=== PATIENT | male | born 1950 | race Caucasian/White ===

== ENCOUNTER 2016-07-01 12:58 | Outpatient (CLI) | payer MEDICARE, OTHER | END 2016-07-01 12:59 | disposition home or self-care (01) | DX: I10 Essential (primary) hypertension (principal); Z79.899 Other long term (current) drug therapy; Z12.5 Encounter for screening for malignant neoplasm of prostate; R73.9 Hyperglycemia, unspecified; E78.2 Mixed hyperlipidemia; M10.9 Gout, unspecified; E53.8 Deficiency of other specified B group vitamins | CPT/HCPCS: 36415; 80053; 80061; 82306; 82607; 83036; 84443; 84550; 85025; G0103 ==

== ENCOUNTER 2017-01-06 09:45 | Outpatient (CLI) | payer MEDICARE, OTHER ==
[2017-01-06 13:59] LABS: ALBUMIN/GLOBULIN RATIO 1.4 (1.0-2.2); BILIRUBIN,TOTAL 0.6 mg/dL (0.2-1.0); BUN - BLOOD UREA NITROGEN 22 mg/dL (6-20); CALCIUM 9.2 mg/dL (8.5-10.3); CARBON DIOXIDE - CO2 26 mmol/L (21-32); CHLORIDE 107 mmol/L (101-111); CHOL/HDL RATIO 3.5 (<5.0); CHOLESTEROL 196 mg/dL; GFR - MDRD 74 (>89); GLUCOSE 105 mg/dL (70-100); HDL CHOLESTEROL 56 mg/dL; LDL/HDL RATIO 2.1 (<3.6); POTASSIUM 4.3 mmol/L (3.5-5.0); SODIUM 140 mmol/L (135-145); TOTAL PROTEIN 6.6 g/dL (6.7-8.2); TRIGLYCERIDES 114 mg/dL; VLDL CHOLESTEROL 23 mg/dL
== END 2017-01-06 09:46 | disposition home or self-care (01) ==
LOC: LAB.WCP 09:45
PROVIDERS: ATTEND Physician Assistant Medical
DX: E78.2 Mixed hyperlipidemia (principal)
CPT/HCPCS: 36415; 80053; 80061

== ENCOUNTER 2017-06-18 09:30 | Outpatient (CLI) | payer MEDICARE, OTHER ==
[2017-06-18 13:11] LABS: BASOPHILS % (AUTO) 0.1 %; HGB - HEMOGLOBIN 14.1 g/dL (14.0-18.0); LYMPHOCYTES # (AUTO) 0.8 10^3/uL (1.5-3.5); LYMPHOCYTES % (AUTO) 5.5 %; MEAN CORPUSCULAR HEMOGLOBIN 31.4 pg (27.0-31.0); MEAN CORPUSCULAR HGB CONC 33.5 g/dL (32.0-36.0); MEAN CORPUSCULAR VOLUME 93.6 fL (80.0-94.0); MEAN PLATELET VOLUME 7.8 fL (7.4-11.4); MONOCYTES # (AUTO) 0.6 10^3/uL (0.0-1.0); NEUTROPHILS % (AUTO) 90.4 %; PLT - PLATELET COUNT 293 10^3/uL (130-450); RED BLOOD COUNT 4.48 10^6/uL (4.70-6.10); RED CELL DISTRIBUTION WIDTH 13.7 % (12.0-15.0); WHITE BLOOD COUNT 14.4 x10^3/uL (4.8-10.8)
[2017-06-18 13:41] LABS: ALBUMIN 4.1 g/dL (3.2-5.5); ALBUMIN/GLOBULIN RATIO 1.4 (1.0-2.2); ALKALINE PHOSPHATASE 68 IU/L (42-121); ALT ALANINE AMINOTRANSFERASE 38 IU/L (10-60); AST ASPARTATE AMINOTRANSFERASE 34 IU/L (10-42); BILIRUBIN,TOTAL 0.3 mg/dL (0.2-1.0); BUN - BLOOD UREA NITROGEN 24 mg/dL (6-20); CALCIUM 9.4 mg/dL (8.5-10.3); CARBON DIOXIDE - CO2 22 mmol/L (21-32); CHLORIDE 105 mmol/L (101-111); CHOL/HDL RATIO 3.4 (<5.0); CHOLESTEROL 236 mg/dL; CREATININE 1.1 mg/dL (0.6-1.2); GFR - MDRD 67 (>89); GLUCOSE 134 mg/dL (70-100); HDL CHOLESTEROL 70 mg/dL; LDL CHOLESTEROL,CALCULATED 148 mg/dL; LDL/HDL RATIO 2.1 (<3.6); SODIUM 136 mmol/L (135-145); TOTAL PROTEIN 7.1 g/dL (6.7-8.2); VLDL CHOLESTEROL 18 mg/dL
[2017-06-19 18:19] LABS: HB2 TOTAL 15.4 g/dL; HEMOGLOBIN A1C 0.59 g/dL; HEMOGLOBIN A1C % 5.7 % (4.6-6.2)
== END 2017-06-18 09:31 | disposition home or self-care (01) ==
LOC: LAB.WCP 09:30
PROVIDERS: ATTEND Physician Assistant Medical
DX: I10 Essential (primary) hypertension (principal); Z12.5 Encounter for screening for malignant neoplasm of prostate; R73.9 Hyperglycemia, unspecified; E53.8 Deficiency of other specified B group vitamins; M10.9 Gout, unspecified
CPT/HCPCS: 36415; 80053; 80061; 82607; 83036; 84550; 85025; G0103; 83721; 84153

== ENCOUNTER 2017-07-10 08:00 | Outpatient (CLI) | payer MEDICARE, OTHER ==
[2017-07-10 13:42] LABS: BASOPHILS % (AUTO) 0.8 %; EOSINOPHILS # (AUTO) 0.1 10^3/uL (0.0-0.7); EOSINOPHILS % (AUTO) 3.3 %; HGB - HEMOGLOBIN 14.1 g/dL (14.0-18.0); LYMPHOCYTES # (AUTO) 1.1 10^3/uL (1.5-3.5); LYMPHOCYTES % (AUTO) 27.1 %; MEAN CORPUSCULAR HEMOGLOBIN 31.9 pg (27.0-31.0); MEAN CORPUSCULAR HGB CONC 34.1 g/dL (32.0-36.0); MEAN CORPUSCULAR VOLUME 93.4 fL (80.0-94.0); MEAN PLATELET VOLUME 7.7 fL (7.4-11.4); MONOCYTES # (AUTO) 0.3 10^3/uL (0.0-1.0); MONOCYTES % (AUTO) 7.4 %; NEUTROPHILS # (AUTO) 2.6 10^3/uL (1.5-6.6); NEUTROPHILS % (AUTO) 61.4 %; PLT - PLATELET COUNT 245 10^3/uL (130-450); RED BLOOD COUNT 4.42 10^6/uL (4.70-6.10); RED CELL DISTRIBUTION WIDTH 13.7 % (12.0-15.0); WHITE BLOOD COUNT 4.2 x10^3/uL (4.8-10.8)
[2017-07-11 14:52] LABS: HEPATITIS C ANTIBODY NON-REACTIVE (NON-REACTIVE)
== END 2017-07-10 08:01 | disposition home or self-care (01) ==
LOC: LAB.WCP 08:00
PROVIDERS: ATTEND Physician Assistant Medical
DX: J45.909 Unspecified asthma, uncomplicated (principal); B19.20 Unspecified viral hepatitis C without hepatic coma; B17.8 Other specified acute viral hepatitis
CPT/HCPCS: 36415; 85025; 86803

== ENCOUNTER 2017-11-28 13:27 | Outpatient (CLI) | payer MEDICARE, OTHER ==
--- NOTE | 2017-11-29 13:55 | Ultrasound Report ---
Procedure Date: 11/28/2017 Accession Number: [id number] / [id number] Procedure: US - Ankle Brachial Index CPT Code: FULL RESULT: EXAM: BILATERAL LOWER EXTREMITY ANKLE BRACHIAL INDEX. EXAM DATE: 11/28/2017 02:30 PM. CLINICAL HISTORY: Claudication bilateral. COMPARISON: None. TECHNIQUE: Real-time sonographic vascular imaging was performed by the porcelain mixer, utilizing color-flow, Doppler flow, and spectral analysis. Multiple marketing sales representative static images were saved for review. FINDINGS: Right Leg: METAL CNC OPERATOR: PSV 92 cm/sec. Triphasic waveform. DPA: PSV 112 cm/sec. Triphasic waveform. Left Leg: METAL CNC OPERATOR: PSV 129 cm/sec. Triphasic waveform. DPA: PSV 103 cm/sec. Triphasic waveform. Brachial Artery Systolic Pressure: Right 135/83. Left 147/76. Posterior tibial Artery Systolic Pressure: Right 151/74. Left 164/78. Ankle/Arm Index: Right 1.02. Left 1.11. IMPRESSION: Normal bilateral ankle brachial index. RADIA
== END 2017-11-28 13:28 | disposition home or self-care (01) ==
LOC: DI 13:27
PROVIDERS: ATTEND Family Medicine
DX: I73.9 Peripheral vascular disease, unspecified (principal)
CPT/HCPCS: 93922

== ENCOUNTER 2018-01-14 08:00 | Outpatient (CLI) | payer MEDICARE, OTHER ==
[2018-01-14 13:02] LABS: ALBUMIN 3.7 g/dL (3.2-5.5); ALBUMIN/GLOBULIN RATIO 1.3 (1.0-2.2); ALKALINE PHOSPHATASE 77 IU/L (42-121); ALT ALANINE AMINOTRANSFERASE 23 IU/L (10-60); AST ASPARTATE AMINOTRANSFERASE 23 IU/L (10-42); BILIRUBIN,TOTAL 0.5 mg/dL (0.2-1.0); BUN - BLOOD UREA NITROGEN 28 mg/dL (6-20); CARBON DIOXIDE - CO2 24 mmol/L (21-32); CHLORIDE 112 mmol/L (101-111); CHOL/HDL RATIO 5.1 (<5.0); CHOLESTEROL 270 mg/dL; GFR - MDRD 74 (>89); GLUCOSE 104 mg/dL (70-100); HDL CHOLESTEROL 53 mg/dL; LDL CHOLESTEROL,CALCULATED 200 mg/dL; LDL/HDL RATIO 3.8 (<3.6); MAGNESIUM 1.7 mg/dL (1.7-2.8); SODIUM 141 mmol/L (135-145); TOTAL PROTEIN 6.5 g/dL (6.7-8.2); VLDL CHOLESTEROL 17 mg/dL
[2018-01-14 13:03] LABS: HB2 TOTAL 13.6 g/dL; HEMOGLOBIN A1C 0.46 g/dL; HEMOGLOBIN A1C % 5.2 % (4.6-6.2)
== END 2018-01-14 08:01 | disposition home or self-care (01) ==
LOC: LAB.WCP 08:00
PROVIDERS: ATTEND Physician Assistant Medical
DX: E78.2 Mixed hyperlipidemia (principal); R73.9 Hyperglycemia, unspecified; I10 Essential (primary) hypertension
CPT/HCPCS: 36415; 80053; 80061; 83036; 83721; 83735

== ENCOUNTER 2018-05-11 08:00 | Outpatient (CLI) | payer MEDICARE, OTHER ==
[2018-05-11 15:13] LABS: ALBUMIN 3.9 g/dL (3.2-5.5); ALBUMIN/GLOBULIN RATIO 1.4 (1.0-2.2); ALKALINE PHOSPHATASE 87 IU/L (42-121); ALT ALANINE AMINOTRANSFERASE 27 IU/L (10-60); AST ASPARTATE AMINOTRANSFERASE 25 IU/L (10-42); BILIRUBIN,TOTAL 0.8 mg/dL (0.2-1.0); BUN - BLOOD UREA NITROGEN 22 mg/dL (6-20); CALCIUM 9.1 mg/dL (8.5-10.3); CARBON DIOXIDE - CO2 27 mmol/L (21-32); CHLORIDE 104 mmol/L (101-111); CHOL/HDL RATIO 3.5 (<5.0); CHOLESTEROL 199 mg/dL; CREATININE 1.1 mg/dL (0.6-1.2); GFR - MDRD 66 (>89); GLUCOSE 100 mg/dL (70-100); HDL CHOLESTEROL 57 mg/dL; LDL CHOLESTEROL,CALCULATED 121 mg/dL; LDL/HDL RATIO 2.1 (<3.6); SODIUM 137 mmol/L (135-145); TOTAL PROTEIN 6.6 g/dL (6.7-8.2); VLDL CHOLESTEROL 21 mg/dL
== END 2018-05-11 23:59 | disposition home or self-care (01) ==
LOC: LAB.WCP 08:00
PROVIDERS: ATTEND Physician Assistant Medical
DX: E78.2 Mixed hyperlipidemia (principal)
CPT/HCPCS: 36415; 80053; 80061; 83721

== ENCOUNTER 2018-11-27 08:00 | Outpatient (CLI) | payer MEDICARE, OTHER | END 2018-11-27 08:01 | disposition home or self-care (01) | LOC: LAB.WCP 08:00 | PROVIDERS: ATTEND Physician Assistant Medical | DX: N28.89 Other specified disorders of kidney and ureter (principal) | CPT/HCPCS: 81002 ==

== ENCOUNTER 2018-12-17 08:00 | Outpatient (CLI) | payer MEDICARE, OTHER ==
[2018-12-17 12:25] LABS: BASOPHILS # (AUTO) 0.1 10^3/uL (0.0-0.1); BASOPHILS % (AUTO) 0.9 %; EOSINOPHILS # (AUTO) 0.1 10^3/uL (0.0-0.7); EOSINOPHILS % (AUTO) 2.7 %; HGB - HEMOGLOBIN 11.7 g/dL (14.0-18.0); LYMPHOCYTES # (AUTO) 1.1 10^3/uL (1.5-3.5); LYMPHOCYTES % (AUTO) 19.9 %; MEAN CORPUSCULAR HEMOGLOBIN 30.7 pg (27.0-31.0); MEAN CORPUSCULAR HGB CONC 32.1 g/dL (32.0-36.0); MEAN CORPUSCULAR VOLUME 95.5 fL (80.0-94.0); MEAN PLATELET VOLUME 9.6 fL (7.4-11.4); MONOCYTES # (AUTO) 0.6 10^3/uL (0.0-1.0); MONOCYTES % (AUTO) 12.1 %; NEUTROPHILS # (AUTO) 3.4 10^3/uL (1.5-6.6); PLT - PLATELET COUNT 292 10^3/uL (130-450); RED BLOOD COUNT 3.81 10^6/uL (4.70-6.10); RED CELL DISTRIBUTION WIDTH 14.4 % (12.0-15.0); WHITE BLOOD COUNT 5.3 x10^3/uL (4.8-10.8)
[2018-12-17 12:45] LABS: ALBUMIN 3.7 g/dL (3.2-5.5); ALBUMIN/GLOBULIN RATIO 1.3 (1.0-2.2); BILIRUBIN,TOTAL 0.8 mg/dL (0.2-1.0); CALCIUM 9.7 mg/dL (8.5-10.3); TOTAL PROTEIN 6.5 g/dL (6.7-8.2)
== END 2018-12-17 23:59 | disposition home or self-care (01) ==
LOC: LAB.WCP 08:00
PROVIDERS: ATTEND Internal Medicine Hematology & Oncology
DX: C64.1 Malignant neoplasm of right kidney, except renal pelvis (principal)
CPT/HCPCS: 36415; 80053; 83615; 85025; 85651

== ENCOUNTER 2018-12-24 14:50 | Outpatient (CLI) | payer MEDICARE, OTHER ==
[2018-12-24 19:32] LABS: ALBUMIN 3.7 g/dL (3.2-5.5); ALBUMIN/GLOBULIN RATIO 1.2 (1.0-2.2); BILIRUBIN,TOTAL 1.1 mg/dL (0.2-1.0); CALCIUM 9.7 mg/dL (8.5-10.3); TOTAL PROTEIN 6.7 g/dL (6.7-8.2)
== END 2018-12-24 23:59 | disposition home or self-care (01) ==
LOC: LAB.WCP 14:50
PROVIDERS: ATTEND Radiology Therapeutic Radiology
DX: C79.51 Secondary malignant neoplasm of bone (principal)
CPT/HCPCS: 36415; 80053; 83735

== ENCOUNTER 2019-01-02 12:39 | Outpatient (CLI) | payer MEDICARE, OTHER ==
--- NOTE | 2019-01-04 00:47 | XRAY Report ---
Reason: COUGH,LOWER EXTREMITY EDEMA,BILATERAL,HEART NURMUR Procedure Date: 01/02/2019 Accession Number: [id number] / [id number] Procedure: XR - Chest 2 View X-Ray CPT Code: 52018 FULL RESULT: EXAM: CHEST RADIOGRAPHY EXAM DATE: 01/02/2019 01:47 PM. CLINICAL HISTORY: COUGH; LOWER EXTREMITY EDEMA, BILATERAL; HEART MURMUR. COMPARISON: CHEST 2 VIEW PA/LAT 12/21/2014 8:57 PM. TECHNIQUE: 2 views. FINDINGS: Lungs/Pleura: Large lung volumes. Mild interstitial prominence of uncertain chronicity. No alveolar consolidation or pleural effusion seen. No pneumothorax. Mediastinum: Heart size is normal. Tortuous aorta. Other: Deformities of the left fifth and seventh ribs with associated pleural thickening. Possible loose body in the left shoulder. IMPRESSION: 1. Large lung volumes with mild interstitial prominence of uncertain chronicity, but new compared with 12/21/2014. 2. Left rib deformities with associated pleural thickening. These may be healing rib fractures. Rib metastases would also be in the differential diagnosis. 3. Possible osteocartilaginous loose body in the left shoulder. RADIA
== END 2019-01-02 12:40 | disposition home or self-care (01) ==
LOC: DI 12:39
PROVIDERS: ATTEND Nurse Practitioner Gerontology
DX: M95.4 Acquired deformity of chest and rib (principal); R05 Cough; R60.0 Localized edema; R01.1 Cardiac murmur, unspecified; N28.89 Other specified disorders of kidney and ureter; R06.09 Other forms of dyspnea
CPT/HCPCS: 36415; 71046; 83880

== ENCOUNTER 2019-01-07 08:00 | Outpatient (CLI) | payer MEDICARE, OTHER ==
[2019-01-07 19:36] LABS: CALCIUM 9.5 mg/dL (8.5-10.3)
== END 2019-01-07 23:59 | disposition home or self-care (01) ==
LOC: LAB.WCP 08:00
PROVIDERS: ATTEND Physician Assistant Medical
DX: R60.0 Localized edema (principal)
CPT/HCPCS: 36415; 80048

== ENCOUNTER 2019-01-20 09:00 | Outpatient (CLI) | payer MEDICARE, OTHER | END 2019-01-20 09:01 | disposition home or self-care (01) | LOC: DI 09:00 | PROVIDERS: ATTEND Physician Assistant Medical | DX: R01.1 Cardiac murmur, unspecified (principal); I27.20 Pulmonary hypertension, unspecified; I51.7 Cardiomegaly | CPT/HCPCS: 93306 ==

== ENCOUNTER 2019-01-28 11:09 | Outpatient (CLI) | payer MEDICARE, OTHER ==
--- NOTE | 2019-01-28 19:52 | CONSULTATION NOTE ---
Palliative Care Consultation - Referral Referring Provider: Dr. Ana Anguiano Time of Visit: [id number] Referral setting: [facility] [place] Referral Reason: Renal CA with mets/Pain of neoplastic origin - Information Sources Records reviewed: Previous records reviewed History/Review of Systems obtained from: Patient Exam limitations: No limitations - History of Present Illness Brief History of Present Illness: This is a 68-year-old gentleman who had developed increasing lower back pain, and in his work-up, was found to have metastatic disease to the spine. This was 11/26/2018. He had a CT scan of the chest, abdomen and pelvis which showed multiple pulmonary nodules measuring up to 5 mm. There was also bilateral hilar mediastinal lymphadenopathy and in his abdomen a 2.8 cm right adrenal mass. There is also a 7.4 x 6.6 x 8 point centimeters centimeters soft tissue mass from the superior pole of the right kidney. He also had some retroperitoneal lymphadenopathy and skeletal mets. He had a CT-guided biopsy of the right iliac crest at [place] and the pathology showed clear cell renal cell carcinoma. Patient was diagnosed with stage IV renal carcinoma, with the goal for palliative treatment. He was started on ipilimumab and nivolumab every three weeks, and received his first does week kof 01/12. He also received palliative radiation to the right scapular sternum, left acetabulum, Right superior iliac crest, right scapular and left lateral rib cage which she completed 01/04/2019. Unfortunately patient also developed increased lower extremity edema, and new cardiac murmur, and had an echo performed on 01/20 that shows mild dilated left ventricular normal systolic function of 65%, but the left atrium is severely dilated. As well as presents with severe pulmonary hypertension PASP 69 mg, and mild mitral regurgitation. He is currently on low-dose furosemide, and has follow-up with his solar water heater installer 03/12 Dr. Slaughter. Patient presents with pain of neoplastic origin, mostly related to his bony mets. He was originally started on OxyContin with titration up to 20 mg 3 times daily, unfortunately related to the unavailability of the medication, He was transitioned to MS Contin 30 mg twice daily, with the first dose last night. The equal analgesic would be of 2:3 with oxycodone to MS; patient is aware if this is inadequate can increase to 3 times daily. He does have oxycodone 10 mg for breakthrough pain. Patient also has chronic pain in his right shoulder, he reports he is not aware of bony mets there, but has DJD [id number] and has been receiving injections without much relief. Patient has post polio syndrome, on the left, and this makes it quite complicated as he does need to use a crutch and now a cane to offload secondary to his pain worsens with weightbearing. Patient's other significant symptom is his anxiety, he feels this is well controlled though currently on his BuSpar 30 mg twice daily, he is long-term been on his Celexa and bupropion and has done well with his depression. He does not feel either symptoms are currently uncontrolled, nor has his depression exacerbated. Patient meeting with palliative care today, to establish care, will assist with pain and symptom management, advanced care planning and anticipatory guidance. Medical/Surgical History - Past Medical History Cardiovascular: reports: Hypertension, High cholesterol, Murmur, Other (LE edema) Respiratory: reports: Asthma, Shortness of breath, CPAP use : reports: Benign prostate hypertrophy, Renal insuffiency HEENT: reports: Chronic vision loss Psych: reports: Depression, Anxiety Musculoskeletal: reports: Osteoarthritis, Gout, Fatigue, Other (post polio syndrome left leg) MRSA Hx?: No - Past Surgical History Ortho: reports: Hip replacement, Knee replacement - Substance History Use: Uses substance without health or social issues: NONE, Alcohol (rare use) Social History - Living Situation Living arrangement: At home Living Situation: With spouse/s.o. 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 He has 2 children, they live over in [place].He does have a history of PTSD, this is been escalated with his needs for recent testing, and has had more problems with anxiety. Also relates this back to his post polio syndrome and experiences. He has served in the [employer] and was exposed to radiation during that time.He feels well supported by his family, and does have several people he feels like he can debrief with. Family History - Family History Family History: Mother: ( in auto accident at 48), Father: , Cancer (met lung), Sister: Alive and Well, Brother: Alive and Well Medications/Allergies - Medications Home Medications: Ambulatory Orders Medication Instructions Recorded Confirmed Aspirin 81 mg PO DAILY 12/21/14 02/01/19 Telmisartan [Micardis] 80 mg pe PO DAILY 12/21/14 02/01/19 Ondansetron HCl [Zofran] 8 mg PO Q8HR PRN 01/13/19 02/01/19 Oxycodone HCl 5 - 10 mg PO Q4HR PRN 01/26/19 02/01/19 Morphine Sulfate ER [Ms Contin] 30 mg PO TID 01/27/19 02/01/19 ALPRAZolam [Alprazolam] 0.5 mg PO Q8HR PRN 02/01/19 02/01/19 Amlodipine Besylate [Norvasc] 10 mg PO DAILY 02/01/19 02/01/19 Bupropion HCl [Bupropion Xl] 150 mg PO DAILY 02/01/19 02/01/19 Buspirone HCl 30 mg PO BID 02/01/19 02/01/19 Celecoxib [CeleBREX] 100 mg PO DAILY 02/01/19 02/01/19 Cholecalciferol (Vitamin D3) 2,000 unit PO DAILY 02/01/19 02/01/19 [Vitamin D3] Citalopram Hydrobromide 40 mg PO DAILY 02/01/19 02/01/19 [Citalopram HBr] Furosemide 40 mg PO DAILY 02/01/19 02/01/19 Multivit-Min/FA/Lycopen/Lutein 1 tab PO DAILY 02/01/19 02/01/19 [Centrum Silver Men Tablet] Polyethylene Glycol 3350 [Miralax] 17 gm PO DAILY PRN 02/01/19 02/01/19 Rosuvastatin Calcium 10 mg PO DAILY 02/01/19 02/01/19 Sennosides [Senna Lax] 1 - 2 tab PO DAILY PRN 02/01/19 02/01/19 Ubidecarenone [Co Q-10] 200 mg PO DAILY 02/01/19 02/01/19 - Allergies Allergies/Adverse Reactions: Allergies Allergy/AdvReac Type Severity Reaction Status Date / Time No Known Drug Allergies Allergy Verified 01/12/19 11:39 Review of Systems - Constitutional Constitutional: reports: Fatigue, Weight loss (reports intentional). denies: Fever, Chills - Eyes Eyes: reports: Vision loss, Corrective lenses - Cardiovascular Cardiovascular: reports: Chest pain, Edema, Exertional dyspnea, Decr. exercise tolerance - Respiratory Respiratory: reports: SOB with exertion. denies: SOB at rest - Gastrointestinal Gastrointestinal: reports: Diarrhea (reports loose stools for a couple of days). denies: Constipation - Genitourinary Genitourinary: reports: Frequency - Musculoskeletal Musculoskeletal: reports: Muscle aches, Stiffness, Limited range of motion (right shoulder), Muscle weakness, Joint pain, Assistive devices (uses cane /crutch) - Integumentary Integumentary: reports: Dryness - Neurological Neurological: reports: General weakness, Abnormal gait - Psychiatric Psychiatric: reports: Depression (treated since 2005), Anxiety (improved with buspar), Other (PTSD) - All Other Systems All Other Systems: reports: Reviewed and negative Physical Exam - Vital Signs Pulse Rate: 79 Respiratory Rate: 18 O2 Saturation: 95 (ra @ rest) Blood Pressure: 107/57 - Physical Exam General Appearance: positive: No acute distress, Alert Eyes Bilateral: positive: Normal inspection ENT: positive: No signs of dehydration Neck: positive: No JVD, Trachea midline Cardiovascular: positive: Regular rate & rhythm, Systolic murmur Respiratory: positive: No respiratory distress, Diminished in bases. negative: Wheezes, Rales, Rhonchi Abdomen: positive: Non-tender, Soft, Nml bowel sounds Skin: positive: Pallor, Dryness (LE) Extremities: positive: Pedal edema (2+ up to mid calf; new symptoms for patient) Neurologic/Psychiatric: positive: Oriented x3, Mood/affect nml Palliative Care - POLST Patient has POLST: No Pain: Pain improved, Location (right shoulder chronic pain; left groin area worsens with weight bearing; has done okay so far with transition to MS Contin 30 mg BID; can increase to TID;) Tiredness/Fatigue: Moderate (4-6) Drowsiness/Sedation: None Nausea: None Depression: Moderate (4-6) Anxiety: Moderate (4-6) Dyspnea: None Anorexia: Mild (1-3) Sleep: Sleep improved Constipation: Yes, Opoid induced, Managed Feelings of wellbeing/Perceived Quality of Life: Good, Acceptable Performance Status: Patient mostly impacted with his ambulation, and activity tolerance. He is currently able to manage his own ADLs, and is currently driving. Would put him at a PPS of 70% - Palliative Care Discussion: Patient's understanding is his disease is stage IV renal cancer, that they are not going to "cure me". His goal and is hopeful for 5 to 10 years, he reports with his experience with polio he perceives himself "as a survivor", he is finding some positives about his diagnosis. Finding he and his are doing well, setting priorities and sharing the emotional journey of this as well. He does have significant history of PTSD, and this was triggered with his more recent testing. He does feel currently his anxiety is well controlled on the BuSpar, and is feeling quite positive. Patient willing to share his journey regarding his anxiety and depression, and is hoping to remain positive. He has had multiple interactions with the healthcare system, and continues to acclimate to his new schedule. He has just finished radiation and now starting his im munotherapy. Did not explore advanced care planning at this point in time, will continue as rapport is developed. Results - Lab Results Lab results reviewed: Yes Impression and Recommendations - Palliative Care Impression: This is a ken[place] 68-year-old gentleman with metastatic kidney cancer, with mets to the bone, lungs, intrathoracic lymph nodes, and retroperitoneal lymph nodes. He is status post radiation, and has received his first dose of immunotherapy. He presents with moderate symptom burden, pain moderately controlled, anxiety controlled and depression controlled. Palliative care to provide support for pain and symptom management, advanced care planning, and anticipatory guidance. Recommendations/Counseling Done: 1. Pain of neoplastic origin. Patient and transition to [facility], counseling provided regarding titration to TID if inidicated, and side effects of medication. Counseling provided regarding 1 provider use and 1 pharmacy. Palliative care will provide ongoing prescriptions and evaluation. Patient has received radiation, has multiple bone mets, does feel received some relief. 2. Constipation. Patient presents with some diarrhea/loose stools today. We did discuss this most likely given the lateness of its initiation related to his immunotherapy. Did discuss if greater than 2 or 3 loose stools in a day, would need to initiate Imodium. Counseling provided regarding bowel medication management in the context of opioid-induced, with use of MiraLAX and senna and titration principles. 3. Lower extremity edema. Counseling provided regarding encouragement to elevate feet, patient unable to tolerate or get stockings on, given his size. Will send him a link for Velcro stockings as well as shoes. Patient skin quite dry, high risk for cellulitis. Instructed to keep moisturized on a regular b asis. Also instructed to monitor regularly. 4. CPAP. Patient reports CPAP has not been working properly for over a week, difficulty tolerating it. We did discuss in the context of his cardiac status this is an important thing to put as a priority for follow-up. Patient will continue to work to get this corrected, encouraged follow-up with sleep lab as may need new adjustments. 5. Anxiety. Patient currently managed with his BuSpar, feels like he is doing well currently with both his anxiety and depression. Counseling provided regarding normalizing his current grief and loss process, and listing previous approaches for coping, and support system. We will continue to evaluate if needs further support from palliative care cash grain farmer or /and social service technician. 6. Advanced care planning. Initiated conversation regarding patient's goals of care, is hopeful for quantity of life, wants to get back to his boat, he would need to be somewhat more functional and have less pain. But this would be something that adds to his quality of life. We will continue to explore advanced care planning and further goal setting in follow-up appointment. Time Spent: 75 minutes with greater than 50% of this done in counseling related to new diagnosis, pain and symptom management, anticipatory guidance and setting of rapport
== END 2019-01-28 11:10 | disposition home or self-care (01) ==
LOC: PC 11:09
PROVIDERS: ATTEND Nurse Practitioner Adult Health
DX: Z51.5 Encounter for palliative care (principal); G89.3 Neoplasm related pain (acute) (chronic); K59.03 Drug induced constipation; R60.0 Localized edema; G47.9 Sleep disorder, unspecified; F41.9 Anxiety disorder, unspecified; C79.51 Secondary malignant neoplasm of bone; C64.1 Malignant neoplasm of right kidney, except renal pelvis; Z79.899 Other long term (current) drug therapy; Z79.891 Long term (current) use of opiate analgesic
CPT/HCPCS: 99205

== ENCOUNTER 2019-02-05 09:21 | Outpatient (CLI) | payer MEDICARE, OTHER ==
--- NOTE | 2019-02-05 22:39 | CONSULTATION NOTE ---
Palliative Care Follow Up - Referral Referring Provider: Chritsa Ingram PA-C Time of Visit: [phone] Referral setting: [facility] [place] Referral Reason: Pain of neoplastic origin/Renal Cell CA - Information Sources Records reviewed: Previous records reviewed History/Review of Systems obtained from: Patient, Family ( [place] with patient today) Exam limitations: No limitations - History of Present Illness Update Brief HPI Update: This is a 68-year-old gentleman who was diagnosed with metastatic clear cell renal cell carcinoma, he has mets to the bones, lungs, intrathoracic lymph nodes, right kidney and retroperitoneal nodes. He has had significant pain, in fact presented with lower back and his work-up was found to have metastatic disease to the spine on 11/26/2018. He has received palliative radiation to To the right scapular, sternum, left acetabulum, right superior iliac crest, left lateral ribs which he completed 01/04/2019. Unfortunately he is continued to have an exacerbation of severe pain. His most intense pain is still in his mid to right thoracic back area, left hip, and right gluteal area. He also has long-standing chronic right shoulder pain, unclear if he has metastatic disease there. Unfortunately unable to locate OxyContin, had transition over to MS Contin 30 mg 3 times daily. Patient with some misunderstanding or reluctance to take the oxycodone for breakthrough pain, so his pain is remained uncontrolled at 12/19 unclear opioid dose titration needs, without breakthrough pain dosing. Patient has been trialed on fentanyl prior without relief, he is having some side effects with the morphine combined most like with his antianxiety medications, of wordfinding, tracking, has not had confusion, but also attributes some of this to lack of sleep and today is unable to weight-bear without significant pain, has had no falls, or traumatic events. Is using the wheelchair, and his does express sadness over his level of suffering. He has had one treatment of his immunotherapy, ipilimumab, and nivolumab on 01/15/2019. His treatment was held, related to his worsening cardiac/pulmonary s tatus with lower extremity edema. Patient was to start on Bumex on 02/02 did not receive the first dose until today. Fortunately he was able to get into the operations supervisor Saturday 02/10 as his original appointment was in January. He reports his cardiac symptoms actually happened prior to his initiation of immunotherapy, but certainly at risk for increasing problems with his intrathoracic lymph nodes. He did have an echo on 01/20 that showed ejection fraction of 65%, severe pulmonary hypertension, sclerotic aortic valve, mildly dilated LV, and severely dilated left atrium.He presents today with ongoing lower extremity edema, 2+ taut up to his knees, with no improvement unfortunately he has stopped the furosemide while waiting for the Bumex. Continues with intermittent shortness of breath, but does not present with crackles or wheezing. He continues to struggle with his CPAP, but this is both related to the machine and also his PTSD and being able to wear it. Patient also is experiencing some mild diarrhea, anorexia, taste changes, and has exacerbated his underlying depression and anxiety. Social History - Living Situation Living arrangement: At home Living Situation: With spouse/s.o. Medications/Allergies - Medications Home Medications: Ambulatory Orders Medication Instructions Recorded Confirmed Aspirin 81 mg PO DAILY 12/21/14 02/06/19 Telmisartan [Micardis] 80 mg pe PO DAILY 12/21/14 02/06/19 Oxycodone HCl 5 - 10 mg PO Q4HR PRN 01/26/19 02/06/19 Morphine Sulfate ER [Ms Contin] 30 mg PO TID 01/27/19 02/06/19 ALPRAZolam [Alprazolam] 0.5 mg PO Q8HR PRN 02/01/19 02/06/19 Amlodipine Besylate [Norvasc] 10 mg PO DAILY 02/01/19 02/06/19 Buspirone HCl 30 mg PO BID 02/01/19 02/06/19 Celecoxib [CeleBREX] 100 mg PO DAILY 02/01/19 02/06/19 Cholecalciferol (Vitamin D3) 2,000 unit PO DAILY 02/01/19 02/06/19 [Vitamin D3] Citalopram Hydrobromide 40 mg PO DAILY 02/01/19 02/06/19 [Citalopram HBr] Multivit-Min/FA/Lycopen/Lutein 1 tab PO DAILY 02/01/19 02/06/19 [Centrum Silver Men Tablet] Rosuvastatin Calcium 10 mg PO DAILY 02/01/19 02/06/19 Ubidecarenone [Co Q-10] 200 mg PO DAILY 02/01/19 02/06/19 B12/Levomefolate Calcium/B-6 1,000 mcg PO DAILY 02/04/19 02/06/19 [Foltx Tablet] Bumetanide 2 mg PO DAILY 02/04/19 02/06/19 Magnesium Oxide [Magnesium] 400 mg PO DAILY 02/04/19 02/06/19 buPROPion [Wellbutrin Sr] 150 mg PO DAILY 02/04/19 02/06/19 Naloxone HCl [Narcan] 4 mg LAYO PRN PRN 02/06/19 02/06/19 Ondansetron [Ondansetron Odt] 4 mg PO Q6HR PRN 02/06/19 02/06/19 - Allergies Allergies/Adverse Reactions: Allergies Allergy/AdvReac Type Severity Reaction Status Date / Time No Known Drug Allergies Allergy Verified 02/02/19 08:53 Review of Systems - Constitutional Constitutional: reports: Fatigue, Poor appetite, Weight loss. denies: Fever, Chills - Eyes Eyes: reports: Vision loss, Corrective lenses - Ears, Nose & Throat Ears, Nose & Throat: reports: Hearing loss - Cardiovascular Cardiovascular: reports: Edema, Exertional dyspnea, Decr. exercise tolerance - Respiratory Respiratory: reports: Cough, Sputum production (in am), SOB at rest, SOB with exertion, Other (having difficulty with CPAP) - Gastrointestinal Gastrointestinal: reports: Abdominal distention, Diarrhea (loose stools 2-3 x a day), Nausea (intermittent), Bloating, Poor appetite, Early satiety, Other (taste changes) - Musculoskeletal Musculoskeletal: reports: Back pain, Muscle aches, Stiffness, Limited range of motion, Muscle weakness, Joint pain (right shoulder), Assistive devices (using crutch/cane), Transfer issues (using wheelchair today with increased pain/weakness) - Integumentary Integumentary: reports: Dryness - Neurological Neurological: reports: General weakness, Memory problems (reports some mild intermittent confusion with word finding/difficulty tracking sentences; sleeping poorly adding to confusion), Abnormal gait - Psychiatric Psychiatric: reports: Depression, Anxiety, Other (more issues with PTSD) - Hematologic/Lymphatic Hematologic/Lymphatic: reports: Anemia - All Other Systems All Other Systems: reports: Reviewed and negative Physical Exam - Vital Signs Pulse Rate: 85 Respiratory Rate: 18 O2 Saturation: 93 (ra @ rest) Blood Pressure: 105/47 - Physical Exam General Appearance: positive: Mild distress, Anxious Eyes Bilateral: positive: Normal inspection ENT: negative: Pharyngeal erythema Neck: positive: Trachea midline Cardiovascular: positive: Systolic murmur. negative: JVD present Respiratory: positive: No respiratory distress (but gets easily breathless with activity), Diminished in bases. negative: Wheezes, Rales, Rhonchi Abdomen: positive: Non-tender, Soft, Nml bowel sounds, Obese. negative: Guarding, Mass Skin: positive: Dryness Extremities: positive: Pedal edema (taut LE edema up to knees; not weeping but with few scattered blisters; heels dry and crackling), Other (difficulty with weight bearing related to pain;) Neurologic/Psychiatric: positive: Oriented x3, Weakness Palliative Care - POLST Patient has POLST: No Pain: Pain worsening Tiredness/Fatigue: Severe (7-10) Drowsiness/Sedation: Moderate (4-6) Nausea: Severe (7-10) Depression: Severe (7-10) Anxiety: Severe (7-10) Dyspnea: Mild (1-3) Anorexia: Moderate (4-6), Weight loss Sleep: Sleeps poorly Constipation: No Results - Lab Results Lab results reviewed: Yes Lab and Imaging Results: She does have some pancytopenia with a WBC of 3.3; RBC 2.9; hemoglobin 9.1; hematocrit 28.6 and decreased neutrophils at 2.2; CMP includes a potassium 3.3; BUN 28; calcium 7.7; total bili 1.1; alk phos 235; and a concern total protein 5.7 and albumin 2.8 Impression and Recommendations - Palliative Care Impression: This is a 68-year-old gentleman with metastatic renal cell cancer, with significant metastatic disease to the bone, lungs, intrathoracic lymph nodes, retroperitoneal lymph nodes. He is status post radiation to multiple bony sites, as well as is received his first dose of immunotherapy. Unfortunately had to hold this week's dose secondary to his ongoing issues with lower extremity edema. He presents with poorly controlled pain, and high symptom burden. Palliative care to provide support for pain and symptom management, a dvanced care planning, and anticipatory guidance Recommendations/Counseling Done: 1. Pain of neoplastic origin. Patient is currently on MS Contin 30 mg 3 times daily, his pain is a 8 out of 10, with localized areas, they do appear to be in areas that he has had radiation therapy. We did discuss may still get some benefit further, he can be up to a few months. Patient is not been using any oxycodone for breakthrough pain, counseling and education provided to both patient and regarding long-acting medication and short acting for breakthrough pain. Teaching regarding breakthrough pain and preemptive dosing for activities that cause increased pain. Instructed to medicate for comfort with breakthrough pain medication, and will then know about titrating up if we need to. is quite anxious about patient's current level of sedation and difficulty with tracking, we did discuss in the context of side effects of medications particularly morphine this is not unusual but can continue to watch. Did in the context of safety prescribing and education, provide them with a prescription and instructions for the use of Narcan nasal spray. 2. Diarrhea. Patient has not been taking any bowel meds, has had 2-3 loose stools a day, has no abdominal pain or cramping with this. Denies that they are watery. Did discuss and counseled to use Imodium if having more than 2-3 and a 24-hour period, particularly given his low potassium. Counseling provided regarding high potassium foods. 3. Lower extremity edema. This is most likely multifactorial in origin, patient does have low albumin, keeps his feet dependent, now presents with underlying cardiac issues as well as known intrathoracic lymph nodes.Unfortunately patient has not been taking his furosemide while waiting for Bumex prescription, he took first dose today. Patient has been counseled on daily weights, and blood pressure as he is somewhat hypotensive today. He is to see Dr. Stevens on 02/10 and bring his blood pressures, pulse, as well as his weights to help Dr. Stevens with titration. Provided information on Velcro compression hose, as he felt he was unable to tolerate the ones to pull on. Also for proper foot wear, as he is using open sandals and has high risk for cellulitis. Counseling provided to again on skin care as well, and need to inspect and keep skin supple. 4. CPAP. Patient did take it down to [facility] he feels like they may have found a correction for it, unfortunately with exacerbation of his PTSD is having trouble tolerating CPAP. We did discuss in the context of using the alprazolam for breakthrough anxiety at bedtime if needed. 5. Nausea. He did have acute episode of nausea unclear what this is related to, but certainly morphine can add to risk for intermittent nausea. Prescription provided for ondansetron 4 mg 1 tab ODT every 6 hours if needed. 6. Anorexia. reports and patient confirms patient is continued to have weight loss. Patient attributes to taste changes, nausea, and early satiety. Counseling provided regarding ways to add calories, uses smoothies, use of nutritional supplements. Patient has always struggled with weight loss and restricting calories this is been difficult for him to get his head around. We did discuss in the context of his poor protein and albumin, need to add some increased protein and keep hydrated as well. 7. Advanced care planning. Counseling provided to normalize her feelings of fear and concern with patient's increasing health problems, symptom burden, and now with a serious illness with the treatment of only palliative intent. Initiated conversation regarding need to continue to explore goals of care, hoping for the best, but also counseling through some of the nuances regarding advanced care planning. We will continue to work on this as particularly patients healthcare status gets more defined. Time Spent: 75 minutes with greater than 50% of this done in counseling related to his pain and symptom management, counseling with his regarding partnering with his symptom management some medications, anticipatory guidance and initiation of conversation around advanced care planning. Will plan to follow-up with patient again in 1 week, given the severity of his symptoms, he will abide been seeing a operations supervisor and oncology again.
== END 2019-02-05 09:22 | disposition home or self-care (01) ==
LOC: PC 09:21
PROVIDERS: ATTEND Nurse Practitioner Adult Health
DX: Z51.5 Encounter for palliative care (principal); G89.3 Neoplasm related pain (acute) (chronic); C79.51 Secondary malignant neoplasm of bone; C78.00 Secondary malignant neoplasm of unspecified lung; C77.8 Secondary and unspecified malignant neoplasm of lymph nodes of multiple regions; C64.1 Malignant neoplasm of right kidney, except renal pelvis; R06.02 Shortness of breath; R19.7 Diarrhea, unspecified; R60.0 Localized edema; R11.0 Nausea; R63.0 Anorexia; Z79.899 Other long term (current) drug therapy; Z79.891 Long term (current) use of opiate analgesic; Z92.3 Personal history of irradiation
CPT/HCPCS: 99215

== ENCOUNTER 2019-02-07 00:06 | Outpatient (CLI) | payer MEDICARE, OTHER | END 2019-02-07 00:07 | disposition critical access hospital (66) | LOC: EMS 00:06 | PROVIDERS: ATTEND Surgery | DX: R19.7 Diarrhea, unspecified (principal); R42 Dizziness and giddiness; R41.0 Disorientation, unspecified | CPT/HCPCS: A0425; A0427 ==

== ENCOUNTER 2019-02-07 00:19 | Emergency (ER) | payer MEDICARE, OTHER ==
--- NOTE | 2019-02-07 00:46 | ED Physician Documentation ---
History of Present Illness - Stated complaint Stated Complaint: DIARRHEA/DIZZY - Chief complaint Chief Complaint: Neuro - Additonal information Additional information: This is a 68-year-old male with a history of metastatic renal cell carcinoma (follows with Dr. Jorge, Status post chemotherapy and radiation therapy, currently on immunotherapy infusions, last infusion was 2 weeks ago) who presents with diarrhea, weakness, and leg swelling. Patient has had diarrhea for several days, but today it became constant to the point where he could not make it to the bathroom and has had multiple episodes of incontinence on himself. He has had too many episodes of diarrhea to account, this is nonbloody. He is also had some dizziness and generalized weakness for the last several days. Today he felt so weak that he was going to fall when he was up on his feet, so his family called an ambulance and patient was brought here for further evaluation. He had a blood sugar of 87 for EMS, and received 200 mL of normal saline en route. Patient denies any chest pain, any abdominal pain, and has not had any vomiting. He has had swelling of his legs for weeks now, he has had a DVT study of his bilateral legs which was negative, and It sounds like he has been treated with diuretics which have not been effective in keeping his swelling down. He states he is also told that he had some "fluid on the lungs" that will cause him to become more short of breath if he lies flat for extended periods of time. He does have an intermittent cough. No measured fever. Review of Systems Constitutional: reports: Chills. denies: Fever Eyes: denies: Loss of vision Ears: denies: Ear pain Nose: denies: Rhinorrhea / runny nose Cardiac: denies: Chest pain / pressure Respiratory: reports: Cough GI: denies: Abdominal Pain, Vomiting : denies: Dysuria Neurologic: reports: Generalized weakness Immunocompromised: reports: Immunocompromised PD PAST MEDICAL HISTORY - Past Medical History Cardiovascular: Hypertension, High cholesterol, Murmur, Other Respiratory: Asthma, Shortness of breath, CPAP use : Benign prostate hypertrophy, Renal insuffiency HEENT: Chronic vision loss Psych: Depression, Anxiety Musculoskeletal: Osteoarthritis, Gout, Fatigue, Other - Past Surgical History Past Surgical History: Yes Ortho: Knee replacement, Knee replacement - Present Medications Home Medications: Ambulatory Orders Medication Instructions Recorded Confirmed Aspirin 81 mg PO DAILY 12/21/14 02/07/19 Telmisartan [Micardis] 80 mg pe PO DAILY 12/21/14 02/07/19 Oxycodone HCl 5 - 10 mg PO Q4HR PRN 01/26/19 02/07/19 Morphine Sulfate ER [Ms Contin] 30 mg PO TID 01/27/19 02/07/19 ALPRAZolam [Alprazolam] 0.5 mg PO Q8HR PRN 02/01/19 02/07/19 Amlodipine Besylate [Norvasc] 10 mg PO DAILY 02/01/19 02/07/19 Buspirone HCl 30 mg PO BID 02/01/19 02/07/19 Celecoxib [CeleBREX] 100 mg PO DAILY 02/01/19 02/07/19 Cholecalciferol (Vitamin D3) 2,000 unit PO DAILY 02/01/19 02/07/19 [Vitamin D3] Citalopram Hydrobromide 40 mg PO DAILY 02/01/19 02/07/19 [Citalopram HBr] Multivit-Min/FA/Lycopen/Lutein 1 tab PO DAILY 02/01/19 02/07/19 [Centrum Silver Men Tablet] Rosuvastatin Calcium 10 mg PO DAILY 02/01/19 02/07/19 Ubidecarenone [Co Q-10] 200 mg PO DAILY 02/01/19 02/07/19 B12/Levomefolate Calcium/B-6 1,000 mcg PO DAILY 02/04/19 02/07/19 [Foltx Tablet] Bumetanide 2 mg PO DAILY 02/04/19 02/07/19 Magnesium Oxide [Magnesium] 400 mg PO DAILY 02/04/19 02/07/19 buPROPion [Wellbutrin Sr] 150 mg PO DAILY 02/04/19 02/07/19 Naloxone HCl [Narcan] 4 mg LAYO PRN PRN 02/06/19 02/07/19 Ondansetron [Ondansetron Odt] 4 mg PO Q6HR PRN 02/06/19 02/07/19 Denosumab [Xgeva] 02/07/19 - Allergies Allergies/Adverse Reactions: Allergies Allergy/AdvReac Type Severity Reaction Status Date / Time No Known Drug Allergies Allergy Verified 02/07/19 00:31 - Social History Does the pt smoke?: No Smoking Status: Never smoker Does the pt drink ETOH?: Yes Does the pt have substance abuse?: No - Immunizations Immunizations are current?: Yes - POLST Patient has POLST: No PD ED PE NORMAL - Vitals Vital signs reviewed: Yes - General General: Alert and oriented X 3 - HEENT HEENT: Atraumatic, PERRL - Neck Neck: Supple, no meningeal sign - Cardiac Cardiac: RRR - Respiratory Respiratory: Other (Bibasilar crackles) - Abdomen Abdomen: Soft, Non tender, Non distended, Other (Rotund) - Derm Derm: Warm and dry, No rash - Extremities Extremities: Other (2+ edema of the legs to the level of the thigh. There is some stool on his leg.) - Neuro Neuro: Alert and oriented X 3, commercial producer 2-12 intact, No motor deficit, No sensory deficit - Psych Psych: Normal mood, Normal affect Results - Vitals Vitals: Vital Signs - 24 hr 02/07/19 02/07/19 06:42 07:00 Temperature 36.8 C 36.6 C Heart Rate 91 89 Respiratory 19 15 Rate Blood Pressure 108/35 L 102/42 L O2 Saturation 95 96 Oxygen O2 Source Nasal cannula Oxygen Flow Rate 3 - EKG (time done) 00:55 Other comments: Other comments (Rate 88, rhythm sinus, there is slight ST depression in the lateral leads, no ST segment elevation. Poor R wave progression. QTC is prolonged at 550.) 2:12 Other comments: Other comments (Rate 80, rhythm sinus, there is T wave flattening in the lateral leads. No ST segment elevation, possible slight less than 0.[address] depression in V4 and V5. QTc is borderline prolonged at 495.) - Labs Labs: Microbiology 02/07/19 02:44 Blood Culture - Preliminary Blood - Left Arm NO GROWTH AFTER 1 DAY 02/07/19 02:15 Blood Culture - Preliminary Blood - Right Arm NO GROWTH AFTER 1 DAY Laboratory Tests 02/07/19 02/07/19 02/07/19 00:50 00:50 00:50 WBC 3.7 L RBC 2.67 L Hgb 8.3 L Hct 25.7 L MCV 96.3 H MCH 31.1 H MCHC 32.3 RDW 14.7 Plt Count 197 MPV 8.5 Neut # (Auto) Not Reportable Lymph # (Auto) Not Reportable [place] # (Auto) Not Reportable Eos # (Auto) Not Reportable Baso # (Auto) Not Reportable Absolute Nucleated RBC Not Reportable Total Counted 100 Band Neuts % (Manual) 4 Abnorm Lymph % (Manual) 0 Nucleated RBC % Not Reportable Neutrophils # (Manual) 2.7 Lymphocytes # (Manual) 0.4 L Monocytes # (Manual) 0.5 Eosinophils # (Manual) 0.0 Basophils # (Manual) 0.0 Differential Comment MANUAL DIFFERENTIAL WBC Morphology NORMAL APPEARANCE Platelet Estimate NORMAL (130-450,000) Platelet Morphology NORMAL APPEARANCE RBC Morph Micro Appear 1+ HYPOCHROMASIA VBG pH VBG pCO2 VBG pO2 VBG HCO3 VBG Total CO2 VBG O2 Saturation VBG Base Excess Sodium 132 L Potassium 4.0 Chloride 97 L Carbon Dioxide 24 Anion Gap 11.0 BUN 70 H Creatinine 2.3 H Estimated GFR (MDRD) 28 L Glucose 103 H Lactic Acid Calcium 7.3 L Magnesium 2.7 Total Bilirubin 1.3 H AST 54 H ALT 40 Alkaline Phosphatase 317 H Troponin I High Sens B-Natriuretic Peptide Total Protein 5.1 L Albumin 2.5 L Globulin 2.6 Albumin/Globulin Ratio 1.0 Lipase 17 L TSH < 0.08 L Free T4 Stl C. diff Tox B Gene 02/07/19 02/07/19 02/07/19 00:50 00:50 00:50 WBC RBC Hgb Hct MCV MCH MCHC RDW Plt Count MPV Neut # (Auto) Lymph # (Auto) [place] # (Auto) Eos # (Auto) Baso # (Auto) Absolute Nucleated RBC Total Counted Band Neuts % (Manual) Abnorm Lymph % (Manual) Nucleated RBC % Neutrophils # (Manual) Lymphocytes # (Manual) Monocytes # (Manual) Eosinophils # (Manual) Basophils # (Manual) Differential Comment WBC Morphology Platelet Estimate Platelet Morphology RBC Morph Micro Appear VBG pH VBG pCO2 VBG pO2 VBG HCO3 VBG Total CO2 VBG O2 Saturation VBG Base Excess Sodium Potassium Chloride Carbon Dioxide Anion Gap BUN Creatinine Estimated GFR (MDRD) Glucose Lactic Acid Calcium Magnesium Total Bilirubin AST ALT Alkaline Phosphatase Troponin I High Sens 1168.2 H* B-Natriuretic Peptide 459 H Total Protein Albumin Globulin Albumin/Globulin Ratio Lipase TSH Free T4 4.84 H Stl C. diff Tox B Gene 02/07/19 02/07/19 02/07/19 01:07 02:17 05:15 WBC RBC Hgb Hct MCV MCH MCHC RDW Plt Count MPV Neut # (Auto) Lymph # (Auto) [place] # (Auto) Eos # (Auto) Baso # (Auto) Absolute Nucleated RBC Total Counted Band Neuts % (Manual) Abnorm Lymph % (Manual) Nucleated RBC % Neutrophils # (Manual) Lymphocytes # (Manual) Monocytes # (Manual) Eosinophils # (Manual) Basophils # (Manual) Differential Comment WBC Morphology Platelet Estimate Platelet Morphology RBC Morph Micro Appear VBG pH 7.440 H VBG pCO2 37.6 L VBG pO2 58.2 H VBG HCO3 25.0 VBG Total CO2 26.1 VBG O2 Saturation 91.6 H VBG Base Excess 0.9 Sodium Potassium Chloride Carbon Dioxide Anion Gap BUN Creatinine Estimated GFR (MDRD) Glucose Lactic Acid 2.1 Calcium Magnesium Total Bilirubin AST ALT Alkaline Phosphatase Troponin I High Sens B-Natriuretic Peptide Total Protein Albumin Globulin Albumin/Globulin Ratio Lipase TSH Free T4 Stl C. diff Tox B Gene NEGATIVE - Rads (name of study) CXR Radiology: Other (Bilateral basilar airspace opacities, central line in place in the SVC) CT abd/pelvis Radiology: Other (Right adrenal metastatic lesion, lesions seen elsewhere, irregular bilateral lower lobe opacities which may be infectious, wall thickenin g of the colon and fluid of the colon suggesting diarrhea and infection) Procedures - Central Line Central Line Preparation: Consent Obtained, Ultrasound used, Sterile prep and drape Central line location: Right IJ Central line type: Triple lumen Central line aftercare: Chlorhexidine disc placed, Secured, Placement confirmed, No pneumothorax, No complications, Bundle checklist complete, Pt tolerated well PD MEDICAL DECISION MAKING - ED course Complexity details: considered differential ED course: Patient presents with weakness and diarrhea, he is also hypotensive. On arrival his initial blood pressure is in the 80s over 40s. He is mentating well. He was given 500 cc of fluid, fluid was given judiciously because he has leg swelling and reported history of some fluid on the monitor is may be pulmonary edema. With the fluid his blood pressure improved temporarily, and then decreased again to the 70s to 80s/30s to 40s. He is given an additional 1 L bolus with no maintained improvement in his blood pressure. His lactate is within normal range at 2.1 Chest x-ray shows bilateral opacities which may be infectious. Labs are notable for elevated creatinine, and elevated high-sensitivity troponin over 1000, mildly elevated BNP in the 400s, high free T4 and low TSH. Patient also has a leukopenia and anemia which seems slightly worse than his baseline. He has 2 EKGs which did not show any dynamic changes, no obvious signs of ischemia, he does not have any chest pain, is unclear if his high-sensitivity troponin elevation is due to actual [place]/NSTEMI, or heart strain. On breif bedside echocardiogram his ejection fraction does not appear significantly reduced, though my windows were limited. Blood cultures were drawn, patient was started on vancomycin and Zosyn, and he was started on norepinephrine at 2 mcg/min. He did require escalation to 3 mg/min, but had excellent response, and his MAP improved to greater than 65. Central line in the right IJ was placed, location was confirmed, and norepinephrine was continued through this. Overall patient appears to have sepsis, With a possible pulmonary source, he may also have a gastrointestinal source. His CT scan shows signs of enteritis and his known malignant disease, but no acute surgical pathology. Patient may also have some hypovolemia from his diarrhea, though he has not been particularly fluid responsive here and appears prone to volume overload from his history. Given his pressor requirement, his lab abnormalities, he requires ICU care. I spoke to [facility] ([facility] he receives his oncology treatment), they have no beds and no ICU beds available, so patient will be transferred to the ICU at [facility] in [place], Dr. Lopez accepting. Patient is in agreement with this plan. He has not required escalation of his norepinephrine, and he continues to mentate well with no new symptoms. He was transferred via ALS. Departure - Departure Disposition: 02 Transfer Acute Care Hosp Clinical Impression: Elevated troponin, CHASE (acute kidney injury) Hypotension Qualifiers: Hypotension type: unspecified hypotension type Qualified Code(s): I95.9 - Hypotension, unspecified Diarrhea Qualifiers: Diarrhea type: unspecified type Qualified Code(s): R19.7 - Diarrhea, unspecified Pneumonia Qualifiers: Pneumonia type: due to unspecified organism Laterality: bilateral Lung location: unspecified part of lung Qualified Code(s): J18.9 - Pneumonia, unspecified organism Condition: Serious Discharge Date/Time: 02/07/19 07:20
[2019-02-07 00:54] LABS: BASOPHILS % (AUTO) 0.8 %; EOSINOPHILS % (AUTO) 0.5 %; HGB - HEMOGLOBIN 8.3 g/dL (14.0-18.0); MEAN CORPUSCULAR HEMOGLOBIN 31.1 pg (27.0-31.0); MEAN CORPUSCULAR HGB CONC 32.3 g/dL (32.0-36.0); MEAN CORPUSCULAR VOLUME 96.3 fL (80.0-94.0); MEAN PLATELET VOLUME 8.5 fL (7.4-11.4); NEUTROPHILS % (AUTO) 68.6 %; PLT - PLATELET COUNT 197 10^3/uL (130-450); RED BLOOD COUNT 2.67 10^6/uL (4.70-6.10); RED CELL DISTRIBUTION WIDTH 14.7 % (12.0-15.0); WHITE BLOOD COUNT 3.7 x10^3/uL (4.8-10.8)
[2019-02-07 01:00] LABS: ABNORMAL LYMPHS % (MANUAL) 0 %
[2019-02-07 01:07] LABS: ALBUMIN 2.5 g/dL (3.2-5.5); BILIRUBIN,TOTAL 1.3 mg/dL (0.2-1.0); CALCIUM 7.3 mg/dL (8.5-10.3); CREATININE 2.3 mg/dL (0.6-1.2); MAGNESIUM 2.7 mg/dL (1.7-2.8); TOTAL PROTEIN 5.1 g/dL (6.7-8.2)
[2019-02-07 01:19] LABS: BAND NEUTROPHILS % (MANUAL) 4 %; BASOPHILS % (MANUAL) 1 %; LYMPHOCYTES # (MANUAL) 0.4 10^3/uL (1.5-3.5); LYMPHOCYTES % (MANUAL) 11 %; MONOCYTES # (MANUAL) 0.5 10^3/uL (0.0-1.0)
[2019-02-07 01:20] LABS: PLATELET ESTIMATE, MANUAL NORMAL (130-450,000) (NORMAL); PLATELET MORPHOLOGY NORMAL APPEARANCE (NORMAL); RBC MORPHOLOGY (MULTIPLE) 1+ HYPOCHROMASIA (NORMAL)
[2019-02-07 01:21] LABS: DIFFERENTIAL COMMENT MANUAL DIFFERENTIAL
--- NOTE | 2019-02-07 01:25 | XRAY Report ---
Reason: Weakness Procedure Date: 02/07/2019 Accession Number: [id number] / [id number] Procedure: XR - Chest 1 View X-Ray CPT Code: 06383 FULL RESULT: EXAM: CHEST RADIOGRAPHY EXAM DATE: 02/07/2019 01:18 AM. CLINICAL HISTORY: Weakness. COMPARISON: CHEST 2 VIEW 01/02/2019 1:38 PM. TECHNIQUE: 1 view. FINDINGS: Lungs/Pleura: Patchy bibasilar airspace disease, new from previous. No effusion or pneumothorax. Mediastinum: Mild cardiomegaly. Other: Stable left rib fractures. IMPRESSION: Patchy bibasilar airspace disease, new from previous. Stable left rib fractures. RADIA
[2019-02-07] MEDS ORDERED: SODIUM CHLORIDE 0.9% 1,000 ML IV ONE (02:11)
[2019-02-07] MEDS ORDERED: VANCOMYCIN INJ 1.5 GM in SODIUM CHLORIDE 0.9% 500 ML IV STA (02:11)
[2019-02-07] MEDS ORDERED: PIPERACILLIN/TAZOBACTAM 3.375 GM in SODIUM CHLORIDE 0.9% MINIBAG 100 ML IV STA (02:11)
[2019-02-07 02:27] LABS: VBG PCO2 37.6 mmHg (41-51); VBG PH 7.44 (7.31-7.41)
[2019-02-07 02:28] LABS: VBG BASE EXCESS 0.9 mmol/L (-2 - +2); VBG PO2 58.2 mmHg (25-47); VBG TOTAL CO2 26.1 mmol/L (24-29)
[2019-02-07] MEDS ORDERED: SODIUM CHLORIDE 0.9% 500 ML IV ONE (02:47)
[2019-02-07] MEDS ORDERED: fentaNYL 100 MCG/2 ML VIAL IVP STA ×2 (02:50→02:51)
--- NOTE | 2019-02-07 04:29 | CT Report ---
Reason: Hypotension back pain, diarrhea, hx cancer Procedure Date: 02/07/2019 Accession Number: [id number] / [id number] Procedure: CT - Abdomen/Pelvis WO CPT Code: FULL RESULT: EXAM: CT ABDOMEN AND PELVIS (CT KUB) EXAM DATE: 02/07/2019 04:11 AM. CLINICAL HISTORY: Hypotension, back pain, diarrhea, history of cancer. History of renal cancer. Diminished GFR. COMPARISONS: None. TECHNIQUE: Routine axial helical CT imaging was performed through the abdomen and pelvis without IV contrast. Reconstructions: Coronal and sagittal. In accordance with CT protocol optimization, one or more of the following dose reduction techniques were utilized for this exam: automated exposure control, adjustment of mA and/or KV based on patient size, or use of iterative reconstructive technique. FINDINGS: Lack of intravenous contrast reduces exam sensitivity and specificity. Right Kidney/Ureter: There is a mass within the upper portion of the right kidney, measuring 7.8 x 6.7 cm (image 40 series 3). Multifocal additional renal parenchymal lesions are noted, most of which are probably secondary to renal cysts. Some of the other lesions are difficult to characterize. Left Kidney/Ureter: Multifocal renal parenchymal lesions are noted, some of which are most likely renal cysts. Other lesions are difficult to characterize. Dominant cyst arises from the lower pole of the left kidney measuring 7.8 cm (image 55 series 3). There is a 5 mm stone within the left mid kidney posteriorly. There is no hydronephrosis. Abdominal Solid Organs: Right adrenal mass noted, measuring 2.9 x 6.3 cm (image 27 series 3). Nonspecific nodular thickening of the left adrenal also present, possibly secondary to metastatic disease. No definite calcified gallstones are noted. Other abdominal parenchymal organs are without significant abnormality within the confines of a noncontrast exam. Bowel: Wall thickening of the distal colon is present, particularly the distal descending colon and sigmoid colon. Adjacent stranding is noted. There is fluid throughout the colon, suggesting a diarrheal event. No definite abnormal dilated small bowel loops noted to suggest obstruction on this exam. Appendix: Appendix is not identified with certainty. Lymph Nodes: Pathologic retroperitoneal lymphadenopathy is noted, with a dominant confluent retrocaval lymph node, measuring 4.6 x 3.6 cm (image 44 series 3). Fluid: No significant ascites. Vasculature: Normal caliber aorta. Other: Moderate body wall edema is noted. Pelvis: There is nonspecific presacral edema. Streak artifact related to the right hip prosthesis obscures detailed assessment of the pelvis. Bones: Multifocal large lytic lesions are noted within the osseous structures, some of which also contain large soft tissue components. Severe multilevel degenerative change within the lumbar spine. Moderate left convex scoliosis of the lumbar spine. Lower Chest: Irregular nodular opacity within the lower lobes are seen bilaterally, left greater than right. These may be secondary to infection. Metastatic disease difficult to exclude with certainty. There is a small right-sided pleural effusion and a trace of left-sided pleural effusion. Normal heart size. Moderate to severe coronary vascular calcifications partially visualized. IMPRESSION: 1. Lack of intravenous contrast reduces exam sensitivity and specificity. 2. There is a 5 mm stone within the left mid kidney. No hydronephrosis within the right or left kidney. 3. There is a mass within the upper portion of the right kidney measuring 7.8 x 6.7 cm, likely corresponding to the known renal cell carcinoma. 4. Multifocal renal parenchymal lesions are seen elsewhere, which are probably secondary to cysts. However, there are several lesions which are difficult to fully characterized on this noncontrast study. 5. Right adrenal metastatic lesion measuring 6.3 x 2.9 cm. Retroperitoneal metastatic lymphadenopathy noted, with a dominant retrocaval lymph node measuring 4.6 x 3.6 cm. Multifocal large lytic osseous metastases, several of which contain soft tissue components. 6. Irregular bilateral lower lobe opacities may be from infection. Concurrent metastatic disease difficult to exclude. 7. Wall thickening as well as surrounding stranding noted involving the distal descending colon and sigmoid colon. Appearance raises the possibility of infection. Fluid throughout the colon suggesting a diarrheal event. 8. Moderate body wall edema is noted. Small bilateral effusions, right greater than left. RADIA
[2019-02-07] MEDS ORDERED: ASPIRIN CHEW 81 MG TABLET PO STA (04:36)
--- NOTE | 2019-02-07 07:03 | XRAY Report ---
Reason: Post central line placement Procedure Date: 02/07/2019 Accession Number: [id number] / [id number] Procedure: XR - Chest for Line Placement CPT Code: FULL RESULT: EXAM: CHEST RADIOGRAPHY EXAM DATE: 02/07/2019 06:51 AM. CLINICAL HISTORY: Post central line placement. COMPARISON: CHEST 1 VIEW 02/07/2019 12:59 AM. TECHNIQUE: 1 view. FINDINGS: Support Devices: Interval placement of right IJ approach central venous catheter tip terminates in the middle third SVC. Lungs/Pleura: Subsegmental bibasilar patchy opacities consistent with atelectasis persist. Small ill-defined airspace opacity in the left lower lung adjacent to rib fractures possibly indicating superimposed contusion. No pneumothorax. Mediastinum: Stable mild cardiomegaly. Mediastinal contours are unchanged. Other: Stable left-sided rib fractures with areas of extrapleural hematoma. IMPRESSION: 1. New right IJ central venous catheter tip middle third SVC. No apparent complication. 2. Stable left rib fractures. RADIA
[2019-02-07 07:05] VITALS: BP 102/42
== END 2019-02-07 07:20 | disposition short-term general hospital (02) ==
LOC: EDBD → EDUNIT# → ED 00:19
DX: N17.9 Acute kidney failure, unspecified (principal); I95.9 Hypotension, unspecified; K52.9 Noninfective gastroenteritis and colitis, unspecified; J18.9 Pneumonia, unspecified organism; C64.1 Malignant neoplasm of right kidney, except renal pelvis; C79.71 Secondary malignant neoplasm of right adrenal gland; R74.8 Abnormal levels of other serum enzymes; D64.9 Anemia, unspecified; D72.819 Decreased white blood cell count, unspecified; R60.0 Localized edema; I45.81 Long QT syndrome; I10 Essential (primary) hypertension; Z79.82 Long term (current) use of aspirin
CPT/HCPCS: 36415; 36556; 71045; 74176; 82803; 83605; 83690; 83735; 83880; 84439; 84484; 87040; 87493; 93005; 96365; 96366; 96368; 96375; 99284; 99285; A9270; J3370; 80053; 84443; 85025

== ENCOUNTER 2019-02-18 23:09 | Outpatient (CLI) | payer MEDICARE, OTHER | END 2019-02-18 23:59 | disposition critical access hospital (66) | LOC: EMS 23:09 | PROVIDERS: ATTEND Surgery | DX: R31.9 Hematuria, unspecified (principal) | CPT/HCPCS: A0425; A0429 ==

== ENCOUNTER 2019-02-18 23:22 | Emergency (ER) | payer MEDICARE, OTHER ==
--- NOTE | 2019-02-18 23:55 | ED Physician Documentation ---
PD HPI MALE - Stated complaint Stated Complaint: BLOOD IN URINE - Chief complaint Chief Complaint: General - History obtained from History obtained from: Patient - History of Present Illness Timing - onset: Today (Just prior to arrival) Timing - details: Abrupt onset Pain level max: 0 Pain level now: 0 Associated symptoms: Hematuria. No: Dysuria, Unable to urinate, Abdominal pain, Back pain Similar symptoms before: Has not had sx before Recently seen: Admitted (Just discharged from [facility] 2 days ago for sepsis) - Additional information Additional information: This is a 68-year-old man who presents with complaints that he sat down on the toilet to have a bowel movement. He ended up not having the BM but when he looked down he is also urinated in the toilet and there was a drop of blood at the tip of his penis and on the toilet riser that he was sitting on. He does have stage IV renal carcinoma is been treated with radiation and he had 1 dose of immunotherapy that put him into sepsis that he was recently admitted for. Throughout this he is never seen blood in the urine and it frightened him. He was just discharged from [facility] 2 days ago where he did receive Lovenox injections while he was in the hospital. He also takes a baby aspirin daily. He denies dizziness, fever. He says other than seeing that urine he actually feels good. He does have a long-standing cough that they have attributed to pulmonary edema and a touch of asthma. He has inhalers he uses at home but does not feel that he needs a treatment right now. He says his leg edema is "over the top" but that his kidney function is excellent. He did see his primary care provider who doubled the dose of torsemide he is taking. Review of Systems Constitutional: denies: Fever Cardiac: denies: Chest pain / pressure, Palpitations Respiratory: reports: Cough. denies: Dyspnea GI: denies: Abdominal Pain, Nausea, Vomiting, Diarrhea : reports: Hematuria. denies: Dysuria, Incontinent Musculoskeletal: reports: Neck pain Neurologic: reports: Other (Patient has a history of polio and uses a walker for ambulation.) PD PAST MEDICAL HISTORY - Past Medical History Past Medical History: Yes Cardiovascular: Hypertension, High cholesterol, Murmur, Other Respiratory: Asthma, Shortness of breath, CPAP use Neuro: None Endocrine/Autoimmune: None : Benign prostate hypertrophy, Renal insuffiency HEENT: Chronic vision loss Psych: Depression, Anxiety Musculoskeletal: Osteoarthritis, Gout, Fatigue, Other Derm: None - Past Surgical History Past Surgical History: Yes Ortho: Knee replacement, Knee replacement - Present Medications Home Medications: Ambulatory Orders Medication Instructions Recorded Confirmed Aspirin 81 mg PO DAILY 12/21/14 02/19/19 Telmisartan [Micardis] 80 mg pe PO DAILY 12/21/14 02/19/19 Oxycodone HCl 5 - 10 mg PO Q4HR PRN 01/26/19 02/19/19 Morphine Sulfate ER [Ms Contin] 30 mg PO TID 01/27/19 02/19/19 Buspirone HCl 10 mg PO DAILY 02/01/19 02/19/19 Celecoxib [CeleBREX] 200 mg PO DAILY 02/01/19 02/19/19 Cholecalciferol (Vitamin D3) 2,000 unit PO DAILY 02/01/19 02/19/19 [Vitamin D3] Citalopram Hydrobromide 40 mg PO DAILY 02/01/19 02/19/19 [Citalopram HBr] Multivit-Min/FA/Lycopen/Lutein 1 tab PO DAILY 02/01/19 02/19/19 [Centrum Silver Men Tablet] Rosuvastatin Calcium 10 mg PO DAILY 02/01/19 02/19/19 Ubidecarenone [Co Q-10] 200 mg PO DAILY 02/01/19 02/19/19 B12/Levomefolate Calcium/B-6 1,000 mcg PO DAILY 02/04/19 02/19/19 [Foltx Tablet] Magnesium Oxide [Magnesium] 400 mg PO DAILY 02/04/19 02/19/19 buPROPion [Wellbutrin Sr] 150 mg PO DAILY 02/04/19 02/19/19 Denosumab [Xgeva] 120 mg IM 02/07/19 Ipilimumab [Yervoy] 50 mg IV MAINTENANCE.IV 02/19/19 02/19/19 Potassium Chloride [Micro-K] 10 meq PO DAILY 02/19/19 02/19/19 Torsemide 40 mg PO DAILY 02/19/19 02/19/19 - Allergies Allergies/Adverse Reactions: Allergies Allergy/AdvReac Type Severity Reaction Status Date / Time No Known Drug Allergies Allergy Verified 10/10/19 23:30 - Social History Does the pt smoke?: No Smoking Status: Never smoker Does the pt drink ETOH?: Yes Does the pt have substance abuse?: No - Immunizations Immunizations are current?: Yes - POLST Patient has POLST: No PD ED PE NORMAL - Vitals Vital signs reviewed: Yes - General General: Alert and oriented X 3, No acute distress, Well developed/nourished - HEENT HEENT: Atraumatic, PERRL, Moist mucous membranes - Neck Neck: Supple, no meningeal sign - Cardiac Cardiac: RRR, Other (3/6 systolic murmur heard throughout the precordium) - Respiratory Respiratory: No respiratory distress, Clear bilaterally - Abdomen Abdomen: Normal bowel sounds, Soft, Non tender - Derm Derm: Normal color, Warm and dry - Extremities Extremities: Other (There is 2-3+ pitting edema of the feet and lower legs.) - Neuro Neuro: Alert and oriented X 3, engineer exhauster 2-12 intact, Other (No gross neurological deficits.) - Psych Psych: Normal mood, Normal affect Results - Vitals Vitals: Vital Signs - 24 hr 02/18/19 02/18/19 02/18/19 23:26 23:44 23:56 Temperature 37.2 C Heart Rate 85 79 Respiratory 14 16 17 Rate Blood Pressure 120/58 L 107/46 L O2 Saturation 93 95 02/19/19 02/19/19 02/19/19 00:02 00:20 00:48 Temperature Heart Rate 81 77 79 Respiratory 17 17 16 Rate Blood Pressure 111/51 L 109/31 L O2 Saturation 95 94 95 02/19/19 00:58 Temperature Heart Rate Respiratory 17 Rate Blood Pressure O2 Saturation Oxygen O2 Source Room air - Labs Labs: Laboratory Tests 02/18/19 02/18/19 02/19/19 00:15 23:56 00:00 WBC 7.2 RBC 2.82 L Hgb 8.8 L Hct 27.9 L MCV 98.9 H MCH 31.2 H MCHC 31.5 L RDW 16.0 H Plt Count 352 MPV 8.9 Neut # (Auto) 5.5 Lymph # (Auto) 0.6 L [place] # (Auto) 0.8 Eos # (Auto) 0.2 Baso # (Auto) 0.1 Absolute Nucleated RBC 0.00 Nucleated RBC % 0.0 Sodium 138 Potassium 4.2 Chloride 97 L Carbon Dioxide 32 Anion Gap 9.0 BUN 17 Creatinine 1.0 Estimated GFR (MDRD) 74 L Glucose 100 Calcium 7.9 L Urine Color YELLOW Urine Clarity CLEAR Urine pH 8.5 H Ur Specific [place] 1.010 Urine Protein NEGATIVE Urine Glucose (UA) NEGATIVE Urine Ketones NEGATIVE Urine Occult Blood TRACE-INTA Urine Nitrite NEGATIVE Urine Bilirubin NEGATIVE Urine Urobilinogen 0.2 (NORMAL) Ur Leukocyte Esterase NEGATIVE Ur Microscopic Review NOT INDICATED Urine Culture Comments NOT INDICATED PD MEDICAL DECISION MAKING - ED course Complexity details: reviewed old records, reviewed results, d/w patient, d/w family ED course: Patient declined an albuterol nebulizer. Urinalysis had dip positive for intact blood. The urine did dip positive for blood. Hemoglobin is 8.8 but that is actually improved from his prior visit. His BUN and creatinine are normal. Patient has been recently hospitalized receiving Lovenox and takes baby aspirin with known renal carcinoma. He no longer has gross blood evident in the urine. He is encouraged to follow-up with his oncologist regarding the new symptom of blood however its likely that it is due to the recent Lovenox injections in the known tumor. He is counseled on reasons to return to the emergency department. Departure - Departure Disposition: 01 Home, Self Care Clinical Impression: Hematuria Qualifiers: Hematuria type: gross Qualified Code(s): R31.0 - Gross hematuria Anemia Qualifiers: Anemia type: unspecified type Qualified Code(s): D64.9 - Anemia, unspecified Condition: Good Instructions: ED Hematuria Follow-Up: Elaine yLnn PA-C [Primary Care Provider] - Seven Anguiano MD [Physician No Access] - Comments: Be sure to drink plenty of water. If you see blood tomorrow I would contact the oncologist otherwise keep your appointment for follow-up on the . If you are passing clots and become unable to urinate you need to return immediately for reevaluation. Discharge Date/Time: 02/19/19 00:59
[2019-02-19 00:08] LABS: BILIRUBIN,URINE NEGATIVE (NEGATIVE); GLUCOSE, URINE (UA) NEGATIVE (NEGATIVE); KETONES,URINE (UA) NEGATIVE (NEGATIVE); LEUKOCYTE ESTERASE, URINE NEGATIVE (NEGATIVE); NITRITE,URINE NEGATIVE (NEGATIVE); OCCULT BLOOD,URINE TRACE-INTA (NEGATIVE); PH,URINE 8.5 PH (5.0-7.5); PROTEIN,URINE NEGATIVE (NEGATIVE); UROBILINOGEN,URINE 0.2 (NORMAL) E.U./dL (NORMAL)
[2019-02-19 00:09] LABS: CLARITY,URINE CLEAR (CLEAR)
[2019-02-19 00:16] LABS: BASOPHILS # (AUTO) 0.1 10^3/uL (0.0-0.1); BASOPHILS % (AUTO) 0.8 %; EOSINOPHILS # (AUTO) 0.2 10^3/uL (0.0-0.7); EOSINOPHILS % (AUTO) 2.9 %; HGB - HEMOGLOBIN 8.8 g/dL (14.0-18.0); LYMPHOCYTES # (AUTO) 0.6 10^3/uL (1.5-3.5); LYMPHOCYTES % (AUTO) 8.5 %; MEAN CORPUSCULAR HEMOGLOBIN 31.2 pg (27.0-31.0); MEAN CORPUSCULAR HGB CONC 31.5 g/dL (32.0-36.0); MEAN CORPUSCULAR VOLUME 98.9 fL (80.0-94.0); MEAN PLATELET VOLUME 8.9 fL (7.4-11.4); MONOCYTES # (AUTO) 0.8 10^3/uL (0.0-1.0); MONOCYTES % (AUTO) 10.6 %; NEUTROPHILS # (AUTO) 5.5 10^3/uL (1.5-6.6); NEUTROPHILS % (AUTO) 76.6 %; PLT - PLATELET COUNT 352 10^3/uL (130-450); RED BLOOD COUNT 2.82 10^6/uL (4.70-6.10); WHITE BLOOD COUNT 7.2 x10^3/uL (4.8-10.8)
[2019-02-19 00:28] LABS: CALCIUM 7.9 mg/dL (8.5-10.3)
[2019-02-19 00:49] VITALS: BP 109/31
== END 2019-02-19 00:59 | disposition home or self-care (01) ==
LOC: EDUNIT# → ED 23:22
DX: R31.0 Gross hematuria (principal); D64.9 Anemia, unspecified; C64.9 Malignant neoplasm of unspecified kidney, except renal pelvis; J45.909 Unspecified asthma, uncomplicated; I10 Essential (primary) hypertension; R01.1 Cardiac murmur, unspecified; Z79.82 Long term (current) use of aspirin
CPT/HCPCS: 36415; 80048; 81001; 81003; 85025; 87086; 99283

== ENCOUNTER 2019-02-23 15:38 | Outpatient (CLI) | payer MEDICARE, OTHER ==
--- NOTE | 2019-02-23 18:09 | CONSULTATION NOTE ---
Palliative Care Follow Up - Referral Referring Provider: Dr. 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 He did receive palliative radiation to his bony mets with some improvement in his pain, he also received ipilimumab and nivolumab on 01/15/2019. Fortunately he developed ongoing diarrhea, that resulted in admission to [facility] 02/07-02/16, with shock due to colitis, acutley in ICU. Colitis was confirmed to be a side effect of his immunotherapy, unfortunately this becomes not available therapy for him. He is quite anxious regarding the next step, and has met with oncology who will be starting him on a targeted therapy. On his CT of his abdomen obtained 02/07 it does continue to show 7.8 x 6.7 cm mass in upper portion of the right kidney, multifocal renal parenchymal lesions elsewhere, right adrenal metastatic lesion 6.3 x 2.9 cm, with retroperitoneal metastatic lymphadenopathy with the largest node 4.6 x 3.6, and multifocal large lytic osseous metastasis. It also showed irregular bilateral lower lobe pulmonary opacities, and then wall thickening surrounding stranding of the distal descending colon and sigmoid colon and moderate body wall edema. Patient is also continue to struggle with his ongoing issues regarding his cardiac status, he had developed a murmur, and was found to have a sclerotic AV valve, severe pulmonary hypertension, severely dilated left atrium, and continues to struggle with lower extremity edema. He did see his primary care provider which doubled his furosemide to 40 mg twice daily, he does have some orthostasis today, with mild dizziness and his blood pressure 102/50. He has been doing daily weights with decreasing weight, given his retroperitoneal adenopathy would suspect lympadenopathy playing a part in the persistent swelling. He is due to see his machine setter supervisor tomorrow Dr. Stevens, would most likely benefit from a thorough review of his current medication and diuretic need and use. He does continue with a chronic cough, and breathlessness with activity. Palliative care is working with patient's pain. He continues with persistent pain in his left hip area, he has chronic right shoulder pain, but has not needed any breakthrough pain medication. He is currently managed on MS Contin 30 mg 3 times daily. He has not had any difficulty with constipation, as his diarrhea has been resolving. Despite his fairly traumatic ICU stay, he has been managing his anxiety, he remains quite pragmatic and wanting to move forward with treatment. He is currently receiving home health and finding ways to better manage his issues around and mobility both related to his pain, generalized weakness, and his post polio syndrome. Social History - Living Situation Living arrangement: At home Living Situation: With spouse/s.o. 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 He has 2 children, who live nearby in [place]. He does have a history of PTSD, this has been escalated with his most recent experiences. He has served in the [employer] and was exposed to radiation during this time, he feels like he has a good supportive network. Medications/Allergies - Medications Home Medications: Ambulatory Orders Medication Instructions Recorded Confirmed Aspirin 81 mg PO DAILY 12/21/14 02/24/19 Telmisartan [Micardis] 80 mg pe PO DAILY 12/21/14 02/24/19 Oxycodone HCl 5 - 10 mg PO Q4HR PRN 01/26/19 02/24/19 Morphine Sulfate ER [Ms Contin] 30 mg PO TID 01/27/19 02/24/19 Buspirone HCl 30 mg PO BID 02/01/19 02/24/19 Celecoxib [CeleBREX] 200 mg PO .200 AM 100 PM 02/01/19 02/24/19 Cholecalciferol (Vitamin D3) 2,000 unit PO DAILY 02/01/19 02/24/19 [Vitamin D3] Citalopram Hydrobromide 40 mg PO DAILY 02/01/19 02/24/19 [Citalopram HBr] Multivit-Min/FA/Lycopen/Lutein 1 tab PO DAILY 02/01/19 02/24/19 [Centrum Silver Men Tablet] Rosuvastatin Calcium 10 mg PO DAILY 02/01/19 02/24/19 Ubidecarenone [Co Q-10] 200 mg PO DAILY 02/01/19 02/24/19 B12/Levomefolate Calcium/B-6 1,000 mcg PO DAILY 02/04/19 02/24/19 [Foltx Tablet] Magnesium Oxide [Magnesium] 400 mg PO DAILY 02/04/19 02/24/19 buPROPion [Wellbutrin Sr] 150 mg PO DAILY 02/04/19 02/24/19 Denosumab [Xgeva] 120 mg IM .30 DAYS 02/07/19 02/24/19 Potassium Chloride [Micro-K] 10 meq PO DAILY 02/19/19 02/24/19 Torsemide 40 mg PO BID 02/19/19 02/24/19 Loperamide [Imodium] 2 mg PO PRN PRN MDD 16 mg 02/24/19 02/24/19 Polyethylene Glycol 3350 [Miralax] 17 gm PO DAILY PRN 02/24/19 02/24/19 Senna [Senokot] 8.6 mg PO BID PRN 02/24/19 02/24/19 - Allergies Allergies/Adverse Reactions: Allergies Allergy/AdvReac Type Severity Reaction Status Date / Time No Known Drug Allergies Allergy Verified 02/23/19 14:20 Review of Systems - Constitutional Constitutional: reports: Fatigue, Weight loss. denies: Fever, Chills - Eyes Eyes: reports: Vision loss, Corrective lenses - Ears, Nose & Throat Ears, Nose & Throat: reports: Hoarseness - Cardiovascular Cardiovascular: reports: Edema, Lightheadedness, Exertional dyspnea, Decr. exercise tolerance - Respiratory Respiratory: reports: Cough, SOB at rest, SOB with exertion, Other (has resolved CPAP issues; wearing at night now) - Gastrointestinal Gastrointestinal: reports: Constipation (mild), Early satiety, Other (continues with taste changes). denies: Abdominal pain, Abdominal distention, Diarrhea - Genitourinary Genitourinary: reports: Hematuria (had ED visit 02/18) - Musculoskeletal Musculoskeletal: reports: Back pain, Stiffness, Muscle weakness, Assistive devices - Integumentary Integumentary: reports: Dryness - Neurological Neurological: reports: General weakness - Psychiatric Psychiatric: reports: Depression, Anxiety - Hematologic/Lymphatic Hematologic/Lymphatic: reports: Anemia - All Other Systems All Other Systems: reports: Reviewed and negative Physical Exam - Vital Signs Pulse Rate: 86 Respiratory Rate: 18 Blood Pressure: 102/50 - Physical Exam General Appearance: positive: No acute distress, Anxious ENT: negative: Pharyngeal erythema Neck: positive: Trachea midline Respiratory: positive: No respiratory distress Skin: positive: Pallor, Dryness Extremities: positive: Pedal edema Neurologic/Psychiatric: positive: Oriented x3, Mood/affect nml, Weakness Palliative Care - POLST Patient has POLST: No POLST Status: Full Code Pain: Pain unchanged, Location (3/10 left hip most problematic see HPI) Tiredness/Fatigue: Moderate (4-6) Drowsiness/Sedation: Mild (1-3) Nausea: None Depression: Moderate (4-6) Anxiety: Moderate (4-6) Dyspnea: Moderate (4-6) Anorexia: Mild (1-3) Sleep: Sleep improved Constipation: Yes, Opoid induced, Intermittent constipation Feelings of wellbeing/Perceived Quality of Life: Fair, Acceptable Performance Status: Patient feels functional status is improving daily, is having more energy. Looking forward to doing more. Is managing in home setting with increased equipment support and instruction from rehab team. - Palliative Care Discussion: Patient is quite pragmatic and is approach to his current health problems, approaches it like a civil drafting technician. Trying to put together the pieces of the moving parts. He is quite anxious to continue with treatment, has very little memory of his ICU stay, though feels like the care was good, and did not trigger too much of his PTSD. His does report it was quite scary, and she was quite overwhelmed, and both are hoping to avoid hospitalization in the future again. That there is still further treatment available as the immunotherapy is not going to be an option. He is anxious to get started. We did discuss though setting short-term goals, [place], encouraged to work around his treatment and appointment schedule. It is time to focus on trying to find some normalizing activities as well, particular after their most recent trauma. Did not revisit advanced care planning as patient is quite fatigued today and on the heels of still gathering information. He is due to see his machine setter supervisor tomorrow. Results - Lab Results Lab results reviewed: Yes Impression and Recommendations - Palliative Care Impression: This is a 68-year-old gentleman with metastatic renal cell carcinoma with significant metastatic disease to bones, lungs, adrenal gland, intrathoracic loads, and retroperitoneal lymph nodes. He is status post radiation to multiple bony sites, received immunotherapy with resulting severe side effect of colitis. And to transition to targeted therapy, awaiting insurance approval. Continues with concern regarding his cardiac status, pulmonary hypertension and CKD. He is due to see machine setter supervisor tomorrow. Pain is currently controlled, but continues with moderate to high symptom burden. Palliative care to provide support for pain and symptom management, advanced care planning, and anticipatory guidance. Recommendations/Counseling Done: 1. Pain of neoplastic origin. Patient is currently on MS Contin 30 mg 3 times daily, his pain is improved, is down to 2-3 out of 10 with localized areas most consistent still in his left hip area. He has needed minimal oxycodone for breakthrough pain, though does understand now how to use it properly. 2. Lower extremity edema. PCP has recently doubled his torsemide. He does present with hypotension today. Instructed not only on daily weights, but to take daily blood pressure. Is seeing Dr. Stevens tomorrow, has lost quite a bit of fluid weight with some lightheadedness, suspect adding to LE edema with his retroperitoneallymphadenopathy. 3. Dyspnea. I suspect this is multifactorial in origin, including his new diagnosis of severe pulmonary hypertension, cardiac changes, anemia, and deconditioning. Patient with known lung mets as well. Encourage patient to continue to pace activities. 4. Anxiety. Patient's coping mechanisms including clotting and plan of action. He is quite anxious to restart on his treatment for his cancer, and continue to gather information regarding his cardiac status. Counseling provided regarding setting some short term goals of " normal life". Patient feels he is currently managing, will offer palliative care professor of social work at next visit, given patient's distraction at this time. 5. Advanced care planning. Patient does present with serious illness of both his renal cell carcinoma, and severe pulmonary hypertension. Patient's present goals include establishing treatment plan and returning to some level of independence. We will continue to revisit advanced care planning documents at future visits. Patient currently is a full code Time Spent: 30 minutes with getting 50% of this done in counseling regarding pain and symptom management, and anticipatory guidance as well as coordination of care.
== END 2019-02-23 15:39 | disposition home or self-care (01) ==
LOC: PC 15:38
PROVIDERS: ATTEND Nurse Practitioner Adult Health
DX: Z51.5 Encounter for palliative care (principal); G89.3 Neoplasm related pain (acute) (chronic); R60.0 Localized edema; R06.00 Dyspnea, unspecified; F41.9 Anxiety disorder, unspecified; I27.20 Pulmonary hypertension, unspecified; C79.51 Secondary malignant neoplasm of bone; C78.02 Secondary malignant neoplasm of left lung; C78.01 Secondary malignant neoplasm of right lung; C79.71 Secondary malignant neoplasm of right adrenal gland; C77.8 Secondary and unspecified malignant neoplasm of lymph nodes of multiple regions; C64.1 Malignant neoplasm of right kidney, except renal pelvis; Z79.891 Long term (current) use of opiate analgesic; Z79.899 Other long term (current) drug therapy; Z79.82 Long term (current) use of aspirin; Z87.19 Personal history of other diseases of the digestive system; Z92.3 Personal history of irradiation
CPT/HCPCS: 99214

== ENCOUNTER 2019-03-09 10:06 | Outpatient (CLI) | payer MEDICARE, OTHER ==
[2019-03-09] MEDS ORDERED: IOVERSOL 320 50 ML VIAL ONE (10:30)
[2019-03-09] MEDS ORDERED: IOVERSOL 320 100 ML VIAL IVP ONE ×2 (10:30→15:22)
[2019-03-09] MEDS ORDERED: IOVERSOL 320 50 ML VIAL PO ONE (15:22)
--- NOTE | 2019-03-09 15:28 | CT Report ---
Reason: METASTATIC RENAL CA Procedure Date: 03/09/2019 Accession Number: [id number] / [id number] Procedure: CT - CHEST W CPT Code: FULL RESULT: EXAM: CT CHEST EXAM DATE: 03/09/2019 12:02 PM. CLINICAL HISTORY: METASTATIC RENAL CA. COMPARISONS: CHEST 2 VIEW 01/02/2019 1:38 PM CHEST 2 VIEW PA/LAT 12/21/2014 8:57 PM CHEST 1 VIEW 02/07/2019 12:59 AM. TECHNIQUE: Routine helical CT imaging was performed through the chest. IV contrast: 100 cc Optiray 320. Reconstructions: Coronal and sagittal. In accordance with CT protocol optimization, one or more of the following dose reduction techniques were utilized for this exam: automated exposure control, adjustment of mA and/or KV based on patient size, or use of iterative reconstructive technique. FINDINGS: Extensive metastatic disease is present. 1. There is ill-defined left fifth lateral rib destruction with an associated soft tissue mass and pleural thickening projecting medially . Pleural-based mass measures approximate 3.4 x 2.6 cm axial by 3.6 cm vertical. 2. There is extensive destruction of the left seventh lateral rib with an associated soft tissue mass measuring 5.8 x 3.1 cm axial by approximately 7.5 cm vertical. The adjacent long shows ill-defined masslike spiculated soft tissue density, likely representing parenchymal extension of tumor. 3. 9 mm left apical mass /62 4. Irregular posterior medial right hemithorax poorly marginated soft tissue mass extending over a vertical distance of approximately 12.5 cm 15/130 with associated destruction of the right ninth rib. There is potential for neural foraminal invasion /spinal canal extension at T8-T9 and T9-T10. 5. Asymmetric pleural thickening right apex /61 and 1397. 6. Ill-defined obstruction with pathologic fracture right scapula 65. 7. Ill-defined obstruction of the sternum 34. 8. Ill-defined destruction of the left L1 vertebral body 110. 9. Massive hilar and mediastinal adenopathy: Left hilar lymph node 2.3 cm 60. Right hilar lymph node 4.5 cm 58. Right paratracheal lymph node 2.8 cm . AP window lymph node 2 cm 46. Pretracheal lymph node 2.6 cm . Subcarinal lymph node 2.6 cm . No pleural effusion or pneumothorax. IMPRESSION: Widespread metastatic disease to the chest includin. Innumerable enlarged abnormal bilateral hilar and mediastinal lymph nodes 2. Bilateral irregular pleural masses with adjacent bone destruction and involvement of the subjacent lung parenchyma 3. Other scattered metastatic lesions to bone including a pathologic right scapular fracture 4. Potential for neural foraminal/spinal canal involvement at T9. 5. Lung parenchymal metastatic disease. [facility]
--- NOTE | 2019-03-09 15:52 | CT Report ---
Reason: METASTATIC RENAL CA Procedure Date: 03/09/2019 Accession Number: [id number] / [id number] Procedure: CT - Abdomen/Pelvis W CPT Code: FULL RESULT: EXAM: CT ABDOMEN AND PELVIS EXAM DATE: 03/09/2019 12:02 PM. CLINICAL HISTORY: METASTATIC RENAL CA. COMPARISONS: ABDOMEN/PELVIS W/O 02/07/2019 3:52 AM. TECHNIQUE: Routine helical CT imaging was performed through the abdomen and pelvis. IV contrast: OPTI 320 100ML. Enteric contrast: Yes. Reconstructions: Coronal and sagittal. In accordance with CT protocol optimization, one or more of the following dose reduction techniques were utilized for this exam: automated exposure control, adjustment of mA and/or KV based on patient size, or use of iterative reconstructive technique. FINDINGS: Liver: Normal. No masses. Gallbladder/Bile Ducts: Unremarkable. Spleen: Normal. Pancreas: Normal. Adrenal Glands: Right larger than left masses, 5.2 x 2.6 cm right and 2 cm in diameter left. Kidneys: Irregularly enhancing ill-defined right upper pole renal mass measuring maximally approximately 8 cm similar to previous. Multiple bilateral renal cysts, the largest exophytic from the lower pole of the left kidney measuring maximally 8 cm.. In addition more complex lesions measuring higher than fluid attenuation, for instance posterior left kidney 3.2 cm nodule, 28 HU 6.5 mm nonobstructing left lower pole renal calculus. Peritoneal Cavity/Bowel: Retroperitoneal adenopathy, largest 4 x 4.1 cm and 3.2 x 2.7 cm . Pelvic Organs: Bladder unremarkable Vasculature: No aneurysms or other significant abnormality. Bones: Multifocal large lytic lesions, some associated with prominent soft tissue components. The largest involves the left innominate bone with destruction of the left acetabulum and associated with a pathologic fracture through the symphysis. Ill-defined multifocal destruction of the right ilium also with pathologic fracture and with asymmetric soft tissue fullness of the right iliac us muscle, presumed tumor extension. Other smaller areas of bone destruction involving the left sacrum, left ilium, and left L1. Lumbar levoscoliosis. Right total hip replacement. Other: None. IMPRESSION: 1. Large right renal mass similar to 02/07/2019. 2. Multifocal bilateral renal lesions, likely cysts although at least one in the left kidney has attenuation measurements outside of a simple cyst 3. Nonobstructing small left renal stone. 4. Right larger than left adrenal masses, presumed metastatic disease. 5. Pathologic retroperitoneal adenopathy. 6. Multifocal large bony lytic lesions, some associated with prominent soft tissue components and pathologic fracture.
== END 2019-03-09 10:07 | disposition home or self-care (01) ==
LOC: DI 10:06
PROVIDERS: ATTEND Internal Medicine Hematology & Oncology
DX: C64.9 Malignant neoplasm of unspecified kidney, except renal pelvis (principal); C79.51 Secondary malignant neoplasm of bone; C77.1 Secondary and unspecified malignant neoplasm of intrathoracic lymph nodes; C78.1 Secondary malignant neoplasm of mediastinum; C78.00 Secondary malignant neoplasm of unspecified lung; N20.0 Calculus of kidney; E27.9 Disorder of adrenal gland, unspecified; R59.0 Localized enlarged lymph nodes; M84.550A Pathological fracture in neoplastic disease, pelvis, initial encounter for fracture
CPT/HCPCS: 71260; 74177; Q9967

== ENCOUNTER 2019-03-16 11:45 | Outpatient (CLI) | payer MEDICARE, OTHER ==
--- NOTE | 2019-03-16 19:40 | CONSULTATION NOTE ---
Palliative Care Follow Up - Referral Referring Provider: Dr. Ana Anguiano Time of Visit: [id number] Referral setting: [facility] – [place] Referral Reason: Pain of neoplastic origin/Met Renal Cell CA - Information Sources Records reviewed: Previous records reviewed History/Review of Systems obtained from: Patient, Family ( [place] present) Exam limitations: Clinical condition (patient with some STM/anxiety) - History of Present Illness Update Brief HPI Update: This is a 68-year-old gentleman with metastatic clear cell renal carcinoma with known mets to the bone, lungs, and intrathoracic nodes. He also has adrenal masses, right upper pole renal mass measuring approximately 8 cm, and bilateral renal cysts. He has received palliative radiation to his right scapula, sternum, left acetabulum, and right posterior iliac crest, left lateral ribs and left Acetabulum 12/2018. Is difficult for him because of his PTSD, and provided a consider amount of anxiety for him. Patient did receive 1 round of ipilimumab and nivolumab which resulted in complicated colitis and an ICU stay. Patient called yesterday to report about 1 week ago started have significantly escalating pain. Currently on MS Contin 30 mg every 8 hours, had used only 1 dose of oxycodone 10 mg and had aborted as it had not relieved his pain. His pain location new today, is in his lower thoracic spine area. This does correlate to his CT of his chest on 03/09 With concern for potential for neural foraminal invasion/spinal canal extension at T8-T9 and T9-T10 from a poorly marginated soft tissue mass extending approximately 12.5 cm with distraction of the right rib. He does have radiating pain in his mid lower lumbar spine down he has hips, and extensive increased pain in his right hip area, with identified right ilium pathological fracture correlating to this area. We have pain is in his right jaw area this is limiting his ability to open his mouth, denies any pain with chewing or biting, reports he chews on the side. He is receiving Xgeva oncology was notified.Patient is barely ambulatory on his walker, increased pain with sitting or pressure in his pelvic area, relief with sitting or reclining.Currently his pain is 8 out of 10 in severity, and discussion regarding how best to move forward. Patient continues with weight loss, he is at 255, his appetite remains fairly steadfast but decreased portion and intake. He has been cleared by cardiology, has had his blood pressure meds decreased secondary to weight loss, as well as his edema is improved and he is down to 20 mg daily. He does not have any further persistent swelling, but continues with breathlessness with activity. Social History - Living Situation Living arrangement: At home Living Situation: With spouse/s.o. 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 Patient has known history of PTSD, has been having increased escalation with anxiety with his more recent experiences,. Feels like though he has a supportive network and continues to try and remain positive. He was seen by home health for modifications in his home, and continues to be somewhat limited by his pain and dyspnea. Medications/Allergies - Medications Home Medications: Ambulatory Orders Medication Instructions Recorded Confirmed Aspirin 81 mg PO DAILY 12/21/14 03/17/19 Telmisartan [Micardis] 40 mg pe PO DAILY 12/21/14 03/17/19 Oxycodone HCl 5 - 15 mg PO Q4HR PRN 01/26/19 03/17/19 Morphine Sulfate ER [Ms Contin] 30 mg PO TID 01/27/19 03/17/19 Buspirone HCl 30 mg PO BID 02/01/19 03/17/19 Celecoxib [CeleBREX] 200 mg PO .200 AM 100 PM 02/01/19 03/17/19 Cholecalciferol (Vitamin D3) 2,000 unit PO DAILY 02/01/19 03/17/19 [Vitamin D3] Citalopram Hydrobromide 40 mg PO DAILY 02/01/19 03/17/19 [Citalopram HBr] Multivit-Min/FA/Lycopen/Lutein 1 tab PO DAILY 02/01/19 03/17/19 [Centrum Silver Men Tablet] Rosuvastatin Calcium 10 mg PO DAILY 02/01/19 03/17/19 Ubidecarenone [Co Q-10] 200 mg PO DAILY 02/01/19 03/17/19 B12/Levomefolate Calcium/B-6 1,000 mcg PO DAILY 02/04/19 03/17/19 [Foltx Tablet] Magnesium Oxide [Magnesium] 400 mg PO DAILY 02/04/19 03/17/19 buPROPion [Wellbutrin Sr] 150 mg PO DAILY 02/04/19 03/17/19 Denosumab [Xgeva] 120 mg IM .30 DAYS 02/07/19 03/17/19 Potassium Chloride [Micro-K] 10 meq PO DAILY 02/19/19 03/17/19 Torsemide 20 mg PO DAILY 02/19/19 03/17/19 Cabozantinib S-Malate [Cabometyx] 40 mg PO DAILY 02/24/19 03/17/19 Loperamide [Imodium] 2 mg PO PRN PRN MDD 16 mg 02/24/19 03/17/19 Polyethylene Glycol 3350 [Miralax] 17 gm PO DAILY PRN 02/24/19 03/17/19 Senna [Senokot] 8.6 mg PO BID PRN 02/24/19 03/17/19 Dexamethasone 2 mg PO .4 MG AM, 2 MG 1400 03/17/19 03/17/19 - Allergies Allergies/Adverse Reactions: Allergies Allergy/AdvReac Type Severity Reaction Status Date / Time No Known Drug Allergies Allergy Verified 03/16/19 13:01 Review of Systems - Constitutional Constitutional: reports: Fatigue, Weight loss (255). denies: Fever, Chills - Eyes Eyes: reports: Vision loss, Corrective lenses - Ears, Nose & Throat Ears, Nose & Throat: reports: Dry mouth, Other (jaw pain right side) - Cardiovascular Cardiovascular: reports: Exertional dyspnea, Decr. exercise tolerance. denies: Chest pain, Edema (resolved) - Respiratory Respiratory: reports: SOB with exertion. denies: SOB at rest - Gastrointestinal Gastrointestinal: reports: Constipation (titrating meds), Early satiety, Good appetite. denies: Diarrhea, Nausea, Reflux/heartburn - Genitourinary Genitourinary: reports: Frequency - Musculoskeletal Musculoskeletal: reports: Back pain, Muscle aches, Stiffness, Limited range of motion, Muscle weakness, Joint pain, Assistive devices (using walker), Other (post polio syndrome of left leg) - Integumentary Integumentary: reports: Dryness - Neurological Neurological: reports: General weakness, Memory problems - Psychiatric Psychiatric: reports: Depression, Anxiety - Endocrine Endocrine: reports: Hypothyroidism - Hematologic/Lymphatic Hematologic/Lymphatic: reports: Anemia (10.8). denies: Recurrent infections - All Other Systems All Other Systems: reports: Reviewed and negative Physical Exam - Vital Signs Pulse Rate: 65 Respiratory Rate: 18 Blood Pressure: 111/57 - Physical Exam General Appearance: positive: Alert, Moderate distress, Anxious Eyes Bilateral: positive: Normal inspection ENT: positive: No signs of dehydration Neck: positive: Trachea midline, Other (limited ability / ROM to open mouth) Cardiovascular: positive: Regular rate & rhythm Respiratory: positive: No respiratory distress Abdomen: positive: Soft Skin: positive: Pallor, Dryness Extremities: positive: No pedal edema Neurologic/Psychiatric: positive: Oriented x3, Mood/affect nml, Weakness Palliative Care - POLST Patient has POLST: Yes POLST Status: Full Code Pain: Pain worsening, Location (see HPI) Tiredness/Fatigue: Severe (7-10) Drowsiness/Sedation: Mild (1-3) Nausea: None Depression: Moderate (4-6) Anxiety: Moderate (4-6) Dyspnea: Moderate (4-6) Anorexia: Mild (1-3) Sleep: Variable sleep pattern Constipation: Yes, Opoid induced, Intermittent constipation Feelings of wellbeing/Perceived Quality of Life: Fair, Worsening, Comment (related to pain) Performance Status: Patient limited by ability to weight-bear and with pain. Does need assistance from his with ADLs, can only ambulate very short distances secondary to pain. - Palliative Care Discussion: Patient remains quite anxious regarding his underlying diagnosis and treatment. He wants to remain positive and move forward, he does understand his treatment is palliative in nature. Today he is quite distracted with the pain, and plan for his care. Patient does have some advanced care planning documents, will need to revisit the POLST regarding reflecting goals of care. They are meeting with palliative care psychosocial rehabilitation counselor later this afternoon. Results - Lab Results Lab results reviewed: Yes Impression and Recommendations - Palliative Care Impression: This is a 68-year-old gentleman with metastatic renal cell carcinoma significant metastatic disease to the bones, which includes ongoing deterioration with i rregular pleural masses and adjacent bone destruction, concern for spinal cord compression lower thoracic spine, and further sequela from pathologic fractures. Patient's cardiac issues have stabilized, he now presents with escalating pain and high symptom burden. Patient continues on his Cabometx, oral chemo treatment and Xgeva. Pain presents as poorly controlled, will escalate regimen and add dexamethasone. Palliative care continue to meet with patient on a regular basis for quality of life issues and high symptom burden. Recommendations/Counseling Done: 1. Pain of neoplastic origin. Patient is currently on MS Contin 30 mg 3 times daily, he has had an escalation in his pain, correlating with progressive disease on his scans. We will titrate regimen up, patient has been instructed to initiate [id number] oxycodone 2-3 tabs as has not used anything for breakthrough pain, given prescription for 15 mg MS Contin, with the plan to increase to 45 mg 3 times daily after insurance approval.Consult with oncology, no contraindication to adding Decadron, will go ahead and add 4 mg a.m. and 2 mg mid afternoon, given patient's propensity for anxiety will not start at a escalated dose. Follow-up with oncology if patient appropriate or needs referral for follow-up with radiation oncology for spinal pain and lesion. 2. Lower extremity edema. Patient currently on maintenance torsemide 20 mg daily, blood pressure meds decreased accordingly patient is feeling much better with better readings. Edema currently resolved. 3. Dyspnea. This is most likely multifactorial in origin, including known metastatic lung disease, severe pulmonary hypertension, anemia, and deconditioning. Patient with escalated pain, though did encourage to pace activities. 4. Anxiety. Patient does have long-term history of PTSD, escalating anxiety as a result of his diagnosis, has been using Burspirone with good results. Patient has had multiple complications along the way, will continue to address. And to meet with palliative care psychosocial rehabilitation counselor today. 5. Advanced care planning. Patient does present with serious illness, I am not had an opportunity to further review his goals of care, other than wanting to move forward with an aggressive approach to managing his cancer. Appointment set up for next week, will address with after pain better control. Time Spent: 30 minutes with greater than 50% of this done in counseling regarding focus on pain management, escalation of pain meds and constipation meds and coordination of care with oncology team regarding pain findings.
== END 2019-03-16 11:46 | disposition home or self-care (01) ==
LOC: PC 11:45
PROVIDERS: ATTEND Nurse Practitioner Adult Health
DX: Z51.5 Encounter for palliative care (principal); G89.3 Neoplasm related pain (acute) (chronic); R06.00 Dyspnea, unspecified; R60.0 Localized edema; F41.9 Anxiety disorder, unspecified; F43.12 Post-traumatic stress disorder, chronic; K59.03 Drug induced constipation; T40.2X5A Adverse effect of other opioids, initial encounter; R63.4 Abnormal weight loss; C79.51 Secondary malignant neoplasm of bone; C64.9 Malignant neoplasm of unspecified kidney, except renal pelvis; C78.00 Secondary malignant neoplasm of unspecified lung; C77.1 Secondary and unspecified malignant neoplasm of intrathoracic lymph nodes; Z79.891 Long term (current) use of opiate analgesic; Z79.899 Other long term (current) drug therapy; Z79.82 Long term (current) use of aspirin
CPT/HCPCS: 99214

== ENCOUNTER 2019-03-24 13:03 | Outpatient (CLI) | payer MEDICARE, OTHER ==
--- NOTE | 2019-03-24 19:06 | CONSULTATION NOTE ---
Palliative Care Follow Up - Referral Referring Provider: Dr. Ana Anguiano Time of Visit: [phone] [place] [facility] [place] Reason: Pain of neoplastic origin/Renal Cell CA - Information Sources Records reviewed: Previous records reviewed History/Review of Systems obtained from: Patient, Family ( [place]) Exam limitations: No limitations - History of Present Illness Update Brief HPI Update: This is a 68-year-old gentleman with metastatic clear cell renal carcinoma, with known mets to bones, lungs, intrathoracic lymph nodes, right kidney, and retroperitoneal lymph nodes. He has received palliative radiation to multiple bone lesions completed on 01/04/2019. He had initial treatment with ipilimumab and nivolumab with resulting sepsis/severe colitis in January, slowly recovered from this. He did have some baseline CT scans on 03/09/2019 to monitor new therapy oral Cabometyx, Showing again worsening disease, with bilateral pleural masses adjacent bone discretion, scattered metastatic lesions including pathologic right scapular fracture, and concerns for neuroforaminal spinal call and all involvement at T9. Palliative care seen patient for severe escalation in pain, was started on originally MS Contin 30 mg every 8 hours, with his escalation in pain, did increase him to 45 mg 3 times daily, as his pain was 8 out of 10 and his functional status severely impacted. Also added Decadron 4 mg a.m. and 2 mg in the afternoon 03/16. Had been monitoring him by phone, with ongoing improvement, patient today presents with his pain at a 2 out of 3 at over 10, increased energy has suspect attributed to the Decadron, and improved functional status as well as well-being. He is feeling better overall, and is somewhat distracted as he has an appointment later this afternoon. Patient's comorbidity includes severe pulmonary hypertension, sclerotic aortic valve, mildly dilated LV, severely dilated left atrium, COPD, CKD, chronic edema though this is improved. He also has post polio syndrome involving the left lower leg, PTSD, generalized anxiety disorder and depression. Social History - Living Situation Living arrangement: At home Living Situation: With spouse/s.o. 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 He has been to his current [place] for 11 years. Patient has known history of PTSD, and has had an escalation of anxiety with his recent experiences. He does feel this is coming down though. He feels like he has a supportive network and continues to try and remain positive. He has been discharged by home health services. Medications/Allergies - Medications Home Medications: Ambulatory Orders Medication Instructions Recorded Confirmed Aspirin 81 mg PO DAILY 12/21/14 03/25/19 Telmisartan [Micardis] 40 mg pe PO DAILY 12/21/14 03/25/19 Oxycodone HCl 5 - 15 mg PO Q4HR PRN 01/26/19 03/25/19 Morphine Sulfate ER [Ms Contin] 45 mg PO TID 01/27/19 03/25/19 Buspirone HCl 30 mg PO BID MDD titrating to prn 02/01/19 03/25/19 Celecoxib [CeleBREX] 200 mg PO .200 AM 100 PM 02/01/19 03/25/19 Cholecalciferol (Vitamin D3) 2,000 unit PO DAILY 02/01/19 03/25/19 [Vitamin D3] Citalopram Hydrobromide 40 mg PO DAILY 02/01/19 03/25/19 [Citalopram HBr] Multivit-Min/FA/Lycopen/Lutein 1 tab PO DAILY 02/01/19 03/25/19 [Centrum Silver Men Tablet] Rosuvastatin Calcium 10 mg PO DAILY 02/01/19 03/25/19 Ubidecarenone [Co Q-10] 200 mg PO DAILY 02/01/19 03/25/19 B12/Levomefolate Calcium/B-6 1,000 mcg PO DAILY 02/04/19 03/25/19 [Foltx Tablet] Magnesium Oxide [Magnesium] 400 mg PO DAILY 02/04/19 03/25/19 buPROPion [Wellbutrin Sr] 150 mg PO DAILY 02/04/19 03/25/19 Denosumab [Xgeva] 120 mg IM .30 DAYS 02/07/19 03/25/19 Potassium Chloride [Micro-K] 10 meq PO DAILY 02/19/19 03/25/19 Torsemide 20 mg PO DAILY 02/19/19 03/25/19 Loperamide [Imodium] 2 mg PO PRN PRN MDD 16 mg 02/24/19 03/25/19 Polyethylene Glycol 3350 [Miralax] 17 gm PO DAILY PRN 02/24/19 03/25/19 Senna [Senokot] 8.6 mg PO TID 02/24/19 03/25/19 Cabozantinib S-Malate [Cabometyx] 60 mg ORAL DAILY 03/17/19 03/25/19 Dexamethasone 2 mg PO .4 MG AM, 2 MG 1400 03/17/19 03/25/19 - Allergies Allergies/Adverse Reactions: Allergies Allergy/AdvReac Type Severity Reaction Status Date / Time No Known Drug Allergies Allergy Verified 03/16/19 13:01 Review of Systems - Constitutional Constitutional: reports: Fatigue, Weight stable (261). denies: Fever - Ears, Nose & Throat Ears, Nose & Throat: denies: Mouth lesions - Cardiovascular Cardiovascular: reports: Exertional dyspnea, Decr. exercise tolerance. denies: Edema - Respiratory Respiratory: reports: SOB with exertion. denies: Cough, SOB at rest - Gastrointestinal Gastrointestinal: reports: Constipation, Good appetite. denies: Nausea, Reflux/heartburn - Musculoskeletal Musculoskeletal: reports: Stiffness, Muscle weakness, Assistive devices (using walker;), Other (feels functional status has improved) - Integumentary Integumentary: reports: Dryness (LE with resolution of edema) - Neurological Neurological: reports: General weakness, Memory problems (mild) - Psychiatric Psychiatric: reports: Depression, Anxiety - Hematologic/Lymphatic Hematologic/Lymphatic: reports: Anemia (10.8) - All Other Systems All Other Systems: reports: Reviewed and negative Physical Exam - Vital Signs Pulse Rate: 56 Respiratory Rate: 18 Blood Pressure: 111/72 - Physical Exam General Appearance: positive: No acute distress, Alert Eyes Bilateral: positive: Normal inspection ENT: positive: No signs of dehydration Neck: positive: Trachea midline Cardiovascular: positive: Regular rate & rhythm Respiratory: positive: No respiratory distress. negative: Wheezes, Rales, Rhonchi Abdomen: positive: Non-tender, Soft Skin: positive: Pallor, Dryness (LE) Extremities: positive: Pedal edema (trace bilaterally left greater than right; skin dry) Neurologic/Psychiatric: positive: Oriented x3, Mood/affect nml Palliative Care - POLST Patient has POLST: No POLST Status: Full Code Pain: Pain improved, Location (Patient's pain is localized to have bilateral hip and increased with weightbearing, also noted pain on his right scapula, is ambulatory and much improved as far as functional status. Has not needed anything for breakthrough pain, other than 1 dose, remains on MS Contin 45 mg 3 times daily.) Tiredness/Fatigue: Moderate (4-6) Drowsiness/Sedation: Mild (1-3) Nausea: None Anorexia: None Dyspnea: None Depression: None Anxiety: None, Comment (has been on the buspar scheduled BID) Feelings of wellbeing/Perceived Quality of Life: Good, Acceptable, Improved Sleep: Sleep improved (doing well with CPAP) Constipation: Yes, Opoid induced, Intermittent constipation Performance Status: She reports improvement with functional status is able to ambulate with walker - Palliative Care Discussion: Patient is pleased with his progress with his pain management, he is tolerating his current oral chemotherapy well. They are getting ready to go on a small weekend excursion, he is feeling better overall, feels like his depression and anxiety has improved. He continues want to move forward with a positive attitude, did not revisit advanced care planning documents at this visit. Results - Lab Results Lab results reviewed: Yes Impression and Recommendations - Palliative Care Impression: This is a 68-year-old gentleman with metastatic renal cell carcinoma with significant metastatic disease to the bones, irregular pleural masses, known bone destruction, and monitoring for concern for spinal cord compression of the lower thoracic spine. Patient's current cardiac issues is stabilized, is not presenting with any residual from his colitis, his pain is currently controlled on his new regimen, as well as his energy and functional status. Palliative care to continue with patient on a regular basis for quality of life issues and management of symptom burden. Recommendations/Counseling Done: 1. Pain of neoplastic origin. Patient is currently on MS Contin 45 mg 3 times a day, has been able to manage on this without any further need for breakthrough pain medication, he does have available oxycodone 5 mg tabs 2-3 tabs as needed. We had added Decadron 4 mg in the a.m. and 2 mg mid afternoon, this is also improved his energy level. Patient has not had any escalation in his anxiety symptoms in context of this. Patient this point in time has improved pain control, no further escalation of spinal pain, will continue to monitor. Patient counseled on opioid safety, particular around driving and current escalation of dose. expressed concerns, instructed needs to wait until dosing and pain stabilized. 2. Lower extremity edema. Patient is currently on maintenance torsemide 20 mg daily, blood pressure is being managed without any further cardiac symptoms. Edema currently resolved. 3. Dyspnea. This is most likely multifactorial in origin, known metastatic lung disease, severe pulmonary hypertension, anemia and deconditioning. This is not worsened in severity, patient is pacing activities. 4. Anxiety. Patient has long-term history of PTSD, experienced escalating anxiety as result of his diagnosis, has been using the buspirone with good results. Patient does feel like this is diminishing as far as the level of anxiety, given has opioid load, I did encourage to titrate back to 15 mg twice daily, and consider tapering further off if no sequela from this. Patient verbalized understanding. Palliative care director social is also initiated contact with family. 5. Advanced care planning. Patient does present with serious illness, prognosis if patient does respond to treatment, is actually in years, does present with high tumor and symptom burden. We will continue to revisit goals, current goal of improved pain control met with patient. 6. Constipation. Patient reports fairly well controlled, continues to titrate MiraLAX and senna, counseling provided regarding titration parameters. Time Spent: 80 minutes with getting 50% of this done in counseling regarding opioid safety, pain and symptom management, counseling for anxiety and anticipatory guidance.Follow-up visit set in 2 weeks for continued monitoring and titration of symptom medications.
== END 2019-03-24 13:04 | disposition home or self-care (01) ==
LOC: PC 13:03
PROVIDERS: ATTEND Nurse Practitioner Adult Health
DX: Z51.5 Encounter for palliative care (principal); G89.3 Neoplasm related pain (acute) (chronic); C79.51 Secondary malignant neoplasm of bone; C64.9 Malignant neoplasm of unspecified kidney, except renal pelvis; C77.1 Secondary and unspecified malignant neoplasm of intrathoracic lymph nodes; C78.00 Secondary malignant neoplasm of unspecified lung; R06.00 Dyspnea, unspecified; R60.0 Localized edema; F41.9 Anxiety disorder, unspecified; F43.12 Post-traumatic stress disorder, chronic; K59.03 Drug induced constipation; T40.2X5D Adverse effect of other opioids, subsequent encounter; Z79.891 Long term (current) use of opiate analgesic; Z79.899 Other long term (current) drug therapy; Z79.52 Long term (current) use of systemic steroids; Z79.82 Long term (current) use of aspirin
CPT/HCPCS: 99214

== ENCOUNTER 2019-04-06 13:04 | Outpatient (CLI) | payer MEDICARE, OTHER ==
--- NOTE | 2019-04-06 14:38 | CONSULTATION NOTE ---
Palliative Care Follow Up - Referral Referring Provider: Dr. Ana Anguiano Time of Visit: [id number] Referral setting: [facility] – [place] Referral Reason: Pain of neoplastic origin/Constipation/Renal Clear Cell CA - Information Sources Records reviewed: Previous records reviewed History/Review of Systems obtained from: Patient, Family (Sienna ) Exam limitations: Clinical condition (patient with some STM issues) - History of Present Illness Update Brief HPI Update: Old gentleman with metastatic clear cell renal carcinoma, with known mets to the bones, lungs, intrathoracic lymph nodes, right kidney and retroperitoneal lymph nodes. He has received palliative radiation to multiple bone lesions completed on 01/04/2019. He did have initial treatment with ipilimub and nivolumab with resulting sepsis/severe colitis in January, he has recovered at this point from this. He did have some baseline CT scans on 03/09/20 19 to monitor new therapy of oral Cabometx, showing worsening disease. That time he presented with a severe escalation in his pain, with titration of his meds up to MS Contin 45 mg 3 times a day, addition of Decadron 6 mg total, we have been able to decrease his pain. He does present with his pain at a 2 out of 10 today. He has not needed any oxycodone, his functional status is improved to the point he is participating in physical therapy. He has having some increased difficulties with word finding, feeling "quick" as far as his cognitive status, his most persistent pain stays in his right hip. Presents today with complaints of increased mouth tenderness, his tip of his tongue is bright red, no specific lesions noted, nor progression to candidiasis so he is at high risk. He also presents with a rash on his right cheek/christian area. It is not erythematous, nor tender, some mild pruritus. His blood pressures have slowly creeped upwards, he had been titrated back on all his blood pressure medications when he was having hypotension. He has had no diarrhea, he has had consistent persistent constipation and is not following prescribed bowel program. He felt the senna were too expensive, reviewed he could use generic cannot name brand. All of these actually are listed as side effects of his medication, and were reviewed with him. Patient's comorbidities include severe pulmonary hypertension, sclerotic aortic valve, mildly dilated LV, severely dilated left atrium, COPD, CKD, post polio syndrome involving left lower leg, PTSD, generalized anxiety disorder and depression. Social History - Living Situation Living arrangement: At home Living Situation: With spouse/s.o. 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 He has been to his Sienna for 11 years. She does confirm his increase confusion, he is more irritable, he does have intermittent anxiety but this is improved. Medications/Allergies - Medications Home Medications: Ambulatory Orders Medication Instructions Recorded Confirmed Aspirin 81 mg PO DAILY 12/21/14 04/06/19 Telmisartan [Micardis] 40 mg pe PO DAILY 12/21/14 04/06/19 Oxycodone HCl 5 - 15 mg PO Q4HR PRN 01/26/19 04/06/19 Morphine Sulfate ER [Ms Contin] 45 mg PO .45MG 30 MG 45 MG MDD 01/27/19 04/06/19 titrating Buspirone HCl 15 mg PO DAILY MDD titrating to prn 02/01/19 04/06/19 Celecoxib [CeleBREX] 200 mg PO .200MG AM 100 PM 02/01/19 04/06/19 Cholecalciferol (Vitamin D3) 2,000 unit PO DAILY 02/01/19 04/06/19 [Vitamin D3] Citalopram Hydrobromide 40 mg PO DAILY 02/01/19 04/06/19 [Citalopram HBr] Multivit-Min/FA/Lycopen/Lutein 1 tab PO DAILY 02/01/19 04/06/19 [Centrum Silver Men Tablet] Rosuvastatin Calcium 10 mg PO DAILY 02/01/19 04/06/19 Ubidecarenone [Co Q-10] 200 mg PO DAILY 02/01/19 04/06/19 B12/Levomefolate Calcium/B-6 1,000 mcg PO DAILY 02/04/19 04/06/19 [Foltx Tablet] Magnesium Oxide [Magnesium] 400 mg PO DAILY 02/04/19 04/06/19 buPROPion [Wellbutrin Sr] 150 mg PO DAILY 02/04/19 04/06/19 Denosumab [Xgeva] 120 mg IM .30 DAYS 02/07/19 04/06/19 Potassium Chloride [Micro-K] 10 meq PO DAILY 02/19/19 04/06/19 Torsemide 20 mg PO DAILY 02/19/19 04/06/19 Loperamide [Imodium] 2 mg PO PRN PRN MDD 16 mg 02/24/19 04/06/19 Polyethylene Glycol 3350 [Miralax] 17 gm PO DAILY 02/24/19 04/06/19 Senna [Senokot] 17.2 mg PO TID 02/24/19 04/06/19 Cabozantinib S-Malate [Cabometyx] 60 mg ORAL DAILY 03/17/19 04/06/19 Dexamethasone 2 mg PO BID MDD titrating down 03/17/19 04/06/19 - Allergies Allergies/Adverse Reactions: Allergies Allergy/AdvReac Type Severity Reaction Status Date / Time No Known Drug Allergies Allergy Verified 03/16/19 13:01 Review of Systems - Constitutional Constitutional: reports: Fatigue, Weight stable. denies: Fever, Chills - Ears, Nose & Throat Ears, Nose & Throat: reports: Dry mouth, Other (Sore tongue) - Cardiovascular Cardiovascular: reports: Decr. exercise tolerance (working with PT improving). denies: Chest pain, Edema - Respiratory Respiratory: denies: SOB at rest - Gastrointestinal Gastrointestinal: reports: Constipation (has not been following bowel program; felt senna to expensivie, inst. to get generic), Early satiety, Other (taste changes). denies: Diarrhea, Nausea, Reflux/heartburn - Genitourinary Genitourinary: reports: Frequency, Urgency - Musculoskeletal Musculoskeletal: reports: Muscle weakness, Joint pain (right hip greater than left), Assistive devices (using 4WW) - Integumentary Integumentary: reports: Rash (new right cheek/christian; scab in chin where picked at ingrown hair), Dryness - Neurological Neurological: reports: General weakness, Memory problems - Psychiatric Psychiatric: denies: Depression, Anxiety - Hematologic/Lymphatic Hematologic/Lymphatic: denies: Recurrent infections - All Other Systems All Other Systems: reports: Reviewed and negative Physical Exam - Vital Signs Temperature: 36.3 C Pulse Rate: 58 Respiratory Rate: 18 Blood Pressure: 133/85 - Physical Exam General Appearance: positive: No acute distress, Alert, Anxious Eyes Bilateral: positive: Normal inspection ENT: positive: No signs of dehydration, Other (bright red tip of tongue; no white patches or oral lesions;) Neck: positive: No JVD, Trachea midline Cardiovascular: positive: Regular rate & rhythm Respiratory: positive: Diminished in bases. negative: Wheezes, Rales, Rhonchi Abdomen: positive: Non-tender, Soft Skin: positive: Pallor, Dryness, Rash (no erythema; raised pustules; not fluid filled) Extremities: positive: No pedal edema Neurologic/Psychiatric: positive: Oriented x3, Mood/affect nml, Flat affect Palliative Care - POLST Patient has POLST: Yes POLST Status: Full Code Pain: Pain improved (bilateral hip pain/pelvid/buttock pain right greater than left; persistent left shoulder pain), Severity (2/10) Tiredness/Fatigue: Mild (1-3) Drowsiness/Sedation: Mild (1-3) Nausea: None Anorexia: None Dyspnea: None Depression: None Anxiety: None Feelings of wellbeing/Perceived Quality of Life: Good, Acceptable, Improved Sleep: Sleep improved Constipation: Yes, Opoid induced, Unmanaged, Comment (has been not following regular bowel program) Performance Status: Patient is improving and activity tolerance, reports he is now able to stand to take a shower. He is progressing with PT, and gaining some lower extremity strength. He reports his walking is better and he is able to do more, though he continues to be limited. - Palliative Care Discussion: expresses concerns about patient's cognitive changes and patient's increased irritability. Patient does acknowledge some difficulty with word finding, tracking, and gets quite frustrated. They did have their weekend away, and had a good time. He is hoping to continue improvement as far as his symptoms, and hopeful for a positive response to his therapy. We did spend quite a bit of time talking about quality of life, weighing benefits and burdens particularly in the context of balancing symptom management. Patient often creates his own plans i.e. managing his constipation, reviewed again role of palliative care to partner and titrating and providing support for symptom management. Patient verbalized understanding, will continue to write out plans as this is most effective for patient. Impression and Recommendations - Palliative Care Impression: This is a 68-year-old gentleman with metastatic clear cell renal carcinoma with significant metastatic disease, patient's pain currently controlled, though cons tipation is problematic. Palliative care to continue to work with patient on quality of life issues and management of symptom burden. Recommendations/Counseling Done: 1. Constipation. Patient created an alternative management plan, that is currently not working. He changed medications to docusate sodium as the senna was too expensive. Reviewed senna concentrate is in a new generic form, again counseling provided regarding titration parameters. Patient is to reinitiate his MiraLAX 17 g on a daily basis, he may decrease to half capful if stools too loose. He is to take senna 2 tabs 3 times a day with his morphine, he had only been up to 4 tabs. Counseling provided again regarding rationale and written out. 2. Pain of neoplastic origin. Concern regarding patient at high risk for thrush, also side effect of his medication. Patient's pain currently under control, will titrate down the dexamethasone. He is to take 2 mg twice daily for 1 week, then 2 mg for 1 week, then 2 mg every other day for 1 week. Patient is also going to drop when 15 mg of MS Contin during the day, so he will be 45/30/45 mg, and will continue to titrate in 2 weeks. 3.Anxiety. Patient reports currently controlled, has had no exacerbations, he does have long-term history of PTSD. Goal is to decrease his medication load, will go ahead and decrease BuSpar to daily, he is currently at 15 mg twice daily, will decrease to 50 mg daily for 1 week and discontinue. Palliative care quality engineer medical device is also providing support. 4. Mucositis. Will titrate patient off dexamethasone, patient also instructed on normal saline rinses 2-3 times a day, and also signs and symptoms of candidiasis or worsening discomfort. Verbalized understanding. 5. Rash right christian/cheek. This is non-erythematous, suspect attributed to his chemotherapy, instructed to use low-dose hydrocortisone cream applied thinly twice a day, if worsens to contact MAC and/or myself, and can initiate low-dose antibiotic if indicated. Time Spent: 45 minutes with greater than 50% done in counseling regarding pain and symptom management particular constipation. We will continue to titrate back medications to lowest level of affect, to see if cognition improves. I will see patient again in 2 weeks.
== END 2019-04-06 13:05 | disposition home or self-care (01) ==
LOC: PC 13:04
PROVIDERS: ATTEND Nurse Practitioner Adult Health
DX: Z51.5 Encounter for palliative care (principal); G89.3 Neoplasm related pain (acute) (chronic); K59.03 Drug induced constipation; T40.2X5D Adverse effect of other opioids, subsequent encounter; F41.9 Anxiety disorder, unspecified; K12.30 Oral mucositis (ulcerative), unspecified; R21 Rash and other nonspecific skin eruption; R41.89 Other symptoms and signs involving cognitive functions and awareness; R45.4 Irritability and anger; C64.9 Malignant neoplasm of unspecified kidney, except renal pelvis; C34.90 Malignant neoplasm of unspecified part of unspecified bronchus or lung; C77.8 Secondary and unspecified malignant neoplasm of lymph nodes of multiple regions; C79.51 Secondary malignant neoplasm of bone; Z79.899 Other long term (current) drug therapy; Z79.891 Long term (current) use of opiate analgesic; Z91.14 Patient's other noncompliance with medication regimen
CPT/HCPCS: 99215

== ENCOUNTER 2019-04-13 11:28 | Outpatient (CLI) | payer MEDICARE, OTHER ==
[2019-04-13 20:40] VITALS: BP 137/89
--- NOTE | 2019-04-13 20:40 | SLEEP CARE CONSULTATION ---
Information from patient questionnaire entered by Ester Duran. I have reviewed and concur with the information entered by Ester Duran. This document represents the service I personally performed and the decisions made by me, Tiana Horn MD, [facility]. History of Present Illness Reason for Visit: New patient, Previously diagnosed sleep apnea, sleep apnea on CPAP therapy Chief Complaint: reports: Other (pressure change) Usual bedtime: 1630 Time it takes to fall asleep: 10 minutes Toss, Turn, or Twitch while sleeping: No Recalls having dreams: Yes Usually gets out of bed at: 0730 Feels refreshed in the morning: Yes Morning headache: No Sleepy or fatigued during the day: Yes Ever fallen asleep while driving: No Takes day naps: Yes Dreams during day naps: No Prior sleep studies: Yes Year and Where: 2009 [facility] Additional HPI information: I had the pleasure of seeing Mr. Solano today regarding obstructive sleep a pnea-hypopnea. As you know, he is a 68 year old gentleman who was diagnosed with the sleep-disordered breathing at [facility] in 2009. The AHI was 99. He was prescribed a CPAP device set at 5 20 cmH2O. It is his third machine. He uses every night and all night. The compliance data show usage in 29 out of the past 30 nights, averaging 7.3 hours a night. The residual AHI is 4.1 and average time in large leak per day is 33 minutes. He wears a ResMed F20 full face mask. He gets his supplies from [employer]. He finds the treatment very beneficial. CPAP Compliance Data - Data Reviewed with Patient Average duration of nightly device use: 7h 31m Compliance rate %: 90 (last 30 days) Current pressure setting (cmH2O): 5-20 Humidity settin Heated hose settin Average residual AHI: 4.1 Average large leak: 33m 12s Subjective Initial Richardson Sleepiness Scale score: 4 Past Medical History Past Medical History: reports: Hypertension, Arthritis, Anxiety, Asthma, Depression, Other (cancer) Social History The patient's occupation is retired. Patient is and lives in [place]. Have you smoked in the past 12 months: No Alcohol use: Yes Alcohol amount and frequency: 1/month Allergies and Home Medications Drug allergies reviewed: Yes Home medication list reviewed: Yes Review of Systems Weight loss over past 5 years: 130 Cardiovascular: reports: high blood pressure Respiratory: denies: shortness of breath, wheeze, sputum production, chronic cough, other Gastrointestinal: denies: heartburn, difficulty swallowing, nausea, vomitting, diarrhea, abdominal pain, other Urinary: denies: incontinence, frequency, urgency, impotence, other Neurological: denies: headaches, seizure, head trauma, disorientation, speech dysfunction, gait or balance problems, fainting or unconsciousness, other Psychiatric: reports: anxiety, depression Ear/Nose/Throat: reports: nasal congestion Endocrine: denies: thyroid disease, history of goiter, sluggishness, too hot or cold, excessive thirst, increased appetite, increased urination, unexplained weakness, other Musculoskeletal: reports: joint pain, joint swelling Immunologic: denies: sneezing, rash, itching, allergies to food or environment, other Physical Exam Vital signs obtained and entered by: Dr. Horn Blood Pressure: 137/89 Cuff size: regular Heart Rate: 64 O2 Saturation: 94 Height: 6 ft 4 in Weight: 267 lb Body Mass Index: 32.5 BMI Classification: Obesity Class 1 Neck circumference: 17.5 Mood/affect: normal HEENT: No craniofacial malformation Nostrils: patent to airflow Turbinates: normal Septum: midline Mouth and throat: narrow oropharynx Soft palate: long Hard palate: normal Uvula: normal Uvula visualization: 50% Mallampati Class II Tongue: normal in size Tonsils: small Chin and jaw: normal size and position Neck: normal w/o lymphadenopathy or thyromegaly Heart: regular rate and rhythm Lungs: clear bilaterally Abdomen: soft, non-tender Extremities: 1+ edema Neurologic: intact, no focal deficits Impression and Plan IMPRESSION: 1. Obstructive Sleep Apnea-Hypopnea Syndrome, very severe, as previously diagnosed 9 years ago. The patient has had good treatment compliance. The current pressure setting appears effective and comfortable. The patient experiences improvement on the treatment. Narrow oropharynx and obesity are common predisposing factors for obstructive sleep apnea-hypopnea syndrome. Pathophysiology of sleep-disordered breathing was discussed. No adjustment is necessary today. Plan: 1. Prescription made for more CPAP supplies. 2. Attempt to lose weight. 3. Return for follow up in a year or earlier if there is any problem. I spent 100% of this 20 minute visit face to face with the patient with greater than 50% of this was spent time counseling the patient and coordination of care.
== END 2019-04-13 11:29 | disposition home or self-care (01) ==
LOC: SC 11:28
PROVIDERS: ATTEND Internal Medicine Pulmonary Disease
DX: G47.33 Obstructive sleep apnea (adult) (pediatric) (principal); E66.9 Obesity, unspecified; Z68.32 Body mass index [BMI] 32.0-32.9, adult
CPT/HCPCS: 99203; G0463; 99212

== ENCOUNTER 2019-04-15 15:30 | Outpatient (CLI) | payer MEDICARE, OTHER ==
--- NOTE | 2019-04-15 16:31 | CONSULTATION NOTE ---
Palliative Care Follow Up - Referral Referring Provider: Dr. Ana Anguiano Time of Visit: 9410-7541 [place] [facility] [place] Reason: Severe Weakness/Exacerbation of pain - Information Sources Records reviewed: Previous records reviewed History/Review of Systems obtained from: Patient, Family ( [place] accompanied patient) Exam limitations: Clinical condition (patient with some STM issues) - History of Present Illness Update Brief HPI Update: This is a 68-year-old gentleman with metastatic clear cell renal carcinoma, with known mets to the bones, lungs, intrathoracic lymph nodes, right kidney, and retroperitoneal lymph nodes. Please see HPI 04/06 for more extensive history. Patient called today, because of severe weakness, unable to get out of bed without maximum assistance, this is progressed over the week, he is feeling quite fatigued and overwhelmed by his weakness. He actually started physical th erapy two weeks ago had been doing much better, had completed home health, and we have been titrating back his Decadron as well as his pain meds. He had called earlier in the week with his pain escalating, had put him back on his MS 45 mg extended release 3 times daily. I encouraged him to come in for an evaluation, sighting concerns about dehydration, and/or infection and am seeing him urgently in the clinic. He also complains of increased pain and difficulty with his mouth, he has been able to eat small amounts, using soups, and does feel like he is keeping up with his fluids. Patient's vital signs do not reflect symptoms of dehydration, his blood pressure is 124/79, pulse 72, temp 97.3 and O2 sats 96%. Patient denies any fever or chills, no pain or burning with urination, his lungs are clear, no cough or shortness of breath. He did need to use a wheelchair to get from the car to the clinic, it is a 2 person maximum assist to help him to stand, it is not dizziness but muscle w eakness and poor strength. This is a significant change from his visit when I saw him last week. He does report he is sleeping more 10 to 12 hours a day, he has trouble getting warm, they are not chills but is just cold to his core. His hands and feet are cool to touch, he is not diaphoretic or show any signs of infection. He does describe his pain as all over, but again focus on that right shoulder, bilateral hips. He is feeling somewhat better with his increase in his MS Contin back to baseline, but still has what he describes as his bone pain. His mouth does have severe mucositis, with small blisters in various stages of healing. He reports is has felt somewhat better with the saline washes, but now presents oral candidiasis superimposed on his blisters. Past history and comorbidities include severe pulmonary hypertension, sclerotic aortic valve, mildly dilated LV, COPD, CKD, post polio syndrome involving left leg, PTSD, RIASA, and depression Social History - Living Situation Living arrangement: At home Living Situation: With spouse/s.o. 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 He has been to his current [place], for 11 years, he has "boat", that he is looking forward to and his goal is to return to be able to sale and travel again. He has 2 children who live nearby in [place]. He does have a history of PTSD, and has served in the [employer]. Medications/Allergies - Medications Home Medications: Ambulatory Orders Medication Instructions Recorded Confirmed Aspirin 81 mg PO DAILY 12/21/14 04/15/19 Telmisartan [Micardis] 40 mg pe PO DAILY 12/21/14 04/15/19 Oxycodone HCl 5 - 15 mg PO Q4HR PRN 01/26/19 04/15/19 Morphine Sulfate ER [Ms Contin] 45 mg PO TID MDD titrating 01/27/19 04/15/19 Buspirone HCl 15 mg PO DAILY PRN 02/01/19 04/15/19 Celecoxib [CeleBREX] 200 mg PO .200MG AM 100 PM 02/01/19 04/15/19 Cholecalciferol (Vitamin D3) 2,000 unit PO DAILY 02/01/19 04/15/19 [Vitamin D3] Citalopram Hydrobromide 40 mg PO DAILY 02/01/19 04/15/19 [Citalopram HBr] Multivit-Min/FA/Lycopen/Lutein 1 tab PO DAILY 02/01/19 04/15/19 [Centrum Silver Men Tablet] Rosuvastatin Calcium 10 mg PO DAILY 02/01/19 04/15/19 Ubidecarenone [Co Q-10] 200 mg PO DAILY 02/01/19 04/15/19 B12/Levomefolate Calcium/B-6 1,000 mcg PO DAILY 02/04/19 04/15/19 [Foltx Tablet] Magnesium Oxide [Magnesium] 400 mg PO DAILY 02/04/19 04/15/19 buPROPion [Wellbutrin Sr] 150 mg PO DAILY 02/04/19 04/15/19 Denosumab [Xgeva] 120 mg IM .30 DAYS 02/07/19 04/15/19 Loperamide [Imodium] 2 mg PO PRN PRN MDD 16 mg 02/24/19 04/15/19 Polyethylene Glycol 3350 [Miralax] 17 gm PO BID PRN 02/24/19 04/15/19 Senna [Senokot] 17.2 mg PO BID PRN 02/24/19 04/15/19 Cabozantinib S-Malate [Cabometyx] 60 mg ORAL DAILY 03/17/19 04/15/19 Nystatin 5 ml PO QID MDD 14 DAYS 04/15/19 04/15/19 dexAMETHasone [Decadron] 2 mg PO .4 AM 2MG 1400 04/15/19 04/15/19 Levothyroxine Sodium [Synthroid] 25 mcg PO DAILY MDD in one week 04/17/19 04/17/19 increase to 50 mcg - Allergies Allergies/Adverse Reactions: Allergies Allergy/AdvReac Type Severity Reaction Status Date / Time No Known Drug Allergies Allergy Verified 04/13/19 09:27 Review of Systems - Constitutional Constitutional: reports: Fatigue, Weight stable, Other (C/O feeling cold all the time). denies: Fever, Weakness, Night sweats - Eyes Eyes: reports: Vision loss, Corrective lenses - Ears, Nose & Throat Ears, Nose & Throat: reports: Hearing loss, Hoarseness, Mouth lesions, Dry mouth - Cardiovascular Cardiovascular: reports: Exertional dyspnea, Decr. exercise tolerance. denies: Chest pain, Edema - Respiratory Respiratory: denies: SOB at rest - Gastrointestinal Gastrointestinal: reports: Early satiety, Other (feels no change in intake; staying hydrated). denies: Constipation (managing with senna/miralax), Nausea, Reflux/heartburn - Genitourinary Genitourinary: denies: Dysuria, Frequency, Incontinence - Musculoskeletal Musculoskeletal: reports: Muscle pain, Back pain, Muscle aches, Stiffness, Limited range of motion, Muscle weakness, Joint swelling, Assistive devices (baseline has been walker; unable to ambulate last 24-48 hours), Transfer issues (in wheelchair for visit) - Integumentary Integumentary: reports: Rash (right mu-ism; raised lesions not reddented), Dryn ess. denies: Pruritis - Neurological Neurological: reports: General weakness, Memory problems, Pre-existing deficit (with left leg polio), Abnormal gait - Psychiatric Psychiatric: reports: Depression, Anxiety - Endocrine Endocrine: reports: Hypothyroidism, Intolerance to cold (worsening;) - Hematologic/Lymphatic Hematologic/Lymphatic: reports: Anemia (mild). denies: Recurrent infections - All Other Systems All Other Systems: reports: Reviewed and negative Physical Exam - Vital Signs Temperature: 97.3 C Pulse Rate: 72 Respiratory Rate: 18 O2 Saturation: 96 (ra @ rest) Blood Pressure: 124/79 - Physical Exam General Appearance: positive: Alert, Moderate distress Eyes Bilateral: positive: Normal inspection ENT: positive: Pharyngeal erythema, Oral lesions, Other (signs and symptoms of oral candidiasis; white coating superimpose on oral lesions/stomatitis) Neck: positive: Trachea midline Cardiovascular: positive: Regular rate & rhythm Respiratory: positive: No respiratory distress, Breath sounds nml Abdomen: positive: Non-tender, Soft, Nml bowel sounds Skin: positive: Pallor, Bruising (upper extremities), Rash (right mu-ism) Extremities: positive: No pedal edema, Other (hands and feet very cold to touch) Neurologic/Psychiatric: positive: Oriented x3 (is having difficulty tracking; more STM issues), Weakness (worsening over the last few days;), Depressed moo d/affect, Flat affect Palliative Care - POLST Patient has POLST: Yes POLST Status: Full Code Pain: Pain worsening, Location (Patient reports all over pain, had called earlier in the week with escalating pain and had returned back we were trying to taper as his pain had been much improved. His pain is mostly localized bilaterally in his joints, now in his lower extremities and buttocks, somewhat hyperalgesic touch. He rates his pain at a 6-7 over 10, and has been using oxycodone 2- 5 mg tabs more frequently 2-3 x a day (previously had not needed any)) Tiredness/Fatigue: Severe (7-10) Drowsiness/Sedation: Severe (7-10) Nausea: None Anorexia: None Dyspnea: None Depression: None Anxiety: None Feelings of wellbeing/Perceived Quality of Life: Fair, Worsening Sleep: Sleeps well (finds severe fatigue sleeping 10-12 hours and during the day;) Constipation: Yes, Opoid induced, Intermittent constipation Performance Status: Patient a week and a half ago, was actually ambulatory, able to participate in P T, and has had a steady slow decline in his functional status. Patient needing maximum assist for transfers and pivot transfer into wheelchair. He is managing at home with his walker, but they will look at getting a wheelchair for support. - Palliative Care Discussion: Patient is quite discouraged and somewhat alarmed by his health status, had been feeling like his quality of life to be improving. He admits to escalating anxiety over his healthcare changes, but is trying to take a pragmatic approach. Results - Lab Results Lab results reviewed: Yes Lab and Imaging Results: 04/13 TSH 69.32 up from 02/28-35.18; T4 .31 down from 03/02 0.55; CBC 2.8 and hgb 11.8 Impression and Recommendations - Palliative Care Impression: This is a 68-year-old gentleman with metastatic clear cell renal carcinoma, with significant metastatic disease, with escalating an exacerbation of his pain over this last week, as well as decline in functional status. Patient does present with more dramatic symptoms of his hypothyroidism, does not present with any acute signs or symptoms of infection, and now presents with oral candidiasis superimposed on his mucositis. Palliative care providing support for pain and symptom management and anticipatory guidance. Recommendations/Counseling Done: 1. Pain of neoplastic origin. Patient had been titrated off his dexamethasone, I do not feel given his slow taper this is the culprit, but given his escalating pain will go ahead and reinitiate it original dosing 4 mg a.m. and 2 mg 1400. He is back to his MS Contin 45 mg 3 times daily, and is appropriately using his oxycodone for breakthrough pain. Will monitor for increased dosing of breakthrough medication, to see if further titration is needed. 2. Constipation. Patient is being compliant with MiraLAX and senna, reports his bowels are moving fine, no recurrence of diarrhea. 3. Mucositis. Patient now unfortunately presents with worsening blisters, so far is been able to maintain his food and fluid status, using soups and soft textures. He has been doing the normal saline rinses, he feels this is improved his comfort. He declined prescription for Magic mouthwash or topical lidocaine. 4. Oral candidiasis. Patient at high risk particularly given his dexamethasone dosing and immunocompromise status. We will go ahead and treat with nystatin 5 mils 4 times daily, patient's been instructed after meals to do normal saline rinses, then application of nystatin and wait 15 minutes before eating or drinking. 5. Generalized weakness. Patient has had an acute decline in function, patient also presents with worsening hypothyroidism. We will follow-up with oncology regarding recommendations, given immunotherapy side effect. Resources given to obtain wheelchair, patient will wait for improvements, if needed can reinstate home health care, but has been recently discharged and currently has been doing well at outpatient. Addendum; 04/16. Dr. Anguiano not available, spoke with Dr. Faria in coverage. Discussion regarding patient's symptoms and hypothyroidism, choose to treat at Levothyroxine at 25 mcg, for 1 week then titrate up to 50 mcg. And revisit labs in 3 to 4 weeks, as well as clinical response. Spoke also with Jacki clemente from [facility], she was not aware patient had transitioned his care over to [facility], reviewed plan with her, as she had been in contact with Dr Anguiano. She will put in his [facility] chart. Time Spent: 50 minutes with greater than 50% of this done in counseling regarding symptoms, pain and management, and coordination of care with oncology.
== END 2019-04-15 15:31 | disposition home or self-care (01) ==
LOC: PC 15:30
PROVIDERS: ATTEND Nurse Practitioner Adult Health
DX: Z51.5 Encounter for palliative care (principal); G89.3 Neoplasm related pain (acute) (chronic); C64.9 Malignant neoplasm of unspecified kidney, except renal pelvis; C78.02 Secondary malignant neoplasm of left lung; C78.01 Secondary malignant neoplasm of right lung; C77.8 Secondary and unspecified malignant neoplasm of lymph nodes of multiple regions; C79.51 Secondary malignant neoplasm of bone; C79.01 Secondary malignant neoplasm of right kidney and renal pelvis; R53.1 Weakness; K12.30 Oral mucositis (ulcerative), unspecified; B37.0 Candidal stomatitis; G14 Postpolio syndrome; E03.9 Hypothyroidism, unspecified; Z99.3 Dependence on wheelchair; Z79.891 Long term (current) use of opiate analgesic; Z87.19 Personal history of other diseases of the digestive system
CPT/HCPCS: 99215

== ENCOUNTER 2019-04-23 11:00 | Outpatient (CLI) | payer MEDICARE, OTHER ==
--- NOTE | 2019-04-23 17:04 | CONSULTATION NOTE ---
Palliative Care Follow Up - Referral Referring Provider: Dr. Ana Anguiano Time of Visit: [id number] Ref[place] [facility] [place]erral Reason: Pain of neoplastic origin/Fatigue/Weakness - Information Sources Records reviewed: Previous records reviewed History/Review of Systems obtained from: Patient, Family ( [place] joined end of visit) Exam limitations: Clinical condition (patient with some short term memory issues) - History of Present Illness Update Brief HPI Update: This is a 68-year-old gentleman with metastatic clear cell renal carcinoma, with known mets to the bones, lungs, intrathoracic lymph nodes, right kidney, and retropertoneal lymph nodes. Presented acutely last week on 5 with severe weakness, increased pain and difficulty with his mouth, and exacerbation of his pain. He was at the point he needed to use a wheelchair to get from the car to the clinic, and was a 2 person maximum assist to help him to stand. This was not attributed to dizziness but to muscle weakness and poor strength, he was reporting he was sleeping more 10 to 12 hours, trouble getting warm these were not chills, but just felt cold. His feet were cool to touch and he was not diaphoretic or showed signs of symptoms of infection. In review of his thyroid, he was presenting with increased symptoms of hypothyroidism, his TSH on was 69.32 up from 02/28, 35.18. Had at the recommendation of oncology started him on levothyroxine 25 mcg, he is to increase at the end of this week. We also restarted his dexamethasone at 6 mg, this improved his pain and energy, he still remains quite weak and his pain is still only moderately controlled at severity of 4/10 and impacting his activity level. Patient did complete his 10 days of nystatin, with resolution of his oral candidiasis, it is still quite sore and he still has some mucositis this is most likely a combination of his candidiasis as well as his mucositis from his oral cancer therapy. Patient is currently on MS Contin 45 mg 3 times daily, he has not used much of the oxycodone for breakthrough pain. He reports his pain is mostly in his hips, exacerbated with weightbearing, and worsens with any kind of increase in mobility. He has not resumed his physical therapy, he continues with weakness, his ambulating with a walker, but does lean quite heavily on it. We also resumed his dexamethasone at 4 mg a.m. and 2 mg in the afternoon, and discussion will go ahead and do a slow taper, patient may need to be evaluated for yet another side effect of his immunotherapy and cortisol level checked if he worsens again. His mouth is much better, it is still quite bright red, only a few scattered patches of candidiasis. He is reporting it feels better, though he is complaining of new difficulty with his jaw, he reports his teeth do not align, he had tried to follow-up with dentistry without much success. Social History - Living Situation Living arrangement: At home Living Situation: With spouse/s.o. 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 He has been to his [place] for 11 years, he does have a history of PTSD and intermittent exacerbation of his anxiety. He did serve in the [employer]. Medications/Allergies - Medications Home Medications: Ambulatory Orders Medication Instructions Recorded Confirmed Aspirin 81 mg PO DAILY 12/21/14 04/23/19 Telmisartan [Micardis] 40 mg pe PO DAILY 12/21/14 04/23/19 Oxycodone HCl 5 - 15 mg PO Q4HR PRN 01/26/19 04/23/19 Morphine Sulfate ER [Ms Contin] 45 mg PO .60 MG/45 MG/45 MG MDD 01/27/19 04/23/19 titrating Buspirone HCl 15 mg PO DAILY PRN 02/01/19 04/23/19 Celecoxib [CeleBREX] 200 mg PO .200MG AM 100 PM 02/01/19 04/23/19 Cholecalciferol (Vitamin D3) 2,000 unit PO DAILY 02/01/19 04/23/19 [Vitamin D3] Citalopram Hydrobromide 40 mg PO DAILY 02/01/19 04/23/19 [Citalopram HBr] Multivit-Min/FA/Lycopen/Lutein 1 tab PO DAILY 02/01/19 04/23/19 [Centrum Silver Men Tablet] Rosuvastatin Calcium 10 mg PO DAILY 02/01/19 04/23/19 Ubidecarenone [Co Q-10] 200 mg PO DAILY 02/01/19 04/23/19 B12/Levomefolate Calcium/B-6 1,000 mcg PO DAILY 02/04/19 04/23/19 [Foltx Tablet] Magnesium Oxide [Magnesium] 400 mg PO DAILY 02/04/19 04/23/19 buPROPion [Wellbutrin Sr] 150 mg PO DAILY 02/04/19 04/23/19 Denosumab [Xgeva] 120 mg IM .30 DAYS 02/07/19 04/23/19 Loperamide [Imodium] 2 mg PO PRN PRN MDD 16 mg 02/24/19 04/23/19 Polyethylene Glycol 3350 [Miralax] 17 gm PO BID PRN 02/24/19 04/23/19 Senna [Senokot] 17.2 mg PO BID PRN 02/24/19 04/23/19 Cabozantinib S-Malate [Cabometyx] 60 mg ORAL DAILY 03/17/19 04/23/19 Nystatin 5 ml PO QID MDD 14 DAYS 04/15/19 04/23/19 dexAMETHasone [Decadron] 2 mg PO .3MG AM 2MG 1400 MDD 04/15/19 04/23/19 titrating by 1 mg weekly down Levothyroxine Sodium [Synthroid] 50 mcg PO DAILY 04/17/19 04/23/19 - Allergies Allergies/Adverse Reactions: Allergies Allergy/AdvReac Type Severity Reaction Status Date / Time No Known Drug Allergies Allergy Verified 04/13/19 09:27 Review of Systems - Constitutional Constitutional: reports: Fatigue, Weakness, Weight stable (269), Other (still feels cold but less). denies: Fever, Chills - Eyes Eyes: reports: Vision loss, Corrective lenses - Ears, Nose & Throat Ears, Nose & Throat: reports: Hearing loss, Mouth lesions, Bleeding gums (jaw bothering him), Dry mouth, Other - Cardiovascular Cardiovascular: reports: Decr. exercise tolerance. denies: Chest pain, Edema - Respiratory Respiratory: reports: Other (cpap at night). denies: SOB at rest - Gastrointestinal Gastrointestinal: reports: Good appetite. denies: Constipation (currently not using bowel meds/ knows to restart if no BM 48 hours), Nausea - Musculoskeletal Musculoskeletal: reports: Muscle pain, Back pain, Muscle aches, Stiffness, Limited range of motion, Muscle weakness, Assistive devices (using rolling walker today) - Integumentary Integumentary: reports: Dryness - Neurological Neurological: reports: General weakness, Memory problems, Pre-existing deficit, Abnormal gait - Psychiatric Psychiatric: reports: Depression, Anxiety - Endocrine Endocrine: reports: Hypothyroidism, Intolerance to cold - Hematologic/Lymphatic Hematologic/Lymphatic: reports: Bruising - All Other Systems All Other Systems: reports: Reviewed and negative Physical Exam - Vital Signs Temperature: 36.5 C Pulse Rate: 63 Respiratory Rate: 18 Blood Pressure: 152/92 - Physical Exam General Appearance: positive: Alert, Mild distress Eyes Bilateral: positive: Normal inspection ENT: positive: Pharyngeal erythema, Other (few scattered pin point). negative: Oral lesions Neck: positive: Trachea midline, Lymphadenopathy (L) (small one cm lymph node submandibular left; tender to palpation). negative: Lymphadenopathy (R) Cardiovascular: positive: Regular rate & rhythm Respiratory: positive: No respiratory distress, Diminished in bases. negative: Wheezes, Rales, Rhonchi Abdomen: positive: Soft, Distended Skin: positive: Pallor, Bruising (UE), Rash (right sabianism improved) Neurologic/Psychiatric: positive: Oriented x3, Mood/affect nml, Weakness Palliative Care - POLST Patient has POLST: Yes POLST Status: Full Code Pain: Pain improved (but still not well controlled;), Location (Patient describes pain bilaterally in buttocks and hips, as well as right shoulder and oral pain. He is currently on MS Contin 45 mg 3 times daily, with the addition of the dexamethasone for pain control of 6 mg total) Tiredness/Fatigue: Moderate (4-6) Drowsiness/Sedation: Mild (1-3) Nausea: None Anorexia: None Dyspnea: None Depression: None Anxiety: None Feelings of wellbeing/Perceived Quality of Life: Good, Improved Sleep: Sleeps well Constipation: Yes, Opoid induced, Managed Performance Status: Patient compared to last week, is more ambulatory, though is still demonstrating pain behaviors as well is generalized weakness from sitting to standing and gait is quite slow and measured. He is anxious to get back to physical therapy, though cautioned given his current state of weakness as well as not wanting to exacerbate his pain. He recalls feeling quite good after sessions, patient does have home exercise program from previous home therapy services, and encouraged to pace activities. - Palliative Care Discussion: Patient is feeling somewhat better, is hopeful to return back to his previous level of functioning, does feels somewhat overwhelmed at times. He is having trouble tracking, and finds this quite distressful, he does note it also impacts his , and is wanting her to get some relief from respite, she is planning some time away this weekend and he is encouraging her to take care of him set herself as well.. He does admit to irritability and finds Anna in crowds triggers for his underlying anxiety and PTSD. Impression and Recommendations - Palliative Care Impression: This is a 68-year-old gentleman with metastatic clear cell renal carcinoma with significant metastatic disease, escalation of pain which is improved with addition of dexamethasone, he has had a decline in functional status but some improvement. Patient improving with his symptoms of hypothyroidism, he continues with some mucositis and his oral candidiasis is improved. Palliative care providing support for pain and symptom management and anticipatory guidance. Recommendations/Counseling Done: 1. Pain of neoplastic origin. Patient's pain remains still poorly controlled, does have a lot of pain behaviors as well as significant discomfort. He is wanting to move forward slowly weighing benefits and burdens of sedation and cognitive changes, with pain relief. He is most uncomfortable with his movement during the day, will increase his MS Contin to 60 mg a.m. 45 mg late afternoon, and 45 mg at bedtime. Will start also though to decrease dexamethasone, as it is not good thing long-term. Prescription given for 1 mg tabs, will titrate more slowly, with 1 mg decrease every week until discontinued. 2. Mucousitis. Patient's blisters have improved, he is able to maintain food and fluid status, but mouth remains tender and uncomfortable. Some improvement with the treatment of oral candidiasis. Is having some jaw discomfort, no tenderness on palpation, is able to bite without discomfort, feels they are "not aligning". Reviewed concern for side effect of Xgeva, if pain worsens need to discuss with oncology. 4. Oral candidiasis. Patient remains at high risk for recurrence, has had some improvement, will reorder and instructed to use for another week and then as needed. 5. Hypothyroidism. Patient will increase his levothyroxine to 50 mcg. Will defer to oncology for continued management, will need a TSH again in 3 to 4 weeks. 6. Generalized weakness. Patient did have an acute decline in function, has had some improvement, patient is anxious to restart physical therapy. Counseling provided regarding concerns of exacerbation of pain, and with persistent fatigue. Encouraged to pace and not overdo. 7. Hypertension. Patient does present with elevated blood pressure today, 152/92. He reports they have been running higher, he is seeing his PCP on Friday, most likely will need his Micardis titrated back up. Time Spent: 60 minutes with greater than 50% of this done in counseling regarding pain and symptom management, written out instructions regarding medication changes, coordination of care with oncology and PCP.
== END 2019-04-23 11:01 | disposition home or self-care (01) ==
LOC: PC 11:00
PROVIDERS: ATTEND Nurse Practitioner Adult Health
DX: Z51.5 Encounter for palliative care (principal); G89.3 Neoplasm related pain (acute) (chronic); C79.51 Secondary malignant neoplasm of bone; C64.1 Malignant neoplasm of right kidney, except renal pelvis; B37.0 Candidal stomatitis; K12.31 Oral mucositis (ulcerative) due to antineoplastic therapy; T45.1X5A Adverse effect of antineoplastic and immunosuppressive drugs, initial encounter; E03.9 Hypothyroidism, unspecified; R53.1 Weakness; I10 Essential (primary) hypertension; Z79.899 Other long term (current) drug therapy; Z79.891 Long term (current) use of opiate analgesic; Z79.52 Long term (current) use of systemic steroids
CPT/HCPCS: 99215

== ENCOUNTER 2019-05-07 11:03 | Outpatient (CLI) | payer MEDICARE, OTHER ==
--- NOTE | 2019-05-07 15:43 | CONSULTATION NOTE ---
Palliative Care Follow Up - Referral Referring Provider: Dr. Ana Anguiano Time of Visit: 03-23 [place] [facility] [place] Reason: Pain of neoplastic origin/Fatigue/Renal Cell CA - Information Sources Records reviewed: Previous records reviewed History/Review of Systems obtained from: Patient, Family (Sienna present) Exam limitations: Clinical condition (Patient with some cognitive slowing) - History of Present Illness Update Brief HPI Update: This is a 68-year-old gentleman with metastatic clear cell renal carcinoma, with known mets to the bones, lungs, intrathoracic lymph nodes, right kidney, and retroperitoneal lymph nodes. Patient has continued to improve, with initiation of treatment of his hypothyroidism, his energy is better, no further complaints of being cold and lethargic. Currently on levothyroxine 50 mcg, he would be due for TSH with next blood draw. Patient has had progressive pain, de spite increase in MS Contin, total opioid dosing currently is 150 mg in 24 hours. Had restarted his dexamethasone both for his pain and lethargy, he is currently titrating down much slower, he is on 2 mg a.m. and 1 mg p.m. His oral mucositis, has improved, though does still have some areas of redness, no signs or symptoms of oral candidiasis. He is complaining though of some jaw discomfort, more related to alignment. Patient's pain exacerbated with recent fall, he did not fall to the ground, but did not stretch his arms and it did exacerbate his pain. He reports his pains are mostly bilaterally in his hips, exacerbated with weightbearing and any increase in mobility. He will be resuming physical therapy on 05/18. The pain is sharp shooting, and worsening in the evenings. His near fall, though he caught himself with his armpits, was scary and distressing to both patient and . They were able to get him up, but he was noticing increased discomfort. Patient's other main complaint is been his cognitive slowing, and decrease in executive function. Patient does not present with any confusion, he is oriented x3. 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 Please see palliative care discussion Social History - Living Situation Living arrangement: At home Living Situation: With spouse/s.o. 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 He is to his current Sienna for 11 years. He did serve in the [email or web address]. He does have a history of PTSD and intermittent exacerbation of his anxiety. Medications/Allergies - Medications Home Medications: Ambulatory Orders Medication Instructions Recorded Confirmed Aspirin 81 mg PO DAILY 12/21/14 05/07/19 Telmisartan [Micardis] 80 mg PO DAILY 12/21/14 05/07/19 Oxycodone HCl 5 - 15 mg PO Q4HR PRN 01/26/19 05/07/19 Morphine Sulfate ER [Ms Contin] 45 mg PO .60 MG/45 MG/45 MG MDD 01/27/19 05/07/19 titrating up as needed Buspirone HCl 15 mg PO DAILY PRN 02/01/19 05/07/19 Celecoxib [CeleBREX] 200 mg PO .200MG AM 100 PM 02/01/19 05/07/19 Cholecalciferol (Vitamin D3) 2,000 unit PO DAILY 02/01/19 05/07/19 [Vitamin D3] Citalopram Hydrobromide 40 mg PO DAILY 02/01/19 05/07/19 [Citalopram HBr] Multivit-Min/FA/Lycopen/Lutein 1 tab PO DAILY 02/01/19 05/07/19 [Centrum Silver Men Tablet] Rosuvastatin Calcium 10 mg PO DAILY 02/01/19 05/07/19 Ubidecarenone [Co Q-10] 200 mg PO DAILY 02/01/19 05/07/19 B12/Levomefolate Calcium/B-6 1,000 mcg PO DAILY 02/04/19 05/07/19 [Foltx Tablet] Magnesium Oxide [Magnesium] 400 mg PO DAILY 02/04/19 05/07/19 buPROPion [Wellbutrin Sr] 150 mg PO DAILY 02/04/19 05/07/19 Denosumab [Xgeva] 120 mg IM .30 DAYS 02/07/19 05/07/19 Loperamide [Imodium] 2 mg PO PRN PRN MDD 16 mg 02/24/19 05/07/19 Polyethylene Glycol 3350 [Miralax] 17 gm PO BID PRN 02/24/19 05/07/19 Senna [Senokot] 17.2 mg PO BID PRN 02/24/19 05/07/19 Cabozantinib S-Malate [Cabometyx] 60 mg ORAL DAILY 03/17/19 05/07/19 Nystatin 5 ml PO QID PRN 04/15/19 05/07/19 dexAMETHasone [Decadron] 2 mg PO .2 AM 1 MG 1400 MDD 04/15/19 05/07/19 titrating by 1 mg weekly down Levothyroxine Sodium [Synthroid] 50 mcg PO DAILY 04/17/19 05/07/19 - Allergies Allergies/Adverse Reactions: Allergies Allergy/AdvReac Type Severity Reaction Status Date / Time No Known Drug Allergies Allergy Verified 04/13/19 09:27 Review of Systems - Constitutional Constitutional: reports: Fatigue (improved), Weight stable (175.5 with clothes home) - Eyes Eyes: reports: Vision loss, Corrective lenses - Ears, Nose & Throat Ears, Nose & Throat: reports: Dry mouth, Other (jaw "misaligned" bite is off;). denies: Mouth lesions - Cardiovascular Cardiovascular: reports: Exertional dyspnea, Decr. exercise tolerance. denies: Edema, Lightheadedness - Respiratory Respiratory: reports: SOB with exertion. denies: SOB at rest - Gastrointestinal Gastrointestinal: reports: Reflux/heartburn (one episode for a few days; no further issues), Good appetite. denies: Constipation (managing bowel program), Nausea - Musculoskeletal Musculoskeletal: reports: Back pain, Stiffness, Limited range of motion, Muscle weakness, Joint pain (bilateral hip pain), Assistive devices (using walker) - Integumentary Integumentary: reports: Dryness, Acne (in nasal passages). denies: Pruritis - Neurological Neurological: reports: General weakness, Memory problems (worsening with executive function), Pre-existing deficit (related to polio left leg), Abnormal gait, Slurred speech (speech quiet, more difficulty annunciating) - Psychiatric Psychiatric: reports: Depression, Anxiety - Endocrine Endocrine: denies: Intolerance to cold (improved) - Hematologic/Lymphatic Hematologic/Lymphatic: reports: Bruising. denies: Recurrent infections - All Other Systems All Other Systems: reports: Reviewed and negative Physical Exam - Vital Signs Temperature: 36.8 C Pulse Rate: 87 Respiratory Rate: 18 Blood Pressure: 134/78 - Physical Exam General Appearance: positive: No acute distress, Alert Eyes Bilateral: positive: Normal inspection ENT: positive: No signs of dehydration, Other (has blood blister in left back corner; reports chews on inner cheek;). negative: Pharyngeal erythema, Oral lesions (no s/s candidiasis today) Neck: positive: No JVD, Trachea midline Cardiovascular: positive: Regular rate & rhythm Respiratory: positive: No respiratory distress, Breath sounds nml Abdomen: positive: Soft Skin: positive: Pallor, Bruising (upper extremities; small skin tears from fall healing), Rash (right presybeterian resolved;), Other Neurologic/Psychiatric: positive: Oriented x3, Other (some word finding; pauses in conversation;) Palliative Care - POLST Patient has POLST: Yes POLST Status: Full Code Pain: Pain improved, Location (see HPI), Severity (still moderate to severe) Tiredness/Fatigue: Moderate (4-6) Drowsiness/Sedation: Mild (1-3) Nausea: None Anorexia: Mild (1-3) Dyspnea: None Depression: None Anxiety: None Feelings of wellbeing/Perceived Quality of Life: Good, Acceptable, Improved Sleep: Sleep improved Constipation: Yes, Opoid induced, Managed, Intermittent constipation Performance Status: Patient's functional status and activity tolerance is limited by his pain. Patient is quite sedentary, does sit at a computer, and back and forth to watching TV. Patient does need some assistance with dressing related to his shoulder pain, and limited mobility. He is ambulatory with a walker, has not needed wheelchair since his appointment on . They do have equipment in their home, to assist with safety. Did review though for fall, calling 911 for lift assist. - Palliative Care Discussion: Reviewed with patient and , despite frustration with word finding, slowing of cognition, that given his seriousness of his illness, his high degree of pain and symptom burden, need to weigh benefits and burdens of suffering versus side effects of medications. Patient has had escalating pain, we did discuss in the context of managing advanced cancer, weighing benefits and burdens of not only treatment but also treatment of symptoms as they arise. Patient's approach to managing his illness, is to stay positive, move ahead, have an action plan. We did review all of these above, but reminded gently he does have significant bony mets and though positive looking forward with hope for increased quantity of life, needs to be in the context of quality of life as well. He is in agreement with this, as he finds it important to be independent and to be able to find balance in his ability to stay in control. Discussed with most important to him, it is certainly his family and did have a really kenyon holiday. Reviewed again to set priorities, particularly with decreased energy need to find things that bring him pleasure and herson. Results - Lab Results Lab and Imaging Results: Will add TSH to Friday's labs Impression and Recommendations - Palliative Care Impression: This is a 68-year-old gentleman with metastatic clear cell renal carcinoma, with significant metastatic disease. Have ongoing severe pain, is having some improvement regarding his symptoms of hypothyroidism and fatigue, his mucositis and oral candidiasis is essentially resolved. Palliative care providing support for pain and symptom management and anticipatory guidance Recommendations/Counseling Done: 1. Pain of neoplastic origin. Patient's pain is only moderately controlled, we did increase his MS Contin to 60 mg in the a.m., continued at 45 late afternoon and 45 at bedtime. We have started a taper of the dexamethasone, has not had an exacerbation in his pain. We will do a slow taper to continue with 1 mg decrease every week until discontinued. Counseling provided again regarding opioid safety, concern and recommendation not to drive, moving forward with weighing benefits and burdens of sedation and cognitive changes with pain relief. Discussed currently patient not using his oxycodone for breakthrough pain, recommended prior to titrating him up, to use this as a "preemptive strike", as he does have activities that exacerbate his pain. Agreed we would leave it where it is currently, though he can call if we need to increase it. Rx provided for 30 mg MS Contin # 120 to [facility]. 2. Hypothyroidism. Patient with resolving symptoms regarding his hypothyroidism. He is less cold, decrease in lethargy, skin changes are improving though he still has quite dry skin. Patient currently on levothyroxine 50 mcg. Will defer to oncology for continued management, TSH ordered as has not seen oncology prior to his next set of labs. 3. Mucositis. Patient does have small blister left base of pharynx, he is able to maintain food and fluid status, pain and discomfort has improved. No further signs or symptoms of oral candidiasis. He continues with jaw discomfort, no tenderness on palpation is more to do with alignment. Did recommend follow-up with his dentist, may be able to do some kind of mouthguard or evaluation. Again reviewed concern for side effect of Xgeva if pain worsens or develops. Patient is wanting to have further dental evaluation, does not want go back to his dentist, recommended follow-up with alternative dentist or oral surgeon. 4. Generalized weakness. Patient did have an acute decline in function, this is continued to improve. He is anxious to restart physical therapy 05/18. Counseling provided regarding exacerbation of pain in his persistent fatigue, encouraged to start slow with progressive ambulation 5 minutes twice daily, until PT. Counciled with patient fall precautions, given his most recent event. Counseling provided regarding calling 911 for lift assist and concern for injury. 5. Hypertension. Patient did see his PCP, with adjustment of his Micardis. His blood pressure is improved today at 134/78. He has no lower extremity edema. No further questions regarding this. Time Spent: 60 minutes with greater than 50% of this done in counseling regarding pain and symptom management, anticipatory guidance, goals of care regarding quality of life issues, plan to follow-up in 2 weeks for further titration of medications as indicated
== END 2019-05-07 11:04 | disposition home or self-care (01) ==
LOC: PC 11:03
PROVIDERS: ATTEND Nurse Practitioner Adult Health
DX: Z51.5 Encounter for palliative care (principal); G89.3 Neoplasm related pain (acute) (chronic); R41.89 Other symptoms and signs involving cognitive functions and awareness; E03.9 Hypothyroidism, unspecified; K12.30 Oral mucositis (ulcerative), unspecified; R53.1 Weakness; I10 Essential (primary) hypertension; C79.51 Secondary malignant neoplasm of bone; C64.9 Malignant neoplasm of unspecified kidney, except renal pelvis; C78.00 Secondary malignant neoplasm of unspecified lung; C77.8 Secondary and unspecified malignant neoplasm of lymph nodes of multiple regions; Z79.899 Other long term (current) drug therapy; Z79.891 Long term (current) use of opiate analgesic; Z79.52 Long term (current) use of systemic steroids
CPT/HCPCS: 99215

== ENCOUNTER 2019-05-20 08:27 | Outpatient (CLI) | payer MEDICARE, OTHER | END 2019-05-20 08:28 | disposition critical access hospital (66) | LOC: EMS 08:27 | PROVIDERS: ATTEND Surgery | DX: M25.552 Pain in left hip (principal); R03.1 Nonspecific low blood-pressure reading; R53.1 Weakness; G14 Postpolio syndrome | CPT/HCPCS: A0425; A0427 ==

== ENCOUNTER 2019-05-20 08:37 | Emergency (ER) | payer MEDICARE, OTHER ==
[2019-05-20] MEDS ORDERED: HYDROmorphone 1 MG/ML CARPUJECT IVP STA ×2 (09:10→11:51)
[2019-05-20] MEDS ORDERED: SODIUM CHLORIDE 0.9% 1,000 ML IV ONE (09:10)
--- NOTE | 2019-05-20 09:14 | ED Physician Documentation ---
History of Present Illness - Stated complaint Stated Complaint: LEG PX - Chief complaint Chief Complaint: Ext Problem - History obtained from History obtained from: Patient, EMS - History of Present Illness Timing: Today Pain level max: 9 Pain level now: 9 Improved by: nothing Worsened by: nothing - Additonal information Additional information: 68-year-old male presents to the emergency department with chills today. He states that he has renal cell carcinoma, metastatic to multiple bony sites. Has chronic left leg pain. He is undergoing chemotherapy. Denies any fevers. States he could not get warm this morning. He denies any other symptoms at this time. Did not take his pain medication this morning. Review of Systems Ten Systems: 10 systems reviewed and negative Constitutional: reports: Chills. denies: Fever Nose: denies: Rhinorrhea / runny nose, Congestion Cardiac: denies: Chest pain / pressure Respiratory: denies: Cough GI: denies: Vomiting Skin: denies: Rash Musculoskeletal: denies: Neck pain, Back pain Neurologic: denies: Headache PD PAST MEDICAL HISTORY - Past Medical History Cardiovascular: Hypertension, High cholesterol, Murmur, Other Respiratory: Asthma, Shortness of breath, CPAP use Neuro: None Endocrine/Autoimmune: None : Benign prostate hypertrophy, Renal insuffiency HEENT: Chronic vision loss Psych: Depression, Anxiety Musculoskeletal: Osteoarthritis, Gout, Fatigue, Other Derm: None - Past Surgical History Past Surgical History: Yes Ortho: Knee replacement, Knee replacement - Present Medications Home Medications: Ambulatory Orders Medication Instructions Recorded Confirmed Aspirin 81 mg PO DAILY 12/21/14 05/11/19 Telmisartan [Micardis] 80 mg PO DAILY 12/21/14 05/11/19 Oxycodone HCl 5 - 15 mg PO Q4HR PRN 01/26/19 05/11/19 Morphine Sulfate ER [Ms Contin] 45 mg PO .60 MG/45 MG/45 MG MDD 01/27/19 05/11/19 titrating up as needed Buspirone HCl 15 mg PO DAILY PRN 02/01/19 05/11/19 Celecoxib [CeleBREX] 200 mg PO .200MG AM 100 PM 02/01/19 05/11/19 Cholecalciferol (Vitamin D3) 2,000 unit PO DAILY 02/01/19 05/11/19 [Vitamin D3] Citalopram Hydrobromide 40 mg PO DAILY 02/01/19 05/11/19 [Citalopram HBr] Multivit-Min/FA/Lycopen/Lutein 1 tab PO DAILY 02/01/19 05/11/19 [Centrum Silver Men Tablet] Rosuvastatin Calcium 10 mg PO DAILY 02/01/19 05/11/19 Ubidecarenone [Co Q-10] 200 mg PO DAILY 02/01/19 05/11/19 B12/Levomefolate Calcium/B-6 1,000 mcg PO DAILY 02/04/19 05/11/19 [Foltx Tablet] Magnesium Oxide [Magnesium] 400 mg PO DAILY 02/04/19 05/11/19 buPROPion [Wellbutrin Sr] 150 mg PO DAILY 02/04/19 05/11/19 Denosumab [Xgeva] 120 mg IM .30 DAYS 02/07/19 05/11/19 Loperamide [Imodium] 2 mg PO PRN PRN MDD 16 mg 02/24/19 05/11/19 Senna [Senokot] 17.2 mg PO BID PRN 02/24/19 05/11/19 polyethylene glycoL 3350 [Miralax] 17 gm PO BID PRN 02/24/19 05/11/19 Cabozantinib S-Malate [Cabometyx] 60 mg ORAL DAILY 03/17/19 05/11/19 Nystatin 5 ml PO QID PRN 04/15/19 05/11/19 dexAMETHasone [Decadron] 2 mg PO .2 AM 1 MG 1400 MDD 04/15/19 05/11/19 titrating by 1 mg weekly down Levothyroxine Sodium [Synthroid] 50 mcg PO DAILY 04/17/19 05/11/19 - Allergies Allergies/Adverse Reactions: Allergies Allergy/AdvReac Type Severity Reaction Status Date / Time No Known Drug Allergies Allergy Verified 05/20/19 08:41 - Social History Does the pt smoke?: No Smoking Status: Never smoker Does the pt drink ETOH?: Yes Does the pt have substance abuse?: No - Immunizations Immunizations are current?: Yes - POLST Patient has POLST: Yes PD ED PE NORMAL - Vitals Vital signs reviewed: Yes - General General: Alert and oriented X 3, No acute distress, Well developed/nourished - HEENT HEENT: Moist mucous membranes - Neck Neck: Supple, no meningeal sign - Cardiac Cardiac: RRR, Strong equal pulses - Respiratory Respiratory: No respiratory distress, Clear bilaterally - Abdomen Abdomen: Soft, Non tender, Non distended - Derm Derm: Warm and dry - Neuro Neuro: Alert and oriented X 3 - Psych Psych: Normal mood, Normal affect Results - Vitals Vitals: Vital Signs - 24 hr 05/20/19 05/20/19 05/20/19 08:41 09:11 11:00 Temperature 36.5 C Heart Rate 92 93 94 Respiratory 18 18 18 Rate Blood Pressure 152/83 H 136/72 H 139/78 H O2 Saturation 97 97 99 05/20/19 12:16 Temperature 36.1 C L Heart Rate 101 H Respiratory 18 Rate Blood Pressure 114/82 H O2 Saturation 93 Oxygen O2 Source Room air - Labs Labs: Laboratory Tests 05/20/19 05/20/19 05/20/19 09:24 09:24 09:24 WBC 3.8 L RBC 2.89 L Hgb 9.6 L Hct 30.5 L MCV 105.5 H MCH 33.2 H MCHC 31.5 L RDW 20.1 H Plt Count 173 MPV 8.4 Neut # (Auto) 3.2 Lymph # (Auto) 0.4 L [place] # (Auto) 0.2 Eos # (Auto) 0.1 Baso # (Auto) 0.0 Absolute Nucleated RBC 0.00 Nucleated RBC % 0.0 Manual Slide Review Indicated Platelet Estimate NORMAL (130-450,000) Platelet Morphology NORMAL APPEARANCE RBC Morph Micro Appear 1+ POLYCHROMASIA Sodium 139 Potassium 3.8 Chloride 106 Carbon Dioxide 24 Anion Gap 9.0 BUN 18 Creatinine 0.7 Estimated GFR (MDRD) 111 Glucose 87 Lactic Acid 2.5 H Calcium 8.1 L Total Bilirubin 0.7 AST 36 ALT 43 Alkaline Phosphatase 104 Total Protein 5.7 L Albumin 2.9 L Globulin 2.8 Albumin/Globulin Ratio 1.0 Lipase 20 L Urine Color Urine Clarity Urine pH Ur Specific [place] Urine Protein Urine Glucose (UA) Urine Ketones Urine Occult Blood Urine Nitrite Urine Bilirubin Urine Urobilinogen Ur Leukocyte Esterase Urine RBC Urine WBC Ur Squamous Epith Cells Urine Bacteria Ur Microscopic Review Urine Culture Comments Influenza A (Rapid) Influenza B (Rapid) 05/20/19 05/20/19 05/20/19 09:28 09:40 12:51 WBC RBC Hgb Hct MCV MCH MCHC RDW Plt Count MPV Neut # (Auto) Lymph # (Auto) [place] # (Auto) Eos # (Auto) Baso # (Auto) Absolute Nucleated RBC Nucleated RBC % Manual Slide Review Platelet Estimate Platelet Morphology RBC Morph Micro Appear Sodium Potassium Chloride Carbon Dioxide Anion Gap BUN Creatinine Estimated GFR (MDRD) Glucose Lactic Acid 1.9 Calcium Total Bilirubin AST ALT Alkaline Phosphatase Total Protein Albumin Globulin Albumin/Globulin Ratio Lipase Urine Color DARK YELLOW Urine Clarity CLEAR Urine pH 6.0 Ur Specific [place] 1.025 Urine Protein NEGATIVE Urine Glucose (UA) NEGATIVE Urine Ketones NEGATIVE Urine Occult Blood MODERATE H Urine Nitrite NEGATIVE Urine Bilirubin NEGATIVE Urine Urobilinogen 1 (NORMAL) Ur Leukocyte Esterase NEGATIVE Urine RBC 6-10 H Urine WBC 0-3 Ur Squamous Epith Cells NONE SEEN Urine Bacteria Rare Ur Microscopic Review INDICATED Urine Culture Comments NOT INDICATED Influenza A (Rapid) Negative Influenza B (Rapid) Negative - Rads (name of study) cxr Radiology: Prelim report reviewed, EMP read contemporaneously, See rad report (IMPRESSION: Mild distentionof upper lobe vasculature which could be secondary to mild congestive heart failure or fluid overload. Triangular wedge of increased density peripherally in the right apex, most likely atelectasis. Chronic pleural scarring and adjacent old left rib fractures are unchanged. Expansile destructive lesions of fifth and seventh left ribs are unchanged from the CT. Expansile destructive lesion of the right scapula is again demonstrated. ) PD MEDICAL DECISION MAKING - ED course Complexity details: considered differential, d/w patient, d/w family ED course: Patient feels much better after IV fluids. Chills stopped. Appears to have dehydration. He was hypotensive with EMS. Patient is well-appearing, nontoxic. Afebrile. No hypoxia. No respiratory distress. His family brought his pain medication here and he took this while in the emergency department. Patient and family counseled regarding signs and symptoms for which I believe and urgent re-evaluation would be necessary. Patient with good understanding of and agreement to plan and is comfortable going home at this time This document was made in part using voice recognition software. While efforts are made to proofread this document, sound alike and grammatical errors may occur. Departure - Departure Disposition: 01 Home, Self Care Clinical Impression: Dehydration Chronic pain Qualifiers: Chronic pain type: due to neoplasm Qualified Code(s): G89.3 - Neoplasm related pain (acute) (chronic) Condition: Good Instructions: ED Dehydration Follow-Up: Elaine Lynn PA-C [Primary Care Provider] - Within 1 week Comments: Drink plenty of fluids. Return if you worsen. Follow-up with your doctor for further care. Discharge Date/Time: 05/20/19 13:05
[2019-05-20 09:42] LABS: BASOPHILS % (AUTO) 0.3 %; EOSINOPHILS # (AUTO) 0.1 10^3/uL (0.0-0.7); EOSINOPHILS % (AUTO) 1.8 %; HGB - HEMOGLOBIN 9.6 g/dL (14.0-18.0); LYMPHOCYTES # (AUTO) 0.4 10^3/uL (1.5-3.5); LYMPHOCYTES % (AUTO) 10.4 %; MEAN CORPUSCULAR HEMOGLOBIN 33.2 pg (27.0-31.0); MEAN CORPUSCULAR HGB CONC 31.5 g/dL (32.0-36.0); MEAN CORPUSCULAR VOLUME 105.5 fL (80.0-94.0); MEAN PLATELET VOLUME 8.4 fL (7.4-11.4); MONOCYTES # (AUTO) 0.2 10^3/uL (0.0-1.0); MONOCYTES % (AUTO) 4.9 %; NEUTROPHILS # (AUTO) 3.2 10^3/uL (1.5-6.6); NEUTROPHILS % (AUTO) 82.1 %; PLT - PLATELET COUNT 173 10^3/uL (130-450); RED BLOOD COUNT 2.89 10^6/uL (4.70-6.10); RED CELL DISTRIBUTION WIDTH 20.1 % (12.0-15.0); WHITE BLOOD COUNT 3.8 x10^3/uL (4.8-10.8)
[2019-05-20 09:53] LABS: BILIRUBIN,URINE NEGATIVE (NEGATIVE); GLUCOSE, URINE (UA) NEGATIVE (NEGATIVE); KETONES,URINE (UA) NEGATIVE (NEGATIVE); LEUKOCYTE ESTERASE, URINE NEGATIVE (NEGATIVE); NITRITE,URINE NEGATIVE (NEGATIVE); OCCULT BLOOD,URINE MODERATE (NEGATIVE); PROTEIN,URINE NEGATIVE (NEGATIVE); UROBILINOGEN,URINE 1 (NORMAL) E.U./dL (NORMAL)
[2019-05-20 09:53] LABS: ALBUMIN 2.9 g/dL (3.2-5.5); BILIRUBIN,TOTAL 0.7 mg/dL (0.2-1.0); CALCIUM 8.1 mg/dL (8.5-10.3); CREATININE 0.7 mg/dL (0.6-1.2); TOTAL PROTEIN 5.7 g/dL (6.7-8.2)
[2019-05-20 09:56] LABS: CLARITY,URINE CLEAR (CLEAR)
[2019-05-20 10:03] LABS: BACTERIA,URINE Rare /HPF (None Seen); SQUAMOUS EPITHELIAL CELL,UR NONE SEEN (<= Few)
[2019-05-20 10:04] LABS: PLATELET ESTIMATE, MANUAL NORMAL (130-450,000) (NORMAL); PLATELET MORPHOLOGY NORMAL APPEARANCE (NORMAL)
--- NOTE | 2019-05-20 10:41 | XRAY Report ---
Reason: chills Procedure Date: 05/20/2019 Accession Number: [id number] / [id number] Procedure: XR - Chest 1 View X-Ray CPT Code: 02775 Final Report FULL RESULT: EXAM: CHEST RADIOGRAPHY 1 VIEW EXAM DATE: 05/20/2019. CLINICAL HISTORY: Chills. COMPARISON: [facility] portable chest on 02/07/2019. Chest CT done 03/09/2019 TECHNIQUE: AP semierect portable chest at 0943, 2 images. FINDINGS: Lungs/Pleura: Mild distention of the upper lobe vasculature. No segmental consolidation. Expansile lesions of multiple left ribs are unchanged. Triangular focus of increased density peripherally in the right apex. No pleural effusion or pneumothorax. Mediastinum: Heart size is normal for the technique. Aortic tortuosity is unchanged. Bones: Expansile destructive lesions of lateral left fifth and seventh ribs are unchanged. The expansile destructive lesion of the right scapula is again demonstrated, better seen on the CT. IMPRESSION: Mod assist of upper lobe vasculature which could be secondary to mild congestive heart failure or fluid overload. Triangular wedge of increased density peripherally in the right apex, most likely atelectasis. Chronic pleural scarring and adjacent old left rib fractures are unchanged. Expansile destructive lesions of fifth and seventh left ribs are unchanged from the CT. Expansile destructive lesion of the right scapula is again demonstrated. RADIA
[2019-05-20 12:17] VITALS: BP 114/82
== END 2019-05-20 13:05 | disposition home or self-care (01) ==
LOC: EDUNIT# → ED 08:37
DX: E86.0 Dehydration (principal); G89.3 Neoplasm related pain (acute) (chronic); I10 Essential (primary) hypertension; Z79.899 Other long term (current) drug therapy; Z79.891 Long term (current) use of opiate analgesic
CPT/HCPCS: 36415; 51701; 71045; 80053; 81001; 83605; 83690; 85025; 87040; 87275; 87276; 96374; 96376; 99284; J1170; 81003; 87086

== ENCOUNTER 2019-06-02 10:25 | Outpatient (CLI) | payer MEDICARE, OTHER ==
--- NOTE | 2019-06-02 17:10 | CONSULTATION NOTE ---
Palliative Care Follow Up - Referral Referring Provider: Dr. Ana Anguiano Time of Visit: 4195-0454 Referral setting: [facility] [place] Referral Reason: Pain of neoplastic origin/Renal Cell CA - Information Sources Records reviewed: Previous records reviewed History/Review of Systems obtained from: Patient, Family ( Sienna at visit) Exam limitations: Clinical condition (patient with mild STM issues) - History of Present Illness Update Brief HPI Update: This is a 68-year-old gentleman with metastatic clear cell renal carcinoma with known mets to the bones, lungs, intrathoracic nodes, right kidney, and retroperitoneal lymph nodes. Patient has known widespread metastatic disease, with bilateral regular pleural masses with adjacent bone destruction and involvement of lung. He has multiple bone mets, including a pathologic right scapular fracture, and concern for potential for neural foraminal/spinal canal canal involvement at T9. Patient has had an exacerbation of his pain several times, including an ED visit after participating in physical therapy. Concern for patient displacing or for pathologic fracture, patient is due for scans 06/07. Titrating up his pain regimens currently at MS Contin 60 mg TID, he is using his oxycodone 15 mg for breakthrough pain a little bit more frequently, his pain mostly is located bilaterally in his hips and groin area, right knee, and right shoulder area which does correlate with the scapular fracture area. Patient does get easily discouraged, and fearful with the exacerbation of his pain, he does have a history of anxiety and PTSD. Patient has had recurrent symptoms of hypothyroidism, with cold intolerance, and review he stopped his levothyroxine 2 weeks ago, had been titrating up, was to start 75 mcg. He will pick it up today.His appetite has been good, he has had some weight gain most likely secondary to his hypothyroidism, his edema is well controlled. He does find it frustrating, with his cognitive slowing, and some drowsiness as well as fatigue. He does try and pace his activities. We did miss her last appointment secondary to his ED visit. Patient's past history and comorbidities include severe pulmonary hypertension, sclerotic aortic valve, mildly dilated LV, COPD, CKD, post polio syndrome involving left leg, PTSD, RAISA, and depression. Social History - Living Situation Living arrangement: At home Living Situation: With spouse/s.o. Support System: Patient does live with his Sienna, he very much gets impatient if he is dependent. 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 He does have intermittent exacerbation of his anxiety, and a history of PTSD. He is seen the palliative care nursing home social worker Medications/Allergies - Medications Home Medications: Ambulatory Orders Medication Instructions Recorded Confirmed Aspirin 81 mg PO DAILY 12/21/14 05/11/19 Telmisartan [Micardis] 80 mg PO DAILY 12/21/14 06/03/19 Oxycodone HCl 15 mg PO Q4HR PRN 01/26/19 06/03/19 Morphine Sulfate ER [Ms Contin] 60 mg PO TID 01/27/19 06/03/19 Buspirone HCl 15 mg PO BID PRN 02/01/19 06/03/19 Celecoxib [CeleBREX] 200 mg PO .200MG AM 100 PM 02/01/19 06/03/19 Cholecalciferol (Vitamin D3) 2,000 unit PO DAILY 02/01/19 06/03/19 [Vitamin D3] Citalopram Hydrobromide 40 mg PO DAILY 02/01/19 06/03/19 [Citalopram HBr] Multivit-Min/FA/Lycopen/Lutein 1 tab PO DAILY 02/01/19 06/03/19 [Centrum Silver Men Tablet] Rosuvastatin Calcium 10 mg PO DAILY 02/01/19 06/03/19 Ubidecarenone [Co Q-10] 200 mg PO DAILY 02/01/19 06/03/19 B12/Levomefolate Calcium/B-6 1,000 mcg PO DAILY 02/04/19 06/03/19 [Foltx Tablet] Magnesium Oxide [Magnesium] 400 mg PO DAILY 02/04/19 06/03/19 buPROPion [Wellbutrin Sr] 150 mg PO DAILY 02/04/19 06/03/19 Denosumab [Xgeva] 120 mg IM .30 DAYS 02/07/19 06/03/19 Loperamide [Imodium] 2 mg PO PRN PRN MDD 16 mg 02/24/19 06/03/19 Senna [Senokot] 17.2 mg PO BID PRN 02/24/19 06/03/19 polyethylene glycoL 3350 [Miralax] 17 gm PO BID PRN 02/24/19 06/03/19 Cabozantinib S-Malate [Cabometyx] 60 mg ORAL DAILY 03/17/19 06/03/19 Nystatin 5 ml PO QID PRN 04/15/19 06/03/19 dexAMETHasone [Decadron] 1 mg PO DAILY MDD discontinue one 04/15/19 06/03/19 week Levothyroxine Sodium [Synthroid] 75 mcg PO DAILY 04/17/19 06/03/19 - Allergies Allergies/Adverse Reactions: Allergies Allergy/AdvReac Type Severity Reaction Status Date / Time No Known Drug Allergies Allergy Verified 05/20/19 08:41 Review of Systems - Constitutional Constitutional: reports: Fatigue, Chills, Weight stable. denies: Fever - Eyes Eyes: reports: Vision loss, Corrective lenses - Ears, Nose & Throat Ears, Nose & Throat: reports: Nasal congestion, Dry mouth - Cardiovascular Cardiovascular: reports: Exertional dyspnea, Decr. exercise tolerance - Respiratory Respiratory: reports: SOB with exertion. denies: SOB at rest - Gastrointestinal Gastrointestinal: reports: Good appetite, Other (taste changes). denies: Constipation, Nausea - Genitourinary Genitourinary: reports: Frequency - Musculoskeletal Musculoskeletal: reports: Back pain, Muscle aches, Stiffness, Limited range of motion, Muscle weakness, Joint pain (bilateral hip pain) - Integumentary Integumentary: reports: Dryness - Neurological Neurological: reports: General weakness, Memory problems - Psychiatric Psychiatric: reports: Depression, Anxiety - Endocrine Endocrine: reports: Hypothyroidism, Intolerance to cold - Hematologic/Lymphatic Hematologic/Lymphatic: reports: Anemia (9.6), Bruising - All Other Systems All Other Systems: reports: Reviewed and negative Physical Exam - Vital Signs Pulse Rate: 76 Respiratory Rate: 18 O2 Saturation: 96 (ra @ rest) Blood Pressure: 123/74 - Physical Exam General Appearance: positive: Alert, Mild distress Eyes Bilateral: positive: Normal inspection ENT: positive: No signs of dehydration, Other (recent teeth cleaning). negative: Pharyngeal erythema, Oral lesions Neck: positive: No JVD, Trachea midline Cardiovascular: positive: Regular rate & rhythm Respiratory: positive: No respiratory distress, Breath sounds nml, Diminished throughout Abdomen: positive: Non-tender, Soft, Nml bowel sounds Skin: positive: Pallor, Dryness Extremities: positive: Pedal edema (trace/1+ pitting bilat) Neurologic/Psychiatric: positive: Oriented x3, Mood/affect nml, Weakness Palliative Care - POLST Patient has POLST: No POLST Status: Full Code Pain: Pain worsening, Location (see HPI), Severity (10) Tiredness/Fatigue: Moderate (4-6) Drowsiness/Sedation: Moderate (4-6) Nausea: None Anorexia: None Dyspnea: None Depression: Mild (1-3) Anxiety: Mild (1-3) Feelings of wellbeing/Perceived Quality of Life: Good, Acceptable, Worsening Sleep: Variable sleep pattern, Other (has not used CPAP for two weeks;) Constipation: Yes, Opoid induced, Managed Performance Status: Patient is ambulatory with a walker, does have some difficulty getting in and out of bed, though this is improved. Sit to stand is difficult with her hip pain. He is able to manage his own showering currently. He does get frustrated he cannot pursue his physical therapy, is worried about getting deconditioned. He is quite active as far as ambulating to the home, has not letter keep him homebound. He does understand he needs to pace his activities better as he does tend to exacerbate his pain with longer distance walking and increased activity. - Palliative Care Discussion: Discussed feedback from Dr. Anguiano could move up scans a week, though pain has improved would recommend waiting to prescribe time as he has gotten through his crisis. He is very anxious about the results, and about "fighting" his cancer, wondering what would be next if this is not working. Patient does have fairly high tumor burden, has been tolerating fairly well his oral chemotherapy. He is hoping for better quality of life, his goal is to be able to take his boat out and be able to tolerate the increased activity. Sienna is shared observation is, when patient has persistent pain, or gets frustrated, his anxiety escalates. She herself gets anxious about once serious and was not serious, and different ways to support him as well as be supportive. Impression and Recommendations - Palliative Care Impression: This is a 68-year-old gentleman with metastatic clear cell renal carcinoma, with significant metastatic disease and tumor burden. He has had escalating ongoing severe pain, titrating up his pain medications, with improvement of functional status. Patient continues with high anxiety, is hopeful his treatment is working, and worried about the future. Palliative care continue provide support for pain and symptom management and anticipatory guidance. Recommendations/Counseling Done: 1. Pain of neoplastic origin. Patient's pain is moderately controlled, have been escalating his MS Contin, he is currently on 60 mg 3 times daily. We have tapered him almost totally off the next dexamethasone, can add back for an exacerbation of pain if needed. Patient continues need to be encouraged to his activities and use oxycodone for breakthrough pain. Unfortunately related to pharmacy issues, did not run the preapproval for MS Contin, he is to tack picker his new prescription, and reviewed need to make sure given the complexity with his insurance to order a week ahead. 2. Fatigue this is multifactorial in origin. Including patient's hypothyroidism, currently untreated, side effects of pain medication, currently is not using his CPAP. Encouraged to follow-up and get this resolved. Counseling provided on energy conservation, as well as slow progressive ambulation program. 3. Hypothyroidism. Patient has an exacerbation of his symptoms regarding his hypothyroidism, he is had increasing cold, some lethargy, and continued with treating. Patient TSH was ordered, did increase levothyroxine to 75, but patient stopped 2 weeks ago, did not tack picker new RX. Instructed to restart, and will titrate accordingly. 4. General anxiety disorder. Counseling provided regarding normalizing his feelings of anxiety and concern, with escalating pain did end up with ED visit. Unable to find any underlying pathology regarding his symptoms. Counseling provided can use BuSpar for anxiety management, had initiated at beginning of diagnosis with good results. Reviewed the use and encouraged to use as a tool in his toolbox. This was reviewed with both patient and his . 5. Generalized weakness. Patient has had improvement in function, his physical therapy is currently on hold as it did precipitated an exacerbation of his pain. He continues with persistent fatigue, he is doing slow progressive ambulation. Counseled again with patient on fall precautions, and threshold for calling 911 for lift to set assistance worry fracture risk. 6. Advanced care planning. Patient is to receive restaging scans 06/07, needs with Dr. Anguiano on 06/15. Remains quite anxious. Encouraged to write down questions, has continues to struggle with understanding the complexities of his disease and treatment, which is very important to him,given his style of coping. 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 He is hoping for the best, and very focused on continuing treatment. Time Spent: 60 minutes with greater than 50% of this done in counseling regarding pain and symptom management, addressing anxiety, and anticipatory guidance.
== END 2019-06-02 10:26 | disposition home or self-care (01) ==
LOC: PC 10:25
PROVIDERS: ATTEND Nurse Practitioner Adult Health
DX: Z51.5 Encounter for palliative care (principal); G89.3 Neoplasm related pain (acute) (chronic); R53.83 Other fatigue; R53.1 Weakness; E03.9 Hypothyroidism, unspecified; F41.1 Generalized anxiety disorder; C79.51 Secondary malignant neoplasm of bone; C78.02 Secondary malignant neoplasm of left lung; C78.01 Secondary malignant neoplasm of right lung; C77.8 Secondary and unspecified malignant neoplasm of lymph nodes of multiple regions; C79.01 Secondary malignant neoplasm of right kidney and renal pelvis; C64.9 Malignant neoplasm of unspecified kidney, except renal pelvis; Z79.899 Other long term (current) drug therapy; Z79.891 Long term (current) use of opiate analgesic; Z91.19 Patient's noncompliance with other medical treatment and regimen
CPT/HCPCS: 99215

== ENCOUNTER 2019-06-14 13:00 | Outpatient (CLI) | payer MEDICARE, OTHER ==
--- NOTE | 2019-06-14 15:59 | CONSULTATION NOTE ---
Palliative Care Follow Up - Referral Referring Provider: Dr. Ana Anguiano Time of Visit: [id number] Referral setting: Home Referral Reason: Pain of neoplastic origin excerbation/Renal cell Cancer - Information Sources Records reviewed: Previous records reviewed History/Review of Systems obtained from: Patient Exam limitations: Clinical condition (mild short term memory issues) - History of Present Illness Update Brief HPI Update: This is a 68-year-old man with metastatic clear cell renal cell carcinoma with known mets to the bones, lungs, intrathoracic nodes, right kidney, and retroperitoneal lymph nodes. He is seen in evaluation today with his , Sienna present in the home setting due to a exacerbation of his pain. He has had exacerbation of his pain several times, including an ED visit after participation in physical therapy. He is presently on a regimen of MS Contin 60 mg 3 times daily that was started on 06/02/2019. Presently he is on Lovenox injections 120 mg twice daily for findings of pulmonary emboli on a chest CT that was performed when 06/07/2019. The report indicated "incidentally noted small acute bilateral pulmonary emboli." This was not noted on previous CT imaging. He was away in [place] and had missed the phone calls trying to reach him in regards to the results of the scans and was seen in an ER locally to [place]. He was initiated on Lovenox injections and was advised to discontinue his Celebrex. He and his returned to their home on [facility] on 06/10/2019. He and his note that his pain started intensifying on the evening of Friday into Friday morning. He typically takes his oxycodone for breakthrough pain and will use that sparingly at 15 mg. He is on MS Contin 60g TID since 06/02/2019. He is presently on 1mg of dexamethasone and this has been tapered. His reports that he has had pain excerbations recently after reduction or discontinuation of the dexamethasone. On Friday he took 15 mg of oxycodone x1, 15 mg of oxycodone x1 on Friday, 20 mg of oxycodone x1 on Friday and 20 mg of oxycodone twice thus far today. He also has been taking Tylenol without relief. Due to the increase of the oxycodone he has been monitoring his bowels and taking more docuosate. Presently his bowel regiment consists of docuosate 100 mg taking 7 capsules twice daily.He is having to defecate every day or every other day. His last bowel movement was Friday. Presently he is reporting increased pain that is localized to his right hand, more specifically to his third and fourth fingers with difficulty outstretching them. He is also having pain to his left shoulder as well as to his right shoulder, b/l hips and lower back. He reports the pain as being achy. He denies any numbness or tingling to the upper extremities. He feels like his right hand is "under tension." Of note he is right-handed. He feels like "i have gotten beat up." He is also having increased difficulty getting out of bed due to pain and being able to ambulate to the bathroom. He reports that the pain has gotten progressively worse since Friday. Today, his had to use a gait belt in order to help get him out of bed with him wincing all the way to the bathroom during ambulation secondary to pain. He has found relief taking 20 mg of oxycodone today x2. His pain will escalate up to a 9 out of 10 and after 20 mg of oxycodone the pain goes down to a 5 or 6 out of 10. He is no longer participating in physical therapy at this moment in time due to recent exacerbation of his pain. Past medical history is significant for severe pulmonary hypertension, sclerotic aortic valve, mildly dilated LV, COPD, CKD, post polio syndrome involving the left leg, PTSD, RAISA, and depression. Social History - Living Situation Living arrangement: At home Living Situation: With spouse/s.o. (spouse, Sienna) Support System: Patient lives with his Sienna. 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 He has a history of having intermittent exacerbations of his anxiety and history of PTSD. Presently, he denies any increased anxiety related to his pain exacerbation. He is followed by the palliative care social insurance analyst. Medications/Allergies - Medications Home Medications: Ambulatory Orders Medication Instructions Recorded Confirmed Aspirin 81 mg PO DAILY 12/21/14 05/11/19 Telmisartan [Micardis] 80 mg PO DAILY 12/21/14 06/03/19 Oxycodone HCl 15 - 20 mg PO Q4HR PRN 01/26/19 06/03/19 Morphine Sulfate ER [Ms Contin] 75 mg PO TID 01/27/19 06/03/19 Buspirone HCl 15 mg PO BID PRN 02/01/19 06/03/19 Cholecalciferol (Vitamin D3) 2,000 unit PO DAILY 02/01/19 06/03/19 [Vitamin D3] Citalopram Hydrobromide 40 mg PO DAILY 02/01/19 06/03/19 [Citalopram HBr] Multivit-Min/FA/Lycopen/Lutein 1 tab PO DAILY 02/01/19 06/03/19 [Centrum Silver Men Tablet] Rosuvastatin Calcium 10 mg PO DAILY 02/01/19 06/03/19 Ubidecarenone [Co Q-10] 200 mg PO DAILY 02/01/19 06/03/19 B12/Levomefolate Calcium/B-6 1,000 mcg PO DAILY 02/04/19 06/03/19 [Foltx Tablet] Magnesium Oxide [Magnesium] 400 mg PO DAILY 02/04/19 06/03/19 buPROPion [Wellbutrin Sr] 150 mg PO DAILY 02/04/19 06/03/19 Denosumab [Xgeva] 120 mg IM .30 DAYS 02/07/19 06/03/19 Loperamide [Imodium] 2 mg PO PRN PRN MDD 16 mg 02/24/19 06/03/19 Senna [Senokot] 17.2 mg PO BID PRN 02/24/19 06/03/19 polyethylene glycoL 3350 [Miralax] 17 gm PO DAILY 02/24/19 06/03/19 Cabozantinib S-Malate [Cabometyx] 60 mg ORAL DAILY 03/17/19 06/03/19 Nystatin 5 ml PO QID PRN 04/15/19 06/03/19 Levothyroxine Sodium [Synthroid] 75 mcg PO DAILY 04/17/19 06/03/19 Enoxaparin Sodium [Lovenox] 120 mg SQ BID 06/10/19 06/10/19 Dexamethasone 4 mg PO DAILY 06/14/19 06/14/19 Docusate Sodium 700 mg PO DAILY 06/14/19 06/14/19 - Allergies Allergies/Adverse Reactions: Allergies Allergy/AdvReac Type Severity Reaction Status Date / Time No Known Drug Allergies Allergy Verified 05/20/19 08:41 Review of Systems - Constitutional Constitutional: reports: Weakness, Weight stable (weight stable 270lbs). denies: Poor appetite - Eyes Eyes: reports: Corrective lenses. denies: Irritation - Ears, Nose & Throat Ears, Nose & Throat: reports: Dry mouth (intermittent) - Cardiovascular Cardiovascular: denies: Palpitations, Chest pain - Respiratory Respiratory: denies: Cough, Wheezing, SOB at rest - Gastrointestinal Gastrointestinal: denies: Abdominal pain, Diarrhea, Nausea, Vomiting - Genitourinary Genitourinary: denies: Dysuria - Musculoskeletal Musculoskeletal: reports: Back pain, Stiffness, Limited range of motion, Joint pain (see HPI for full details), Assistive devices (walker) - Integumentary Integumentary: reports: Other (elevated scab to left forearm) - Neurological Neurological: reports: General weakness, Memory problems. denies: Headache - Psychiatric Psychiatric: reports: Depression, Anxiety - Hematologic/Lymphatic Hematologic/Lymphatic: reports: Bruising - All Other Systems All Other Systems: reports: Reviewed and negative Physical Exam - Vital Signs Temperature: 97.7 C Pulse Rate: 76 O2 Saturation: 96 (on RA) Blood Pressure: 102/60 (right wrist cuff) - Physical Exam General Appearance: positive: Alert, Other (sitting OOB in recliner; pain noted with movement of extremities) Eyes Bilateral: positive: Normal inspection, Other (+corrective lenses) ENT: positive: Other (+MMM; no evidence of oral candidiasis) Neck: positive: Nml inspection, No JVD, Trachea midline Cardiovascular: positive: Regular rate & rhythm Respiratory: positive: No respiratory distress, Breath sounds nml, Other (good air movement throughout) Abdomen: positive: Non-tender, Soft, Nml bowel sounds, Other (+round). negative: Guarding, Distended Skin: positive: Pallor, Dryness (generalized), Other (scattered ecchymoeses to BUE; left forearm elevated scab with underneath that appears to be a hematoma appx 1.5 x 1cm in size with no surrounding erythema or s/s of infection. Able to express blood from site of hematoma.) Extremities: positive: Other (Left shoulder tender to palpation anteriorly over humerus with crepitus noted. Strength of hands: Right 4/5, Left 5/5. Pain with extending 3rd and 4th fingers of right hand with no paplable nodules of right palm indicitive of dupuytren contracture.) Neurologic/Psychiatric: positive: Oriented x3, Mood/affect nml, Weakness Palliative Care - POLST Patient has POLST: No POLST Status: Full Code Pain: Pain worsening, Location (bilateral hands (right >left), b/l shoulders (left >right); low back pain; b/l hip pain.), Severity (9-10/10 when prior to breakthrough oxycodone use.) Nausea: None Anorexia: None Dyspnea: None Feelings of wellbeing/Perceived Quality of Life: Poor (Due to pain excerbation) Constipation: Yes, Opoid induced, Managed Performance Status: Patient is typically ambulatory with a walker at baseline with recent exacerbation of his pain he is having extreme difficulty getting out of bed and pain during ambulation. Today his needed to use a gait belt to help get him out of bed. He has concerns about not being able to get up out of the bed and having to call for lift assist from EMS. He was unable to put his shirt on or socks today due to his pain level. He is presently frustrated in regards to his recent pain level and that physical therapy is presently on hold as it has led to pain exacerbations. - Palliative Care Discussion: Patient is presently frustrated in regards to his current health status with recent pain exacerbation and diagnosis of pulmonary emboli. He inquired as to "why this keeps happening to me?" He continues to tolerate oral chemotherapy and is hoping for better control of his pain to improve his quality of life. He is also ready to get back to physical therapy to maintain his in endurance level to remain independent. Impression and Recommendations - Palliative Care Impression: This is a 68-year-old male with a history of metastatic clear-cell renal cell carcinoma involving the bones, lungs, intrathoracic and retroperitoneal lymph nodes in the right kidney with significant metastatic disease and tumor burden. He is presently having an exacerbation of his pain and has had some positive response to increasing his breakthrough medication dose of oxycodone 50 mg to 20 mg. He has had a history of escalating ongoing severe pain that were required titrating up his pain medication. He is presently on Lovenox injections for pulmonary emboli. Palliative care to continue to provide support for pain and s ymptom management as well as anticipatory guidance. Recommendations/Counseling Done: 1. Pain of neoplastic origin and arthritic pain. Pain is not presently under control. Some of his exacerbation may be due to the discontinuation of Celebrex due to his Lovenox injections that was providing an anti-inflammatory effect for his arthritic pain. Increase MS Contin to 75 mg 3 times daily with the use of 15 mg and 60 mg MS Contin tablets congruently. Recommended if patient feels too sedated with dose increase he may not take the 15mg of MS Contin with the 60mg tablet. This is a 25% increase in his daily dose. Advised patient and spouse may increase oxycodone to 20 mg every 4 hours as needed for breakthrough pain. We will add back dexamethasone and advised to take 4 mg p.o. daily. Advised that we will start at 4 mg dexamethasone for 1 week and at next follow-up with SANDHYA Putnam will assess tapering process based on symptom control. 2. Pulmonary emboli. Noted on recent CT scan on 06/07/2019. No respiratory complaints. Continue on Levonox as ordered. Provided information for disposal of sharps containers in [facility] to . Has follow-up with oncologist Dr. Anguiano on 06/15/2019 for additional management. 3. Constipation. Due to increase in opioid medication discussed that we wish to avoid constipation. Presently taking Docusate 700mg BID. Reduce docusate to 700mg daily and start miralax 17gram po daily. Goal is for a bowel movement every 3 days. He has PRN senna available for use as well. 4. Generalized weakness. reduction in function due to generalized joint pain. see dx. pain of neoplastic origin for further details. Fall precautions. Advised may EMS for lift assistance if needed. 5. Hematoma left forearm. Appearance of elevated hematoma to left forearm (1cm x 1.5cm) with scab formation without evidence of infection that initially resulted from a skin tear. Advised to keep site clean and covered and to avoid picking at the site. Notify if s/s of infection and continue to monitor. 6. Advanced care planning. Patient had restaging scan on 06/07/2019 that demonstrated the pulmnary emboli. He and his meet with Dr. Anguiano on 06/15/2019 and are anxious to know what the next course of his treatment is available for him. He also wishes to have his pain under better control so that he may able to return to his previous level of function with ambulation prior to his exacerbation of pain. Time Spent: Total time spent 75 minutes with greater than 50% of this spent in counseling and coordination of care, review of medication administration with patient and spouse, review of pain and symptom management and anticipatory guidance. F/u with SANDHYA Putnam in 1 week for symptom management. Disclaimer: The chart note was formulated using voice recognition technology and unfortunately sound alike errors may occur.
== END 2019-06-14 13:01 | disposition home or self-care (01) ==
LOC: PC 13:00
PROVIDERS: ATTEND Nurse Practitioner Family
DX: Z51.5 Encounter for palliative care (principal); G89.3 Neoplasm related pain (acute) (chronic); I26.99 Other pulmonary embolism without acute cor pulmonale; R53.1 Weakness; K59.03 Drug induced constipation; T40.2X5A Adverse effect of other opioids, initial encounter; M19.90 Unspecified osteoarthritis, unspecified site; C79.51 Secondary malignant neoplasm of bone; C77.8 Secondary and unspecified malignant neoplasm of lymph nodes of multiple regions; C78.02 Secondary malignant neoplasm of left lung; C78.01 Secondary malignant neoplasm of right lung; C64.9 Malignant neoplasm of unspecified kidney, except renal pelvis; Z79.891 Long term (current) use of opiate analgesic; Z79.899 Other long term (current) drug therapy; Z79.01 Long term (current) use of anticoagulants
CPT/HCPCS: 99350

== ENCOUNTER 2019-06-24 11:00 | Outpatient (CLI) | payer MEDICARE, OTHER ==
--- NOTE | 2019-06-24 14:48 | CONSULTATION NOTE ---
Palliative Care Follow Up - Referral Referring Provider: Dr. Ana Anguiano Time of Visit: Referral setting: Home Referral Reason: Pain of neoplastic origin/Constipation/Met Renal Cell CA - Information Sources Records reviewed: Previous records reviewed History/Review of Systems obtained from: Patient, Family ( Sienna) Exam limitations: Clinical condition (patient with some STM deficits) - History of Present Illness Update Brief HPI Update: This is a 68-year-old gentleman with metastatic clear cell renal carcinoma with known mets to the bones, lungs, intrathoracic nodes, right kidney, adrenal nodules, and retroperitoneal lymph nodes. He recently had a restaging CT scan which did show improvement from his treatments, but an incidental finding of acute bilateral pulmonary emboli resulting in the need to start Lovenox twice daily. Of most problematic for patient is his bone mets, he has multiple lytic osseous mets including the L1 vertebral body, left lateral seventh and posterior 12th ribs, left S1 transverse process, sacrum, bilateral iliac bones, left obturator ring, and left proximal femur with associated pathologic fractures of the right posterior iliac bone, left sacrum, left obturator ring, and left L1 inferior endplate and left lateral seventh and posterior 12th ribs. Patient was originally treated with ipilimumab and nivolumab resulting in severe sepsis and severe colitis in January 2019, he did recover but developed hypothyroidism, and is currently on levothyroxine 75 mcg, he is currently on oral caboznatimib and has been tolerating well, no further mucositis, and has shown a positive response so if very pleased. Patient has had multiple exacerbations of his pain, often accompanied by severe weakness, these are often triggered either by increased activity, difficulty with medication adherence, and today concern related to appear to correlate some with titration back of dexamethasone. He most recently had a severe exacerbation with a trip to [place], resulting in titration up of his MS Contin to 75 mg TID, and restarting the dexamethasone at 4 mg, with goal to titrate down again. Patient now with constipation, and difficulty with bowel program. Patient also presents with persistent symptoms of hypothyroidism, feeling cold, sluggishness which has improved with titration of levothyroxine but still mild symptoms. No TSH/T4 drawn this round of labs, will order given not scheduled again for labs for month. Will follow up with oncology, concerned regarding may be immunotherapy side effect of hypophysitis, and need endocrine referral. Patient's most recent crisis, was this weekend, when he did have slide to the ground, they were unable to get him up. They did have to call 911, he was on his knees for long period of time, he does have an exacerbation of pain in his left knee. He had also forgotten his dexamethasone, has not received the dose for 3 days, he was severely weak, difficulty getting from sitting to standing, did take a dexamethasone when he got home yesterday, and again this morning, does feel like he is improving. His pain is better controlled, he is using oxycodone 20 mg, but feels like he is currently on top of it. It does appear the dexamethasone has improved with his strength and his pain. He was instructed to take a second dose of 4 mg yesterday when he called in distress. Past medical hx pertinant for severe pulmonary hypertension, sclerotic aortic valve, mildly dilated LV, COPD, CKD, post polio syndrome involving left leg, osteoarthritis, PTSD, RAISA, and depression. Social History - Living Situation Living arrangement: At home Living Situation: With spouse/s.o. Support System: Patient lives with his Sienna, they have been over 12 years. Patient does try to be independent, though is having trouble with word finding and memory issues, can often be bone of contention between the 2 of them. When he is weak, and having increased difficulty with pain, she is quite worried about his falls are being able to get him up if he is too weak or bedbound. Medications/Allergies - Medications Home Medications: Ambulatory Orders Medication Instructions Recorded Confirmed Telmisartan [Micardis] 80 mg PO DAILY 12/21/14 06/25/19 Oxycodone HCl 15 - 20 mg PO Q4HR PRN 01/26/19 06/25/19 Morphine Sulfate ER [Ms Contin] 75 mg PO TID 01/27/19 06/25/19 Buspirone HCl 15 mg PO BID PRN 02/01/19 06/25/19 Cholecalciferol (Vitamin D3) 2,000 unit PO DAILY 02/01/19 06/25/19 [Vitamin D3] Citalopram Hydrobromide 40 mg PO DAILY 02/01/19 06/25/19 [Citalopram HBr] Multivit-Min/FA/Lycopen/Lutein 1 tab PO DAILY 02/01/19 06/25/19 [Centrum Silver Men Tablet] Rosuvastatin Calcium 10 mg PO DAILY 02/01/19 06/25/19 Ubidecarenone [Co Q-10] 200 mg PO DAILY 02/01/19 06/25/19 B12/Levomefolate Calcium/B-6 1,000 mcg PO DAILY 02/04/19 06/25/19 [Foltx Tablet] Magnesium Oxide [Magnesium] 400 mg PO DAILY 02/04/19 06/25/19 buPROPion [Wellbutrin Sr] 150 mg PO DAILY 02/04/19 06/25/19 Denosumab [Xgeva] 120 mg IM .30 DAYS 02/07/19 06/25/19 Loperamide [Imodium] 2 mg PO PRN PRN MDD 16 mg 02/24/19 06/25/19 Senna [Senokot] 17.2 mg PO TID 02/24/19 06/25/19 polyethylene glycoL 3350 [Miralax] 17 gm PO DAILY 02/24/19 06/25/19 Cabozantinib S-Malate [Cabometyx] 60 mg ORAL DAILY 03/17/19 06/25/19 Levothyroxine Sodium [Synthroid] 75 mcg PO DAILY 04/17/19 06/25/19 Enoxaparin Sodium [Lovenox] 120 mg SQ BID 06/10/19 06/25/19 Dexamethasone 4 mg PO DAILY 06/14/19 06/25/19 - Allergies Allergies/Adverse Reactions: Allergies Allergy/AdvReac Type Severity Reaction Status Date / Time No Known Drug Allergies Allergy Verified 06/15/19 10:09 Review of Systems - Constitutional Constitutional: reports: Fatigue (improving; still residual from trip), Weakness (patient also did not drink during this time on way home on Friday drove straight through; so weakness confounded by dehydration), Weight stable - Eyes Eyes: reports: Vision loss, Corrective lenses - Ears, Nose & Throat Ears, Nose & Throat: reports: Dry mouth - Cardiovascular Cardiovascular: reports: Lightheadedness, Decr. exercise tolerance - Respiratory Respiratory: reports: SOB with exertion. denies: SOB at rest - Gastrointestinal Gastrointestinal: reports: Constipation (no BM for over 4 days; has not take bowel medications afraid of needing bathroom when traveling), Poor appetite, Early satiety. denies: Nausea, Reflux/heartburn - Musculoskeletal Musculoskeletal: reports: Muscle aches, Stiffness, Limited range of motion, Muscle weakness, Joint pain (left knee), Assistive devices (uses walker when up) - Integumentary Integumentary: reports: Dryness - Neurological Neurological: reports: Memory problems (difficulty with word finding; worried it may have gone to brain; but fearful as doesn't feel could tolerated a scan r/t claustrophobia) - Psychiatric Psychiatric: reports: Depression, Anxiety - Endocrine Endocrine: reports: Hypothyroidism, Intolerance to cold - Hematologic/Lymphatic Hematologic/Lymphatic: reports: Anemia, Bruising, Blood clots (incidental finding of PEs newly on lovenox). denies: Recurrent infections - All Other Systems All Other Systems: reports: Reviewed and negative Physical Exam - Vital Signs Temperature: 96.4 C Pulse Rate: 73 Respiratory Rate: 18 O2 Saturation: 94 (on room air at rest) Blood Pressure: 114/72 - Physical Exam General Appearance: positive: Alert, Mild distress, Anxious Eyes Bilateral: positive: Other (periorbital edema) ENT: positive: No signs of dehydration. negative: Pharyngeal erythema, Oral lesions Neck: positive: Trachea midline Cardiovascular: positive: Regular rate & rhythm Respiratory: positive: No respiratory distress, Breath sounds nml, Diminished in bases Abdomen: positive: Non-tender, Soft, Abnml bowel sounds (decreased) Skin: positive: Pallor, Bruising (across abdomen with lovenox injections), Wound (multiple skin tears on forearms from fall) Extremities: positive: No pedal edema Neurologic/Psychiatric: positive: Oriented x3, Mood/affect nml, Weakness Palliative Care - POLST Patient has POLST: No POLST Status: Full Code Pain: Pain improved, Location (Patient's pain is in multiple locations, most persistent and problematic is his left knee, though denies trauma reminds him he was on his knees for 15 minutes before he got up from his fall. He denies any trauma or impact from his fall, he describes it more like a slide. He does have bilateral shoulder pain, and most of his pain is located in his hip girdle and hips radiating through to the groin. It is worse with weightbearing, and activity. He is able to ambulate though, and feels it is improving with reinitiation of the dexamethasone, he has used several doses of oxycodone for breakthrough, remains on the MS Contin 75 mg 3 times daily.) Tiredness/Fatigue: Moderate (4-6) Drowsiness/Sedation: Mild (1-3) Nausea: None Anorexia: Moderate (4-6) Dyspnea: None Depression: Mild (1-3) Anxiety: Moderate (4-6) Feelings of wellbeing/Perceived Quality of Life: Fair, Acceptable Sleep: Sleep improved (had forgotten CPAP for trip) Constipation: Yes, Opoid induced, Unmanaged (patients current bowel program is ineffective; takes too much then doesn't take any; has had written instructions multiple times; written again, agrees to try instruction this time again) Performance Status: Patient is 6 foot 4, when he is weak or unable to get from sitting to standing or has falls that is quite problematic particularly for his . She has limited capacity to help him, has her own health issues. Patient reports he was more steady on his feet today, able to ambulate short distance, so is able to take a shower this morning which is an improvement. Patient has had fluctuating performance status, but is feeling he is recovering from his most recent exacerbation of both pain and weakness. - Palliative Care Discussion: Patient finally admits he is somewhat resigned to this is the way it is going to be, he is pleased his treatment is working, but continues to struggle with fluctuating pain and weakness. Some of this is of his own doing with medication adherence, and also now suspicious there may be some underlying etiology were missing. Patient is most fearful of being a burden on his , he does report they have grown closer, but does understand that she is quite fearful and worried about being able to take care of him particular if he is weak. They did have a nice visit with their grandson, went to watch his last high school basketball game. He has both a daughter and son in [place]. He continues to hope for the best, but finds it quite frustrating with his recurrent complications. Results - Lab Results Lab results reviewed: Yes Lab and Imaging Results: Will order TSH; T4 none since 05/10 Impression and Recommendations - Palliative Care Impression: This is a 68-year-old gentleman with a history of metastatic clear cell renal carcinoma This significant metastatic disease, most problematic is his bone mets, and does have high tumor burden. He continues have escalating and ongoing fluctuating severe pain, have been titrated with pain meds, with some improvement, now concerned regarding possibly more underlying etiology for his episodic weakness. Patient continues with high anxiety, now diagnosed with PEs, is having a good response to his treatment, but remains worried about the future. Palliative care continue provide support for pain and symptom management and anticipatory guidance. Recommendations/Counseling Done: 1. Pain of neoplastic origin. Patient currently recently titrated up to 75 mg 3 times daily, had been improved and doing better, until most recent trip this weekend. Through a series of unfortunate events, including ground-level fall, not taking his dexamethasone for 3 days, and traveling for several hours in the truck as well as probably compounded by dehydration, came home in a pain crisis. Have been on the phone talking with him, titrating medications, and today does present with pain much better controlled, strength is returning, and he is more ambulatory. We did agree to leave his MS Contin at 75 mg 3 times daily, patient is to use oxycodone 20 mg up to q 3hours, and record, will wait to titrate until status more stable and if indicated at that time. Counseling pr ovided regarding concern for long-term use of dexamethasone, though have noted now with each time tapered down to almost 1 mg often exacerbates weakness and or pain. We will follow-up with oncologist, patient may be experiencing hypophysitis and would recommend referral to wave solder offbearer. 2. Hypothyroidism. Patient titrated up to 75 mcg in April, has not had repeat studies, not due for labs for another few weeks, will order to follow. Patient continues to complain of feeling cold, somewhat chilled to his bone, less intensity than previously but symptoms persist. May need to have his lev othyroxine further titrated. 3. Pulmonary emboli. Patient is getting some bruising with Lovenox injections. Counseling provided regarding staggering patterns, and range from which can can use on abdomen. Does easily bruise, no other cysts active signs or symptoms of bleeding. 4. Constipation. Patient has not taken his bowel meds secondary to traveling. Counseling provided again regarding need particularly with high-dose opioids goal to have regular bowel movement every day, patient is been reinstructed on adequate bowel program. He will start his MiraLAX 17 g daily, and senna 2 tabs 3 times daily. Counseling provided again regarding increasing MiraLAX if hard stools, or increasing senna if not going. If patient has too many loose stools were diarrhea, is instructed to hold and restart lower dose of senna. This is all written out and reviewed both again with patient and . Patient has been counseled to discontinue his docusate sodium. 5. Generalized weakness. Patient continues to have fluctuating functional status, though overall somewhat declined. Patient is anxious to restart physical therapy, again given risk of fracture and exacerbation of pain, recommended progressive ambulation program and just increase activity. 6. Advanced care planning. Patient will be continuing on his current treatment regimen, he is pleased to have some improvement. He remains quite anxious about the future might hold. He does understand though more so he needs to adapt to his current limitations of versus not excepting his new normal. Goal at this point in time, is to return to previous level of functioning, pain under control, and will follow-up regarding possible referral. Time Spent: 60 minutes with greater than 50% of this done in counseling regarding pain and symptom management particular around constipation, safety, we will follow-up with oncology team regarding possible wave solder offbearer referral, lab slip given for thyroid studies, requested to obtain in this next week.
== END 2019-06-24 11:01 | disposition home or self-care (01) ==
LOC: PC 11:00
PROVIDERS: ATTEND Nurse Practitioner Adult Health
DX: Z51.5 Encounter for palliative care (principal); G89.3 Neoplasm related pain (acute) (chronic); R53.1 Weakness; E03.2 Hypothyroidism due to medicaments and other exogenous substances; K59.03 Drug induced constipation; T40.2X5A Adverse effect of other opioids, initial encounter; I26.99 Other pulmonary embolism without acute cor pulmonale; R41.3 Other amnesia; F41.9 Anxiety disorder, unspecified; C79.51 Secondary malignant neoplasm of bone; Z79.52 Long term (current) use of systemic steroids; Z79.899 Other long term (current) drug therapy; Z79.891 Long term (current) use of opiate analgesic; Z79.01 Long term (current) use of anticoagulants; Z91.81 History of falling
CPT/HCPCS: 99350

== ENCOUNTER 2019-06-25 14:29 | Outpatient (CLI) | payer MEDICARE, OTHER ==
[2019-06-25 15:48] LABS: T4 (THYROXINE) 8.5 ug/dL (6.09-12.23)
[2019-06-25 15:52] LABS: THYROID STIMULATING HORMONE 12.68 uIU/mL (0.34-5.60)
== END 2019-06-25 14:30 | disposition home or self-care (01) ==
LOC: LAB 14:29
PROVIDERS: ATTEND Nurse Practitioner Adult Health
DX: E03.9 Hypothyroidism, unspecified (principal)
CPT/HCPCS: 36415; 84436; 84443

== ENCOUNTER 2019-07-07 15:29 | Outpatient (CLI) | payer MEDICARE, OTHER | END 2019-07-07 15:30 | disposition home or self-care (01) | LOC: LAB 15:29 | PROVIDERS: ATTEND Nurse Practitioner Adult Health | DX: E27.40 Unspecified adrenocortical insufficiency (principal) | CPT/HCPCS: 36415; 81599; 83516 ==

== ENCOUNTER 2019-07-08 11:56 | Outpatient (CLI) | payer MEDICARE, OTHER ==
--- NOTE | 2019-07-08 17:48 | CONSULTATION NOTE ---
Palliative Care Follow Up - Referral Referring Provider: Dr. Ana Anguiano Time of Visit: [id number] [place] [facility] [place] Reason: Pain of neoplastic origin/Anxiety/Adrenal Insuff/Met Renal Cell CA - Information Sources Records reviewed: Previous records reviewed History/Review of Systems obtained from: Patient, Family ( Sienna with patient) Exam limitations: No limitations, Clinical condition (patient with some STM issues) - History of Present Illness Update Brief HPI Update: This is a 68-year-old gentleman with metastatic clear cell renal carcinoma with known mets to the bones, lungs, intrathoracic nodes, right kidney, adrenal nodules, retroperitoneal lymph nodes. He recently had a restaging scan that she did show improvement with his treatments, but incidental finding of acute bilateral pulmonary emboli resulted in need to start Lovenox twice daily.Patient was originally treated with ipilimumab and nivolumab resulting in severe sepsis and severe colitis in 01/2019, he did recover but developed hypothyroidism. Has had radiation to a few of his bone lesions. He is currently on oral cabozantin ib to admit but and has been tolerating this well, with resolved mucositis, but continued fatigue. Palliative care has been following him for his most problematic pattern, which has been fluctuating pain, and weakness. Patient originally was started on dexamethasone for severe pain crisis, has had multiple escalations of pain, and in the context of this is been treated with Decadron. It was noted that each time attempted to titrate down off Decadron did have recurrent weakness, compounded with increased pain, and most recently had an episode where he forgot his dexamethasone for three+ days while traveling and significant change in functional status. In the context of this, as well as hypothyroidism, consulted with oncology team and endocrinology referral was made. This happened fairly rapidly as far as the consult, he was seen 07/05, though referral was sent with oncology and palliative care notes, Dr. Reyes did not have access to patient's original identified immunotherapy, and follow-up consult on the phone as given palliative care number by patient, given in particular he received ipilimumab hypothyroidism most likely induced by immunomodulator. He did review patient was taking his thyroid with other medications, though has been instructed otherwise, he is now them out, and Dr. Reyes will adjust in 4-5 weeks, currently on levothyroxine 88 mcg. No adjustments made at this point in time. His other recommendation, was to curriculum counselor the cortisol/ACTH level, as did not feel this would be accurate as on decadron, does feel he presents with adrenal insufficiency, recommended in teasing out autoimmune response versus primary adrenal insufficiency, and additional test of 21 hydroxalic antibody, this was ordered. If patient has extended life expectancy, which patient was told 2 to 3 years, recommended switching over to prednisone, at equal therapeutic dose, which should be 20 mg. Titrate down by 5 mg, can do fairly rapidly, but will need to be maintained on 8-10 mg. If his 21 hydroxalic antibody is positive, recommended add Florinef 0.1 mg, but available for further consult and results cc'd. Patient does present with severe pain crisis on arrival, had forgotten to take his pain medications this morning as had gotten distracted, and had taken about an hour prior to our appointment. He reports though overall his pain has been better managed he is on MS Contin 75 mg 3 times daily, using oxycodone 15 to 20 mg for breakthrough, and currently on Decadron 3 mg daily. He has been following his bowel program and currently is doing better. His symptoms of feeling cold and sluggish have improved with his titrated dose of thyroid as well. Social History - Living Situation Living arrangement: At home Living Situation: With spouse/s.o. Support System: Patient lives with his Sienna, they have been over 12 years. Patient does try to be independent, does have some word finding and memory issues, which can cause tension between the 2 of them. Patient is feeling better, and is able to engage in more activities that provide him enjoyment. Medications/Allergies - Medications Home Medications: Ambulatory Orders Medication Instructions Recorded Confirmed Telmisartan [Micardis] 80 mg PO DAILY 12/21/14 07/08/19 Oxycodone HCl 15 - 20 mg PO Q4HR PRN 01/26/19 07/08/19 Morphine Sulfate ER [Ms Contin] 75 mg PO TID 01/27/19 07/08/19 Buspirone HCl 15 mg PO BID PRN 02/01/19 07/08/19 Cholecalciferol (Vitamin D3) 2,000 unit PO DAILY 02/01/19 07/08/19 [Vitamin D3] Citalopram Hydrobromide 40 mg PO DAILY 02/01/19 07/08/19 [Citalopram HBr] Multivit-Min/FA/Lycopen/Lutein 1 tab PO DAILY 02/01/19 07/08/19 [Centrum Silver Men Tablet] Rosuvastatin Calcium 10 mg PO DAILY 02/01/19 07/08/19 Ubidecarenone [Co Q-10] 200 mg PO DAILY 02/01/19 07/08/19 B12/Levomefolate Calcium/B-6 1,000 mcg PO DAILY 02/04/19 07/08/19 [Foltx Tablet] Magnesium Oxide [Magnesium] 400 mg PO DAILY 02/04/19 07/08/19 buPROPion [Wellbutrin Sr] 150 mg PO DAILY 02/04/19 07/08/19 Denosumab [Xgeva] 120 mg IM .30 DAYS 02/07/19 07/08/19 Loperamide [Imodium] 2 mg PO PRN PRN MDD 16 mg 02/24/19 07/08/19 Senna [Senokot] 17.2 mg PO TID 02/24/19 07/08/19 polyethylene glycoL 3350 [Miralax] 17 gm PO DAILY 02/24/19 07/08/19 Cabozantinib S-Malate [Cabometyx] 60 mg ORAL DAILY 03/17/19 07/08/19 Levothyroxine Sodium [Synthroid] 88 mcg PO DAILY 04/17/19 07/08/19 Enoxaparin Sodium [Lovenox] 120 mg SQ BID 06/10/19 07/08/19 predniSONE [Prednisone] 20 mg PO DAILY 07/08/19 07/08/19 - Allergies Allergies/Adverse Reactions: Allergies Allergy/AdvReac Type Severity Reaction Status Date / Time No Known Drug Allergies Allergy Verified 06/15/19 10:09 Review of Systems - Constitutional Constitutional: reports: Fatigue (improved), Weight stable. denies: Fever, Chills - Eyes Eyes: reports: Vision loss, Corrective lenses - Ears, Nose & Throat Ears, Nose & Throat: reports: Other (c/o some jaw misalignment pain; denies pain in jaw bone; saw dentist but did not get xrays; counseling provided if pain worsens needs more indepth evaluation including xrays). denies: Sore throat, Mouth lesions - Cardiovascular Cardiovascular: reports: Lightheadedness, Decr. exercise tolerance - Respiratory Respiratory: denies: Cough, SOB at rest - Gastrointestinal Gastrointestinal: reports: Early satiety, Good appetite. denies: Constipation, Nausea, Reflux/heartburn - Musculoskeletal Musculoskeletal: reports: Back pain, Muscle aches, Stiffness, Limited range of motion, Muscle weakness, Joint pain (left knee worsening; right shoulder), Assistive devices (uses walker) - Integumentary Integumentary: reports: Dryness, Other (bruises easily) - Neurological Neurological: reports: General weakness, Memory problems (word finding; some STM deficits), Abnormal gait (polio left leg) - Psychiatric Psychiatric: reports: Anxiety. denies: Depression - Endocrine Endocrine: reports: Hypothyroidism - Hematologic/Lymphatic Hematologic/Lymphatic: reports: Bleeding tendencies (patient does not report any systemic s/s bleeding; but at needle site and bruising with injections). denies: Recurrent infections - All Other Systems All Other Systems: reports: Reviewed and negative Physical Exam - Vital Signs Temperature: 36.6 C Pulse Rate: 73 Respiratory Rate: 18 Blood Pressure: 123/68 - Physical Exam General Appearance: positive: Alert, Moderate distress (had forgottent to take AM pain pills/got distracted) Eyes Bilateral: positive: Normal inspection ENT: positive: No signs of dehydration. negative: Pharyngeal erythema, Oral le sions Neck: positive: No JVD, Trachea midline Cardiovascular: positive: Regular rate & rhythm Respiratory: positive: No respiratory distress, Breath sounds nml Abdomen: positive: Non-tender, Soft, Nml bowel sounds Skin: positive: Pallor, Dryness Extremities: positive: Pedal edema (1+ up to knees; recommended restart compression hose; cool to touch; some pitting) Neurologic/Psychiatric: positive: Oriented x3, Mood/affect nml, Weakness Palliative Care - POLST Patient has POLST: No POLST Status: Full Code Pain: Pain improved, Location (see hpi), Severity (8/ with out meds this am; usually 2-3) Tiredness/Fatigue: Mild (1-3) Drowsiness/Sedation: None Nausea: None Anorexia: None Dyspnea: None Depression: None Anxiety: Mild (1-3) Feelings of wellbeing/Perceived Quality of Life: Fair, Comment (impatient with ongoing limitations of pain/fatigue) Sleep: Sleeps well, Other (has CPAP; working well) Constipation: Yes, Opoid induced, Managed (following bowel program with good results) Performance Status: Patient has had 2 falls, denies any trauma. Reports they are both related to balance. Did have some difficulty getting up. Did not need to call 911 though patient is ambulatory with walker, pain fluctuates in impacts activity tolerance. He is able to bathe independently, but does spend a large amount of time in his recliner, and sedentary. He is unable to tolerate stairs, or long distances related to pain and fatigue. Would put him at a PPS of 60% - Palliative Care Discussion: Patient continues to struggle with the limitations regarding his functional status, his goal has been to return to his boat, but in review this would include multiple steep steps up and down to manuever on the boat, long walk down the plank way, and put him at high risk for sequela of a fall. Patient is always been quite pragmatic and a doer, does express disappointment he is unable to "fix this", or have control. He has overcome multiple challenges in his life overtime, and finds the limitations and his current quality of life frustrating. He is trying to make the best of things, but does find this challenging at times. Results - Lab Results Lab results reviewed: Yes Impression and Recommendations - Palliative Care Impression: This is a 68-year-old gentleman with metastatic clear cell renal carcinoma, with significant metastatic disease, most problematic is been his bone mets. He does have escalating and ongoing fluctuating severe pain, adrenal insufficiency, and continues to struggle with impact on quality of life and goals. Palliative care providing support for pain and symptom management, and anticipatory guidance. Recommendations/Counseling Done: 1. Adrenal insufficiency. Endocrinology recommends transition over to prednisone, prescription given for prednisone 5 mg tablets, will start with 20 mg daily, decrease by 5 mg weekly until 10 mg. Will sustain at 10 mg daily and evaluate. We will follow-up accordingly related to other lab results. Dr. Reyes available for further consult as needed. 2. Hypothyroidism. Patient scheduled for follow-up labs through endocrinology in 4 to 5 weeks, he will be taking his levothyroxine 88 mcg separate from his meds, and they will adjust accordingly. Patient does present with improved symptoms. 3. Pain of neoplastic origin. Patient does present with uncontrolled pain today, but related to not taking his meds this AM. Did review pain regimen, both and patient feel current regimen of MS Contin 75 mg 3 times daily has been working well.Counseling provided regarding ongoing pain management, opioid safety, no prescriptions needed today. Exacerbation of his left knee pain. This is been chronic in nature. Patient does have a brace but does limit his mobility, this is a result of post polio. Unclear if patient has bone met in area. He will try just regular supportive knee brace. Counseling also provided regarding application of topicals as supplement for pain regimen. 4. Pulmonary emboli. Patient is getting bruising with Lovenox injections, reports quite painful and bleeding intermittently at site. No signs of systemic bleeding. Referred to oncology regarding dosing or decreasing to daily dosing. Does have follow-up appointment next week. 5. Constipation. Patient has been adherent to his bowel program, with good results. He is quite pleased and will continue accordingly. 6. Generalized weakness. Patient quite anxious to push his therapy program, again reviewed patient has fragile pelvic structure and fractures in pelvic/ sacral area. When has increased activity before, has exacerbated pain. Recommended progressive ambulation program, does have home exercise program from home PT, recommended initiating and integrating small number of exercises monitoring for pain. Patient would like "picture" of his bones, will see if DI is able to provide this. 7. Lower extremity edema. Patient does have trace to 1+ lower extremity edema, he does sit with his feet dependent at most times. Patient has not been wearing a support hose, instructed to re-initiate. Particularly given prednisone most likely may add to some fluid retention. 8. Advanced care planning. Patient continuing on his current treatment regimen, he remains quite anxious about what the future might hold. Patient's current goals are for stabilized pain, increase activity level, and finding some acceptance of his new normal. Time Spent: 50 minutes with greater than 50% of this done in counseling regarding recommendations from endocrinology, pain and symptom management, and anticipatory guidance.
== END 2019-07-08 11:57 | disposition home or self-care (01) ==
LOC: PC 11:56
PROVIDERS: ATTEND Nurse Practitioner Adult Health
DX: Z51.5 Encounter for palliative care (principal); G89.3 Neoplasm related pain (acute) (chronic); R53.1 Weakness; K59.03 Drug induced constipation; T40.2X5A Adverse effect of other opioids, initial encounter; E27.40 Unspecified adrenocortical insufficiency; E03.9 Hypothyroidism, unspecified; I26.99 Other pulmonary embolism without acute cor pulmonale; R60.0 Localized edema; C79.51 Secondary malignant neoplasm of bone; C78.00 Secondary malignant neoplasm of unspecified lung; C77.8 Secondary and unspecified malignant neoplasm of lymph nodes of multiple regions; C64.9 Malignant neoplasm of unspecified kidney, except renal pelvis; Z79.899 Other long term (current) drug therapy; Z79.52 Long term (current) use of systemic steroids; Z79.891 Long term (current) use of opiate analgesic; Z79.01 Long term (current) use of anticoagulants
CPT/HCPCS: 99215

== ENCOUNTER 2019-07-22 11:46 | Outpatient (CLI) | payer MEDICARE, OTHER ==
--- NOTE | 2019-07-22 15:27 | CONSULTATION NOTE ---
Palliative Care Follow Up - Referral Referring Provider: Dr. Ana Anguiano Time of Visit: 12-1300 Referral setting: [facility] [place] Referral Reason: Pain of neoplastic origin/met renal cell CA - Information Sources Records reviewed: Previous records reviewed History/Review of Systems obtained from: Patient, Family ( Sienna) Exam limitations: No limitations (patient with some STM recall deficits) - History of Present Illness Update Brief HPI Update: This is a complicated 68-year-old gentleman with metastatic clear cell renal carcinoma with known mets to the bones, lungs, intrathoracic nodes, right kidney, adrenal nodules, and retroperitoneal lymph nodes. Patient is currently on Cabometyx 60 mg daily since 06/15/2019 and Xgeva 120 mg subcu every 4 weeks since 01/15/2019. Patient is a result of his ipilimumab and nivolumab, which was discontinued due to severe sepsis and colitis requiring hospital stay at [facility] 01/2019, also induced hypothyroidism, and concern for adrenal insufficiency. He did see the printing manager. Patient has struggled with adrenal insufficiency, did rule out immunotherapy induced autoimmune adrenalitis, with a negative finding on his 21- hydroxylase antibody, and had been titrated over to prednisone. This was with the goal for long-term steroid support, unfortunately his pain has continued to exacerbate, and despite increasing his MS Contin to 90 mg 3 times daily, still continues with significant pain and discomfort that correlates with stopping his dexamethasone. Patient has been treated in the past with palliative radiation to right scapular, sternum, left acetabulum, right posterior iliac crest and left lateral ribs in December 2018, discussion with oncology Christa Vega PA-C who saw him last, will go ahead and make another referral to see if can supplement his pain management. Patient presents today with a pain severity of 7/10, located in his right shoulder though he is going to get a cortisone shot for this as he reports is a result of old rotator cuff tear, and widespread through his pelvic girdle, radiating to his groin, left femur, and left knee. He is using oxycodone 20 mg tabs for breakthrough pain, needing this at least 2-3 times a day, despite increasing his MS Contin up to 90 mg 3 times daily. Given Decadron is better for pain control bony mets versus prednisone, will titrate him back to dexamethasone at least until evaluate if can be a candidate for further radiation. Patient's past medical history includes pulmonary hypertension, sclerotic aortic valve, COPD, CKD, post polio syndrome involving left leg, osteoarthritis, PTSD, RAISA, history of PEs incidental finding on CT scan. Hypertension, hyperlipidemia, nephrolithiasis Social History - Living Situation Living arrangement: At home Living Situation: With spouse/s.o. Support System: Patient lives with his Sienna of 12 years, she is quite distressed by his ongoing suffering with his pain, has limited his functional status as well has increased his irritability. He currently is able to manage with only minimal support, but this does have her concerned, as he is a fairly large gentleman at 6 4 and 264 pounds. Medications/Allergies - Medications Home Medications: Ambulatory Orders Medication Instructions Recorded Confirmed Telmisartan [Micardis] 80 mg PO DAILY 12/21/14 07/23/19 Morphine Sulfate ER [Ms Contin] 90 mg PO TID 01/27/19 07/23/19 Buspirone HCl 15 mg PO BID PRN 02/01/19 07/23/19 Cholecalciferol (Vitamin D3) 2,000 unit PO DAILY 02/01/19 07/23/19 [Vitamin D3] Citalopram Hydrobromide 40 mg PO DAILY 02/01/19 07/23/19 [Citalopram HBr] Multivit-Min/FA/Lycopen/Lutein 1 tab PO DAILY 02/01/19 07/23/19 [Centrum Silver Men Tablet] Rosuvastatin Calcium 10 mg PO DAILY 02/01/19 07/23/19 Ubidecarenone [Co Q-10] 200 mg PO DAILY 02/01/19 07/23/19 B12/Levomefolate Calcium/B-6 1,000 mcg PO DAILY 02/04/19 07/23/19 [Foltx Tablet] Magnesium Oxide [Magnesium] 400 mg PO DAILY 02/04/19 07/23/19 buPROPion [Wellbutrin Sr] 150 mg PO DAILY 02/04/19 07/23/19 Denosumab [Xgeva] 120 mg IM .30 DAYS 02/07/19 07/23/19 Loperamide [Imodium] 2 mg PO PRN PRN MDD 16 mg 02/24/19 07/23/19 Senna [Senokot] 17.2 mg PO TID 02/24/19 07/23/19 polyethylene glycoL 3350 [Miralax] 17 gm PO DAILY 02/24/19 07/23/19 Cabozantinib S-Malate [Cabometyx] 60 mg ORAL DAILY 03/17/19 07/23/19 Levothyroxine Sodium [Synthroid] 88 mcg PO DAILY 04/17/19 07/23/19 Enoxaparin Sodium [Lovenox] 120 mg SQ BID 06/10/19 07/23/19 Dexamethasone 4 mg PO DAILY 07/23/19 07/23/19 Oxycodone HCl 20 mg PO Q3HR PRN 07/23/19 07/23/19 - Allergies Allergies/Adverse Reactions: Allergies Allergy/AdvReac Type Severity Reaction Status Date / Time No Known Drug Allergies Allergy Verified 06/15/19 10:09 Review of Systems - Constitutional Constitutional: reports: Fatigue, Weakness, Weight stable. denies: Fever, Chills, Night sweats - Eyes Eyes: reports: Vision loss, Corrective lenses - Ears, Nose & Throat Ears, Nose & Throat: reports: Dry mouth, Other (c/o some irritation;) - Cardiovascular Cardiovascular: reports: Decr. exercise tolerance - Respiratory Respiratory: denies: Cough, SOB at rest - Gastrointestinal Gastrointestinal: reports: Reflux/heartburn (occasional), Good appetite. denies: Constipation, Nausea - Genitourinary Genitourinary: reports: Frequency - Musculoskeletal Musculoskeletal: reports: Muscle pain, Back pain, Muscle aches, Stiffness, Limited range of motion, Muscle weakness, Joint pain, Assistive devices (uses rolling walker) - Integumentary Integumentary: reports: Dryness, Nail changes - Neurological Neurological: reports: General weakness, Numbness, Memory problems (mild), Abn ormal gait - Psychiatric Psychiatric: reports: Anxiety - Endocrine Endocrine: reports: Hypothyroidism - Hematologic/Lymphatic Hematologic/Lymphatic: reports: Anemia, Bruising, Blood clots (hx of PEs), Bleeding tendencies. denies: Recurrent infections - All Other Systems All Other Systems: reports: Reviewed and negative Physical Exam - Vital Signs Temperature: 36.6 C Pulse Rate: 76 Respiratory Rate: 18 O2 Saturation: 92 (ra @ rest) Blood Pressure: 137/77 - Physical Exam General Appearance: positive: Alert, Mild distress (with pain), Anxious Eyes Bilateral: positive: Normal inspection ENT: positive: No signs of dehydration, Oral lesions (scattered white patches bucally; tongue with white coating) Neck: positive: Trachea midline Cardiovascular: positive: Regular rate & rhythm Respiratory: positive: No respiratory distress, Breath sounds nml Abdomen: positive: Soft, Nml bowel sounds Skin: positive: Pallor, Dryness Extremities: positive: Pedal edema (trace up to mid calf; cool LE to touch) Neurologic/Psychiatric: positive: Oriented x3, Mood/affect nml, Weakness Palliative Care - POLST Patient has POLST: No Pain: Pain worsening, Location (see hpi) Drowsiness/Sedation: Mild (1-3) Nausea: None Anorexia: None Dyspnea: None Depression: Mild (1-3) Anxiety: None Feelings of wellbeing/Perceived Quality of Life: Good, Acceptable Sleep: Sleeps well Constipation: Yes, Opoid induced, Managed Performance Status: Patient is having more difficulty with ambulation secondary to pain, needing to put more weight on his upper extremities and is using a rolling walker. Is able to bathe independently, though does have multiple supports to be able to do this, and is in attendance if needs help. He is mostly sedentary, spending most the time in a recliner, is able to ambulate short distances but does exacerbate his pain. - Palliative Care Discussion: Patient tries to stay upbeat, his most significant quality of life issue is definitely his pain and pain management. We have been titrating up his meds with the hope to have better control. We did discuss in the context of revisiting radiation as an option if oncology in agreement. Patient does have severe PTSD and anxiety, does get quite claustrophobic, but is willing to give it a try again. He does have BuSpar, reminded him of this, and can use Lorazepam if needed for longer periods and scans. Patient continues to hope for the best, but has had multiple complexities along the way that are discouraging for him. Results - Lab Results Lab results reviewed: Yes Impression and Recommendations - Palliative Care Impression: This is a 68-year-old gentleman with metastatic clear cell renal carcinoma, with significant bony metastatic disease, and escalating pain. He continues to struggle with this on the impact of his quality of life and goals. Palliative care providing support for pain and symptom management and anticipatory guidance. Recommendations/Counseling Done: 1. Adrenal insufficiency. Did transition over to prednisone, unfortunately though is not had any change in his fatigue/energy, he has had an escalation in his pain. Will revert back to dexamethasone 4 mg daily, and titrate accordingly for lowest tolerated dose. Will revisit after evaluation regarding radiation if possible. 2. Hypothyroidism. Patient currently on levothyroxine 88 mcg, is scheduled for TSH and free T4 with next labs, will be followed by oncology. 3. Pain of neoplastic origin. Patient's MS Contin up to 90 mg 3 times daily, is using oxycodone 20 mg for breakthrough dosing. Discussed despite patient's anxiety regarding his claustrophobia, would recommend reevaluate with radiation oncology for further support. Follow-up with oncology Christa Vega PA-C, feels that would be a good idea for radiation oncology to weigh in, referral facilitated. We will follow-up with radiation oncologist regarding patient's concerns and anxiety. 4. Pulmonary emboli. Patient continuing on Lovenox injections, no signs of systemic bleeding, does have bruising at injection sites. 5. Constipation. Patient's been adherent to his bowel program, with good results. 6. Oral candidiasis. Patient complaining of dry scratchy mouth, does have some buccal lesions, given his sustained steroid use as well as side effects of his cancer therapy, will have patient do 7 days of Nystatin. Patient continues to complain of jaw not "lining up", though reports it is not sustained pain in his jaw bones. 7. Advanced care planning. Patient's goals continue to focus on doing what he can to prolong both his quality and quantity of life. Will revisit advanced care planning documents at next visit. Time Spent: 60 minutes with greater than 50% of this done in counseling regarding pain and symptom management, anticipatory guidance and coordination of care with oncology team.
== END 2019-07-22 11:47 | disposition home or self-care (01) ==
LOC: PC 11:46
PROVIDERS: ATTEND Nurse Practitioner Adult Health
DX: Z51.5 Encounter for palliative care (principal); G89.3 Neoplasm related pain (acute) (chronic); C79.51 Secondary malignant neoplasm of bone; E27.40 Unspecified adrenocortical insufficiency; E03.2 Hypothyroidism due to medicaments and other exogenous substances; K59.03 Drug induced constipation; T40.2X5A Adverse effect of other opioids, initial encounter; B37.0 Candidal stomatitis; Z79.52 Long term (current) use of systemic steroids; Z79.891 Long term (current) use of opiate analgesic; Z79.899 Other long term (current) drug therapy
CPT/HCPCS: 99215

== ENCOUNTER 2019-08-13 12:06 | Outpatient (CLI) | payer MEDICARE, OTHER ==
--- NOTE | 2019-08-13 13:05 | CONSULTATION NOTE ---
Palliative Care Follow Up - Referral Referring Provider: Dr. Ana Anguiano Time of Visit: Referral setting: Other (TELEMEDICINE VISIT This is a documentation of a distant site telemedicine encounter. I conducted this encounter from my office via live [id number] video conference via zoom with the patient and . Prior to the interview, the risk and benefits of telemedicine were discussed with the patient and verbal consent was obtained.) Referral Reason: Pain of neoplastic origin/Renal Ca/Goals of Care - Information Sources Records reviewed: Previous records reviewed History/Review of Systems obtained from: Patient, Family ( Sienna) Exam limitations: No limitations - History of Present Illness Update Brief HPI Update: This is a complicated 68-year-old gentleman with metastatic clear cell renal carcinoma with known mets widely to the bones, lungs, intrathoracic nodes, right kidney, adrenal nodes, and retroperitoneal nodes. Patient is currently on Cabometyx 60 mg daily since 06/15/2019 and Xgeva 120 mg subcu every 4 weeks since 01/15/2019. Patient has had escalating pain, is currently on MS Contin 90 mg 3 times daily, had at the recommendation of endocrinology trialed Prednisone vs Decadron but patient with severe pain flare that had correlated some with the switch. Patient has done better on the Decadron, currently on 4 mg, will wait for 2 more weeks and titrate him down to a 2 mg, therapeutic dose for identified adrenal insufficiency. Given patient's fairly descriptive and localized pain, did see consult with previous radiation oncologist Dr. Antonio Hudson, with input from oncology team. They were able to weigh in, she is showing "review of imaging shows that soft tissue component of the mass is decreased slightly from December 2018 compared to most recent CT May 2019. Unfortunately there remains a significant soft tissue component and extensive bony destruction that has clearly failed to heal. Dave continues systemic therapy with cabozantinib which seems to be limiting new disease and resulting in disease burden reduction of his multiple other metastasis. I do not think this is likely to be sufficient to eradicate disease in the very bulky right iliac hip mass with associated bone destruction. I think it would be reasonable to offer reirradiation in this situation". He does identify though concern regarding patient continuing with a persisting nonhealing right iliac fracture. He did receive 5 treatments total. Has not had any significant improvement at this point in time, though does understand would be too early, but did experience significant amount of fatigue. Patient overall does seem to be doing a little bit better, he reports he is only needing the oxycodone 30 mg for breakthrough pain once or twice a day, he is fairly housebound with the COVID19 outbreak. Other than an increase in fatigue, patient has no nausea, no changes in bowels, his eating okay, and actually tolerated fairly well he was concerned about his PTSD, which did get exacerbated with last radiation treatments. He was pleased with the outcome and the experience. Patient's past medical history includes pulmonary hypertension, sclerotic aortic valve, COPD, CKD, post polio syndrome involving left leg, osteoarthritis, PTSD, RAISA, history of PEs as an incidental finding on CT scan on Lovenox, hypertension, hyperlipidemia, history of nephrolithiasis. Social History - Living Situation Living arrangement: At home Living Situation: With spouse/s.o. Support System: Patient lives at home with his kenyon , they are doing fairly well overall. They are glad to be done with radiation, though did find it helpful to have an outing. They have been taking intermittent drives just to get a different set of scenery. Sienna is taking care of herself, is able to walk with her girlfriends, they are trying to stay connected to family. Medications/Allergies - Medications Home Medications: Ambulatory Orders Medication Instructions Recorded Confirmed Telmisartan [Micardis] 80 mg PO DAILY 12/21/14 08/10/19 Morphine Sulfate ER [Ms Contin] 90 mg PO TID 01/27/19 08/10/19 Buspirone HCl 15 mg PO BID PRN 02/01/19 08/10/19 Cholecalciferol (Vitamin D3) 2,000 unit PO DAILY 02/01/19 08/10/19 [Vitamin D3] Citalopram Hydrobromide 40 mg PO DAILY 02/01/19 08/10/19 [Citalopram HBr] Multivit-Min/FA/Lycopen/Lutein 1 tab PO DAILY 02/01/19 08/10/19 [Centrum Silver Men Tablet] Rosuvastatin Calcium 10 mg PO DAILY 02/01/19 08/10/19 Ubidecarenone [Co Q-10] 200 mg PO DAILY 02/01/19 08/10/19 B12/Levomefolate Calcium/B-6 1,000 mcg PO DAILY 02/04/19 08/10/19 [Foltx Tablet] Magnesium Oxide [Magnesium] 400 mg PO DAILY 02/04/19 08/10/19 buPROPion [Wellbutrin Sr] 150 mg PO DAILY 02/04/19 08/10/19 Denosumab [Xgeva] 120 mg IM .30 DAYS 02/07/19 08/10/19 Loperamide [Imodium] 2 mg PO PRN PRN MDD 16 mg 02/24/19 08/10/19 Senna [Senokot] 17.2 mg PO TID 02/24/19 08/10/19 polyethylene glycoL 3350 [Miralax] 17 gm PO DAILY 02/24/19 08/10/19 Cabozantinib S-Malate [Cabometyx] 60 mg ORAL DAILY 03/17/19 08/10/19 Levothyroxine Sodium [Synthroid] 88 mcg PO DAILY 04/17/19 08/10/19 Enoxaparin Sodium [Lovenox] 120 mg SQ BID 06/10/19 08/10/19 Dexamethasone 4 mg PO DAILY 07/23/19 08/10/19 Oxycodone HCl 20 mg PO Q3HR PRN 07/23/19 08/10/19 - Allergies Allergies/Adverse Reactions: Allergies Allergy/AdvReac Type Severity Reaction Status Date / Time No Known Drug Allergies Allergy Verified 08/10/19 10:55 Review of Systems - Constitutional Constitutional: reports: Fatigue (attributes worsening related to radiation treatment), Weight stable. denies: Fever, Chills - Eyes Eyes: reports: Vision loss, Corrective lenses - Ears, Nose & Throat Ears, Nose & Throat: reports: Dry mouth. denies: Mouth lesions - Cardiovascular Cardiovascular: reports: Decr. exercise tolerance. denies: Edema, Lightheadedness - Respiratory Respiratory: denies: Cough, SOB at rest - Gastrointestinal Gastrointestinal: reports: Good appetite. denies: Constipation - Musculoskeletal Musculoskeletal: reports: Stiffness, Muscle weakness (reports some improvement with sitting to standing;), Assistive devices (uses rolling walker) - Integumentary Integumentary: reports: Dryness - Psychiatric Psychiatric: reports: Anxiety (improved with radiation done; did well did not get clastrophobic). denies: Depression - Endocrine Endocrine: reports: Hypothyroidism (spoke with high school social studies teacher; no change to dosing) - Hematologic/Lymphatic Hematologic/Lymphatic: reports: Anemia (10.8), Bruising (at lovenox site). denies: Recurrent infections - All Other Systems All Other Systems: reports: Reviewed and negative Physical Exam - Physical Exam General Appearance: positive: No acute distress, Alert Eyes Bilateral: positive: Normal inspection, No scleral icterus ENT: positive: No signs of dehydration Neck: positive: Trachea midline Respiratory: positive: No respiratory distress Skin: positive: Pallor, Dryness Neurologic/Psychiatric: positive: Oriented x3, Mood/affect nml Palliative Care - POLST Patient has POLST: Yes POLST Status: DNR, Selective Treatment (Completed on visit; will come sign and confirm) Pain: Pain improved (Currently on MS Contin 90 mg 3 times daily, with oxycodone 30 mg for breakthrough, he is down to 2-3 doses a day, felt like with be less if he had not been on the table for radiation. Does feel dexamethasone 4 mg did improve overall his pain response, will continue until our next appointment for 2 weeks. Will taper down to 2 mg eventually, as will need physiologic dosing. He does better on the Dex versus of prednisone.) Tiredness/Fatigue: Moderate (4-6) (worsened with treatment; feels should improve) Drowsiness/Sedation: Mild (1-3) Nausea: None Anorexia: None Dyspnea: None Depression: None Anxiety: Mild (1-3) Feelings of wellbeing/Perceived Quality of Life: Good, Acceptable, Improved Sleep: Sleeps well Constipation: Yes, Opoid induced, Managed Performance Status: Patient reports he is keeping up his strength, able to get from sitting to standing, is quite dependent on his 4 wheeled rolling walker. He is ambulatory around the house, and able to manage his ADLs currently. - Palliative Care Discussion: Patient does understand the seriousness of his illness, he is hoping for years not months. His goal is to get back on the boat, and be able to be a little more active this summer. Unfortunately he does have many stairs up and down. We did introduced his POLST form, he had filled it out at hospitalization in January. Counseling provided regarding intention, and also to review his goals. Patient strives to be independent, if he were more dependent her burden this would not be quality of life for him. He struggles with it as it is. We did discuss in the context of situation if he were going to need CPR, would most likely be in the setting that he would not have a good outcome. Questions answered, patient did choose DNA R status, but would accept hospitalization, treatment of reversible conditions, would not want ventilator support and thus DNI. Patient and reviewed form, did fill out, we are a telemedicine visit. I did write out goals as focus on quality of life, treat reversible conditions, at end-of-life he is not sure if he wants to be at home, but he definitely wants a comfortable and dignified . I have left a form for them to the spine, and have applied my signature and patient given verbal consent. Results - Lab Results Lab results reviewed: Yes Impression and Recommendations - Palliative Care Impression: This is a 68-year-old gentleman with metastatic clear cell renal carcinoma with significant bony metastatic disease, and multiple other meds. Patient has had escalating pain, this is slowly improving. Has just finished radiation to right iliac hip mass which does have significant bony destruction. Palliative care continue provide support for pain and symptom management, psychosocial support, and anticipatory guidance. Recommendations/Counseling Done: 1.Pain of neoplastic origin. Patient's MS Contin is at 90 mg 3 times daily, he is using oxycodone 30 mg for breakthrough dosing, he is continuing on dexamethasone 4 mg for the next 2 weeks with the plan to taper. He is just finished radiation to his right iliac crest, awaiting response from this. Patient feels currently pain is tolerable, does know he can use increased oxycodone if he needs to, will continue to monitor and meet again in 2 weeks. 2. Adrenal insufficiency. Had trialed prednisone, Dr. Reyes had felt given his underlying disease and prognosis, either was acceptable. Given patient's escalation in pain and diminished energy, did trial back to dexamethasone with better response. Will titrate him down to therapeutic dose, which would be 1.5 mg - 2 mg. 3. Hypothyroidism. Patient currently on levothyroxine 88 mcg, had heard from high school social studies teacher, recommended stay on the same dosing. Constipation. Patient has been adherent to his current bowel program with good results. 4. Advanced care planning. Much of the conversation after pain management, was focused on advanced care planning, and completing the POLST as well as defining goals of care. Form was completed, patient to come to the office to sign and will get copies for HI M intake original.Patient's D POA is his Sienna Rosario, . Counseling provided regarding COVID19, precautions, and goals if were to contract. Patient would accept hospitalization, but not intubation. Time Spent: 45 minutes with greater than 50% of this done in counseling regarding opioids, opioid safety and symptom management, advanced care planning, and anticipatory guidance.
== END 2019-08-13 12:07 | disposition home or self-care (01) ==
LOC: PC 12:06
PROVIDERS: ATTEND Nurse Practitioner Adult Health
DX: Z51.5 Encounter for palliative care (principal); G89.3 Neoplasm related pain (acute) (chronic); R53.83 Other fatigue; K59.03 Drug induced constipation; T40.2X5A Adverse effect of other opioids, initial encounter; E03.9 Hypothyroidism, unspecified; C79.51 Secondary malignant neoplasm of bone; C79.70 Secondary malignant neoplasm of unspecified adrenal gland; C77.8 Secondary and unspecified malignant neoplasm of lymph nodes of multiple regions; C78.00 Secondary malignant neoplasm of unspecified lung; C64.1 Malignant neoplasm of right kidney, except renal pelvis; Z79.899 Other long term (current) drug therapy; Z79.891 Long term (current) use of opiate analgesic; Z79.52 Long term (current) use of systemic steroids; Z92.3 Personal history of irradiation; Z66 Do not resuscitate

== ENCOUNTER 2019-09-01 07:54 | Outpatient (CLI) | payer MEDICARE, OTHER ==
[2019-09-01] MEDS ORDERED: IOVERSOL 320 100 ML VIAL IVP ONE ×2 (08:01→14:45)
[2019-09-01] MEDS ORDERED: IOVERSOL 320 50 ML VIAL ONE (08:01)
[2019-09-01] MEDS ORDERED: IOVERSOL 320 50 ML VIAL PO ONE (14:45)
--- NOTE | 2019-09-02 11:29 | CT Report ---
Reason: METASTATIC RENAL CANCER Procedure Date: 09/01/2019 Accession Number: [id number] / [id number] Procedure: CT - CHEST W CPT Code: Final Report FULL RESULT: EXAM: CT CHEST EXAM DATE: 09/01/2019 09:30 AM. CLINICAL HISTORY: Metastatic renal cancer. COMPARISONS: ABDOMEN/PELVIS W06/07/2019 12:11 PM CHEST W06/07/2019 12:11 PM CHEST W/ 03/09/2019 11:25 AM. TECHNIQUE: Routine helical CT imaging was performed through the chest. IV contrast: 100 mL of Optiray 320. Reconstructions: Coronal and sagittal. In accordance with CT protocol optimization, one or more of the following dose reduction techniques were utilized for this exam: automated exposure control, adjustment of mA and/or KV based on patient size, or use of iterative reconstructive technique. FINDINGS: Lungs/Pleura: Lateral left lung apex nodular opacity more ill-defined measuring currently 10 x 7 mm, image 64, series 3 previously measured 7 x 6 mm although less dense in the interval with now some component of groundglass opacity. 2-3 mm nodular opacities in the left lower lobe on image 200, series 3, image 230, and image 239, series 3 are stable. There has been improvement in the bilateral groundglass opacities, particularly in the left upper lobe and lingula and both lower lobes although some persistent although less prominent groundglass opacities in the anterior right lower and medial right lower lobes. Confluent subpleural area of consolidation in the left lower lobe laterally again seen although slightly less extensive, although with more central bronchial dilatation and consolidative change. Similar findings in the lingula are stable. No new consolidation or parenchymal nodules. No pleural effusions. Linear band of scar atelectasis in the right lung apex again seen. Mediastinum: Visualized thyroid gland is unremarkable. Heart size is normal. Small pericardial effusion. Small hiatal hernia. Extensive coronary artery calcified plaque. No emboli noted on the current study. Atherosclerotic calcified plaque in the thoracic aorta. Mediastinal enlarged lymph nodes are again seen as below: 1. Right upper paratracheal, image 32, series 2, 19 x 16 mm, previously 23 x 19 mm. 2. Right superior paratracheal, image 37 series 2, 21 x 16 mm, previously 24 x 19 mm. 3. Right lower paratracheal, image 46 series 2, 22 x 14 mm, previously 27 x 17 mm. 4. Inferior right paratracheal, image 47 series 2, 22 x 16 mm, previously 25 x 20 mm. 5. Right hilar image 51, series 2, 20 x 12 mm, previous 26 x 19 mm. 6. Left hilar, image 52, series 2, 26 x 15 mm, previously 29 x 19 mm. 7. Subcarinal, image 62, series 2, 28 x 10 mm, previously 34 x 16 mm. 8. Inferior right hilar, image 65, series 2, 20 x 12 mm, previously 30 x 19 mm. No new adenopathy. Bones: Degenerative changes of the thoracic spine. Multiple lytic lesions again seen involving the right scapula body with associated pathological fracture is again seen as well as a prominent adjacent soft tissue component. Lytic lesion left scapular spine again seen although only partly included on the most recent comparison study. Extensive lytic lesion in the manubrium with a pathological fracture component again seen and slightly more extensive. A soft tissue component of the manubrial lesion measures currently up to 51 x 35 mm, previously 46 x 34 mm.Left lateral fifth lytic lesion again seen also involving the left lateral seventh rib now measuring up to 4.5 x 26 mm, previously measured 4.4 x 2.2 cm and appears slightly more extensive as well as a posterior left twelfth rib. Lytic soft tissue mass medial right ninth rib soft tissue mass component again seen measuring approximately 35 x 29 mm previously 32 x 29 mm. L1 lesion again seen. Visualized Abdomen: See CT abdomen and pelvis report. Other: None. IMPRESSION: 1. Slight increase in size of left upper lobe nodule now measuring up to 10 mm although slightly less dense with slightly more groundglass opacity with similar size of the 2-3 mm left lower lobe nodular opacities. 2. Improved groundglass opacities in both lungs with evolution of peripheral lingular and left lower lobe consolidative changes. 3. Multiple osseous metastases with slight increase in overall size of the soft tissue components of the lesions. 4. Slight decrease in the size of mediastinal and hilar lymphadenopathy. RADIA
--- NOTE | 2019-09-02 11:32 | CT Report ---
Reason: METASTATIC RENAL CANCER Procedure Date: 09/01/2019 Accession Number: [id number] / [id number] Procedure: CT - Abdomen/Pelvis W CPT Code: Final Report FULL RESULT: EXAM: CT ABDOMEN AND PELVIS EXAM DATE: 09/01/2019 09:30 AM. CLINICAL HISTORY: Metastatic renal cancer. COMPARISONS: ABDOMEN/PELVIS W/ 06/07/2019 12:11 PM ABDOMEN/PELVIS W/ 03/09/2019 11:25 AM. TECHNIQUE: Routine helical CT imaging was performed through the abdomen and pelvis. IV contrast: 100 mL of Optiray 320. Enteric contrast: Positive. Reconstructions: Coronal and sagittal. In accordance with CT protocol optimization, one or more of the following dose reduction techniques were utilized for this exam: automated exposure control, adjustment of mA and/or KV based on patient size, or use of iterative reconstructive technique. FINDINGS: Lung Bases: See dedicated CT chest report. Liver: Low-attenuation lesion 1.2 cm medial left lobe, stable, image 21, series 3. No new hepatic lesions. Patent portal vein. Gallbladder/Bile Ducts: Contracted gallbladder. Spleen: Normal. Pancreas: Diffuse fatty replacement of the pancreas. No peripancreatic edema or pancreatic duct dilatation. Adrenal Glands: Heterogeneous right adrenal nodule is again seen currently measuring 27 x 21 mm, previously 23 x 18 m. Left adrenal gland is unremarkable. Kidneys: Heterogeneously enhancing mass medial upper pole right kidney again seen measuring approximately 5.1 x 4.6 x 5.7 cm, previously 5.9 x 4.7 x 5.1 cm and is similar in size and appearance compared to the most recent comparison from 06/07/2019 0. Multiple bilateral renal cysts are again seen. Lower pole left renal nonobstructing calculus, 5 no meters, stable. Mild bilateral perinephric stranding. No hydronephrosis or ureteral dilatation. Peritoneal Cavity/Bowel: Stomach is moderate to markedly distended. No small bowel obstruction or small bowel wall thickening. Fatty replacement of the left rectus musculature. Small to moderate volume of stool seen is in the colon. No diverticulitis. No free air. No free fluid. No intra-abdominal fluid collections. Appendix is not distinctly visualized. Conglomerate retrocaval adenopathy, image 44 series 3, measures 28 x 24 mm, previously 31 x 29 mm. Precaval lymph node again seen, image 53 series 3, measures 13 x 10 cm, previously 16 x 16 mm. Pelvic Organs: Urinary bladder is mildly distended and unremarkable but partly obscured. Prostate gland and seminal vesicles are unremarkable. No pelvic adenopathy. Fluid within the right inguinal canal with likely cephalad position of the right testicle, as before. Vasculature: Vascular calcifications. No aneurysm. Mesenteric vasculature is patent. Bones: Degenerative changes of the lumbar spine. Levoscoliosis of the lumbar spine. Multiple expansile lytic osseous lesions are again seen involving L1 as well as the posterior elements of L5 on the left, extensive and multifocal involvement of the sacrum, ilium and ischium. Pathological fracture right posterior medial ilium with a mass soft tissue component measuring up to 6.7 x 5.3 cm, image 64 series 3, previously 5.9 x 4.9 cm in the medial left ilium image 72, series 3 measuring 3.7 x 2.8 cm, previously measured 3.5 x 2.6 cm. Left sacral component is again seen. Lytic lesion involving the medial left acetabulum and left pubic rami with pathological fractures again seen measuring at least 5 x 4.8 cm, previously up to 5 x 4.6 cm. Changes are seen from right hip arthroplasty. Other: Fatty replacement left anterior thigh musculature again seen. There is subcutaneous edema. High density within the anterior abdominal wall is likely due to instrumentation and/or subcutaneous injection. IMPRESSION: 1. Similar size of heterogeneous medial upper pole right renal mass compared to 06/07/2019. 2. Decrease in size of aortocaval and precaval adenopathy compared to 06/07/2019. 3. Multiple lytic lesions, several of which are similar in extent and size although others are slightly larger and consistent with metastatic disease. 4. Right adrenal nodule slightly smaller in size. RADIA
== END 2019-09-01 07:55 | disposition home or self-care (01) ==
LOC: DI 07:54
PROVIDERS: ATTEND Physician Assistant
DX: C64.1 Malignant neoplasm of right kidney, except renal pelvis (principal); C79.51 Secondary malignant neoplasm of bone; R91.8 Other nonspecific abnormal finding of lung field; R59.0 Localized enlarged lymph nodes; E27.9 Disorder of adrenal gland, unspecified
CPT/HCPCS: 71260; 74177; Q9967

== ENCOUNTER 2019-09-03 14:00 | Outpatient (CLI) | payer MEDICARE, OTHER ==
--- NOTE | 2019-09-03 14:57 | PROVIDER PROGRESS NOTE ---
HPI/Interval History - HPI/Interval History This is a complex 68-year-old gentleman with metastatic clear cell renal carcinoma, with known mets widely to the bones, including pathological fractures, mets to the lungs, intrathoracic nodes, right kidney, right adrenal nodule, and retroperitoneal nodes. Currently receiving Cabozantinib 60 mg daily since 06/15/2019 and Xgeva 120 mg subcu every 4 weeks since 01/15/2019. Patient recently had CT scans, is awaiting to review with oncologist. Does appear to have mixed results, of concern though continues to be his multiple osseous mets with increasing soft tissue components of these lesions, with concern for worsening or recurrent pathologic fractures. Patient did receive follow-up rad iation of 5 treatments, for his persistent nonhealing right iliac fracture, has not noticed any change in his pain in this area. Palliative care providing support for pain management, currently is well controlled on MS Contin 90 mg 3 times daily, and Decadron 4 mg daily with goal to decrease to 3 mg today,. Patient will need long-term support for his adrenal insufficiency, have been in contact with Dr. Reyes regarding return to dexamethasone vs prednisone related to pain flair, in agreement. He also recommended continuing the levothyroxine at 88 mcg at this time. Patient's most problematic symptom actually is his frequent skin tears, and bleeding. These are happening mostly on his upper extremity, provoked with just little trauma or bumping, and is currently on Lovenox 120 mg subcu twice daily. He is wondering if there is something to continue to mitigate his risk, but decrease the side effects he is having from the Lovenox. He is due to meet with oncology next week, will follow up with them prior to his appointment. past med hx. Pulmonary hypertension, sclerotic aortic valve, COPD, CKD, post polio syndrome involving left leg, osteoarthritis, PTSD, RAISA, history of PEs as incidental finding on CT scan on Lovenox, hypertension, hyperlipidemia, history of nephrolithiasis, history of immunotherapy induced colitis, hypothyroidism, adrenal insufficiency. social hx. Lives at home with his kenyon , they are doing fairly well overall. They do take intermittent drives to get a different set of scenery, Sienna is seeking out support for herself. They are trying to stay connected to family. Review of Systems - Constitutional Constitutional: reports: Fatigue, Weight stable. denies: Fever, Chills - Eyes Eyes: reports: Vision loss, Corrective lenses - Ears, Nose & Throat Ears, Nose & Throat: reports: Dry mouth. denies: Hoarseness, Mouth lesions - Cardiovascular Cardiovascular: reports: Decr. exercise tolerance. denies: Chest pain - Respiratory Respiratory: reports: Other (wearing CPAP at night). denies: Cough, SOB at rest - Gastrointestinal Gastrointestinal: reports: Good appetite. denies: Constipation, Nausea, Reflux/heartburn - Genitourinary Genitourinary: reports: Frequency - Musculoskeletal Musculoskeletal: reports: Muscle aches, Stiffness, Limited range of motion, Muscle weakness, Joint pain, Assistive devices (uses walker in home;) - Integumentary Integumentary: reports: Dryness, Other (worsening skin tears/hematomas) - Neurological Neurological: reports: General weakness, Memory problems (mild word finding; occ. STM; attributes to meds/chemo fog), Pre-existing deficit (polio left leg), Abnormal gait - Psychiatric Psychiatric: reports: Anxiety. denies: Depression - Endocrine Endocrine: reports: Hypothyroidism - Hematologic/Lymphatic Hematologic/Lymphatic: reports: Anemia, Bruising, Blood clots (PEs on lovenox), Bleeding tendencies (worsening). denies: Recurrent infections - All Other Systems All Other Systems: reports: Reviewed and negative Medications/Allergies - Medications Home Medications: Ambulatory Orders Medication Instructions Recorded Confirmed Telmisartan [Micardis] 80 mg PO DAILY 12/21/14 09/04/19 Morphine Sulfate ER [Ms Contin] 90 mg PO TID 01/27/19 09/04/19 Buspirone HCl 15 mg PO BID PRN 02/01/19 09/04/19 Cholecalciferol (Vitamin D3) 2,000 unit PO DAILY 02/01/19 09/04/19 [Vitamin D3] Citalopram Hydrobromide 40 mg PO DAILY 02/01/19 09/04/19 [Citalopram HBr] Multivit-Min/FA/Lycopen/Lutein 1 tab PO DAILY 02/01/19 09/04/19 [Centrum Silver Men Tablet] Rosuvastatin Calcium 10 mg PO DAILY 02/01/19 09/04/19 Ubidecarenone [Co Q-10] 200 mg PO DAILY 02/01/19 09/04/19 B12/Levomefolate Calcium/B-6 1,000 mcg PO DAILY 02/04/19 09/04/19 [Foltx Tablet] Magnesium Oxide [Magnesium] 400 mg PO DAILY 02/04/19 09/04/19 buPROPion [Wellbutrin Sr] 150 mg PO DAILY 02/04/19 09/04/19 Denosumab [Xgeva] 120 mg IM .30 DAYS 02/07/19 09/04/19 Loperamide [Imodium] 2 mg PO PRN PRN MDD 16 mg 02/24/19 09/04/19 Senna [Senokot] 8.6 mg PO TID MDD titrates 02/24/19 09/04/19 polyethylene glycoL 3350 [Miralax] 8.5 - 17 gm PO DAILY 02/24/19 09/04/19 Cabozantinib S-Malate [Cabometyx] 60 mg ORAL DAILY 03/17/19 09/04/19 Levothyroxine Sodium [Synthroid] 88 mcg PO DAILY 04/17/19 09/04/19 Enoxaparin Sodium [Lovenox] 120 mg SQ BID 06/10/19 09/04/19 Dexamethasone 3 mg PO DAILY 07/23/19 09/04/19 Oxycodone HCl 20 - 40 mg PO Q3HR PRN 07/23/19 09/04/19 - Allergies Allergies/Adverse Reactions: Allergies Allergy/AdvReac Type Severity Reaction Status Date / Time No Known Drug Allergies Allergy Verified 08/10/19 10:55 Physical Exam - Physical Exam General: Alert and appropriate in no distress, well-nourished, engaging though does seem somewhat irritable and mood. Skin: Patient showed me left arm with skin tear, easily bled even with removing dressing, small area of eschar with some redness around it, not hot per his report. Has multiple hematomas on both arms, as well as severe bruising where doing Lovenox dosing. Eyes: Grossly normal, slight periorbital edema Neck; trachea midline Respiratory: No respiratory distress noted able to take deep breath. No cough during conversation. Oropharynx: Moist mucous membranes, no visible signs of yeast or lesions. Neurologic/psychiatric: Alert and oriented, mood seems somewhat irritable, no persistent depressive symptoms voice modulated. Musculoskeletal: Patient with effort to get from sitting to standing, gait measured, abnormal gait with limp to the left secondary to polio, able to ambulate without respiratory distress but slow and measured. Palliative Care - POLST Patient has POLST: Yes POLST Status: DNR, Selective Treatment Pain: Pain unchanged, Location (right shoulder/scapula area; bilateral hip and lower back pain;bilateral upper thigh pain), Comment (currently on MS contin 90 mg TID; dex 4 mg; and oxycodone 20 mg for BTP not needing currently satisfied with regimen) Tiredness/Fatigue: Moderate (4-6) Drowsiness/Sedation: Mild (1-3) Nausea: None Anorexia: None Dyspnea: Mild (1-3) Depression: Mild (1-3) Anxiety: Moderate (4-6) Feelings of wellbeing/Perceived Quality of Life: Good, Acceptable, No change Sleep: Sleeps well Constipation: Yes, Opoid induced, Managed Performance Status: Patient with limited activity tolerance, mostly limited by pain. Is ambulatory in home, uses 4 wheeled walker except for during meal prep and few steps for bathing. Is able to independently bathe, though is doing this when around to provide supervision. - Palliative Care Discussion: Patient continues to want to focus on the positive, is waiting to "get better". Have approached multiple times that this may be the new normal, particularly given tumor burden of his bony mets. He does feel his pain is currently controlled, but is limited as far as ability to go out both related to functional status and COVID-19. Patient has completed POLST as DNA R and selective treatments. We did this on her last visit, he has not picked up form, will leave it for him at his appointment for Friday. He feels like overall he is doing well with his mood, taking things in stride, staying connected to friends and family and denies any exacerbation of his PTSD or depression. Impression and Recommendations - Palliative Care Impression: This is a 68-year-old gentleman with metastatic clear cell renal carcinoma with significant bony metastatic disease and multiple other mets. Patient's pain is currently controlled to his satisfaction, though remains limiting. Palliative care continue to provide support for pain and symptom management, psychosocial support and anticipatory guidance. Recommendations/Counseling Done: 1. Pain of neoplastic origin. Patient's MS Contin is at 90 mg 3 times daily. He rarely has needed any of his oxycodone for breakthrough dosing, does feel currently we can attempt to decrease dexamethasone to 3 mg daily. Goal to taper down to 2 mg eventually as will need physiologic dosing. Current regimen appears effective, no changes made. 2. Adrenal insufficiency. Patient currently on dexamethasone 4 mg, will decrease to 3 mg attempting to find lowest dose with good response. Will titrate him down to therapeutic dose for adrenal insufficiency which should be 1.5 to 2 mg of dexamethasone. This is been in consult with production assembly operator. 3. Hypothyroidism patient currently on 88 mcg, this was recommendation of production assembly operator to stay on current dosing. 4. Constipation. Patient has titrated and continues current bowel program with good results. 5. Skin tears with resulting wounds. Counseling provided regarding keeping it washed after showering, pat dry. Apply bacitracin ointment and cover with Telfa pad and wrap gently with Covan with only mild pressure. Instructed to keep skin supple to reduce tearing and dryness with regular application of lotion. 6. Anti-coag therapy. Patient currently on Lovenox 120 mcg twice daily, patient has been on since end may, will follow-up with oncology to see if there is alternative or to decrease to daily dosing. Patient is quite distressed with ongoing issues related to this. 7. Advanced care planning. Patient has completed POLST as well as defining goals of care, has not picked up form, will arrange for him to pick it up at his next counseling. Counseling provided previously regarding COVID-19, he continues to be adherent to precautions. Patient would accept hospitalization b ut not intubation if he were to become ill. Telehealth Visit - TeleMedicine Visit Referring Provider: Dr. Ana Anguiano Visit Type:: TeleHealth Video Call Patient agrees and consents to this telehealth visit type: Yes Time spent:: 35 minutes Video type:: Doxlee ann Participants:: Spouse/Significant Other Location of provider:: Office Location of patient:: Home Provider Statement: I spent 100% on the TeleHealth Video Call with the patient with greater than 50% spent counseling the patient and coordination of care.
== END 2019-09-03 14:01 | disposition home or self-care (01) ==
LOC: PC 14:00
PROVIDERS: ATTEND Nurse Practitioner Adult Health
DX: Z51.5 Encounter for palliative care (principal); G89.3 Neoplasm related pain (acute) (chronic); R53.0 Neoplastic (malignant) related fatigue; M84.550 Pathological fracture in neoplastic disease, pelvis; K59.03 Drug induced constipation; T40.2X5D Adverse effect of other opioids, subsequent encounter; E27.40 Unspecified adrenocortical insufficiency; S40.922D Unspecified superficial injury of left upper arm, subsequent encounter; S40.022D Contusion of left upper arm, subsequent encounter; S40.021D Contusion of right upper arm, subsequent encounter; E03.9 Hypothyroidism, unspecified; C64.1 Malignant neoplasm of right kidney, except renal pelvis; C79.51 Secondary malignant neoplasm of bone; C78.00 Secondary malignant neoplasm of unspecified lung; C77.8 Secondary and unspecified malignant neoplasm of lymph nodes of multiple regions; C79.89 Secondary malignant neoplasm of other specified sites; C79.71 Secondary malignant neoplasm of right adrenal gland; Z79.899 Other long term (current) drug therapy; Z79.891 Long term (current) use of opiate analgesic; Z79.52 Long term (current) use of systemic steroids; Z79.01 Long term (current) use of anticoagulants; Z92.3 Personal history of irradiation; Z86.711 Personal history of pulmonary embolism; Z66 Do not resuscitate

== ENCOUNTER 2019-09-23 15:51 | Outpatient (CLI) | payer MEDICARE, OTHER ==
--- NOTE | 2019-09-23 15:52 | PROVIDER PROGRESS NOTE ---
HPI/Interval History - HPI/Interval History This is a complex 68-year-old gentleman with metastatic clear cell renal carcinoma with known mets widely to the bone, including pathologic fractures, mets to the lungs, nodes, right kidney, right adrenal nodule. Patient is currently receiving cabozantinib 60 mg daily since 06/15/2019 and Xgeva 120 mg subcu every 4 weeks since 01/15/2019. Patient recently was CT of the chest, abdomen, and pelvis which showed slight increase in size of her left upper lobe nodule, but improved groundglass opacity in both lungs. Stable multiple bony mets, and decreased size of the mediastinal and hilar lymph the. His right upper pole kidney mass was steady and having decreased aortocaval and precaval adenopathy. He is quite pleased with his results, and currently his pain is being managed well. He did receive radiation in August, for 5 treatments, for his persistent nonhealing right iliac fracture but has not noticed any improvement with this. Palliative care providing support for pain and symptom management, is currently managed on MS Contin 90 mg 3 times daily, with dexamethasone 3 mg daily. Patient will need long-term support for his adrenal insufficiency, he also has hypothyroidism as a result of his immunotherapy and is on levothyroxine 88 mcg at this time. At his visit on 09/06 with oncology, they did create decrease his Lovenox to 120 mg daily, he continues difficulty with skin tears and bleeding, though does note some slight improvement. Patient has been feeling more persistently is low-grade anxiety, mild depression, this is more compounded by the restrictions with COVID-19 and activity. Patient at baseline is quite active, engaged, likes to be out in the community and interact with friends and family. Both he and his have been challenged with this, trying to find ways to supplement and decrease her social isolation. Past medical history: Pulmonary hypertension, sclerotic aortic valve, COPD, CKD, post polio syndrome involving left leg, osteoarthritis, PTSD, RAISA, history of PEs incidental finding on CT scan on Lovenox, hypertension, hyperlipidemia, history of nephrolithiasis, history of immune O induced colitis, hypothyroidism, adrenal insufficiency Social history lives a home with his kenyon , they have been for over 12 years. 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 Review of Systems - Constitutional Constitutional: reports: Fatigue, Weight stable (261). denies: Fever, Chills - Eyes Eyes: reports: Vision loss, Corrective lenses - Ears, Nose & Throat Ears, Nose & Throat: reports: Other (jaw still 'not aligned" but doing okay). denies: Mouth lesions, Bleeding gums, Dental pain - Cardiovascular Cardiovascular: reports: Decr. exercise tolerance (more related to pain than fatigue). denies: Chest pain, Edema - Respiratory Respiratory: denies: SOB at rest - Gastrointestinal Gastrointestinal: reports: Constipation (intermittent), Good appetite. denies: Nausea, Reflux/heartburn - Genitourinary Genitourinary: reports: Frequency - Musculoskeletal Musculoskeletal: reports: Muscle pain, Back pain, Muscle aches, Stiffness, Limited range of motion, Muscle weakness, Assistive devices (using walker) - Integumentary Integumentary: reports: Dryness, Other (bleeding and skin tears particularly on UE) - Neurological Neurological: reports: General weakness, Memory problems (improved) - Psychiatric Psychiatric: reports: Depression, Anxiety - Endocrine Endocrine: reports: Hypothyroidism - Hematologic/Lymphatic Hematologic/Lymphatic: reports: Anemia, Bruising, Bleeding tendencies. denies: Recurrent infections - All Other Systems All Other Systems: reports: Reviewed and negative Medications/Allergies - Medications Home Medications: Ambulatory Orders Medication Instructions Recorded Confirmed Telmisartan [Micardis] 80 mg PO DAILY 12/21/14 09/23/19 Morphine Sulfate ER [Ms Contin] 90 mg PO TID 01/27/19 09/23/19 Buspirone HCl 15 mg PO BID PRN 02/01/19 09/23/19 Cholecalciferol (Vitamin D3) 2,000 unit PO DAILY 02/01/19 09/23/19 [Vitamin D3] Citalopram Hydrobromide 40 mg PO DAILY 02/01/19 09/23/19 [Citalopram HBr] Multivit-Min/FA/Lycopen/Lutein 1 tab PO DAILY 02/01/19 09/23/19 [Centrum Silver Men Tablet] Rosuvastatin Calcium 10 mg PO DAILY 02/01/19 09/23/19 Ubidecarenone [Co Q-10] 200 mg PO DAILY 02/01/19 09/23/19 B12/Levomefolate Calcium/B-6 1,000 mcg PO DAILY 02/04/19 09/23/19 [Foltx Tablet] Magnesium Oxide [Magnesium] 400 mg PO DAILY 02/04/19 09/23/19 buPROPion [Wellbutrin Sr] 150 mg PO DAILY 02/04/19 09/23/19 Denosumab [Xgeva] 120 mg IM .30 DAYS 02/07/19 09/23/19 Loperamide [Imodium] 2 mg PO PRN PRN MDD 16 mg 02/24/19 09/23/19 Senna [Senokot] 8.6 mg PO TID MDD titrates 02/24/19 09/23/19 polyethylene glycoL 3350 [Miralax] 8.5 - 17 gm PO DAILY 02/24/19 09/23/19 Cabozantinib S-Malate [Cabometyx] 60 mg ORAL DAILY 03/17/19 09/23/19 Levothyroxine Sodium [Synthroid] 88 mcg PO DAILY 04/17/19 09/23/19 Enoxaparin Sodium [Lovenox] 120 mg SQ DAILY 06/10/19 09/23/19 Dexamethasone 3 mg PO DAILY 07/23/19 09/23/19 Oxycodone HCl 20 - 40 mg PO Q3HR PRN 07/23/19 09/23/19 Lactobacillus Acidophilus 1 tab PO DAILY 09/23/19 09/23/19 [Probiotic Acidophilus] - Allergies Allergies/Adverse Reactions: Allergies Allergy/AdvReac Type Severity Reaction Status Date / Time No Known Drug Allergies Allergy Verified 09/07/19 14:43 Physical Exam - Physical Exam General: Patient appears engaged, voice is strong, well-nourished, easily up and down from the chair when demonstrating walking. Neck: Trachea midline. Respiratory: Patient does not present with any respiratory distress, no increased respiratory effort with ambulation. Eyes: Grossly normal, mild periorbital edema Skin: Still presents with multiple areas of bruising, dressings on skin tears. No active bleeding noted at time of visit. Oropharynx, moist mucous membranes, no visible signs of yeast or lesions. Neurologic/psychiatric: Alert and oriented, voice modulated, does appear to have some persistent depressive symptoms today. Musculoskeletal: Patient able to get from sitting to standing, ambulating with walker, has limp to the left secondary to polio, Palliative Care - POLST Patient has POLST: Yes POLST Status: DNR, Selective Treatment Pain: Pain improved (Patient's pain persists mostly in the pelvic girdle, radiating down to the outside of the thighs. Did some driving yesterday, reports some persistent right thigh and leg pain, suspect due to pain of sustained pressure on pelvis with gas pedal. Patient currently taking his MS Contin 90 mg 3 times daily with good results no need for breakthrough pain medication. Has had some flare with the decrease of dexamethasone earlier in the week to 3 mg, had felt some decrease in energy but willing to continue with titration down.) Tiredness/Fatigue: Moderate (4-6) Drowsiness/Sedation: Mild (1-3) Nausea: Mild (1-3) (one episode; not persistent) Anorexia: None Dyspnea: Mild (1-3) (with activity) Depression: Moderate (4-6) Anxiety: Moderate (4-6) Feelings of wellbeing/Perceived Quality of Life: Fair, Acceptable, No change Sleep: Sleeps well (has CPAP) Constipation: Yes, Opoid induced, Intermittent constipation Performance Status: Patient's ambulation continues to be limited somewhat by his pain, and toleration for sustained activity. He has been ambulating with his walker for longer distances, but has trialed without. This is made both his and myself quite anxious, as if he has a fall this would most likely result in sequela of further fractures and injury. Patient is able to manage his own ADLs, he is showering when his is at home and can offer supervision. - Palliative Care Discussion: Patient has impatiently been waiting to "get better". We discussed his oncology appointment, and encouragement that his disease is currently managed. Did gently explore reframing goals in the context of his current limitations of both his disease and symptoms. His goal is been to return to the boat, this includes multiple steps up and down, and refurbishing. We did discuss in the context of possibly rethinking this to engage his family support, allow some support for the tasks to make the boat ready for sale, and support for the trip. Counseling provided regarding need sometimes to reset priorities, and rethink our expectat ions and more creative ways of meeting these goals. We also discussed some about Legacy activities, they have been quite isolated, patient is a "project person". He has been working on his truck, is found this distracting and for filling. Encouraged to record his stories, he does have grandchildren who would be quite interested, patient is a good storyteller. Sienna is going to look at some media means that might be able to do this this would be a good project for them both. They are getting somewhat homebound and irritable with each other, normalize this is all couples are being challenged with extended stay at home. Acknowledged the difficulty of the impact of grief and loss both with his cancer and the limitations with COVID-19. They are trying to get creative on ways to social distance and still maintain contacts with friends and family. Impression and Recommendations - Palliative Care Impression: This is a 68-year-old gentleman with metastatic clear cell carcinoma with significant bony metastatic disease as well as other mets. Patient's pain is currently controlled at this time, though remains still limiting for his quality of life. Patient is having exacerbation of his depression and anxiety, this was addressed in today's visit. Palliative care continue provide support for pain and symptom management, psychosocial support and anticipatory guidance. Recommendations/Counseling Done: 1. Pain of neoplastic origin. MS Wray is currently 90 mg 3 times a day, has not needed any medication for breakthrough dosing, had not follow through until earlier in the week on decrease of dexamethasone to 3 mg daily. Goal is to taper down to 2 mg eventually as will need physiologic dosing for his adrenal insufficiency. Current regimen appears effective no changes made. Medications ordered earlier in the week. 2. Anticoag therapy. Patient continues frustration with skin tears and resulting wounds, patient has been decreased to Lovenox 120 mcg subcu daily. Has only seen slight improvement. Reviewed current skin care regimen, patient using deodorant soap. Requested patient use body wash, with emollients, to keep skin soft and reduce dryness. This will help with skin tears, acknowledged and will obtain appropriate products. At this point in time no signs or symptoms of infection, will continue to monitor. 3. Metastatic clear cell renal carcinoma with mets. Counseling provided regarding further follow-up around disease modification and expectations. Did review again patient is currently receiving cancer treatment, with the sequela of side effects including fatigue, and goal is to manage disease as it is palliative in nature. Reviewed this is no list important than intermittent IV chemotherapy, ideas to spread out toxicities versus fluctuating toxicities. Counseling again regarding palliative nature of treatment, expectations for management of disease, as patient gets discouraged it is not "fixed". Results of CT scan were encouraging, help to reframe some of patient's expectations. 4. Anxiety/depression. This is multifactorial, impacted both by disease as well as restrictions of COVID-19 pandemic. Counseling provided regarding ways to address social isolation. Introduced concept of Legacy work, encouraged to record some of his stories for his grandsons, they also have a recent [place] trip can review pictures, had hoped to put in album. Counseling provided regarding support for priorities, reframing how 1 might make these in the context of limitations of his disease at this point in time. Telehealth Visit - TeleMedicine Visit Referring Provider: Dr. Ana Anguiano Visit Type:: TeleHealth Video Call Patient agrees and consents to this telehealth visit type: Yes Patient agrees to have their insurance billed: Yes Time spent:: 12-1240; 40 minutes Video type:: Doximetry Participants:: Spouse/Significant Other Provider Statement: I spent 100% on the TeleHealth Video Call with the patient with greater than 50% spent counseling the patient and coordination of care.
== END 2019-09-23 15:52 | disposition home or self-care (01) ==
LOC: PC 15:51
PROVIDERS: ATTEND Nurse Practitioner Adult Health
DX: Z51.5 Encounter for palliative care (principal); G89.3 Neoplasm related pain (acute) (chronic); M84.550 Pathological fracture in neoplastic disease, pelvis; E27.40 Unspecified adrenocortical insufficiency; E03.2 Hypothyroidism due to medicaments and other exogenous substances; T45.1X5D Adverse effect of antineoplastic and immunosuppressive drugs, subsequent encounter; K59.03 Drug induced constipation; T40.2X5D Adverse effect of other opioids, subsequent encounter; F41.1 Generalized anxiety disorder; C64.1 Malignant neoplasm of right kidney, except renal pelvis; C79.51 Secondary malignant neoplasm of bone; C78.00 Secondary malignant neoplasm of unspecified lung; C77.8 Secondary and unspecified malignant neoplasm of lymph nodes of multiple regions; C79.71 Secondary malignant neoplasm of right adrenal gland; Z79.899 Other long term (current) drug therapy; Z79.01 Long term (current) use of anticoagulants; Z79.52 Long term (current) use of systemic steroids; Z79.891 Long term (current) use of opiate analgesic; Z92.3 Personal history of irradiation; Z86.711 Personal history of pulmonary embolism; Z66 Do not resuscitate

== ENCOUNTER 2019-10-29 10:00 | Outpatient (CLI) | payer MEDICARE, OTHER ==
--- NOTE | 2019-10-29 15:17 | PROVIDER PROGRESS NOTE ---
HPI/Interval History - HPI/Interval History This is a complex 68-year-old gentleman with metastatic clear cell renal carcinoma with known mets widely to the bone, including pathologic fractures, mets to lungs, nodes, right kidney, and right adrenal nodule. Patient currently receiving cabozantinib 60 mg daily since 06/15/2019 and Xgeva monthly. Patient called 10/24 with escalating pain, mostly located in his hips, worsening with any kind of weightbearing. He was using more oxycodone, which makes him more confused, and worsens his cognitive issues. He has been less active, this is in response to his increasing pain. He had gotten down on the floor to do something with his computer, and got some more significant skin tears. At this point time they are healing, without any signs or symptoms of infection. At that point in time I did increase his MS Contin to 120 mg in the a.m., he is continuing with his 90 mg in the afternoon and 90 mg in the evening, with only slight improvement. Did reach out to oncology, regarding if wanting any kind of scans. After discussion with radiologist, of how best to evaluate, patient treatment regimen for palliative care would not change. Will defer to oncology if wants follow-up CT scan, they did not think plain x-rays would help me determine if his fractures were worsening. Patient continues to be quite frustrated with his worsening pain, it is worse with weightbearing, and lessens with sitting. He has not had any trauma, nor presents with any neurologic symptoms of numbness, tingling, changes in bowel or bladder. Unclear if this is indicative of progressive disease, or worsening fractures. Patient is managing his bowels, and titrating his bowel meds appropriately, he does get quite frustrated with all his limitations, and worries about his declining functional status. Patient's past medical history includes pulmonary hypertension, sclerotic aortic valve, COPD, CKD, post polio syndrome involving left leg, osteoarthritis, PTSD, RAISA, history of PEs on Lovenox, hypertension, hyperlipidemia, history of nephrolithiasis, history of immunotherapy induced colitis, hypothyroidism, adrenal insufficiency. Social history; patient lives at home with his kenyon , they have been over 12 years. 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 They have been isolating because of COVID-19, but are reaching out more to her friends for socialization but taking appropriate precautions. Review of Systems - Constitutional Constitutional: reports: Fatigue, Weight stable. denies: Fever, Chills - Eyes Eyes: reports: Vision loss, Corrective lenses - Ears, Nose & Throat Ears, Nose & Throat: reports: Dry mouth - Cardiovascular Cardiovascular: reports: Decr. exercise tolerance. denies: Chest pain, Edema, Lightheadedness - Respiratory Respiratory: denies: Cough, SOB at rest, SOB with exertion - Gastrointestinal Gastrointestinal: reports: Good appetite. denies: Constipation, Reflux/heartburn - Musculoskeletal Musculoskeletal: reports: Back pain, Muscle aches, Stiffness, Limited range of motion, Muscle weakness, Assistive devices (uses rolling walker; difficulty with longer distances) - Integumentary Integumentary: reports: Dryness, Other (skin tears on arms) - Neurological Neurological: reports: General weakness, Memory problems (mild), Pre-existing deficit - Psychiatric Psychiatric: reports: Depression, Anxiety - Endocrine Endocrine: reports: Hypothyroidism (recent adjustment with thyroid medication) - Hematologic/Lymphatic Hematologic/Lymphatic: denies: Recurrent infections - All Other Systems All Other Systems: reports: Reviewed and negative Medications/Allergies - Medications Home Medications: Ambulatory Orders Medication Instructions Recorded Confirmed Telmisartan [Micardis] 80 mg PO DAILY 12/21/14 10/05/19 Morphine Sulfate ER [Ms Contin] 90 mg PO TID 01/27/19 10/05/19 Buspirone HCl 15 mg PO BID PRN 02/01/19 10/05/19 Cholecalciferol (Vitamin D3) 2,000 unit PO DAILY 02/01/19 10/05/19 [Vitamin D3] Citalopram Hydrobromide 40 mg PO DAILY 02/01/19 10/05/19 [Citalopram HBr] Multivit-Min/FA/Lycopen/Lutein 1 tab PO DAILY 02/01/19 10/05/19 [Centrum Silver Men Tablet] Rosuvastatin Calcium 10 mg PO DAILY 02/01/19 10/05/19 Ubidecarenone [Co Q-10] 200 mg PO DAILY 02/01/19 10/05/19 B12/Levomefolate Calcium/B-6 1,000 mcg PO DAILY 02/04/19 10/05/19 [Foltx Tablet] Magnesium Oxide [Magnesium] 400 mg PO DAILY 02/04/19 10/05/19 buPROPion [Wellbutrin Sr] 150 mg PO DAILY 02/04/19 10/05/19 Denosumab [Xgeva] 120 mg IM .30 DAYS 02/07/19 10/05/19 Loperamide [Imodium] 2 mg PO PRN PRN MDD 16 mg 02/24/19 10/05/19 Senna [Senokot] 8.6 mg PO TID MDD titrates 02/24/19 10/05/19 polyethylene glycoL 3350 [Miralax] 8.5 - 17 gm PO DAILY 02/24/19 10/05/19 Cabozantinib S-Malate [Cabometyx] 60 mg ORAL DAILY 03/17/19 10/05/19 Levothyroxine Sodium [Synthroid] 88 mcg PO DAILY 04/17/19 10/05/19 Enoxaparin Sodium [Lovenox] 120 mg SQ DAILY 06/10/19 10/05/19 Dexamethasone 3 mg PO DAILY 07/23/19 10/05/19 Oxycodone HCl 20 - 40 mg PO Q3HR PRN 07/23/19 10/05/19 Lactobacillus Acidophilus 1 tab PO DAILY 09/23/19 10/05/19 [Probiotic Acidophilus] - Allergies Allergies/Adverse Reactions: Allergies Allergy/AdvReac Type Severity Reaction Status Date / Time No Known Drug Allergies Allergy Verified 10/05/19 09:50 Physical Exam - Physical Exam General: Patient appears engaged, voice is strong, he is well-nourished. Eyes: Grossly normal, mild periorbital edema Respiratory: patient does not present with any respiratory distress, no respiratory effort with ambulation. Skin: Patient does have dressings bilate rally on skin tears. No active bleeding noted at time of visit. Oropharynx: Moist mucous membranes. Neurologic/psychiatric: Alert and oriented, voice modulated, continues with some persistent depressive and anxiety symptoms today. Musculoskeletal: Patient able to move all extremities, increased pain noted with sitting to standing, Palliative Care - POLST Patient has POLST: Yes POLST Status: DNR, Selective Treatment Pain: Pain worsening, Location (see hPI.) Tiredness/Fatigue: Moderate (4-6) Drowsiness/Sedation: Mild (1-3) Nausea: None Anorexia: None Dyspnea: None Depression: Mild (1-3) Anxiety: Moderate (4-6) Feelings of wellbeing/Perceived Quality of Life: Fair, Acceptable, Worsening Sleep: Sleeps well Constipation: Yes, Opoid induced, Managed Performance Status: Patient has been more sedentary, related to the pain. Counseling provided not to push self, as increased stress may cause more trauma to his pelvic area. Recommended continue to use walker, to offload. Patient is able to bathe with supervision in the context for safety. We will put his PPS at 60%. - Palliative Care Discussion: Patient is to meet with oncology next week, he remains quite curious what is happening with his disease, and what to expect in the future. Patient has been "expecting" to get better and be able to return to previous level of functioning, revisited again that this may be his new normal, and explored ways to better use the time to focus on things that are meaningful in the now with his current limitations. Does have a pending wedding with his granddaughter, in November is hoping to attend. He does get frustrated by his level of dependence on his , and sometimes can be impulsive. He is trying to be careful, does recognize a fall would be devastating to them both. has shared concerns about how best to meet his care needs as his functional status declines, and worried that patient does not understand the seriousness of his illness. She is hoping oncology will revisit prognosis, to help him better plan for the future. Impression and Recommendations - Palliative Care Impression: This is a kenyon 68-year-old gentleman with metastatic clear cell carcinoma with significant bony mets as well as other metastatic disease. Patient's pain has escalated, unable to attribute to any acute trauma, have been titrating opioids for better control. Palliative care to continue provide support for pain and symptom management, psychosocial support and anticipatory guidance. Recommendations/Counseling Done: 1. Pain of neoplastic origin. MS Contin is currently 120 mg a.m., 90 mg afternoon and 90 mg at p.m., will continue to titrate up slowly with 120 mg twice daily, with third dose 90 mg for 4 days, then increase to 120 mg 3 times daily. Patient prefers long-acting versus oxycodone regarding to cognitive effects, will continue to titrate. Did discuss in the context as higher opioid dose is less likely to get significant changes, we did discuss possibly in the future when and if not on oral chemotherapy medication, could consider transitioning to methadone. Patient is also been instructed to use his walker at all times, to offload off of his pelvic girdle. We also discussed my recommendation to get a scooter, for longer distances to decrease his social isolation, but also keep him safe. 2. Constipation. Patient is titrating meds to effect, feels like he has this down using MiraLAX and senna. confirms. 3. Anxiety/depression. Patient continues to struggle with the multiple levels of complexity currently, including cancer diagnosis, COVID-19, and family stressors. Counseling provided to normalize his current feelings regarding this, ways to set some goals, and continue psychosocial support. 4. Metastatic clear cell renal carcinoma with metastatic disease. Patient to meet with oncology next week, patient with multiple questions but gets easily distracted. Encouraged to write down questions to be able to help facilitate appointment. Update sent to oncology. Telehealth Visit - TeleMedicine Visit Referring Provider: Dr. Ana Anguiano Visit Type:: TeleHealth Video Call Patient agrees and consents to this telehealth visit type: Yes Patient agrees to have their insurance billed: Yes Time spent:: 45 minutes Video type:: Lino Participants:: Spouse/Significant Other Location of provider:: Office Location of patient:: Home Provider Statement: I spent 100% on the TeleHealth Video Call with the patient with greater than 50% spent counseling the patient and coordination of care.
== END 2019-10-29 10:01 | disposition home or self-care (01) ==
LOC: PC 10:00
PROVIDERS: ATTEND Nurse Practitioner Adult Health
DX: Z51.5 Encounter for palliative care (principal); G89.3 Neoplasm related pain (acute) (chronic); K59.03 Drug induced constipation; T40.2X5D Adverse effect of other opioids, subsequent encounter; F41.8 Other specified anxiety disorders; C64.1 Malignant neoplasm of right kidney, except renal pelvis; C79.51 Secondary malignant neoplasm of bone; Z79.899 Other long term (current) drug therapy; Z79.891 Long term (current) use of opiate analgesic; Z66 Do not resuscitate

== ENCOUNTER 2019-11-30 10:43 | Outpatient (CLI) | payer MEDICARE, OTHER ==
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
== END 2019-11-30 10:44 | disposition home or self-care (01) ==
LOC: PC 10:43
PROVIDERS: ATTEND Nurse Practitioner Adult Health
DX: Z51.5 Encounter for palliative care (principal); G89.3 Neoplasm related pain (acute) (chronic); C64.2 Malignant neoplasm of left kidney, except renal pelvis; C78.02 Secondary malignant neoplasm of left lung; C78.01 Secondary malignant neoplasm of right lung; C77.9 Secondary and unspecified malignant neoplasm of lymph node, unspecified; C79.51 Secondary malignant neoplasm of bone; C79.71 Secondary malignant neoplasm of right adrenal gland; C79.01 Secondary malignant neoplasm of right kidney and renal pelvis; R60.0 Localized edema; R53.83 Other fatigue; I12.9 Hypertensive chronic kidney disease with stage 1 through stage 4 chronic kidney disease, or unspecified chronic kidney disease; N18.9 Chronic kidney disease, unspecified; F43.10 Post-traumatic stress disorder, unspecified; F41.1 Generalized anxiety disorder; F32.9 Major depressive disorder, single episode, unspecified; G14 Postpolio syndrome; J44.9 Chronic obstructive pulmonary disease, unspecified; I35.8 Other nonrheumatic aortic valve disorders; Z74.09 Other reduced mobility; D64.9 Anemia, unspecified; S40.022D Contusion of left upper arm, subsequent encounter; V00.141D Fall from scooter (nonmotorized), subsequent encounter; E78.5 Hyperlipidemia, unspecified; E03.2 Hypothyroidism due to medicaments and other exogenous substances; E27.3 Drug-induced adrenocortical insufficiency; T45.1X5D Adverse effect of antineoplastic and immunosuppressive drugs, subsequent encounter; Z79.899 Other long term (current) drug therapy; H54.7 Unspecified visual loss; H91.90 Unspecified hearing loss, unspecified ear; R35.0 Frequency of micturition; L98.8 Other specified disorders of the skin and subcutaneous tissue; K59.03 Drug induced constipation; T40.2X5D Adverse effect of other opioids, subsequent encounter; Z66 Do not resuscitate; Z79.01 Long term (current) use of anticoagulants; Z79.891 Long term (current) use of opiate analgesic; Z86.711 Personal history of pulmonary embolism
CPT/HCPCS: 99215

== ENCOUNTER 2019-12-28 15:02 | Outpatient (CLI) | payer MEDICARE, OTHER ==
[2019-12-28 13:50] LABS: INR 1.2 (0.8-1.2); PT - PROTHROMBIN TIME 13.3 secs (9.9-12.6)
[2019-12-28 13:57] LABS: PARTIAL THROMBOPLASTIN TIME 40.7 secs (24.9-33.3)
--- NOTE | 2019-12-28 16:20 | Ultrasound Report ---
PROCEDURE: Thoracentesis Puncture INDICATIONS: PLEURAL EFFUSION TECHNIQUE: The indications, alternatives, benefits, risks, and complications of the procedure were explained to the patient. Written informed consent was obtained and placed in the chart. The chest was examined sonographically, and an appropriate site was chosen for thoracentesis. The skin was prepared and rogelio ped in the usual sterile fashion, and 1% lidocaine was infiltrated from the skin down through the ple ural surface. A 19-gauge catheter-covered needle was then introduced into the pleural space, the cat heter was advanced and the needle was withdrawn, and thereafter pleural fluid was aspirated. The cat heter was then removed and a dressing was applied. COMPARISON: None. FINDINGS: Access site: Left posterior hemithorax. Needle: One-Step centesis catheter with introducer needle. Fluid volume and description: 2 L clear serous light xavier fluid Fluid sent for diagnostic testing: Not requested Medications: 1% lidocaine for local anaesthesia. Complications: None; post-procedural chest radiograph is pending to assess for pneumothorax. IMPRESSION: Technically successful ultrasound-guided thoracentesis. Reviewed by: Óscar Calle MD on 12/28/2019 4:19 PM PDT Approved by: Óscar Calle MD on 12/28/2019 4:19 PM PDT Station ID: [id number]
--- NOTE | 2019-12-28 16:26 | XRAY Report ---
PROCEDURE: Post Thoracentesis 1V CXR INDICATIONS: POST THORA - PLEURAL EFFUSION TECHNIQUE: One view of the chest was acquired. COMPARISON: CT chest 08/24/2019 FINDINGS: Surgical changes and devices: None. Lungs and pleura: There is no pneumothorax. The left-sided pleural effusion has markedly decreased in size, although there is still small volume residual pleural fluid. Right pleural space is clear. Mediastinum: Normal heart size. Bones and chest wall: Multiple osseous metastatic lesions are redemonstrated involving multiple left ribs, the right scapula, the left T12 vertebral body, and the sternum. Lesions are described in great er detail on CT report. IMPRESSION: Markedly decreased size of left pleural effusion, with small volume residual. Reviewed by: Óscar Calle MD on 12/28/2019 4:25 PM PDT Approved by: Óscar Calle MD on 12/28/2019 4:25 PM PDT Station ID: [id number]
== END 2019-12-28 15:03 | disposition home or self-care (01) ==
LOC: DI 15:02
PROVIDERS: ATTEND Family Medicine
DX: J90 Pleural effusion, not elsewhere classified (principal)
CPT/HCPCS: 32555; 36415; 71045; 85049; 85610; 85730

== ENCOUNTER 2019-12-29 10:46 | Emergency (ER) | payer MEDICARE, OTHER ==
--- NOTE | 2019-12-29 11:54 | ED Physician Documentation ---
History of Present Illness - Stated complaint Stated Complaint: GLF - Chief complaint Chief Complaint: General - History obtained from History obtained from: Patient, Family - History of Present Illness Timing: How many hours ago (24) Pain level max: 10 Pain level now: 6 - Additonal information Additional information: 69-year-old male comes to the emergency department for evaluation of left shoulder pain, right leg swelling and edema and mild headache after a fall yesterday afternoon. Unfortunately this gentleman has a history of metastatic kidney cancer for which he takes daily oral chemotherapy. He is currently anticoagulated on enoxaprin daily. He does report a history of previous pulmonary embolus with current cancer. This gentleman has a history of polio for which he has chronic left leg weakness and a history of frequent falls. Yesterday when leaving the [facility] his left leg gave out and he fell onto the left shoulder and struck his head on a table in the clinic. He was attended by EMS and the nurses but the patient declined to be seen in the emergency department. This morning he reported shoulder pain and noted that his right leg was more swollen than normal. His also notes that he is developing increasing redness on the anterior lower kennedy with some weeping ulcerations. His reports that he is slightly more confused than normal but is unsure if it is due to the number of pain medications he has taken. He denies chest pain or shortness of breath. He denies fevers nausea or vomiting. He has no urinary symptoms. He has had no diarrhea. He did have routine screening labs completed yesterday. Patient is noted to have had a thoracentesis of a left-sided pleural effusion yesterday in clinic. The patient for me denies dyspnea or chest pain but a clinic physician has called the emergency department to report that the family called stating that the patient was short of breath. His reports that his metastasis was to his hips scapula spine lung and rib. My understanding and speaking with the patient and his is that this is a terminal cancer and though he is a full code he would like limited interventions should he have any life-threatening events such as CPR or require lifelong ventilation. Review of Systems Constitutional: denies: Fever, Chills Eyes: denies: Loss of vision Ears: denies: Loss of hearing, Ear pain Throat: denies: Oral lesions / sores Cardiac: denies: Chest pain / pressure, Palpitations Respiratory: denies: Dyspnea, Cough GI: denies: Abdominal Pain, Abdominal Swelling, Nausea, Vomiting, Constipation, Diarrhea : denies: Dysuria, Hesitancy, Unable to Void Skin: reports: Rash, Lesions, Other Neurologic: reports: Focal weakness (baseline left leg), Confused (?? pain meds), Headache, Head injury (abrasion on top of occiput). denies: Numbness, Difficulty speaking, Syncope, Seizure Psychiatric: denies: Depressed, Suicidal PD PAST MEDICAL HISTORY - Past Medical History Past Medical History: Yes Cardiovascular: Hypertension, High cholesterol, Pulmonary embolism, Murmur, Other Respiratory: Asthma, Shortness of breath, Sleep apnea, CPAP use Neuro: None Endocrine/Autoimmune: None GI: None : Benign prostate hypertrophy, Renal insuffiency, Kidney stones HEENT: Chronic vision loss Psych: Depression, Anxiety Musculoskeletal: Osteoarthritis, Gout, Fatigue, Other Derm: None Other Past Medical History: renal carcinoma with Mets. polio as child - Past Surgical History Past Surgical History: Yes Ortho: Hip replacement, Knee replacement, Knee replacement - Present Medications Home Medications: Ambulatory Orders Medication Instructions Recorded Confirmed Telmisartan [Micardis] 80 mg PO DAILY 12/21/14 12/28/19 Morphine Sulfate ER [Ms Contin] 120 mg PO .AM & 1400 01/27/19 12/28/19 Buspirone HCl 15 mg PO BID PRN 02/01/19 12/28/19 Cholecalciferol (Vitamin D3) 2,000 unit PO DAILY 02/01/19 12/28/19 [Vitamin D3] Citalopram Hydrobromide 40 mg PO DAILY 02/01/19 12/28/19 [Citalopram HBr] Multivit-Min/FA/Lycopen/Lutein 1 tab PO DAILY 02/01/19 12/28/19 [Centrum Silver Men Tablet] Rosuvastatin Calcium 10 mg PO DAILY 02/01/19 12/28/19 Ubidecarenone [Co Q-10] 200 mg PO DAILY 02/01/19 12/28/19 B12/Levomefolate Calcium/B-6 1,000 mcg PO DAILY 02/04/19 12/28/19 [Foltx Tablet] Magnesium Oxide [Magnesium] 400 mg PO DAILY 02/04/19 12/28/19 buPROPion [Wellbutrin Sr] 150 mg PO DAILY 02/04/19 12/28/19 Denosumab [Xgeva] 120 mg IM .30 DAYS 02/07/19 12/28/19 Loperamide [Imodium] 2 mg PO PRN PRN MDD 16 mg 02/24/19 12/28/19 Senna [Senokot] 8.6 mg PO TID MDD titrates 02/24/19 12/28/19 polyethylene glycoL 3350 [Miralax] 8.5 - 17 gm PO DAILY 02/24/19 12/28/19 Cabozantinib S-Malate [Cabometyx] 60 mg ORAL DAILY 03/17/19 12/28/19 Levothyroxine Sodium [Synthroid] 112 mcg PO DAILY 04/17/19 12/28/19 Enoxaparin Sodium [Lovenox] 120 mg SQ DAILY 06/10/19 12/28/19 Dexamethasone 3 mg PO DAILY 07/23/19 12/28/19 Oxycodone HCl 20 - 40 mg PO Q3HR PRN 07/23/19 12/28/19 Lactobacillus Acidophilus 1 tab PO DAILY 09/23/19 12/28/19 [Probiotic Acidophilus] Morphine ER 90 mg PO QPM 11/30/19 12/28/19 Potassium Chloride 20 meq PO DAILY MDD 5 days then 11/30/19 12/28/19 MEQ daily Torsemide 40 mg PO DAILY MDD 5 days then 11/30/19 12/28/19 mg daily Cephalexin [Keflex] 500 mg PO QID #28 capsule 12/29/19 - Allergies Allergies/Adverse Reactions: Allergies Allergy/AdvReac Type Severity Reaction Status Date / Time No Known Drug Allergies Allergy Verified 12/29/19 10:52 - Social History Does the pt smoke?: No Smoking Status: Never smoker Does the pt drink ETOH?: Yes Does the pt have substance abuse?: No - Immunizations Immunizations are current?: Yes - POLST Patient has POLST: Yes PD ED PE EXPANDED - General General: Alert, No acute distress, Well developed/nourished - HEENT HEENT: PERRL, Moist mucous membranes, Other (abrasion superficial top of occiput) - Eyes Eyes: PERRL, Normal accommodation - Neck Neck: Supple w/out meningeal sx, Other (full ROM in all planes; no limitiations). No: Adenopathy, Bony TTP - Cardiac Cardiac: Regular Rate, Regular Rhythm, Murmur Present, Radial strong equal, Pedal strong equal, Cap refill < 2 sec - Respiratory Respiratory: Clear to ausultation bladimir, Distress, Labored - Abdomen Abdomen: Normal Bowel sounds. No: Tender to palpation - Derm Derm: Normal color, Other (Multiple scattered skin tears on arms and legs with multiple areas of bruising.) - Extremities Extremities: Left shoulder (Limited range of motion left shoulder secondary to pain. Tenderness at the humeral head. No obvious deformity or ecchymosis.), Other (Right lower extremity swollen to near knee. Lower anterior right leg erythema with multiple shallow weeping ulcerations. 2+ distal DP pulse right leg. 2+ DP pulse left leg.) - Neuro Neuro: Alert and Oriented X 3, CNII-XII intact - GCS Eye Opening: Spontaneous Motor: Obeys Commands Verbal: Oriented Total: 15 Results - Vitals Vitals: Vital Signs - 24 hr 12/29/19 12/29/19 10:52 11:04 Temperature 36.8 C Heart Rate 106 H 96 Respiratory 16 18 Rate Blood Pressure 99/57 L 125/71 O2 Saturation 95 98 Oxygen O2 Source Room air - Labs Labs: Laboratory Tests 12/29/19 12/29/19 12/29/19 13:35 13:35 13:35 WBC 3.2 L RBC 2.97 L Hgb 10.2 L Hct 33.3 L MCV 112.1 H MCH 34.3 H MCHC 30.6 L RDW 16.4 H Plt Count 209 MPV 8.2 Neut # (Auto) 2.7 Lymph # (Auto) 0.4 L Hyde # (Auto) 0.1 Eos # (Auto) 0.0 Baso # (Auto) 0.0 Absolute Nucleated RBC 0.03 Nucleated RBC % 0.9 PT 13.5 H INR 1.2 APTT 28.2 Sodium 134 L Potassium 3.9 Chloride 99 L Carbon Dioxide 25 Anion Gap 10.0 BUN 23 H Creatinine 1.4 H Estimated GFR (MDRD) 50 L Glucose 96 Calcium 7.4 L Total Bilirubin 0.6 AST 28 ALT 27 Alkaline Phosphatase 57 Total Protein 4.7 L Albumin 2.4 L Globulin 2.3 Albumin/Globulin Ratio 1.0 Lipase 13 L - Rads (name of study) Left shoulder Radiology: Final report received (Moderate degenerative changes of the left glenohumeral joint with cortical irregularity over the medial aspect of humeral head favored to represent a prominent osteophyte seen on prior imaging. No definite cortical disruption.) CT head Radiology: Final report received (No CT evidence of acute intracranial pathology. Age-appropriate atrophy. Minor white matter chronic small vessel ischemic changes.) right lower tib/fib Radiology: Final report received right leg DVT US Radiology: Final report received (Negative for deep vein thrombosis of the right lower extremity.) cxr Radiology: Final report received (Small left pleural effusion with patchy left lower lung zone opacities favored to represent compressive atelectasis. Early pneumonia/aspiration not occluded.) PD MEDICAL DECISION MAKING - ED course Complexity details: reviewed old records, reviewed results, re-evaluated patient, d/w patient, d/w family ED course: 69-year-old male presents to the emergency department for evaluation of right lower leg swelling, left shoulder pain, and abrasion on the top of his occiput after a fall yesterday afternoon in the [facility]. This gentleman does have metastatic renal disease and is on daily oral chemotherapy as well as anticoagulated on Lovenox. The bilateral lower extremities are chronically swollen but the right leg was markedly more so than the left today therefore we proceeded with ultrasound imaging. The ultrasound did not show findings of a DVT. However the leg is warm and red and there are multiple shallow ulcerations. I suspect that this gentleman has a venous insufficiency as well as a new 1 cellulitis of the skin. We will proceed with antibiotics today. ceftriaxone her ein the ED and keflex on dc His imaging results reviewed reviewed in full. There is a question of very subtle humeral fracture in one view only. But there are also must multiple arthritic changes. At this time I have recommended that the patient continue his home oral pain medications and continue to move the shoulder as well as he can. The right leg x-ray does suggest a subtle fibular fracture in one view only but again it is difficult to discern. However most of the pain seems to be in the overlying erythema of the leg which is more consistent with a cellulitis. A chest x-ray was completed and did not show a residual pneumothorax after yesterday's paracentesis. He denies at this time that he has cough chest pain or shortness of breath. He is certainly not hypoxic I have discussed all of the imaging and laboratory findings (mild renal insufficiency) with the patient and his . This time they do desire desire to be discharged home. Then they will return to the emergency department if the right leg cellulitis is not improving, if he develops any fevers or his pain is not well controlled on his home medication regimen. Departure - Departure Disposition: Home, Self Care Clinical Impression: Cellulitis of right lower leg, Swelling of right lower extremity Fall Qualifiers: Encounter type: initial encounter Qualified Code(s): W19.XXXA - Unspecified fall, initial encounter Left shoulder pain Qualifiers: Chronicity: acute Qualified Code(s): M25.512 - Pain in left shoulder Clinical Impression: (Ruled Out): Left leg swelling, Left leg cellulitis Condition: Poor Instructions: Cellulitis Dc Follow-Up: Colten Pineda DO [Primary Care Provider] - Prescriptions: Cephalexin [Keflex] 500 mg PO QID #28 capsule Comments: Dave today the CT of your head does not show any worrisome findings. Your chest x-ray does not show a collapsed lung after your thoracentesis yesterday. The x-ray of your left shoulder subtle humerus fracture. However it also show significant arthritis. At this time I would recommend that you continue your home pain medication and continue to try to move the shoulder as normally as possible. Your right leg ultrasound also did not show a deep vein thrombosis. But the redness and swelling just that you have an infection in the skin of your leg. We have given you your first dose of antibiotics here in the emergency department. Please fill the prescription for the home medications and begin taking as directed. Please return to the emergency department if you find that your pain is worsening, you develop any fevers, are short of breath or feel that the redness and swelling of the right leg is not improving as it dissipated. I recommend that you schedule a follow-up appointment with your primary provider for this ED visit within the next week
--- NOTE | 2019-12-29 12:18 | CT Report ---
PROCEDURE: HEAD WO INDICATIONS: fall, anticoagulated; mild confusion TECHNIQUE: Noncontrast 4.5 mm thick angled axial sections acquired from the foramen magnum to the vertex. For r adiation dose reduction, the following was used: automated exposure control, adjustment of mA and/or kV according to patient size. COMPARISON: 12/21/2014. FINDINGS: Image quality: Excellent. CSF spaces: Basal cisterns are patent. No extra-axial fluid collections. The ventricles are symmet casimiro in size and shape. Brain: No intracranial bleeds or masses. There is cerebral volume loss for age, with resultant vent ricular and sulcal prominence. There are periventricular and deep white matter chronic small vessel ischemic changes. There is intracranial internal carotid artery atherosclerosis. Skull and face: Calvarium and visualized facial bones appear intact, without suspicious lesions. Sinuses: Visualized sinuses and mastoids are clear. IMPRESSION: 1. No CT evidence of acute intracranial pathology. 2. Age-appropriate atrophy. Moderate white matter chronic small vessel ischemic changes. Reviewed by: Thomas Ibarra MD on 12/29/2019 12:17 PM PDT Approved by: Thomas Ibarra MD on 12/29/2019 12:17 PM PDT Station ID: [id number]
--- NOTE | 2019-12-29 12:54 | XRAY Report ---
PROCEDURE: Shoulder 3 View LT INDICATIONS: fall; pain at humeral head TECHNIQUE: 3 views of the shoulder were acquired. COMPARISON: CT chest dated 09/01/2019, chest radiographs dated 05/20/2019, 02/07/2019, 01/02/2019, and 04/2015. FINDINGS: Bones: There is cortical irregularity involving the medial aspect of the left humeral head with asso ciated sclerosis. This may be due to prominent marginal osteophyte noted on prior studies. No definit e cortical disruption identified. No definite acute fracture seen. Alignment is stable. Moderate dege nerative changes of the left glenohumeral joint. Moderate hypertrophic changes of the left acromiocla vicular joint. Acromioclavicular and coracoclavicular intervals are maintained. No dislocation. No s uspicious bony lesions. Visualized ribs appear intact. Soft tissues: No suspicious soft tissue calcifications. IMPRESSION: Moderate degenerative changes of the left glenohumeral joint with cortical irregularity over the medi al aspect of the humeral head, favored to represent a prominent osteophyte seen on prior imaging. No definite cortical disruption. Linear sclerotic band over the medial aspect of the left humeral head h as been suggested on prior imaging. A minimally impacted fracture not completely excluded if clinical ly appropriate. Consider cross-sectional imaging with CT / MRI versus immobilization and short interv al repeat radiographs. Moderate hypertrophic osteoarthrosis of the left acromioclavicular joint. Reviewed by: Imer Sheridan MD on 12/29/2019 12:52 PM PDT Approved by: Imer Sheridan MD on 12/29/2019 12:52 PM PDT Station ID: [id number]
--- NOTE | 2019-12-29 12:57 | XRAY Report ---
PROCEDURE: Tib/Fib RT INDICATIONS: pain after fall; r/o fx TECHNIQUE: 2 views of the tibia and fibula were acquired. COMPARISON: None. FINDINGS: Bones: Status post right total knee arthroplasty. No evidence for hardware loosening or failure. No fractures or dislocations. There is small plantar calcaneal spur. No suspicious bony lesions. Soft tissues: No suspicious soft tissue calcifications or masses. Vascular calcifications are prese nt. IMPRESSION: Subtle cortical irregularity involving the posterior margin of the distal right fibula seen only on t he lateral view. This is favored to be chronic in etiology. Recommend correlation with physical exami nation. Otherwise, right tibia/fibula without acute fracture or dislocation. If there is persistent clinical concern for a radiographically occult fracture, recommend immobilizat ion and repeat imaging in 10 to 14 days. Reviewed by: Imer Sheridan MD on 12/29/2019 12:56 PM PDT Approved by: Imer Sheridan MD on 12/29/2019 12:56 PM PDT Station ID: [id number]
--- NOTE | 2019-12-29 12:58 | Ultrasound Report ---
PROCEDURE: Duplex Ext Veins Right INDICATIONS: fall; leg swelling; cancer hx of PE; r/o dvt TECHNIQUE: Real-time imaging, as well as color and pulse Doppler interrogation, were performed of the lower extr emity deep veins from the inguinal ligament to the popliteal fossa. COMPARISON: None. FINDINGS: The deep veins are normally compressible, and free of intraluminal thrombus. Color and pu lse Doppler demonstrate normal phasic intraluminal flow. There is normal augmentation response to di stal compression maneuver. There is soft tissue edema of the right lower leg/calf. No focal fluid collection. IMPRESSION: Negative for deep venous thrombosis of the right lower extremity. Reviewed by: Imer Sheridan MD on 12/29/2019 12:57 PM PDT Approved by: Imer Sheridan MD on 12/29/2019 12:57 PM PDT Station ID: [id number]
--- NOTE | 2019-12-29 13:15 | XRAY Report ---
PROCEDURE: Chest 2 View X-Ray INDICATIONS: cough TECHNIQUE: 2 view(s) of the chest. COMPARISON: 12/28/2019, 12/24/2019, and CT chest dated 09/01/2019. FINDINGS: Surgical changes and devices: None. Lungs and pleura: Lung volumes are slightly diminished bilaterally. Small left pleural effusion. Pat golden left mid and lower lung zone opacities favored to represent atelectasis. No visible pneumothorax. Mediastinum: Mediastinal contours are normal. Heart size is normal. Bones and chest wall: Minimal cortical irregularity involving the posterolateral margin of the left fifth rib, suggested on prior chest radiograph. No suspicious bony abnormalities. Soft tissues appea r unremarkable. IMPRESSION: Small left pleural effusion with patchy left lower lung zone opacities favored to represe nt compressive atelectasis. Early pneumonia/aspiration not excluded. Minimal cortical irregularity involving the posterolateral margin of the left fifth rib suggested on prior chest radiographs. If there is clinical concern for fracture, consider dedicated left rib serie s for further evaluation. Reviewed by: Imer Sheridan MD on 12/29/2019 1:13 PM PDT Approved by: Imer Sheridan MD on 12/29/2019 1:13 PM PDT Station ID: [id number]
[2019-12-29 13:43] LABS: BASOPHILS % (AUTO) 0.3 %; EOSINOPHILS % (AUTO) 0.6 %; HGB - HEMOGLOBIN 10.2 g/dL (14.0-18.0); LYMPHOCYTES # (AUTO) 0.4 10^3/uL (1.5-3.5); LYMPHOCYTES % (AUTO) 12.7 %; MEAN CORPUSCULAR HEMOGLOBIN 34.3 pg (27.0-31.0); MEAN CORPUSCULAR HGB CONC 30.6 g/dL (32.0-36.0); MEAN CORPUSCULAR VOLUME 112.1 fL (80.0-94.0); MEAN PLATELET VOLUME 8.2 fL (7.4-11.4); MONOCYTES # (AUTO) 0.1 10^3/uL (0.0-1.0); MONOCYTES % (AUTO) 3.1 %; NEUTROPHILS # (AUTO) 2.7 10^3/uL (1.5-6.6); PLT - PLATELET COUNT 209 10^3/uL (130-450); RED BLOOD COUNT 2.97 10^6/uL (4.70-6.10); RED CELL DISTRIBUTION WIDTH 16.4 % (12.0-15.0); WHITE BLOOD COUNT 3.2 x10^3/uL (4.8-10.8)
[2019-12-29 13:47] LABS: INR 1.2 (0.8-1.2); PT - PROTHROMBIN TIME 13.5 secs (9.9-12.6)
[2019-12-29 13:54] LABS: ALBUMIN 2.4 g/dL (3.2-5.5); BILIRUBIN,TOTAL 0.6 mg/dL (0.2-1.0); CALCIUM 7.4 mg/dL (8.5-10.3); CREATININE 1.4 mg/dL (0.6-1.2); PARTIAL THROMBOPLASTIN TIME 28.2 secs (24.9-33.3); TOTAL PROTEIN 4.7 g/dL (6.7-8.2)
[2019-12-29] MEDS: cefTRIAXone 1 GM VIAL IM STA (14:31)
[2019-12-29] MEDS: LIDOCAINE 1% 2 ML VIAL MC ONE (14:32)
[2019-12-29 15:40] VITALS: BP 120/78
== END 2019-12-29 15:40 | disposition home or self-care (01) ==
LOC: ED 10:46
DX: L03.115 Cellulitis of right lower limb (principal); L97.219 Non-pressure chronic ulcer of right calf with unspecified severity; M19.012 Primary osteoarthritis, left shoulder; S00.01XA Abrasion of scalp, initial encounter; S40.029A Contusion of unspecified upper arm, initial encounter; S80.10XA Contusion of unspecified lower leg, initial encounter; W01.190A Fall on same level from slipping, tripping and stumbling with subsequent striking against furniture, initial encounter; Y93.01 Activity, walking, marching and hiking; Y92.59 Other trade areas as the place of occurrence of the external cause; N28.9 Disorder of kidney and ureter, unspecified; I10 Essential (primary) hypertension; C64.9 Malignant neoplasm of unspecified kidney, except renal pelvis; C78.00 Secondary malignant neoplasm of unspecified lung; C79.51 Secondary malignant neoplasm of bone; Z86.711 Personal history of pulmonary embolism; Z79.01 Long term (current) use of anticoagulants; Z86.12 Personal history of poliomyelitis; Z91.81 History of falling; Z96.651 Presence of right artificial knee joint
CPT/HCPCS: 36415; 70450; 71046; 80053; 83690; 85025; 85610; 85730; 96372; 99284

== ENCOUNTER 2020-01-06 12:56 | Outpatient (CLI) | payer MEDICARE, OTHER ==
--- NOTE | 2020-01-06 18:01 | CONSULTATION NOTE ---
Palliative Care Follow Up - Referral Referring Provider: Dr. Ana Anguiano Time of Visit: [id number] Referral setting: [facility] Referral Reason: Left pleural effusion/Pain of neoplastic origin/Cellulitis LLE/Anxiety - Information Sources Records reviewed: Previous records reviewed History/Review of Systems obtained from: Patient, Family Exam limitations: Clinical condition (patient with short term memory issues) - History of Present Illness Update Brief HPI Update: This is a complex 69-year-old gentleman with metastatic clear cell renal carcinoma with known mets widely to the bone, including pathologic fractures, mets to the lungs, nodes, right kidney, and right adrenal nodule. Patient is currently receiving cabozantinib 60 mg daily, and Xgeva monthly. Patient's most recent complexity, involved development of malignant pleural effusion. Patient had been scheduled for scans, and had Developed severe anxiety, and distress and was unable to complete. Patient had been having increased anxiety, denies shortness of breath, but had noted increased noise from his CPAP machine. When he did finally after much assistance with medications and reassurance, get his CT scans, unfortunately it showed a large left pleural effusion, with mild degree of pleural enhancement and thickening. Also showed likelihood of spine metastatic lesions involving the thoracolumbar junction. No change or enlargement from the right adrenal gland or renal cortical mass, and no worsening of his osteo-lytic lesions in his pelvis. Because of his symptoms, did make arrangements for thoracentesis, he did receive 1 on 12/27 with removal of 2 L of serous light xavier fluid. Of note his anxiety decreased at this point in time as well. Patient had seen oncology, then had gone to get his thoracentesis, and unfortunately when return to the [facility] he had a fall, which included hitting his head, and whole left side. They had called 911, but he refused evaluation at that point in time. Unfortunately woke up the next day with significant amount of pain, and headache. What triggered the emergency room department, though is he had had kind of a dull red rash the day before, and now had significant bright red hot warm erythemic area of cellulitis, in his right lower extremity. They did do a CT scan of his head negative for any acute bleeds, did a series of x-rays without any acute fractures though there was concern of possible issue on right distal fibula. Patient is seen today by palliative care and follow-up. Has just completed his antibiotics, he has significant bruising and skin tears Band-Aids from his fall, and frequent bumps and falls previously. His right lower extremity, does appear to be responding to antibiotics, but still of concerned as leg as a dull red and purple. He also has a rash, purpura across his whole back upper thoracic area and lower lumbar area as well as his left side. He reports this actually has developed over the last 3 to 4 weeks, denies related to his antibiotic use and is not pruritic. Also on examination his no air movement in lower left lobe to 4-[address] way up. He does report he has had some intermittent anxiety as well. Patient is on his chronic pain meds of MS Contin 120 mg a.m. 120 mg afternoon, and 90 mg at bedtime. He has been on this long-term now and has done well. He has had to take some extra oxycodone with his pain of the fall, some of his acute pain is fading. He is no longer needing the BuSpar, he did need to be on this for about a week related to his anxiety, he had significant improvement in his anxiety with the resolution of the effusion. Has some residual left hip pain, unfortunately they did not do an x-ray of his hip area. He is unable to bear or sit for long periods of time, this is a new finding. Patient's past medical history includes severe pulmonary hypertension, sclerotic aortic valve, COPD, CKD, post polio syndrome involving left leg, osteoarthritis, PTSD, RAISA, incidental findings of PEs on Lovenox, hypertension, hyperlipidemia, history of nephrolithiasis, history of immune therapy induced colitis, immune therapy induced hypothyroidism and adrenal insufficiency. Social History - Living Situation Living arrangement: At home Living Situation: With spouse/s.o. 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 They have been trying to do more to decrease their isolation, he does have a scooter, is doing social distancing with friends and neighbors. He is going out for "walks" more frequently to decrease his anxiety and depression. Medications/Allergies - Medications Home Medications: Ambulatory Orders Medication Instructions Recorded Confirmed Telmisartan [Micardis] 80 mg PO DAILY 12/21/14 01/06/20 Morphine Sulfate ER [Ms Contin] 120 mg PO .AM & 1400 01/27/19 01/06/20 Buspirone HCl 10 - 20 mg PO BID PRN 02/01/19 01/06/20 Cholecalciferol (Vitamin D3) 2,000 unit PO DAILY 02/01/19 01/06/20 [Vitamin D3] Citalopram Hydrobromide 40 mg PO DAILY 02/01/19 01/06/20 [Citalopram HBr] Multivit-Min/FA/Lycopen/Lutein 1 tab PO DAILY 02/01/19 01/06/20 [Centrum Silver Men Tablet] Rosuvastatin Calcium 10 mg PO DAILY 02/01/19 01/06/20 Ubidecarenone [Co Q-10] 200 mg PO DAILY 02/01/19 01/06/20 B12/Levomefolate Calcium/B-6 1,000 mcg PO DAILY 02/04/19 01/06/20 [Foltx Tablet] Magnesium Oxide [Magnesium] 400 mg PO DAILY 02/04/19 01/06/20 buPROPion [Wellbutrin Sr] 150 mg PO DAILY 02/04/19 01/06/20 Denosumab [Xgeva] 120 mg IM .30 DAYS 02/07/19 01/06/20 Loperamide [Imodium] 2 mg PO PRN PRN MDD 16 mg 02/24/19 01/06/20 Senna [Senokot] 8.6 mg PO TID MDD titrates 02/24/19 01/06/20 polyethylene glycoL 3350 [Miralax] 8.5 - 17 gm PO DAILY 02/24/19 01/06/20 Cabozantinib S-Malate [Cabometyx] 60 mg ORAL DAILY 03/17/19 01/06/20 Levothyroxine Sodium [Synthroid] 112 mcg PO DAILY 04/17/19 01/06/20 Enoxaparin Sodium [Lovenox] 120 mg SQ DAILY 06/10/19 01/06/20 Dexamethasone 3 mg PO DAILY 07/23/19 01/06/20 Oxycodone HCl 30 mg PO Q3HR PRN 07/23/19 01/06/20 Lactobacillus Acidophilus 1 tab PO DAILY 09/23/19 01/06/20 [Probiotic Acidophilus] Morphine ER 90 mg PO QPM 11/30/19 01/06/20 Potassium Chloride 10 meq PO DAILY 11/30/19 01/06/20 Torsemide 20 mg PO DAILY 11/30/19 01/06/20 - Allergies Allergies/Adverse Reactions: Allergies Allergy/AdvReac Type Severity Reaction Status Date / Time No Known Drug Allergies Allergy Verified 12/29/19 10:52 Review of Systems - Constitutional Constitutional: reports: Fatigue, Weakness, Weight stable. denies: Fever, Chills - Eyes Eyes: reports: Vision loss, Corrective lenses - Ears, Nose & Throat Ears, Nose & Throat: reports: Hearing loss, Dry mouth. denies: Mouth lesions - Cardiovascular Cardiovascular: reports: Edema (improved), Exertional dyspnea, Decr. exercise tolerance. denies: Chest pain - Respiratory Respiratory: denies: Cough, SOB at rest Physical Exam - Vital Signs Temperature: 97.3 C Pulse Rate: 89 Respiratory Rate: 18 O2 Saturation: 95 (ra @rest) Blood Pressure: 118/73 - Physical Exam General Appearance: positive: No acute distress, Alert Eyes Bilateral: positive: Normal inspection ENT: positive: No signs of dehydration Neck: positive: Trachea midline Cardiovascular: positive: Regular rate & rhythm Respiratory: positive: No respiratory distress, Other (decreased LLL) Abdomen: positive: Soft, Nml bowel sounds, Obese Skin: positive: Bruising (extensive all extremities; intense in abd with lovenox shots), Rash (purpura rash diffuse across back and left side; reports has been there for 3-4 weeks; call to pharmacy is consistent with lovenox reaction in comparison to pics), Wound (two areas about 1 cm unhealing with yellow eschar; leg dull/red/purple ; lots of bandaids on skin tear; left knee with gashes/healing) Extremities: positive: Pedal edema (LE edema; right greater than left), Other (appears to have more difficulty with pain/weakness getting from sitting to standing and ambulation;) Neurologic/Psychiatric: positive: Oriented x3, Mood/affect nml, Weakness Palliative Care - POLST Patient has POLST: Yes POLST Status: DNR, Selective Treatment Pain: Pain worsening, Location (acute on chronic; acute left hip difficulty with wt bearing with sitting new symptom; baseline pain mostly through pelvic region/groin/ and bilateral shoulder pain) Tiredness/Fatigue: Mild (1-3) Drowsiness/Sedation: Mild (1-3) Nausea: None Anorexia: None ( reports decrease intake) Dyspnea: None Depression: Mild (1-3) Anxiety: Mild (1-3) Feelings of wellbeing/Perceived Quality of Life: Good, Acceptable, Worsening Sleep: Sleeps well (CPAP) Constipation: Yes, Opoid induced, Intermittent constipation Performance Status: Patient needing some increased help with ADLs, with recent acute pain from fall. He does remain somewhat sedentary, is able to get out more with his scooter. He is ambulatory but does appear more difficult to get from sitting to standing. He does have less activity tolerance, but still continues to try to remain engaged and keep somewhat of a normal routine. - Palliative Care Discussion: Patient somewhat distressed regarding his series of unfortunate events, he did get relief from his anxiety though, after pleural effusion drained. Was able to titrate back down off his BuSpar. Had had a really rough couple weeks, and then with the fall had an exacerbation of his pain. They are planning for a vacation up to a cabin next week, did discuss concern for recurrent pleural effusion with findings today. Agreed to follow-up prior to leaving, patient has had continued some functional and cognitive decline, which he finds frustrating. They are trying to decrease her isolation, he is enjoying getting out with his scooter walks, but still has some flashes of anxiety attacks. Results - Lab Results Lab results reviewed: Yes Impression and Recommendations - Palliative Care Impression: This is a kenyon 69-year-old gentleman with metastatic clear cell renal carcinoma with significant bony mets, as well as other metastatic disease. Patient's pain escalated with recent acute trauma with fall. Patient developed malignant pleural effusion, with 2 L drained, concern for reaccumulation. Patient having increased difficulties with anxiety, working with as needed medications. Palliative care to continue provide support for pain and symptom management, psychosocial support, and anticipatory guidance. Recommendations/Counseling Done: 1. Lower extremity edema. Most likely multifactorial in origin, patient currently on baseline diuretics, had increased swelling with occurrence of cellulitis. Weeping currently controlled, continues to monitor. 2. Pain of neoplastic origin. Morphine sulfate sustained release is currently 120 mg a.m., 120 mg afternoon and 90 mg at p.m. He has done fairly well consistently on this dose, unfortunately with his fall, he had to add back in oxycodone 30 mg intermittently, which does add to his confusion. He does present today though with increased pain in his left hip area, this was not x- rayed with the fall. He declined follow-up x-rays with this, I suspect there would be little we could do. He can bear weight and continues to ambulate. 3. Pleural effusion. Concern for patient's reaccumulation of fluid, will go ahead and get chest x-ray Friday or Friday. Patient has pending vacation plans, would like to address prior to departure. Patient did not get short of breath, but did get severe worsening anxiety, the other notable symptom was his CPAP machine was much more louder. Counseling provided regarding signs and symptoms of accessing evaluation sooner. 4. Purpura rash. Patient presents with a very striking rash across back and left side. Left side certainly could be attributed to fall, back is diffuse, reports of 3 to 4 weeks. In consult with pharmacy, and side effect pictures, certainly could be related Lovenox. Did reach out to oncology, patient has been on Lovenox since May related to incidental finding of PEs. He has had continued problems with bruising, skin tears, and frequent bleeding. They would like to see him first before making a decision regarding changing regimen. Appointment made with Dr. james on Friday. 5. Anxiety. Patient still having some intermittent anxiety, is currently off the BuSpar, he feels better off of this though it was effective during that time. He does have the Valium for rescue dosing for panic attacks. Patient continues to try to normalize his activities, decrease his isolation, will offer palliative care social security specialist again. 6. Fall risk. This continues to be of great concern, they have been instructed to call for lift assist if falls. Patient is using rolling walker, tends to be somewhat impulsive, he reports his leg gave out last time. Does have a scooter, is not ambulating long distances to decrease fall risk. We will continue to monitor. Time Spent: 60 minutes with greater than 50% of this done in follow-up and evaluation of pain and symptom management, new rash, new left hip pain, new pleural effusions, coordination of care with oncology team.
== END 2020-01-06 12:57 | disposition home or self-care (01) ==
LOC: PC 12:56
PROVIDERS: ATTEND Nurse Practitioner Adult Health
DX: Z51.5 Encounter for palliative care (principal); G89.3 Neoplasm related pain (acute) (chronic); R60.0 Localized edema; J91.0 Malignant pleural effusion; R21 Rash and other nonspecific skin eruption; F41.9 Anxiety disorder, unspecified; L03.115 Cellulitis of right lower limb; K59.03 Drug induced constipation; T40.2X5A Adverse effect of other opioids, initial encounter; R41.89 Other symptoms and signs involving cognitive functions and awareness; R53.1 Weakness; C64.9 Malignant neoplasm of unspecified kidney, except renal pelvis; C79.51 Secondary malignant neoplasm of bone; C79.71 Secondary malignant neoplasm of right adrenal gland; C78.02 Secondary malignant neoplasm of left lung; C78.01 Secondary malignant neoplasm of right lung; C77.9 Secondary and unspecified malignant neoplasm of lymph node, unspecified; Z79.899 Other long term (current) drug therapy; Z79.01 Long term (current) use of anticoagulants; Z79.891 Long term (current) use of opiate analgesic; Z86.711 Personal history of pulmonary embolism; Z91.81 History of falling; Z66 Do not resuscitate
CPT/HCPCS: 99215

== ENCOUNTER 2020-01-10 10:27 | Outpatient (CLI) | payer MEDICARE, OTHER ==
--- NOTE | 2020-01-10 12:37 | XRAY Report ---
PROCEDURE: Chest 2 View X-Ray INDICATIONS: PLEURAL EFFUSION IN OTHER CONDITIONS CLASSIFIED EL TECHNIQUE: 2 view(s) of the chest. COMPARISON: Chest x-ray 12/20/2019 FINDINGS: Surgical changes and devices: None. Lungs and pleura: There is persistent appearance of opacification within the left base extending to t he lingula/left upper lobe. It appears to have mildly increased in size compared to prior exam. Media stinum: Mediastinal contours are normal. Heart size is normal. Bones and chest wall: No suspicious bony abnormalities. Soft tissues appear unremarkable. IMPRESSION: Mildly increased appearance of left lower and upper lobe opacification as above most con sistent with effusion. Areas of underlying pneumonia, atelectasis and/or mass lesion of potential mal ignant etiology cannot be excluded. Reviewed by: Mae Palmer MD on 01/10/2020 12:36 PM PDT Approved by: Mae Palmer MD on 01/10/2020 12:36 PM PDT Station ID: [id number]
== END 2020-01-10 10:28 | disposition home or self-care (01) ==
LOC: DI 10:27
PROVIDERS: ATTEND Nurse Practitioner Adult Health
DX: J90 Pleural effusion, not elsewhere classified (principal)
CPT/HCPCS: 71046

== ENCOUNTER 2020-01-20 15:13 | Outpatient (CLI) | payer MEDICARE, OTHER ==
--- NOTE | 2020-01-20 16:11 | XRAY Report ---
PROCEDURE: Chest 2 View X-Ray INDICATIONS: L PLEURAL EFFUSION, SOB, DYSPNEA TECHNIQUE: 2 view(s) of the chest. COMPARISON: None. FINDINGS: Surgical changes and devices: None. Lungs and pleura: Moderate to large left pleural effusion is seen with near complete atelectasis of l eft lower lobe and segmental atelectasis and left upper lobe. Hazy opacity in right lower lung field is seen which may represent pulmonary edema versus developing right lower lobe infiltrate. Follow-up study is recommended. No pneumothorax. Mediastinum: Mediastinal contours are normal. Heart size is markedly enlarged. Bones and chest wall: No suspicious bony abnormalities. Soft tissues appear unremarkable. IMPRESSION: Moderate to large left pleural effusion with left lung atelectasis. Subtle opacity in ri ght lower lung field, developing right lower lobe infiltrate cannot be excluded. Follow-up study is r ecommended. No pneumothorax. Cardiomegaly. Reviewed by: Thomas Ibarra MD on 01/20/2020 4:10 PM PDT Approved by: Thomas Ibarra MD on 01/20/2020 4:10 PM PDT Station ID: [id number]
== END 2020-01-20 15:14 | disposition home or self-care (01) ==
LOC: DI 15:13
PROVIDERS: ATTEND Nurse Practitioner Adult Health
DX: J91.8 Pleural effusion in other conditions classified elsewhere (principal); J98.11 Atelectasis; R91.8 Other nonspecific abnormal finding of lung field
CPT/HCPCS: 71046

== ENCOUNTER 2020-01-21 12:47 | Outpatient (CLI) | payer MEDICARE, OTHER ==
--- NOTE | 2020-01-21 14:03 | Ultrasound Report ---
PROCEDURE: Thoracentesis Puncture INDICATIONS: LT PLEURAL EFFUSION TECHNIQUE: The indications, alternatives, benefits, risks, and complications of the procedure were explained to the patient. Written informed consent was obtained and placed in the chart. The chest was examined sonographically, and an appropriate site was chosen for thoracentesis. The skin was prepared and rogelio ped in the usual sterile fashion, and 1% lidocaine was infiltrated from the skin down through the ple ural surface. A 19-gauge catheter-covered needle was then introduced into the pleural space, the cat heter was advanced and the needle was withdrawn, and thereafter pleural fluid was aspirated. The cat heter was then removed and a dressing was applied. COMPARISON: None. FINDINGS: Access site: Left hemithorax. Needle: One-Step centesis catheter with introducer needle. Fluid volume and description: Clear yellow, 1.9 L Fluid sent for diagnostic testing: No Medications: 1% lidocaine for local anaesthesia. Complications: None; post-procedural chest radiograph is pending to assess for pneumothorax. IMPRESSION: Successful ultrasound-guided thoracentesis. Reviewed by: Mae Palmer MD on 01/21/2020 2:01 PM PDT Approved by: Mae Palmer MD on 01/21/2020 2:01 PM PDT Station ID: [id number]
--- NOTE | 2020-01-21 14:49 | XRAY Report ---
PROCEDURE: Chest 1 View X-Ray INDICATIONS: POST THORA TECHNIQUE: One view of the chest was acquired. COMPARISON: Chest x-ray 01/20/2020 FINDINGS: Surgical changes and devices: None. Lungs and pleura: There is a moderate right effusion mildly decreased compared to prior exam. No pneu mothorax. Mediastinum: Mediastinal contours appear normal. Heart size is normal. Bones and chest wall: No suspicious bony lesions. Overlying soft tissues appear unremarkable. IMPRESSION: Decreased left pleural effusion without pneumothorax. Reviewed by: Mae Palmer MD on 01/21/2020 2:47 PM PDT Approved by: Mae Palmer MD on 01/21/2020 2:47 PM PDT Station ID: [id number]
== END 2020-01-21 12:48 | disposition home or self-care (01) ==
LOC: DI 12:47
PROVIDERS: ATTEND Nurse Practitioner Adult Health
DX: J91.8 Pleural effusion in other conditions classified elsewhere (principal)
CPT/HCPCS: 32555; 71045

== ENCOUNTER 2020-02-01 12:30 | Outpatient (CLI) | payer MEDICARE, OTHER | END 2020-02-01 12:31 | disposition home or self-care (01) | LOC: PC 12:30 | PROVIDERS: ATTEND Nurse Practitioner Family | DX: Z51.5 Encounter for palliative care (principal); R06.02 Shortness of breath; J91.0 Malignant pleural effusion; F41.9 Anxiety disorder, unspecified; L97.919 Non-pressure chronic ulcer of unspecified part of right lower leg with unspecified severity; L89.626 Pressure-induced deep tissue damage of left heel; G89.3 Neoplasm related pain (acute) (chronic); K59.03 Drug induced constipation; T40.2X5A Adverse effect of other opioids, initial encounter; R60.0 Localized edema; C64.9 Malignant neoplasm of unspecified kidney, except renal pelvis; C79.51 Secondary malignant neoplasm of bone; C79.71 Secondary malignant neoplasm of right adrenal gland; C78.00 Secondary malignant neoplasm of unspecified lung; C77.9 Secondary and unspecified malignant neoplasm of lymph node, unspecified; Z79.899 Other long term (current) drug therapy; Z79.891 Long term (current) use of opiate analgesic; Z79.01 Long term (current) use of anticoagulants; Z66 Do not resuscitate | CPT/HCPCS: 99215 ==

== ENCOUNTER 2020-02-01 14:38 | Outpatient (CLI) | payer MEDICARE, OTHER ==
--- NOTE | 2020-02-01 16:35 | XRAY Report ---
PROCEDURE: Chest 2 View X-Ray INDICATIONS: L PLEURAL EFFUSION INCREASED SHORTNESS OF BREATH TECHNIQUE: 2 view(s) of the chest. COMPARISON: Chest x-ray 01/21/2020 FINDINGS: Surgical changes and devices: None. Lungs and pleura: There is near complete opacification of the left hemithorax, mildly progressive com pared to prior exam. Mediastinum: Mediastinal contours are normal. Heart size is obscured. Bones and chest wall: No suspicious bony abnormalities. Soft tissues appear unremarkable. IMPRESSION: 1. Mild interval progression of significant left hemithorax opacification likely reflective of underl anna effusion. Underlying areas of pneumonia, atelectasis or mass lesion cannot be excluded. Reviewed by: Mae Palmer MD on 02/01/2020 4:33 PM PDT Approved by: Mae Palmer MD on 02/01/2020 4:33 PM PDT Station ID: [id number]
--- NOTE | 2020-02-01 18:45 | CONSULTATION NOTE ---
Palliative Care Follow Up - Referral Referring Provider: Dr. Ana Anguiano Time of Visit: [id number] [place] [facility] Reason: Dyspnea/Lower leg ulcers - Information Sources Records reviewed: Previous records reviewed History/Review of Systems obtained from: Patient, Family (, Sienna present) Exam limitations: Clinical condition (short term memory impairment) - History of Present Illness Update Brief HPI Update: This is a 69-year-old gentleman with metastatic clear cell renal carcinoma with known mets wildly to the bone, including pathologic fractures, mets to the lungs, nodes, right kidney, and right adrenal nodule. The patient has developed shortness of breath and has malignant left pleural eff usion requiring thoracentesis x2. Last thoracentesis performed 01/21/2020 with 1.7 L of fluid removed. Patient felt relief after thoracentesis was performed. He is presently scheduled to have a repeat thoracentesis on 02/09/2020. Due to the pleural effusion as evidence that his disease is progressing his oncologist has changed his regiment for treatment. Today, he completed his first dose of pembrolizumab and he is to start axitinib 5mg BID. The patient has a underlying history of anxiety. He has had an increased anxiety prior to the onset of his scheduled IV immunotherapy today given that in the past he developed severe colitis that resulted in in a ICU stay. The patient reports that his anxiety has lessened now that he has completed the therapy. His believed that the patient was no longer taking his Wellbutrin and has likely had an additional dose the last two days. Upon review, it appears that his Buspar that was discontinued in December by the patient as he felt his anxiety was controlled. The patient and he presently reports in the last week he has had a buildup of shortness of breath. He has difficulty ascending the 2 stairs going into their home. He is essentially chair bound walking minimally short distances as he becomes easily short of breath and fatigued. He used a wheelchair to get [place] [facility] [place]. The patient is worried about progression of his pleural effusion. The patient's reports that he continues to have superficial ulcerations to his bilateral lower extremities. Momo area has been present for approximately 1 month. He was recently treated approximately 1 month ago for cellulitis where he developed streaking up his leg. The patient denies increased pain to his lower extremities, fever, and increased redness surrounding the sites. The patient's reports that he typically has a noa discoloration to his lower extremities. The patient has recently increased his diuretic therapy over the past few days with improvement of his lower extremity edema but no noted improvement with his underlying shortness of breath. His also reports noting last evening a discoloration to his left heel. He typically is in his recliner throughout the day. Patient is seen today in [place] [facility] [place] after receiving his infusion. No evidence of acute distress. at the bedside. Patient has a past medical history that includes severe pulmonary hypertension, sclerotic aortic valve, COPD, CKD, post polio syndrome involving the left leg, osteoarthritis, PTSD, general anxiety disorder, incidental findings of PE he is on Lovenox, hypertension, hyperlipidemia, history of nephrolithiasis, history of immune therapy induced colitis, immune therapy induced hypothyroidism and adrenal insufficiency. Social History - Living Situation Living arrangement: At home Living Situation: With spouse/s.o. Support System: Patient lives with his Sienna. They have been for over 13 years. 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 Medications/Allergies - Medications Home Medications: Ambulatory Orders Medication Instructions Recorded Confirmed Telmisartan [Micardis] 80 mg PO DAILY 12/21/14 01/25/20 Morphine Sulfate ER [Ms Contin] 120 mg PO .AM & 1400 01/27/19 01/25/20 Buspirone HCl 10 - 20 mg PO BID PRN 02/01/19 01/25/20 Cholecalciferol (Vitamin D3) 2,000 unit PO DAILY 02/01/19 01/25/20 [Vitamin D3] Citalopram Hydrobromide 40 mg PO DAILY 02/01/19 01/25/20 [Citalopram HBr] Multivit-Min/FA/Lycopen/Lutein 1 tab PO DAILY 02/01/19 01/25/20 [Centrum Silver Men Tablet] Rosuvastatin Calcium 10 mg PO DAILY 02/01/19 01/25/20 Ubidecarenone [Co Q-10] 200 mg PO DAILY 02/01/19 01/25/20 B12/Levomefolate Calcium/B-6 1,000 mcg PO DAILY 02/04/19 01/25/20 [Foltx Tablet] Magnesium Oxide [Magnesium] 400 mg PO DAILY 02/04/19 01/25/20 buPROPion [Wellbutrin Sr] 150 mg PO DAILY 02/04/19 01/25/20 Denosumab [Xgeva] 120 mg IM .30 DAYS 02/07/19 01/25/20 Loperamide [Imodium] 2 mg PO PRN PRN MDD 16 mg 02/24/19 01/25/20 Senna [Senokot] 8.6 mg PO TID MDD titrates 02/24/19 01/25/20 polyethylene glycoL 3350 [Miralax] 8.5 - 17 gm PO DAILY 02/24/19 01/25/20 Cabozantinib S-Malate [Cabometyx] 60 mg ORAL DAILY 03/17/19 01/25/20 Levothyroxine Sodium [Synthroid] 112 mcg PO DAILY 04/17/19 01/25/20 Enoxaparin Sodium [Lovenox] 120 mg SQ DAILY 06/10/19 01/25/20 Dexamethasone 3 mg PO DAILY 07/23/19 01/25/20 Oxycodone HCl 30 mg PO Q3HR PRN 07/23/19 01/25/20 Lactobacillus Acidophilus 1 tab PO DAILY 09/23/19 01/25/20 [Probiotic Acidophilus] Morphine ER 90 mg PO QPM 11/30/19 01/25/20 Potassium Chloride 10 meq PO DAILY 11/30/19 01/25/20 Torsemide 20 mg PO DAILY 11/30/19 01/25/20 - Allergies Allergies/Adverse Reactions: Allergies Allergy/AdvReac Type Severity Reaction Status Date / Time No Known Drug Allergies Allergy Verified 01/25/20 15:09 Review of Systems - Constitutional Constitutional: reports: Fatigue. denies: Fever - Eyes Eyes: reports: Corrective lenses - Ears, Nose & Throat Ears, Nose & Throat: reports: Hearing loss - Cardiovascular Cardiovascular: reports: Edema (improved after increased diuretic therapy), Exertional dyspnea, Decr. exercise tolerance. denies: Chest pain - Respiratory Respiratory: reports: SOB with exertion. denies: SOB at rest - Gastrointestinal Gastrointestinal: reports: Other (Decreased in portion sizes with meals). denies: Constipation (controlled with present regimen) - Integumentary Integumentary: reports: Pigment changes (left heel), Other (scattered open ulcers to BLE) - Neurological Neurological: reports: General weakness - Psychiatric Psychiatric: reports: Anxiety - Endocrine Endocrine: reports: Hypothyroidism - Hematologic/Lymphatic Hematologic/Lymphatic: reports: Bruising - All Other Systems All Other Systems: reports: Reviewed and negative Physical Exam - Vital Signs Temperature: 36.1 C Pulse Rate: 97 Respiratory Rate: 18 O2 Saturation: 93 (on RA at rest) Blood Pressure: 136/77 (left wrist cuff) - Physical Exam General Appearance: positive: No acute distress, Alert ENT: positive: No signs of dehydration Neck: positive: Trachea midline Cardiovascular: positive: Regular rate & rhythm, No murmur Respiratory: positive: No respiratory distress, Other (decreased air movement LLL to mid-lobe; clear lung sounds throughout right lobe) Abdomen: positive: Non-tender, Soft, Nml bowel sounds, Other (+Round) Skin: positive: Bruising (scattered to BUE), Wound (RLE with two prominent ulcers one appx 0.5cm in size and the other 1cm in size. Surrounding 1cm leg ulcer noted erythema due to pressure in recliner without warmth to palpation. Yellow slough to both wound bases. Left heel intact with nonblanchable erythema c/w deep tissue injury) Extremities: positive: Pedal edema, Other Neurologic/Psychiatric: positive: Oriented x3, Mood/affect nml, Weakness Palliative Care - POLST Patient has POLST: Yes POLST Status: DNR, Selective Treatment Pain: Pain worsening (acute on chronic) Tiredness/Fatigue: Mild (1-3) Drowsiness/Sedation: Mild (1-3) Nausea: None Anorexia: None, Severe (7-10) Depression: Mild (1-3) Anxiety: Severe (7-10) Feelings of wellbeing/Perceived Quality of Life: Fair, Worsening Sleep: Sleeps well (CPAP) Constipation: Yes, Opoid induced, Managed, Intermittent constipation Performance Status: Remains sedentary and uses his motorized scooter or wheelchair for additional assistance. - Palliative Care Discussion: Today, the patient had trepidation regarding his immunotherapy infusion with increased anxiety which has abated now that the infusion has been completed. Still he felt overwhelmed regarding his overall wellness and disease progression but received support from his neighbor and friend who is a former social work supervisor, Orestes who provided much needed support. The biggest concern for the patient today is in regards to his worsening shortness of breath over the last week. He finds that he does not want to wait for further interventions as scheduled on 02/09/2020. It is unfortunate, that he has required 2 prior thoracenteses due to his malignant pleural effusions that have recurred. Impression and Recommendations - Palliative Care Impression: This is a kenyon 69-year-old gentleman with metastatic clear-cell renal carcinoma with significant bony mets, as well as other metastatic disease. He has developed malignant pleural effusion and is status post 2 thoracenteses. He is having increased dyspnea indicative of likely Reaccumulation. The patient has developed leg ulcers to his lower extremities more specifically to his right lower extremity one that has been present for over a month that would benefit for home health nursing for management and wound healing. Palliative care to continue provide support for pain and symptom management, supportive listening and anticipatory guidance. Recommendations/Counseling Done: 1. Pleural effusion. Given the patient's increased shortness of breath to obtain chest x-ray, PA and lateral to evaluate for reaccumulation of fluid and need for thoracentesis at a much sooner date then as previously scheduled for next week. Patient and in agreement for obtainment of chest x-ray today. 2. Right lower leg ulcers. Questionable underlying venous insufficiency Contributing. Have not resolved after 1 month. Would benefit from local debridement through dressing changes and management by home health nursing for wound care and support. Reviewed s/s of cellulitis and need to contact for re- evaluation with understanding verbalized. 3. Left heel deep tissue injury from pressure. Strongly encouraged the patient and his to offload his heels and have them floating without direct pressure onto the heels. Continue to monitor. 4.Anxiety. Chronic. Patient had situational anxiety leading up to his immunotherapy infusion today that has lessened. Reviewed with patient and presently on Wellbutrin and citalopram. Is presently off BuSpar. If he has increased escalating anxiety can reinitiate BuSpar with understanding verbalized. Reviewed with patient and to consider comanagement of medications to ensure that all parties are aware of medications being administered to eliminate the risk of errors being performed. 5.Lower extremity edema. Multifactorial. Improvement status post increase of recent diuretics. Continue diuretic therapy as ordered by PCP. Continue elevation of lower extremities at rest. Time Spent: Total time spent 40 minutes with greater than 50% of this spent in counseling and coordination of care with patient and , evaluation of patient, coordination for imaging with CXR, review of symptom management and anticipatory guidance. Disclaimer: The chart note was formulated using voice recognition technology and unfortunately sound alike errors may occur.
== END 2020-02-01 14:39 | disposition home or self-care (01) ==
LOC: DI 14:38
PROVIDERS: ATTEND Nurse Practitioner Family
DX: J94.2 Hemothorax (principal); C64.1 Malignant neoplasm of right kidney, except renal pelvis; C79.51 Secondary malignant neoplasm of bone; C78.02 Secondary malignant neoplasm of left lung; C78.01 Secondary malignant neoplasm of right lung; J91.0 Malignant pleural effusion; C77.9 Secondary and unspecified malignant neoplasm of lymph node, unspecified
CPT/HCPCS: 71046

== ENCOUNTER 2020-02-02 12:18 | Outpatient (CLI) | payer MEDICARE, OTHER ==
[2020-02-02 12:40] LABS: INR 1.5 (0.8-1.2); PT - PROTHROMBIN TIME 16.1 secs (9.9-12.6)
[2020-02-02 12:47] LABS: PARTIAL THROMBOPLASTIN TIME 39.7 secs (24.9-33.3)
--- NOTE | 2020-02-02 14:47 | XRAY Report ---
PROCEDURE: Post Thoracentesis 1V CXR INDICATIONS: POST THORACENTESIS TECHNIQUE: One view of the chest was acquired. COMPARISON: Chest x-ray 02/02/2020 FINDINGS: Surgical changes and devices: None. Lungs and pleura: Moderate to large left pleural effusion improved postthoracentesis. No pneumothorax . Mediastinum: Mediastinal contours appear normal. Heart size is normal. Bones and chest wall: No suspicious bony lesions. Overlying soft tissues appear unremarkable. IMPRESSION: Moderate to large left pleural effusion without postthoracentesis pneumothorax. Reviewed by: Mae Palmer MD on 02/02/2020 2:46 PM PDT Approved by: Mae Palmer MD on 02/02/2020 2:46 PM PDT Station ID: [id number]
--- NOTE | 2020-02-02 16:45 | Ultrasound Report ---
PROCEDURE: Thoracentesis Puncture INDICATIONS: KIDNEY CA, BONE METS TECHNIQUE: The indications, alternatives, benefits, risks, and complications of the procedure were explained to the patient. Written informed consent was obtained and placed in the chart. The chest was examined sonographically, and an appropriate site was chosen for thoracentesis. The skin was prepared and rogelio ped in the usual sterile fashion, and 1% lidocaine was infiltrated from the skin down through the ple ural surface. A 19-gauge catheter-covered needle was then introduced into the pleural space, the cat heter was advanced and the needle was withdrawn, and thereafter pleural fluid was aspirated. The cat heter was then removed and a dressing was applied. COMPARISON: None. FINDINGS: Access site: Left hemithorax. Needle: One-Step centesis catheter with introducer needle. Fluid volume and description: 3 L yellow Fluid sent for diagnostic testing: No Medications: 1% lidocaine for local anaesthesia. Complications: None; post-procedural chest radiograph is pending to assess for pneumothorax. IMPRESSION: Successful ultrasound-guided thoracentesis. Reviewed by: Mae Palmer MD on 02/02/2020 4:44 PM PDT Approved by: Mae Palmer MD on 02/02/2020 4:44 PM PDT Station ID: [id number]
== END 2020-02-02 12:19 | disposition home or self-care (01) ==
LOC: DI 12:18
PROVIDERS: ATTEND Internal Medicine Hematology & Oncology
DX: J90 Pleural effusion, not elsewhere classified (principal); C64.9 Malignant neoplasm of unspecified kidney, except renal pelvis; C79.51 Secondary malignant neoplasm of bone
CPT/HCPCS: 32555; 36415; 71045; 85610; 85730

== ENCOUNTER 2020-02-02 21:05 | Outpatient (CLI) | payer MEDICARE, OTHER | END 2020-02-02 21:06 | disposition critical access hospital (66) | LOC: EMS 21:05 | PROVIDERS: ATTEND Surgery | DX: R06.02 Shortness of breath (principal) | CPT/HCPCS: A0425; A0427 ==

== ENCOUNTER 2020-02-02 21:14 | Inpatient (IN) | payer MEDICARE, OTHER ==
[2020-02-02] MEDS ORDERED: SODIUM CHLORIDE 0.9% 1,000 ML IV STA (21:34)
--- NOTE | 2020-02-02 21:38 | ED Physician Documentation ---
History of Present Illness - Stated complaint Stated Complaint: SOA - History obtained from History obtained from: Patient, Family, EMS - Additonal information Additional information: Patient comes emergency department via EMS after feeling very short of breath at home after getting up out of his recliner to walk to the bedroom. Patient is suffering from metastatic renal cell carcinoma with extensive left lung metastases. He has both tumors and pleural effusion on the left. states that the patient also has had spontaneous formation of pulmonary emboli for which he takes Lovenox. The patient was started on Keytruda yesterday and went in today to have another thoracentesis, at which time they took off 2.5 L of fluid. Patient states he was feeling better after the thoracentesis today, but after sitting in the recliner for a while and then getting up, he felt very short of breath. Patient states he does get anxiety attacks and felt that this may have been partly due to that as well. He states he felt a little better aft er sitting down to rest, but he still feeling short of breath now. Patient also complains of feeling as though he needs to have diarrhea. No chest pain that is new. No abdominal pain. No nausea or vomiting. Patient has already been treated with radiation and and immunotherapeutic, but states that the patient had a very bad reaction to the immune therapy and had to be taken off of it. The patient's cancer care is managed by Dr. Anguiano. Review of Systems Ten Systems: 10 systems reviewed and negative Constitutional: reports: Fatigue Eyes: reports: Reviewed and negative Ears: reports: Reviewed and negative Nose: reports: Reviewed and negative Throat: reports: Reviewed and negative Cardiac: reports: Reviewed and negative Respiratory: reports: Dyspnea, Cough GI: reports: Abdominal Pain (cramping), Diarrhea. denies: Nausea : reports: Reviewed and negative Skin: reports: Reviewed and negative Musculoskeletal: reports: Reviewed and negative Neurologic: reports: Reviewed and negative Psychiatric: reports: Reviewed and negative Endocrine: reports: Reviewed and negative Immunocompromised: reports: Reviewed and negative PD PAST MEDICAL HISTORY - Past Medical History Cardiovascular: Hypertension, High cholesterol, Pulmonary embolism, Murmur, Other Respiratory: Asthma, Shortness of breath, Sleep apnea, CPAP use Neuro: None Endocrine/Autoimmune: None GI: None : Benign prostate hypertrophy, Renal insuffiency, Kidney stones HEENT: Chronic vision loss Psych: Depression, Anxiety Musculoskeletal: Osteoarthritis, Gout, Fatigue, Other Derm: None - Past Surgical History Past Surgical History: Yes Ortho: Hip replacement, Knee replacement, Knee replacement - Present Medications Home Medications: Ambulatory Orders Medication Instructions Recorded Confirmed Telmisartan [Micardis] 80 mg PO DAILY 12/21/14 02/02/20 Morphine Sulfate ER [Ms Contin] 120 mg PO .AM & 1400 01/27/19 02/02/20 Buspirone HCl 10 - 20 mg PO BID PRN 02/01/19 02/02/20 Cholecalciferol (Vitamin D3) 2,000 unit PO DAILY 02/01/19 02/02/20 [Vitamin D3] Citalopram Hydrobromide 40 mg PO DAILY 02/01/19 02/02/20 [Citalopram HBr] Multivit-Min/FA/Lycopen/Lutein 1 tab PO DAILY 02/01/19 02/02/20 [Centrum Silver Men Tablet] Rosuvastatin Calcium 10 mg PO DAILY 02/01/19 02/02/20 Ubidecarenone [Co Q-10] 200 mg PO DAILY 02/01/19 02/02/20 B12/Levomefolate Calcium/B-6 1,000 mcg PO DAILY 02/04/19 02/02/20 [Foltx Tablet] Magnesium Oxide [Magnesium] 400 mg PO DAILY 02/04/19 02/02/20 buPROPion [Wellbutrin Sr] 150 mg PO DAILY 02/04/19 02/02/20 Denosumab [Xgeva] 120 mg IM .30 DAYS 02/07/19 02/02/20 Loperamide [Imodium] 2 mg PO PRN PRN MDD 16 mg 02/24/19 02/02/20 Senna [Senokot] 8.6 mg PO TID MDD titrates 02/24/19 02/02/20 polyethylene glycoL 3350 [Miralax] 8.5 - 17 gm PO DAILY 02/24/19 02/02/20 Cabozantinib S-Malate [Cabometyx] 60 mg ORAL DAILY 03/17/19 02/02/20 Levothyroxine Sodium [Synthroid] 112 mcg PO DAILY 04/17/19 02/02/20 Enoxaparin Sodium [Lovenox] 120 mg SQ DAILY 06/10/19 02/02/20 Dexamethasone 3 mg PO DAILY 07/23/19 02/02/20 Oxycodone HCl 30 mg PO Q3HR PRN 07/23/19 02/02/20 Lactobacillus Acidophilus 1 tab PO DAILY 09/23/19 02/02/20 [Probiotic Acidophilus] Morphine ER 90 mg PO QPM 11/30/19 02/02/20 Potassium Chloride 10 meq PO DAILY 11/30/19 02/02/20 Torsemide 20 mg PO DAILY 11/30/19 02/02/20 - Allergies Allergies/Adverse Reactions: Allergies Allergy/AdvReac Type Severity Reaction Status Date / Time No Known Drug Allergies Allergy Verified 02/02/20 21:36 - Social History Does the pt smoke?: No Smoking Status: Never smoker Does the pt drink ETOH?: Yes Does the pt have substance abuse?: No - Immunizations Immunizations are current?: Yes - POLST Patient has POLST: Yes PD ED PE NORMAL - Vitals Vital signs reviewed: Yes - General General: Alert and oriented X 3, Other (Patient is very pale and looks chronically ill. He is in mild respiratory distress and appears anxious.) - HEENT HEENT: Atraumatic, PERRL, EOMI, Moist mucous membranes - Neck Neck: Supple, no meningeal sign - Cardiac Cardiac: RRR, No murmur, Strong equal pulses - Respiratory Respiratory: Clear bilaterally, Other (Patient appears in mild respiratory distress. He has clear lung sounds on the right but nonexistent breath sounds in the lower two thirds of his left lung de.) - Abdomen Abdomen: Soft, Non tender, Other (Moderate distention.) - Derm Derm: Other (Patient is very pale with purpura on bilateral arms and hands and petechiae over his abdominal wall. Skin is cool.) - Extremities Extremities: No deformity, Other (Marked pitting edema of bilateral lower extremities.) - Neuro Neuro: Alert and oriented X 3, Other (Patient is grossly oriented. He is moving all 4 extremities. He appears very weak, generally.) - Psych Psych: Normal affect, Other (Moderate anxiety.) Results - Vitals Vitals: Vital Signs - 24 hr 02/02/20 02/02/20 02/02/20 21:20 21:30 21:42 Temperature 36.1 C L Heart Rate 98 92 90 Respiratory 28 H 18 Rate Blood Pressure 98/70 74/64 L 94/78 O2 Saturation 84 L 100 02/02/20 02/02/20 02/03/20 21:55 22:56 00:33 Temperature 36.6 C 35.7 C L Heart Rate 98 91 97 Respiratory 18 17 16 Rate Blood Pressure 97/75 89/64 L 98/69 O2 Saturation 100 92 Oxygen O2 Source Venturi mask Oxygen Flow Rate 10 - EKG (time done) 2141 Rate: Rate (enter#) (92) Rhythm: NSR, Other (PVCs, occasional) [place]: Normal Intervals: Normal OR QRS: Normal Ischemia: Normal ST segments. No: T wave inversion Compare to prior EKG: Old EKG unavailable - Labs Labs: Microbiology 02/02/20 23:39 Occult Blood - Final Stool Laboratory Tests 02/02/20 02/02/20 02/02/20 21:39 21:45 21:45 WBC 5.3 RBC 2.26 L Hgb 7.5 L Hct 25.7 L MCV 113.7 H MCH 33.2 H MCHC 29.2 L RDW 17.3 H Plt Count 278 MPV 9.3 Neut # (Auto) 4.3 Lymph # (Auto) 0.6 L Wake # (Auto) 0.3 Eos # (Auto) 0.0 Baso # (Auto) 0.0 Absolute Nucleated RBC 0.29 Nucleated RBC % 5.5 Manual Slide Review Indicated Platelet Estimate NORMAL (130-450,000) Platelet Morphology NORMAL APPEARANCE RBC Morph Micro Appear 1+ ACANTHOCYTES PT 17.5 H INR 1.6 H Sodium Potassium Chloride Carbon Dioxide Anion Gap BUN Creatinine Estimated GFR (MDRD) Glucose Lactic Acid Calcium Total Bilirubin AST ALT Alkaline Phosphatase Troponin I High Sens B-Natriuretic Peptide Total Protein Albumin Globulin Albumin/Globulin Ratio Lipase Urine Color Urine Clarity Urine pH Ur Specific [place] Urine Protein Urine Glucose (UA) Urine Ketones Urine Occult Blood Urine Nitrite Urine Bilirubin Urine Urobilinogen Ur Leukocyte Esterase Ur Microscopic Review Urine Culture Comments Blood Type O POSITIVE Blood Type Recheck Antibody Screen NEGATIVE Crossmatch IS Only See Detail 02/02/20 02/02/20 02/02/20 21:45 21:45 21:45 WBC RBC Hgb Hct MCV MCH MCHC RDW Plt Count MPV Neut # (Auto) Lymph # (Auto) Wake # (Auto) Eos # (Auto) Baso # (Auto) Absolute Nucleated RBC Nucleated RBC % Manual Slide Review Platelet Estimate Platelet Morphology RBC Morph Micro Appear PT INR Sodium 138 Potassium 3.8 Chloride 105 Carbon Dioxide 11 L* Anion Gap 22.0 H BUN 21 H Creatinine 1.1 Estimated GFR (MDRD) 66 L Glucose 199 H Lactic Acid 7.2 H* Calcium 7.5 L Total Bilirubin 0.7 AST 25 ALT 24 Alkaline Phosphatase 74 Troponin I High Sens B-Natriuretic Peptide 42 Total Protein 4.3 L Albumin 1.9 L Globulin 2.4 Albumin/Globulin Ratio 0.8 L Lipase 14 L Urine Color Urine Clarity Urine pH Ur Specific [place] Urine Protein Urine Glucose (UA) Urine Ketones Urine Occult Blood Urine Nitrite Urine Bilirubin Urine Urobilinogen Ur Leukocyte Esterase Ur Microscopic Review Urine Culture Comments Blood Type Blood Type Recheck Antibody Screen Crossmatch IS Only 02/02/20 02/02/20 02/02/20 21:45 22:15 22:20 WBC RBC Hgb Hct MCV MCH MCHC RDW Plt Count MPV Neut # (Auto) Lymph # (Auto) Wake # (Auto) Eos # (Auto) Baso # (Auto) Absolute Nucleated RBC Nucleated RBC % Manual Slide Review Platelet Estimate Platelet Morphology RBC Morph Micro Appear PT INR Sodium Potassium Chloride Carbon Dioxide Anion Gap BUN Creatinine Estimated GFR (MDRD) Glucose Lactic Acid Calcium Total Bilirubin AST ALT Alkaline Phosphatase Troponin I High Sens 16.0 B-Natriuretic Peptide Total Protein Albumin Globulin Albumin/Globulin Ratio Lipase Urine Color YELLOW Urine Clarity CLEAR Urine pH 6.0 Ur Specific [place] 1.025 Urine Protein TRACE Urine Glucose (UA) NEGATIVE Urine Ketones NEGATIVE Urine Occult Blood NEGATIVE Urine Nitrite NEGATIVE Urine Bilirubin NEGATIVE Urine Urobilinogen 1 (NORMAL) Ur Leukocyte Esterase NEGATIVE Ur Microscopic Review NOT INDICATED Urine Culture Comments NOT INDICATED Blood Type Blood Type Recheck O POSITIVE Antibody Screen Crossmatch IS Only 02/03/20 00:05 WBC RBC Hgb Hct MCV MCH MCHC RDW Plt Count MPV Neut # (Auto) Lymph # (Auto) Wake # (Auto) Eos # (Auto) Baso # (Auto) Absolute Nucleated RBC Nucleated RBC % Manual Slide Review Platelet Estimate Platelet Morphology RBC Morph Micro Appear PT INR Sodium Potassium Chloride Carbon Dioxide Anion Gap BUN Creatinine Estimated GFR (MDRD) Glucose Lactic Acid 3.1 H* Calcium Total Bilirubin AST ALT Alkaline Phosphatase Troponin I High Sens B-Natriuretic Peptide Total Protein Albumin Globulin Albumin/Globulin Ratio Lipase Urine Color Urine Clarity Urine pH Ur Specific [place] Urine Protein Urine Glucose (UA) Urine Ketones Urine Occult Blood Urine Nitrite Urine Bilirubin Urine Urobilinogen Ur Leukocyte Esterase Ur Microscopic Review Urine Culture Comments Blood Type Blood Type Recheck Antibody Screen Crossmatch IS Only - Rads (name of study) CTA chest Radiology: Prelim report reviewed, EMP read indepedently, See rad report (No PE; relative slow flow in left pulmonary arteries secondary to compression by pleural effusion. Hemorrhagic components versus soft tissue lesions at base of left pleural effusion; atelectasis complete, L lower lung and partial, L upper lobe. R mediastinal shift. Stable lytic lesions ribs 5/7) PD MEDICAL DECISION MAKING - ED course Complexity details: reviewed old records, reviewed results, re-evaluated patient, considered differential, d/w patient, d/w family ED course: The patient appeared quite uncomfortable upon arrival and it was difficult to tell how much was dyspnea and how much was anxiety. The patient did have lower oxygen saturation, even on 2 L oxygen per nasal cannula, with sats hovering around the upper 80s. He was placed on a nonrebreather mask initially, which did bring his oxygen saturation up to 100%, but the patient continued to complain of some shortness of breath. He was found to have some hypotension after having a large bowel movement, accompanied by severe cramping, but his blood pressure did improve with time and IV fluids. His bowel movement was grayish-lopez in color, and no gross blood was seen. Guaiac testing on the patient stool was negative. The patient was given a 1 L bolus point a normal saline and worked up with labs, EKG, and chest x-ray. I discussed the patient's CODE STATUS with the , who states that the patient would like resuscitation if he could have "a meaningful quality of life" afterward, but otherwise, would like limited interventions and to be kept comfortable. The patient was worked up and found to have hemoglobin of 7.5 today, which was a significant drop from his hemoglobin of 10.2 yesterday. He was also found to have an elevated lactic acid level at 7.2. A type and screen had already been ordered and a type and crossmatch for 2 units of blood was now ordered in addition. The patient was found to be feeling somewhat better on reevaluation. He was reduced to a Ventimask with a 45% oxygen flow and found to have good oxygen saturation in the low to mid 90s. He was sent for CTA of the chest, which showed persistence of large tumor burden in the left lung and chest cavity with extensive atelectasis, and a very large pleural effusion. Question of some hemorrhagic components versus soft tissue densities were noted at the left lung base. No extravasation or active bleeding noted. PEs were stable. The patient was feeling quite comfortable on reevaluation after the CT. I discussed the results with the patient and his , and discussed that the patient would need to stay at least a night in the hospital to finish getting the blood and to make sure his H&H have stabilized. I am not sure what has caused the drop in his hemoglobin between January 31 and February 01. The patient does not appear to be bleeding anywhere, though he does take Lovenox for his pulmonary emboli. His abdominal exam is fairly benign. The patient has had a repeat lactic acid level drawn after IV fluids and half of the first unit of blood, and it has been found to have significantly dropped to 3.1. Dr. Monge and I discussed the case at length and after Dr. Monge evaluated the patient, the patient and did ask for some time to discuss the patient's wishes with regard to his care. After they had some time to discuss this privately, Dr. Monge to and myself did go and speak with the patient and his at quite some length regarding The patient's wishes for care and what was available here would be. We had a very lengthy discussion about the fact that the patient has stabilized at this time, but that we may find that his H&H are dropping tomorrow. We have discussed that if the patient needs some sort of thoracic intervention, we do not have the resources for that here. However, given the patient's grave underlying condition, it is likely that the surgeons would recommend against surgery, should a surgery be needed, anyway. After quite a bit of discussion the patient and ultimately decided that they would prefer that the patient stay here at our hospital and continue to receive the blood transfusions and have his H&H checked afterward. They have both expressed understanding that if the patient suddenly destabilizes, especially if he needs emergent intervention by a specialist we do not have here, that we may not be able to get the patient transferred before it is too late. Both the patient and his understand and accept this. As such, Dr. Monge will admit the patient to his service - Critical Care Time(min): 60 Comments: Critical care time was necessary, due to high probability of imminent and life- threatening deterioration, secondary to cardiovascular compromise, due to acute anemia and hypotension; severe lactic acidosis; and hypoxemia and respiratory distress. Time Includes: Direct patient care, Review records, Reassess patient, Document care, Coordinate care, Medical consult, Family consult for tx dec, See progress note Data interpretation: Labs, Pulse ox, CXR (chest imaging: CTA chest), Cardiac output, See progress note Departure - Departure Disposition: ED Place in Observation Clinical Impression: Symptomatic anemia Dyspnea Qualifiers: Dyspnea type: acute respiratory distress Qualified Code(s): R06.03 - Acute respiratory distress Condition: Serious
[2020-02-02 21:53] LABS: BASOPHILS % (AUTO) 0.2 %; HGB - HEMOGLOBIN 7.5 g/dL (14.0-18.0); LYMPHOCYTES # (AUTO) 0.6 10^3/uL (1.5-3.5); LYMPHOCYTES % (AUTO) 10.5 %; MEAN CORPUSCULAR HEMOGLOBIN 33.2 pg (27.0-31.0); MEAN CORPUSCULAR HGB CONC 29.2 g/dL (32.0-36.0); MEAN CORPUSCULAR VOLUME 113.7 fL (80.0-94.0); MEAN PLATELET VOLUME 9.3 fL (7.4-11.4); MONOCYTES # (AUTO) 0.3 10^3/uL (0.0-1.0); NEUTROPHILS # (AUTO) 4.3 10^3/uL (1.5-6.6); NEUTROPHILS % (AUTO) 82.6 %; PLT - PLATELET COUNT 278 10^3/uL (130-450); RED BLOOD COUNT 2.26 10^6/uL (4.70-6.10); RED CELL DISTRIBUTION WIDTH 17.3 % (12.0-15.0); WHITE BLOOD COUNT 5.3 x10^3/uL (4.8-10.8)
[2020-02-02 21:57] LABS: INR 1.6 (0.8-1.2); PT - PROTHROMBIN TIME 17.5 secs (9.9-12.6)
[2020-02-02 22:10] LABS: ALBUMIN 1.9 g/dL (3.2-5.5); ALBUMIN/GLOBULIN RATIO 0.8 (1.0-2.2); BILIRUBIN,TOTAL 0.7 mg/dL (0.2-1.0); CALCIUM 7.5 mg/dL (8.5-10.3); CREATININE 1.1 mg/dL (0.6-1.2); TOTAL PROTEIN 4.3 g/dL (6.7-8.2)
[2020-02-02 22:14] LABS: PLATELET ESTIMATE, MANUAL NORMAL (130-450,000) (NORMAL); PLATELET MORPHOLOGY NORMAL APPEARANCE (NORMAL)
[2020-02-02] MEDS ORDERED: IOVERSOL 320 100 ML VIAL IVP ONE (22:16)
[2020-02-02 22:37] LABS: BILIRUBIN,URINE NEGATIVE (NEGATIVE); GLUCOSE, URINE (UA) NEGATIVE (NEGATIVE); KETONES,URINE (UA) NEGATIVE (NEGATIVE); LEUKOCYTE ESTERASE, URINE NEGATIVE (NEGATIVE); NITRITE,URINE NEGATIVE (NEGATIVE); OCCULT BLOOD,URINE NEGATIVE (NEGATIVE); PROTEIN,URINE TRACE mg/dL (NEGATIVE); UROBILINOGEN,URINE 1 (NORMAL) E.U./dL (NORMAL)
[2020-02-02 22:38] LABS: CLARITY,URINE CLEAR (CLEAR)
[2020-02-03] MEDS ORDERED: ACETAMINOPHEN 325 MG TABLET PO ONE (00:18)
[2020-02-03] MEDS ORDERED: oxyCODONE 5 MG TABLET ONE (00:19)
[2020-02-03] MEDS ORDERED: IOVERSOL 320 100 ML VIAL IVP ONE (00:52)
--- NOTE | 2020-02-03 00:54 | CT Report ---
PROCEDURE: ANGIO CHEST W/WO INDICATIONS: extreme sob, h/o cancer, PE, recent thoracentesis TECHNIQUE: After the administration of intravenous contrast, 2 mm thick sections acquired from the pulmonary api sandra to the posterior costophrenic angles. 3-dimensional maximum intensity projection (MIP) coronal a nd sagittal reformats were then acquired through the thorax. For radiation dose reduction, the follow ing was used: automated exposure control, adjustment of mA and/or kV according to patient size. COMPARISON: CT chest 12/24/2019, chest x-ray 02/01/2020, 02/01/2020. FINDINGS: Image quality: Diagnostic. Pulmonary arteries: Pulmonary arteries demonstrate no intraluminal filling defects to suggest centra l pulmonary embolism within the right lung. There is suboptimal contrast opacification of the left pu lmonary arteries beginning at the level of the lobar peroneal artery. There is nondiagnostic opacific ation of segmental and subsegmental branches. Lungs and pleura: There is a large left pleural effusion with associated compressive atelectasis of the entire left lower lobe and the majority of the left upper lobe. Although comparison is limited du e to differences in technique, the effusion is likely increased compared to the prior chest x-ray of 02/02/2020 at 2:24 PM. There is dependent high density within the left effusion predominantly in the l eft base compatible with blood product and suggestive of a hemothorax. No active arterial extravasati on identified. There are groundglass opacities within the right lung and aerated portions of the left lung suggestiv e of pulmonary edema. Irregular nodule is redemonstrated within the aerated left upper lobe, measurin g up to 1.8 cm. No evidence of pneumothorax. Mediastinum: There is rightward mediastinal shift secondary to the large left pleural effusion. Hear t size is normal, with a minimal pericardial effusion. Thoracic aorta is normal in caliber. There a re enlarged mediastinal lymph nodes including a right paratracheal node measuring up to 1.5 cm. Esoph paddy is normal in caliber, without hiatal hernia. Bones and chest wall: Multiple lytic bone lesions with associated bony destruction are redemonstrate d including lesions in the right scapula and the left sixth and eighth ribs. No axillary or supraclav icular adenopathy. Abdomen: Visualized upper abdomen redemonstrates a large exophytic right renal mass measuring up to approximately 4.5 cm. Right adrenal nodule is also redemonstrated measuring approximately 1.9 cm comp atible with metastatic disease. IMPRESSION: 1. Large left pleural fluid collection with dependent high density consistent with a hemothorax. The findings were discussed with the night hospitalist on 02/03/2020 at 12:40 AM. Given the patient's acut e decrease in hematocrit, the findings suggest recent hemorrhage into the existing large left pleural effusion. No active arterial extravasation demonstrated on the current study. 2. No evidence of pneumothorax. 3. Pulmonary edema within the aerated lungs. 4. Left upper lobe pulmonary nodule, left sixth and eighth rib lesions, right scapular mass lesion, a nd mediastinal lymphadenopathy redemonstrated consistent with metastatic disease. Right adrenal nodul e is also compatible with metastatic disease. 5. Exophytic right renal mass demonstrated within the partially visualized right kidney. 6. No evidence of pulmonary embolism in the right lung. There is nondiagnostic opacification of the l eft pulmonary arteries which may be due to sequelae of mass effect from the large left effusion. Reviewed by: Dick Bal MD on 02/03/2020 12:53 AM PDT Approved by: Dick Bal MD on 02/03/2020 12:53 AM PDT Station ID: [id number]
[2020-02-03] MEDS ORDERED: ONDANSETRON 4 MG/2 ML VIAL IVP PRN (01:49)
[2020-02-03] MEDS ORDERED: oxyCODONE 5 MG TABLET PO STA (01:55)
[2020-02-03] MEDS ORDERED: ALBUMIN 25% 12.5 GM/50 ML VIAL IV STA (02:03)
[2020-02-03] MEDS ORDERED: FUROSEMIDE 40 MG/4 ML VIAL IVP STA (02:04)
--- NOTE | 2020-02-03 02:08 | HISTORY & PHYSICAL EXAMINATION ---
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 He presented to the ED on the evening of February 02, 2020 with complaint of an acute episode of dyspnea, hypoxia and dizziness. He was seen at the [facility] clinic on February 01, 2020 and underwent a thoracentesis. Prior to the procedure his hemoglobin on a CBC was 10.3. This evening he was in a recliner and when he attempted to stand he suddenly got dizzy and dyspneic which led to his presentation to the emergency room. Hemoglobin on a CBC done around 9 PM on February 02, [address] of the chest showed a large left pleural effusion which seems to indicate recurrence of the effusion since the thoracentesis 36 hours before. It also raised the possibility of some blood but there was no active bleed. When the patient presented he was hypoxic with an oxygen saturation of 84%. He also had initial systolic blood pressure of 90. He has extensive bruising all over his body especially his upper extremities and significant petechial-like rash on his torso. His explains that it has been going on since he started Keytruda about 3 to 4 [address] He [address] Dr[address] Seven Anguiano Oncologist at the [facility] clinic. He has also been on Lovenox twice daily for Hx of PEs due to metastatic cancer. As a result of his clinical presentation and lab findings he was presented for admission. At bedside he denies chest pain, dyspnea, abdominal pain, nausea, vomiting, fever or chills. History - Past Medical History Cardiovascular: reports: Hypertension, High cholesterol, Pulmonary embolism, Murmur, Other Respiratory: reports: Asthma, Shortness of breath, Sleep apnea, CPAP use Neuro: reports: None Endocrine/Autoimmune: reports: None GI: reports: None : reports: Benign prostate hypertrophy, Renal insuffiency, Kidney stones HEENT: reports: Chronic vision loss Psych: reports: Depression, Anxiety Musculoskeletal: reports: Osteoarthritis, Gout, Fatigue, Other Derm: reports: None MRSA Hx?: No Other Past Medical History: Metastatic clear-cell renal cell carcinoma involving lungs, lymph nodes, bones, right kidney and retroperitoneal lymph nodes. - Past Surgical History Ortho: reports: Hip replacement, Knee replacement, Knee replacement - Family & Social History Family History: Mother: , Father: , Cancer (brain), Sister: Alive and Well, Brother: Alive and Well Living arrangement: At home Living Situation: With spouse/s.o. Social History Notes: Patient does not smoke tobacco products or use recreational substances. - Substance History Use: Uses substance without health or social issues: NONE, Alcohol - POLST Patient has POLST: Yes POLST Status: Full Code Meds/Allgy - Home Medications Home Medications: Ambulatory Orders Medication Instructions Recorded Confirmed Telmisartan [Micardis] 80 mg PO DAILY 12/21/14 02/02/20 Morphine Sulfate ER [Ms Contin] 120 mg PO .AM & 1400 01/27/19 02/02/20 Buspirone HCl 10 - 20 mg PO BID PRN 02/01/19 02/02/20 Cholecalciferol (Vitamin D3) 2,000 unit PO DAILY 02/01/19 02/02/20 [Vitamin D3] Citalopram Hydrobromide 40 mg PO DAILY 02/01/19 02/02/20 [Citalopram HBr] Multivit-Min/FA/Lycopen/Lutein 1 tab PO DAILY 02/01/19 02/02/20 [Centrum Silver Men Tablet] Rosuvastatin Calcium 10 mg PO DAILY 02/01/19 02/02/20 Ubidecarenone [Co Q-10] 200 mg PO DAILY 02/01/19 02/02/20 B12/Levomefolate Calcium/B-6 1,000 mcg PO DAILY 02/04/19 02/02/20 [Foltx Tablet] Magnesium Oxide [Magnesium] 400 mg PO DAILY 02/04/19 02/02/20 buPROPion [Wellbutrin Sr] 150 mg PO DAILY 02/04/19 02/02/20 Denosumab [Xgeva] 120 mg IM .30 DAYS 02/07/19 02/02/20 Loperamide [Imodium] 2 mg PO PRN PRN MDD 16 mg 02/24/19 02/02/20 Senna [Senokot] 8.6 mg PO TID MDD titrates 02/24/19 02/02/20 polyethylene glycoL 3350 [Miralax] 8.5 - 17 gm PO DAILY 02/24/19 02/02/20 Cabozantinib S-Malate [Cabometyx] 60 mg ORAL DAILY 03/17/19 02/02/20 Levothyroxine Sodium [Synthroid] 112 mcg PO DAILY 04/17/19 02/02/20 Enoxaparin Sodium [Lovenox] 120 mg SQ DAILY 06/10/19 02/02/20 Dexamethasone 3 mg PO DAILY 07/23/19 02/02/20 Oxycodone HCl 30 mg PO Q3HR PRN 07/23/19 02/02/20 Lactobacillus Acidophilus 1 tab PO DAILY 09/23/19 02/02/20 [Probiotic Acidophilus] Morphine ER 90 mg PO QPM 11/30/19 02/02/20 Potassium Chloride 10 meq PO DAILY 11/30/19 02/02/20 Torsemide 20 mg PO DAILY 11/30/19 02/02/20 - Allergies Allergies/Adverse Reactions: Allergies Allergy/AdvReac Type Severity Reaction Status Date / Time No Known Drug Allergies Allergy Verified 02/02/20 21:36 Review of Systems - Constitutional Constitutional: denies: Fatigue, Fever, Chills - Eyes Eyes: denies: Pain, Vision loss - Ears, Nose & Throat Ears, Nose & Throat: denies: Ear pain - Cardiovascular Cariovascular: reports: Lightheadedness. denies: Irregular heart rate, Palpitations, Chest pain, Edema, Syncope - Respiratory Respiratory: reports: SOB at rest, SOB with exertion. denies: Cough, Sputum production, Wheezing - Gastrointestinal Gastrointestinal: denies: Abdominal pain, Abdominal distention, Constipation, Nausea, Vomiting - Genitourinary Genitourinary: denies: Dysuria, Frequency, Urgency - Musculoskeletal Musculoskeletal: denies: Muscle pain, Back pain - Integumentary Integumentary: reports: Rash - Hematologic/Lymphatic Hematologic/Lymphatic: reports: Anemia, Petechiae Prior Level of Functionality: He is normally independent of activities of daily living. He ambulates using a cane. Exam - Vital Signs Vital Signs: Vital Signs x48h Temp Pulse Resp BP Pulse Ox 02/03/20 00:33 35.7 C L 97 16 98/69 92 09/23/20 22:56 36.6 C 91 17 89/64 L 02/02/20 21:55 98 18 97/75 100 02/02/20 21:42 90 18 94/78 100 02/02/20 21:30 92 74/64 L 02/02/20 21:20 36.1 C L 98 28 H 98/70 84 L - Physical Exam General Appearance: positive: Alert, Mild distress, Moderate distress Eyes Bilateral: positive: PERRL, EOMI ENT: positive: No signs of dehydration Neck: positive: No JVD, Trachea midline Respiratory: positive: Other (decreased breath sounds on the left) Cardiovascular: positive: Regular rate & rhythm, No murmur Abdomen: positive: Non-tender, No organomegaly, Nml bowel sounds, No distention. negative: Guarding, Rebound Back: positive: Nml inspection Skin: positive: Other (Extensive bruising in the upper extremities and extensive petechial rash on the torso) Extremities: positive: Pedal edema (+4) Neurologic/Psychiatric: positive: Oriented x3, Mood/affect nml Sepsis Event Note (H) - Sepsis Criteria Sepsis Criteria: Metabolic: lactate > 2 mmol/L Conclusion/Plan - Problem List (1) Symptomatic anemia Conclusion/Plan: Patient's hemoglobin dropped from 10.3 to 7.5 in 36 hours. Etiology is unclear however CT Angio of the chest showed some hemothorax in addition to extensive/large pleural effusion. There was no sign of active bleeding. Patient stool Hemoccult was negative Patient's condition is further complicated by the fact that he is on Lovenox twice daily for history of PEs related to his metastatic cancer. Patient is being transfused 2 units of packed red blood cells. We will hold Lovenox for now. We will monitor H&H every 6 hours. Discussed asked the patient and his what they would like done in a scenario in which the patient's hemoglobin continued to drop despite transfusions as a result of a potential bleed. Initially he said he would want surgery done if it was a possibility. The patient stated that he is not ready to give up yet. I explained that in light of his significant/ extensive metastatic cancer, with frequent recurrent large pleural effusion, It is likely surgery may not be an option. The patient has to be admitted and received blood transfusion and if things were to take a turn for the worse then would make a decision at that time. He also said he would like to talk to his spiritual leader and his family in the daytime. (2) Dyspnea Conclusion/Plan: This was likely related to patient's acute anemia. This could also be further compounded by the large recurrent left pleural effusion Anticipating improvement with blood transfusion. Will reach out to radiology for input with regards to a future thoracentesis. Qualifiers: Dyspnea type: acute respiratory distress Qualified Code(s): R06.03 - Acute respiratory distress (3) Metastatic renal cell carcinoma Conclusion/Plan: Patient sees Dr. Seven Anguiano at the [facility] He is on Keytruda currently Patient has recurrent malignant left pleural effusion. His last thoracentesis was February 02, 2020. 2.5 L of fluid was extracted. However it would appear there has been recurrent and increased effusion since then. He has extensive petechial rash since starting Keytruda. (4) Hx pulmonary embolism Conclusion/Plan: Likely related to metastatic disease. Patient has been on Lovenox twice daily. We will hold for now due to acute anemia with a hemoglobin drop from 10.3 down to 7.5 in just 36 hours. (5) Lactic acidosis Conclusion/Plan: Initial lactic acid was 7.2 with a repeat of 3.1. We will continue to trend. Etiology undetermined. However this could be due to her poor perfusion when the patient's systolic blood pressure was in the 90s and hypoxia when his oxygen saturation was 84%. Since the patient meets SIRS criteria, blood cultures were drawn. However there is no definite source of infection noted at the moment. Will consider CT of the abdomen pelvis if patient's vitals worsen. (6) Bilateral lower extremity edema Conclusion/Plan: Likely related to patient's metastatic disease. We will administer albumin and Lasix. SCDs applied. - Lab Results Fish Bones: 02/02/20 21:45 02/02/20 21:45 Core Measures - Anticipated LOS I expect patient to be DC'd or transferred within 96 hours.: Yes - DVT/VTE - Prophylaxis VTE/DVT Device ordered at admit?: Yes VTE/DVT Prophylaxis med ordered at admit?: No
[2020-02-03] MEDS ORDERED: oxyCODONE 5 MG TABLET PO PRN ×2 (02:58→12:20)
[2020-02-03] MEDS ORDERED: ACETAMINOPHEN 325 MG TABLET PO PRN (02:58)
[2020-02-03] MEDS: SODIUM CHLORIDE FLUSH 0.9% 10 ML SYRINGE IVP PRN ×3 (03:59→14:48)
[2020-02-03] MEDS: MORPHINE 2 MG/ML CARPUJECT IVP PRN ×5 (03:59→17:47)
[2020-02-03] MEDS ORDERED: PANTOPRAZOLE 40 MG TABLET PO SCH ×2 (07:00→08:00)
--- NOTE | 2020-02-03 08:55 | PHARMACY PROGRESS NOTE ---
- Best Possible Medication History Admit Date and Time: 02/03/20 0149 Processed by: Nursing Medication History completed: Yes As the person ultimately responsible for medication therapy, providers are able to order a medication from an existing home medication list in [facility] via the "Reconcile Routine" prior to Confirmation of that medication by user support specialist. Such practice is discouraged except when the physician, in their clinical judgment, deems that a medical need exists for a medication without regard to previous use.
[2020-02-03] MEDS ORDERED: SODIUM CHLORIDE FLUSH 0.9% 10 ML SYRINGE IVP SCH (09:00)
[2020-02-03 09:12] LABS: BASOPHILS % (AUTO) 0.3 %; EOSINOPHILS % (AUTO) 0.6 %; HGB - HEMOGLOBIN 9.1 g/dL (14.0-18.0); LYMPHOCYTES # (AUTO) 0.3 10^3/uL (1.5-3.5); LYMPHOCYTES % (AUTO) 8.2 %; MEAN CORPUSCULAR HEMOGLOBIN 30.7 pg (27.0-31.0); MEAN CORPUSCULAR HGB CONC 31.7 g/dL (32.0-36.0); MEAN PLATELET VOLUME 9.2 fL (7.4-11.4); MONOCYTES # (AUTO) 0.2 10^3/uL (0.0-1.0); MONOCYTES % (AUTO) 5.4 %; NEUTROPHILS % (AUTO) 83.8 %; PLT - PLATELET COUNT 187 10^3/uL (130-450); RED BLOOD COUNT 2.96 10^6/uL (4.70-6.10); WHITE BLOOD COUNT 3.5 x10^3/uL (4.8-10.8)
[2020-02-03 09:16] LABS: CALCIUM 7.1 mg/dL (8.5-10.3); CREATININE 1.1 mg/dL (0.6-1.2)
[2020-02-03 09:33] LABS: RBC MORPHOLOGY (MULTIPLE) DIMORPHIC RBCS (NORMAL)
[2020-02-03 11:09] LABS: BASOPHILS % (AUTO) 0.3 %; EOSINOPHILS % (AUTO) 0.5 %; HGB - HEMOGLOBIN 8.8 g/dL (14.0-18.0); LYMPHOCYTES % (AUTO) 8.5 %; MEAN CORPUSCULAR HEMOGLOBIN 30.7 pg (27.0-31.0); MEAN CORPUSCULAR HGB CONC 31.4 g/dL (32.0-36.0); MEAN CORPUSCULAR VOLUME 97.6 fL (80.0-94.0); MEAN PLATELET VOLUME 8.7 fL (7.4-11.4); MONOCYTES % (AUTO) 5.2 %; NEUTROPHILS % (AUTO) 84.4 %; PLT - PLATELET COUNT 173 10^3/uL (130-450); RED BLOOD COUNT 2.87 10^6/uL (4.70-6.10); WHITE BLOOD COUNT 3.7 x10^3/uL (4.8-10.8)
[2020-02-03 11:16] LABS: ABNORMAL LYMPHS % (MANUAL) 0 %
[2020-02-03 11:34] LABS: BAND NEUTROPHILS % (MANUAL) 2 %; LYMPHOCYTES # (MANUAL) 0.4 10^3/uL (1.5-3.5); LYMPHOCYTES % (MANUAL) 8 %; MONOCYTES # (MANUAL) 0.1 10^3/uL (0.0-1.0); MYELOCYTES % (MANUAL) 1 %
[2020-02-03 11:35] LABS: DIFFERENTIAL COMMENT MANUAL DIFFERENTIAL; RBC MORPHOLOGY (MULTIPLE) 4+ ANISOCYTOSIS (NORMAL)
[2020-02-03] MEDS ORDERED: LOPERAMIDE 2 MG CAPSULE PO PRN ×2 (11:37→12:18)
[2020-02-03] MEDS ORDERED: oxyCODONE 30 MG TABLET PO PRN (11:37)
[2020-02-03] MEDS ORDERED: busPIRone 5 MG TABLET PO PRN (11:37)
[2020-02-03] MEDS ORDERED: DEXAMETHASONE PO SCH (11:45)
[2020-02-03] MEDS ORDERED: CITALOPRAM HYDROBROMIDE 20 MG TABLET PO SCH (11:45)
[2020-02-03] MEDS ORDERED: LIDOCAINE JELLY 2% 30 ML TUBE TOP SCH (12:00)
[2020-02-03] MEDS ORDERED: buPROPion SR 150 MG TABLET PO SCH (12:00)
[2020-02-03] MEDS ORDERED: LIDOCAINE JELLY 2% 6 ML JEL.PF.APP TOP SCH (13:00)
[2020-02-03] MEDS ORDERED: MORPHINE SULFATE ER 30 MG TABLET PO SCH ×2 (14:00→21:00)
[2020-02-03] MEDS ORDERED: SENNA 8.6 MG TABLET PO SCH (14:00)
--- NOTE | 2020-02-03 14:59 | CONSULTATION NOTE ---
Palliative Care Follow Up - Referral Referring Provider: Dr. Bisi Galvan Time of Visit: [id number] Referral setting: Hospitalized patient Referral Reason: Malignant pleural effusion/Anemia - Information Sources Records reviewed: Previous records reviewed History/Review of Systems obtained from: Patient, Family (, [place]), Nursing, Other (hospitalist, Dr. Galvan) Exam limitations: Clinical condition (initially pain not controlled impacting discussion and then subsided after pain controlled) - History of Present Illness Update Brief HPI Update: This is a 69-year-old gentleman who is seeing and follow-up while hospitalized at [facility] who is well-known to this palliative care servi ce due to his history of metastatic clear-cell renal carcinoma involving the lungs, lymph nodes, bones, right kidney and retroperitoneal lymph nodes with malignant and recurrent left pleural effusions and management of pain of neoplastic origin. He is seen in his hospital room with his , Sienna present at the bedside. The patient is oriented to the emergency department yesterday evening, 02/02/2020 after becoming increasingly short of breath at home. He had undergone a thoracentesis earlier in the afternoon due to his underlying left pleural effusion. He had 3L of yellow fluid removed prior to his presentation to the emergency department via EMS. The patient originally felt better after the thoracentesis but then became very short of breath at home. He was found to have his oxygen saturation in the upper 80s that responded to oxygen supplementation. He also was hypotensive that responded to IV fluids. His hemoglobin was repeated and found to be 7.5 when it was 10.2 the day prior. He received 2 units of packed RBCs. hemoccult was negative for stool. A CT scan of the chest that was preformed overnight demonstrated a large left pleural effusion despite the recent thoracentesis. The patient has had 3 thoracenteses since December 2019: 12/28/2019 with removal of 2L; 01/21/2020 1.9L removed; 02/02/2020 3L removed. Due to the recurrent of his left pleural effusion, this was evidence that this disease has been progressing and his oncology treatment was altered. He completed his first dose on pembrolizumab on 02/01/2020 which is every 3 weeks and is on axitinib 5mg BID. The patient has found it difficult the sleep while in the hospital due to his pain to his left buttock and generalized pain due to neoplastic origin. At home he is on a regimen of MS Contin 120mg in AM and 1400 and MS Contin 90mg at bedtime. The patient's MS Contin has now been verified by the pharmacy to begin administration. He has received IV morphine and oral oxycodone presently for pain management. The patient is seen in bed, uncomfortable initially due to pain, chronically ill appearing and frail. No evidence of increased work of breathing. Patient has a past medical history that includes severe pulmonary hypertension, sclerotic aortic valve, COPD, CKD, post polio syndrome involving the left leg, osteoarthritis, PTSD, general anxiety disorder, incidental findings of PE he is on Lovenox, hypertension, hyperlipidemia, history of nephrolithiasis, history of immune therapy induced colitis, immune therapy induced hypothyroidism and adrenal insufficiency. Social History - Living Situation Living arrangement: At home Living Situation: With spouse/s.o. Support System: Patient lives with his Sienna. They have been for over 13 years. 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 Medications/Allergies - Medications Active Medication List: Active Medications Acetaminophen (Tylenol) 650 mg PO Q4HR PRN PRN Reason: Pain or Fever > 38C (100.4F) Bupropion HCl (Wellbutrin Sr) 150 mg PO DAILY [facility] Last Admin: 02/03/20 14:24 Dose: 150 mg Documented by: Buspirone HCl (Buspar) 10 mg PO BID PRN PRN Reason: Anxiety Cholecalciferol (Vitamin D3) 5,000 unit PO Q48H [facility] Citalopram Hydrobromide (Celexa) 40 mg PO DAILY [facility] Last Admin: 02/03/20 14:23 Dose: 40 mg Documented by: Lactobacillus Rhamnosus (Culturelle) 1 cap PO DAILY [facility] Levothyroxine Sodium (Synthroid) 112 mcg PO DAILY [facility] Lidocaine HCl (Glydo) 6 ml TOP BID [facility]UD[facility] Loperamide HCl (Imodium) 2 mg PO QID PRN PRN Reason: DIARRHEA Magnesium Oxide (Mag Ox) 400 mg PO QDLUNCH [facility]UDY Morphine Sulfate (Morphine (Carpuject)) 2 mg IVP Q2HR PRN PRN Reason: PAIN Last Admin: 02/03/20 14:48 Dose: 2 mg Documented by: Morphine Sulfate (Ms Contin) 90 mg PO QPM [facility]UD[facility] Morphine Sulfate (Ms Contin) 120 mg PO 0900,1400 [facility] Last Admin: 02/03/20 13:23 Dose: 120 mg Documented by: Multivitamins (Theragran) 1 tab PO DAILY [facility] Ondansetron HCl (Zofran Inj) 4 mg IVP Q6HR PRN PRN Reason: Nausea / Vomiting Oxycodone HCl (Roxicodone) 30 mg PO Q3HR PRN PRN Reason: PAIN Last Admin: 02/03/20 13:25 Dose: 30 mg Documented by: Pantoprazole Sodium (Protonix) 40 mg PO QDAC [facility] Last Admin: 02/03/20 09:09 Dose: 40 mg Documented by: Patient Own Med (B12 /Levomefolate Calcium/B-6 [Foltx Tablet] 1,000 Mcg) 1 each PO DAILY [facility] Patient Own Med ( Cabozantinib S- Malate [Cabometyx] 60 Mg) 1 each PO DAILY [facility] Patient Own Med ( Dexamethasone [ Dexamethasone] 3 Mg) 1 each PO DAILY [facility] Last Admin: 02/03/20 14:26 Dose: Not Given Documented by: Patient Own Med ( Ubidecarenone [Co Q- 10] 200 Mg) 1 each PO DAILY [facility] Polyethylene Glycol (Miralax) 8.5 gm PO DAILY [facility] Senna (Senokot) 8.6 mg PO TID [facility] Last Admin: 02/03/20 14:24 Dose: 8.6 mg Documented by: Sodium Chloride (Normal Saline Flush 0.9%) 10 ml IVP PRN PRN PRN Reason: NEEDED PER PROVIDER ORDERS Last Admin: 02/03/20 14:48 Dose: 10 ml Documented by: Sodium Chloride (Normal Saline Flush 0.9%) 10 ml IVP 0100,0900,1700 [facility] Last Admin: 02/03/20 09:10 Dose: 10 ml Documented by: Torsemide (Torsemide) 20 mg PO DAILY [facility] Telmisartan [Micardis] 80 mg PO DAILY 12/21/14 Morphine Sulfate ER [Ms Contin] 120 mg PO .AM & 1400 01/27/19 Buspirone HCl 10 - 20 mg PO BID PRN 02/01/19 Cholecalciferol (Vitamin D3) [Vitamin D3] 2,000 unit PO DAILY 02/01/19 Citalopram Hydrobromide [Citalopram HBr] 40 mg PO DAILY 02/01/19 Multivit-Min/FA/Lycopen/Lutein [Centrum Silver Men Tablet] 1 tab PO DAILY 02/01/19 Rosuvastatin Calcium 10 mg PO DAILY 02/01/19 Ubidecarenone [Co Q-10] 200 mg PO DAILY 02/01/19 B12/Levomefolate Calcium/B-6 [Foltx Tablet] 1,000 mcg PO DAILY 02/04/19 Magnesium Oxide [Magnesium] 400 mg PO DAILY 02/04/19 buPROPion [Wellbutrin Sr] 150 mg PO DAILY 02/04/19 Denosumab [Xgeva] 120 mg IM .30 DAYS 02/07/19 Loperamide [Imodium] 2 mg PO PRN PRN MDD 16 mg 02/24/19 Senna [Senokot] 8.6 mg PO TID MDD titrates 02/24/19 polyethylene glycoL 3350 [Miralax] 8.5 - 17 gm PO DAILY 02/24/19 Cabozantinib S-Malate [Cabometyx] 60 mg ORAL DAILY 03/17/19 Levothyroxine Sodium [Synthroid] 112 mcg PO DAILY 04/17/19 Enoxaparin Sodium [Lovenox] 120 mg SQ DAILY 06/10/19 Dexamethasone 3 mg PO DAILY 07/23/19 Oxycodone HCl 30 mg PO Q3HR PRN 07/23/19 Lactobacillus Acidophilus [Probiotic Acidophilus] 1 tab PO DAILY 09/23/19 Morphine ER 90 mg PO QPM 11/30/19 Potassium Chloride 10 meq PO DAILY 11/30/19 Torsemide 20 mg PO DAILY 11/30/19 - Allergies Allergies/Adverse Reactions: Allergies Allergy/AdvReac Type Severity Reaction Status Date / Time No Known Drug Allergies Allergy Verified 02/02/20 21:36 Review of Systems - Constitutional Constitutional: reports: Fatigue, Weakness. denies: Fever, Chills - Eyes Eyes: reports: Corrective lenses - Ears, Nose & Throat Ears, Nose & Throat: reports: Hearing loss - Cardiovascular Cardiovascular: reports: Edema, Decr. exercise tolerance. denies: Chest pain - Respiratory Respiratory: reports: SOB with exertion. denies: SOB at rest - Gastrointestinal Gastrointestinal: reports: Diarrhea (episode of diarrhea last evening in the ED, resolved). denies: Constipation, Vomiting - Musculoskeletal Musculoskeletal: reports: Joint pain - Integumentary Integumentary: reports: Other (Pressure ulcers to left buttock and coccyx; scattered ulcers to LE; multipled UE skin tears) - Neurological Neurological: reports: General weakness, Memory problems (STM deficits) - Psychiatric Psychiatric: reports: Depression, Anxiety - Hematologic/Lymphatic Hematologic/Lymphatic: reports: Anemia, Bruising - All Other Systems All Other Systems: reports: Reviewed and negative Physical Exam - Vital Signs Vital Signs: Vital Signs x48h Temp Pulse Pulse Resp BP BP Pulse Ox 02/03/20 11:15 36.7 C 81 18 116/87 H 97 02/03/20 07:41 36.9 C 69 16 119/72 02/03/20 07:34 36.8 C 75 20 131/92 H 98 - Physical Exam General Appearance: positive: Alert, Mild distress (due to acute pain), Other (chronically ill appearing) Eyes Bilateral: positive: Other (+corrective lenses) ENT: positive: No signs of dehydration Neck: positive: Trachea midline Cardiovascular: positive: Regular rate & rhythm, No murmur Respiratory: positive: No respiratory distress, Other (decreased air movement LLL to mid-lobe; clear lung sounds throughout right lobe) Abdomen: positive: Non-tender, Soft, Nml bowel sounds, Other (+Round) Skin: positive: Pallor, Bruising (scattered to BUE), Wound (Left heel intact with nonblanchable erythema c/w deep tissue injury; Scattered ulcers to BLE with dressings intact; skin tears to BUE with dressings intact; Extensive petechiae over entire abdomen) Extremities: positive: Pedal edema Neurologic/Psychiatric: positive: Oriented x3, Weakness Palliative Care - POLST Patient has POLST: Yes POLST Status: DNR, Selective Treatment Pain: Pain worsening (due to lack of his MS Contin as scheduled; improved pain after initiation of PRN morphine, oxycodone and initiation of his schedueld MS Contin as he had missed two doses due to hospitalization) - Palliative Care Discussion: The patient and his , Sienna in the emergency department after speaking with the physicians last evening and extremely grim picture was painted for them and they were worried that this "might be it." At that time, they had declined transfer to a tertiary center that has a thoracic surgeon on staff and presented his CODE STATUS to be moving forward with resuscitation if he were to "have a m eaningful quality of life." Today, both the patient and his have had time to sort through their feelings given the present circumstances. In review of the POLST the patient is quite adamant that he does not want to be "a vegetable" and that if he needed resuscitation then to "call it quits." Therefore, both the patient and his wish to have the patient as a DN AR with selective treatment as previously implemented on 08/13/2019 on his POLST. The patient's wishes to ensure that he would not have a undesirable outcome that is not palatable to him such as being on mechanical life support. In regards to his over all outlook regards to his present circumstance. He and his wish to take things "day by day." The patient himself wishes to weigh the benefits versus burdens of each intervention before proceeding to determine if the risks of proceeding with an intervention would be acceptable for his quality of life. Right now, the patient and his are optimistic that the new medication regimen that has been implemented by his oncologist will be effective. The patient himself does not see him being done with his journey and he continues to have fight within him. Teased out with the patient that ultimately the journey that he is on his [facility] to determine what decisions are acceptable for him weighing benefits versus burdens and that his and other members of his althcare team are there to support the decisions that he wishes to make. The patient himself is a very pragmatic individual looking at things and black and white. He is also someone that likes to look at statistics and move forward with his decisions having all information. The patient's separately, commented that she has underlying concerns with the patient to return from the hospital given his increased caregiving needs. She wishes to provide optimal care and to "not do anything wrong." Provided reassurance to the patient's , Sienna that her having love and support would never be wrong. Discussed for the future potentially the need to have a caregiver within the home to provide relief for the patient's given underlying caregiver burden so she may preform tasks outside of the home. As well as with a caregiver, Sienna would be solely present as a , partner and spouse to have further delineation of her role. Results - Lab Results Lab results reviewed: Yes [place]: 02/03/20 11:04 02/03/20 09:00 Lab and Imaging Results: Lab Results x24hrs 02/03/20 02/03/20 02/03/20 Range/Units 11:04 09:00 09:00 WBC 3.7 L (4.8-10.8) x10^3/uL RBC 2.87 L (4.70-6.10) 10^6/uL Hgb 8.8 L (14.0-18.0) g/dL Hct 28.0 L (42.0-52.0) % MCV 97.6 H (80.0-94.0) fL MCH 30.7 (27.0-31.0) pg MCHC 31.4 L (32.0-36.0) g/dL RDW (12.0-15.0) % Plt Count 173 (130-450) 10^3/uL MPV 8.7 (7.4-11.4) fL Neut # (Auto) Not Reportable (1.5-6.6) 10^3/uL Lymph # (Auto) Not Reportable (1.5-3.5) 10^3/uL N[place] # (Auto) Not Reportable (0.0-1.0) 10^3/uL Eos # (Auto) Not Reportable (0.0-0.7) 10^3/uL Baso # (Auto) Not Reportable (0.0-0.1) 10^3/uL Absolute Nucleated RBC Not Reportable x10^3/uL Total Counted 100 Band Neuts % (Manual) 2 (0 - 10) % Reactive Lymphs % (Man) 3 % Abnorm Lymph % (Manual) 0 % Myelocytes % 1 H ( - 0) % Nucleated RBC % Not Reportable /100WBC Neutrophils # (Manual) 3.1 (1.5-6.6) 10^3/uL Lymphocytes # (Manual) 0.4 L (1.5-3.5) 10^3/uL Monocytes # (Manual) 0.1 (0.0-1.0) 10^3/uL Eosinophils # (Manual) 0.0 (0-0.7) 10^3/uL Basophils # (Manual) 0.0 (0-0.1) 10^3/uL Nucleated RBCs 7 % Differential Comment MANUAL DIFFERENTIAL Manual Slide Review Indicated Platelet Estimate (NORMAL) Platelet Morphology (NORMAL) RBC Morph Micro Appear 4+ ANISOCYTOSIS (NORMAL) PT (9.9-12.6) secs INR (0.8-1.2) Sodium 139 (135-145) mmol/L Potassium 4.1 (3.5-5.0) mmol/L Chloride 107 (101-111) mmol/L Carbon Dioxide 26 (21-32) mmol/L Anion Gap 6.0 (6-13) BUN 22 H (6-20) mg/dL Creatinine 1.1 (0.6-1.2) mg/dL Estimated GFR (MDRD) 66 L (>89) Glucose 108 H (70-100) mg/dL Lactic Acid 1.4 (0.5-2.2) mmol/L Calcium 7.1 L (8.5-10.3) mg/dL Total Bilirubin (0.2-1.0) mg/dL AST (10-42) IU/L ALT (10-60) IU/L Alkaline Phosphatase (42-121) IU/L Troponin I High Sens (2.3-19.7) ng/L B-Natriuretic Peptide (5-100) pg/mL Total Protein (6.7-8.2) g/dL Albumin (3.2-5.5) g/dL Globulin (2.1-4.2) g/dL Albumin/Globulin Ratio (1.0-2.2) Lipase (22-51) U/L Urine Color Urine Clarity (CLEAR) Urine pH (5.0-7.5) PH Ur Specific [place] (1.002-1.030) Urine Protein (NEGATIVE) mg/dL Urine Glucose (UA) (NEGATIVE) mg/dL Urine Ketones (NEGATIVE) mg/dL Urine Occult Blood (NEGATIVE) Urine Nitrite (NEGATIVE) Urine Bilirubin (NEGATIVE) Urine Urobilinogen (NORMAL) E.U./dL Ur Leukocyte Esterase (NEGATIVE) Ur Microscopic Review Urine Culture Comments Blood Type Blood Type Recheck Antibody Screen Crossmatch IS Only 02/03/20 02/03/20 02/02/20 Range/Units 09:00 00:05 22:20 WBC 3.5 L (4.8-10.8) x10^3/uL RBC 2.96 L (4.70-6.10) 10^6/uL Hgb 9.1 L (14.0-18.0) g/dL Hct 28.7 L (42.0-52.0) % MCV 97.0 H (80.0-94.0) fL MCH 30.7 (27.0-31.0) pg MCHC 31.7 L (32.0-36.0) g/dL RDW (12.0-15.0) % Plt Count 187 (130-450) 10^3/uL MPV 9.2 (7.4-11.4) fL Neut # (Auto) 3.0 (1.5-6.6) 10^3/uL Lymph # (Auto) 0.3 L (1.5-3.5) 10^3/uL N[place] # (Auto) 0.2 (0.0-1.0) 10^3/uL Eos # (Auto) 0.0 (0.0-0.7) 10^3/uL Baso # (Auto) 0.0 (0.0-0.1) 10^3/uL Absolute Nucleated RBC 0.29 x10^3/uL Total Counted Band Neuts % (Manual) (0 - 10) % Reactive Lymphs % (Man) % Abnorm Lymph % (Manual) % Myelocytes % ( - 0) % Nucleated RBC % 8.2 /100WBC Neutrophils # (Manual) (1.5-6.6) 10^3/uL Lymphocytes # (Manual) (1.5-3.5) 10^3/uL Monocytes # (Manual) (0.0-1.0) 10^3/uL Eosinophils # (Manual) (0-0.7) 10^3/uL Basophils # (Manual) (0-0.1) 10^3/uL Nucleated RBCs % Differential Comment Manual Slide Review Indicated Platelet Estimate (NORMAL) Platelet Morphology (NORMAL) RBC Morph Micro Appear DIMORPHIC RBCS (NORMAL) PT (9.9-12.6) secs INR (0.8-1.2) Sodium (135-145) mmol/L Potassium (3.5-5.0) mmol/L Chloride (101-111) mmol/L Carbon Dioxide (21-32) mmol/L Anion Gap (6-13) BUN (6-20) mg/dL Creatinine (0.6-1.2) mg/dL Estimated GFR (MDRD) (>89) Glucose (70-100) mg/dL Lactic Acid 3.1 H* (0.5-2.2) mmol/L Calcium (8.5-10.3) mg/dL Total Bilirubin (0.2-1.0) mg/dL AST (10-42) IU/L ALT (10-60) IU/L Alkaline Phosphatase (42-121) IU/L Troponin I High Sens (2.3-19.7) ng/L B-Natriuretic Peptide (5-100) pg/mL Total Protein (6.7-8.2) g/dL Albumin (3.2-5.5) g/dL Globulin (2.1-4.2) g/dL Albumin/Globulin Ratio (1.0-2.2) Lipase (22-51) U/L Urine Color YELLOW Urine Clarity CLEAR (CLEAR) Urine pH 6.0 (5.0-7.5) PH Ur Specific [place] 1.025 (1.002-1.030) Urine Protein TRACE (NEGATIVE) mg/dL Urine Glucose (UA) NEGATIVE (NEGATIVE) mg/dL Urine Ketones NEGATIVE (NEGATIVE) mg/dL Urine Occult Blood NEGATIVE (NEGATIVE) Urine Nitrite NEGATIVE (NEGATIVE) Urine Bilirubin NEGATIVE (NEGATIVE) Urine Urobilinogen 1 (NORMAL) (NORMAL) E.U./dL Ur Leukocyte Esterase NEGATIVE (NEGATIVE) Ur Microscopic Review NOT INDICATED Urine Culture Comments NOT INDICATED Blood Type Blood Type Recheck Antibody Screen Crossmatch IS Only 02/02/20 02/02/20 02/02/20 Range/Units 22:15 21:45 21:45 WBC (4.8-10.8) x10^3/uL RBC (4.70-6.10) 10^6/uL Hgb (14.0-18.0) g/dL Hct (42.0-52.0) % MCV (80.0-94.0) fL MCH (27.0-31.0) pg MCHC (32.0-36.0) g/dL RDW (12.0-15.0) % Plt Count (130-450) 10^3/uL MPV (7.4-11.4) fL Neut # (Auto) (1.5-6.6) 10^3/uL Lymph # (Auto) (1.5-3.5) 10^3/uL [place] # (Auto) (0.0-1.0) 10^3/uL Eos # (Auto) (0.0-0.7) 10^3/uL Baso # (Auto) (0.0-0.1) 10^3/uL Absolute Nucleated RBC x10^3/uL Total Counted Band Neuts % (Manual) (0 - 10) % Reactive Lymphs % (Man) % Abnorm Lymph % (Manual) % Myelocytes % ( - 0) % Nucleated RBC % /100WBC Neutrophils # (Manual) (1.5-6.6) 10^3/uL Lymphocytes # (Manual) (1.5-3.5) 10^3/uL Monocytes # (Manual) (0.0-1.0) 10^3/uL Eosinophils # (Manual) (0-0.7) 10^3/uL Basophils # (Manual) (0-0.1) 10^3/uL Nucleated RBCs % Differential Comment Manual Slide Review Platelet Estimate (NORMAL) Platelet Morphology (NORMAL) RBC Morph Micro Appear (NORMAL) PT (9.9-12.6) secs INR (0.8-1.2) Sodium (135-145) mmol/L Potassium (3.5-5.0) mmol/L Chloride (101-111) mmol/L Carbon Dioxide (21-32) mmol/L Anion Gap (6-13) BUN (6-20) mg/dL Creatinine (0.6-1.2) mg/dL Estimated GFR (MDRD) (>89) Glucose (70-100) mg/dL Lactic Acid 7.2 H* (0.5-2.2) mmol/L Calcium (8.5-10.3) mg/dL Total Bilirubin (0.2-1.0) mg/dL AST (10-42) IU/L ALT (10-60) IU/L Alkaline Phosphatase (42-121) IU/L Troponin I High Sens 16.0 (2.3-19.7) ng/L B-Natriuretic Peptide (5-100) pg/mL Total Protein (6.7-8.2) g/dL Albumin (3.2-5.5) g/dL Globulin (2.1-4.2) g/dL Albumin/Globulin Ratio (1.0-2.2) Lipase (22-51) U/L Urine Color Urine Clarity (CLEAR) Urine pH (5.0-7.5) PH Ur Specific [place] (1.002-1.030) Urine Protein (NEGATIVE) mg/dL Urine Glucose (UA) (NEGATIVE) mg/dL Urine Ketones (NEGATIVE) mg/dL Urine Occult Blood (NEGATIVE) Urine Nitrite (NEGATIVE) Urine Bilirubin (NEGATIVE) Urine Urobilinogen (NORMAL) E.U./dL Ur Leukocyte Esterase (NEGATIVE) Ur Microscopic Review Urine Culture Comments Blood Type Blood Type Recheck O POSITIVE Antibody Screen Crossmatch IS Only 02/02/20 02/02/20 02/02/20 Range/Units 21:45 21:45 21:45 WBC (4.8-10.8) x10^3/uL RBC (4.70-6.10) 10^6/uL Hgb (14.0-18.0) g/dL Hct (42.0-52.0) % MCV (80.0-94.0) fL MCH (27.0-31.0) pg MCHC (32.0-36.0) g/dL RDW (12.0-15.0) % Plt Count (130-450) 10^3/uL MPV (7.4-11.4) fL Neut # (Auto) (1.5-6.6) 10^3/uL Lymph # (Auto) (1.5-3.5) 10^3/uL [place] # (Auto) (0.0-1.0) 10^3/uL Eos # (Auto) (0.0-0.7) 10^3/uL Baso # (Auto) (0.0-0.1) 10^3/uL Absolute Nucleated RBC x10^3/uL Total Counted Band Neuts % (Manual) (0 - 10) % Reactive Lymphs % (Man) % Abnorm Lymph % (Manual) % Myelocytes % ( - 0) % Nucleated RBC % /100WBC Neutrophils # (Manual) (1.5-6.6) 10^3/uL Lymphocytes # (Manual) (1.5-3.5) 10^3/uL Monocytes # (Manual) (0.0-1.0) 10^3/uL Eosinophils # (Manual) (0-0.7) 10^3/uL Basophils # (Manual) (0-0.1) 10^3/uL Nucleated RBCs % Differential Comment Manual Slide Review Platelet Estimate (NORMAL) Platelet Morphology (NORMAL) RBC Morph Micro Appear (NORMAL) PT 17.5 H (9.9-12.6) secs INR 1.6 H (0.8-1.2) Sodium 138 (135-145) mmol/L Potassium 3.8 (3.5-5.0) mmol/L Chloride 105 (101-111) mmol/L Carbon Dioxide 11 L* (21-32) mmol/L Anion Gap 22.0 H (6-13) BUN 21 H (6-20) mg/dL Creatinine 1.1 (0.6-1.2) mg/dL Estimated GFR (MDRD) 66 L (>89) Glucose 199 H (70-100) mg/dL Lactic Acid (0.5-2.2) mmol/L Calcium 7.5 L (8.5-10.3) mg/dL Total Bilirubin 0.7 (0.2-1.0) mg/dL AST 25 (10-42) IU/L ALT 24 (10-60) IU/L Alkaline Phosphatase 74 (42-121) IU/L Troponin I High Sens (2.3-19.7) ng/L B-Natriuretic Peptide 42 (5-100) pg/mL Total Protein 4.3 L (6.7-8.2) g/dL Albumin 1.9 L (3.2-5.5) g/dL Globulin 2.4 (2.1-4.2) g/dL Albumin/Globulin Ratio 0.8 L (1.0-2.2) Lipase 14 L (22-51) U/L Urine Color Urine Clarity (CLEAR) Urine pH (5.0-7.5) PH Ur Specific [place] (1.002-1.030) Urine Protein (NEGATIVE) mg/dL Urine Glucose (UA) (NEGATIVE) mg/dL Urine Ketones (NEGATIVE) mg/dL Urine Occult Blood (NEGATIVE) Urine Nitrite (NEGATIVE) Urine Bilirubin (NEGATIVE) Urine Urobilinogen (NORMAL) E.U./dL Ur Leukocyte Esterase (NEGATIVE) Ur Microscopic Review Urine Culture Comments Blood Type Blood Type Recheck Antibody Screen Crossmatch IS Only 02/02/20 02/02/20 Range/Units 21:45 21:39 WBC 5.3 (4.8-10.8) x10^3/uL RBC 2.26 L (4.70-6.10) 10^6/uL Hgb 7.5 L (14.0-18.0) g/dL Hct 25.7 L (42.0-52.0) % MCV 113.7 H (80.0-94.0) fL MCH 33.2 H (27.0-31.0) pg MCHC 29.2 L (32.0-36.0) g/dL RDW 17.3 H (12.0-15.0) % Plt Count 278 (130-450) 10^3/uL MPV 9.3 (7.4-11.4) fL Neut # (Auto) 4.3 (1.5-6.6) 10^3/uL Lymph # (Auto) 0.6 L (1.5-3.5) 10^3/uL [place] # (Auto) 0.3 (0.0-1.0) 10^3/uL Eos # (Auto) 0.0 (0.0-0.7) 10^3/uL Baso # (Auto) 0.0 (0.0-0.1) 10^3/uL Absolute Nucleated RBC 0.29 x10^3/uL Total Counted Band Neuts % (Manual) (0 - 10) % Reactive Lymphs % (Man) % Abnorm Lymph % (Manual) % Myelocytes % ( - 0) % Nucleated RBC % 5.5 /100WBC Neutrophils # (Manual) (1.5-6.6) 10^3/uL Lymphocytes # (Manual) (1.5-3.5) 10^3/uL Monocytes # (Manual) (0.0-1.0) 10^3/uL Eosinophils # (Manual) (0-0.7) 10^3/uL Basophils # (Manual) (0-0.1) 10^3/uL Nucleated RBCs % Differential Comment Manual Slide Review Indicated Platelet Estimate NORMAL (130-450,000) (NORMAL) Platelet Morphology NORMAL APPEARANCE (NORMAL) RBC Morph Micro Appear 1+ ACANTHOCYTES (NORMAL) PT (9.9-12.6) secs INR (0.8-1.2) Sodium (135-145) mmol/L Potassium (3.5-5.0) mmol/L Chloride (101-111) mmol/L Carbon Dioxide (21-32) mmol/L Anion Gap (6-13) BUN (6-20) mg/dL Creatinine (0.6-1.2) mg/dL Estimated GFR (MDRD) (>89) Glucose (70-100) mg/dL Lactic Acid (0.5-2.2) mmol/L Calcium (8.5-10.3) mg/dL Total Bilirubin (0.2-1.0) mg/dL AST (10-42) IU/L ALT (10-60) IU/L Alkaline Phosphatase (42-121) IU/L Troponin I High Sens (2.3-19.7) ng/L B-Natriuretic Peptide (5-100) pg/mL Total Protein (6.7-8.2) g/dL Albumin (3.2-5.5) g/dL Globulin (2.1-4.2) g/dL Albumin/Globulin Ratio (1.0-2.2) Lipase (22-51) U/L Urine Color Urine Clarity (CLEAR) Urine pH (5.0-7.5) PH Ur Specific [place] (1.002-1.030) Urine Protein (NEGATIVE) mg/dL Urine Glucose (UA) (NEGATIVE) mg/dL Urine Ketones (NEGATIVE) mg/dL Urine Occult Blood (NEGATIVE) Urine Nitrite (NEGATIVE) Urine Bilirubin (NEGATIVE) Urine Urobilinogen (NORMAL) E.U./dL Ur Leukocyte Esterase (NEGATIVE) Ur Microscopic Review Urine Culture Comments Blood Type O POSITIVE Blood Type Recheck Antibody Screen NEGATIVE Crossmatch IS Only See Detail Impression and Recommendations - Palliative Care Impression: This is a [place]en[place] 69-year-old gentleman with metastatic clear-cell renal ca rcinoma with significant bony mets, as well as other metastatic disease. He has developed recurrent malignant pleural effusions and is status post 3 thoracenteses. He has developed pressure ulcers as well as symptomatic anemia s/p PRBC. He is to transfer to [facility] after thoracentesis today under care of thoracic surgery for a drain to be placed. Palliative care to continue provide support for pain and symptom management, supportive listening and anticipatory guidance. Recommendations/Counseling Done: 1. Recurrent malignant pleural effusions. Has had three thoracenteses and is scheduled to have another this afternoon per thoracic surgery request at [facility]. The patient will then transfer to [place] for a catheter placement to drain the left pleural effusion at home. The patient and his will need continued support and education regarding this and home health nursing has been requested to be ordered by the hospitalist. 2. Pressure ulcer to left buttock and coccyx. Continue to turn and reposition every 2 hours. Recommended to to obtain Roho cushion for pressure relief. Request home health nursing for further management and assistance with wound healing. 3. Right lower leg ulcers. Would benefit from santyl at sites with evidence of cobblestoning pattern. Request that home health nursing follow. 4. Anemia. Drop in Hemoglobin fro 10.3 to 7.5. No evidence of active bleeding. Hemoccult negative. He is on Lovenox at home due to PEs secondary to his metastatic cancer. S/p 2 units PRBC. Hospitalist following CBC trend. 5. Metastatic renal cell carcinoma. Followed by Dr. Seven Anguiano at [facility]. Presently on pembrolizumab and axitinib. Advised that patient's may bring in axitinib for hospital pharmacy to verify so that patient may receive his medication and be transferred with him to [facility]. 6. Caregiver fatigue. Patient's is demonstrating evidence of caregiver fatigue. Reports that the patient has not been able to have a shower in the last 4 days due to fear of falling. The patient's has been providing assistance but this is difficult at times for the patient to accept help. The patient and his would benefit from home health social work for guidance r egarding caregiving support within the home and to presented to the patient that this is something that would enable the patient's to have additional support to limit his unwanted desired to have a stranger within the home. Advised the to contact [employer] for a list of private caregivers. Also provided a list of in-home caregiver agencies that service would be island for contact. 7. Advanced care planning. Change code status to DNAR and advised hospitalist to use POLST from 08/2019. Patient continues to wish to fight. He wishes to weigh each interventions benefits vs burdens before making a decision regarding moving forward with any intervention. He is hopeful that the new chemotherapy and immunotherapy regimen will be effective but is aware that it may take 3-4 weeks to know if there is a positive effect. Time Spent: Total time spent 105 minutes with greater than 50% of this spent in counseling and coordination of care with patient and , nursing staff, and hospitalist; review of catether purpose and usage and pathophysiology of pleural effusion; supportive listening; planning for home health support; and anticipatory guidance. Disclaimer: The chart note was formulated using voice recognition technology and unfortunately sound alike errors may occur.
--- NOTE | 2020-02-03 16:26 | Ultrasound Report ---
PROCEDURE: Thoracentesis Puncture INDICATIONS: Recurrent left pleural effusion TECHNIQUE: The indications, alternatives, benefits, risks, and complications of the procedure were explained to the patient. Written informed consent was obtained and placed in the chart. The chest was examined sonographically, and an appropriate site was chosen for thoracentesis. The skin was prepared and rogelio ped in the usual sterile fashion, and 1% lidocaine was infiltrated from the skin down through the ple ural surface. A 19-gauge catheter-covered needle was then introduced into the pleural space, the cat heter was advanced and the needle was withdrawn, and thereafter pleural fluid was aspirated. The cat heter was then removed and a dressing was applied. COMPARISON: 02/02/2020. FINDINGS: Access site: Left inferior posterior hemithorax. Needle: One-Step centesis catheter with introducer needle. Fluid volume and description: Bloody Fluid sent for diagnostic testing: Not requested Medications: 1% lidocaine for local anaesthesia. Complications: None; post-procedural chest radiograph is pending to assess for pneumothorax. IMPRESSION: Unsuccessful ultrasound-guided thoracentesis. Only scant bloody fluid was obtained. This represents a significant change from the fluid volume and character when compared with the prior tho racentesis performed yesterday. The loculated character of the pleural effusion currently would likel y preclude successful percutaneous drainage. Reviewed by: Óscar Calle MD on 02/03/2020 4:25 PM PDT Approved by: Óscar Calle MD on 02/03/2020 4:25 PM PDT Station ID: [id number]
[2020-02-03 17:06] LABS: BASOPHILS % (AUTO) 0.2 %; EOSINOPHILS % (AUTO) 0.6 %; HGB - HEMOGLOBIN 9.4 g/dL (14.0-18.0); LYMPHOCYTES # (AUTO) 0.3 10^3/uL (1.5-3.5); LYMPHOCYTES % (AUTO) 5.5 %; MEAN CORPUSCULAR HEMOGLOBIN 30.6 pg (27.0-31.0); MEAN CORPUSCULAR HGB CONC 31.5 g/dL (32.0-36.0); MEAN CORPUSCULAR VOLUME 97.1 fL (80.0-94.0); MEAN PLATELET VOLUME 9.5 fL (7.4-11.4); MONOCYTES # (AUTO) 0.2 10^3/uL (0.0-1.0); MONOCYTES % (AUTO) 4.5 %; NEUTROPHILS # (AUTO) 4.3 10^3/uL (1.5-6.6); NEUTROPHILS % (AUTO) 87.6 %; PLT - PLATELET COUNT 217 10^3/uL (130-450); RED BLOOD COUNT 3.07 10^6/uL (4.70-6.10); WHITE BLOOD COUNT 4.9 x10^3/uL (4.8-10.8)
--- NOTE | 2020-02-03 17:26 | DISCHARGE SUMMARY ---
Discharge Summary Admit Date: 02/02/20 Discharge Date: 02/03/20 Discharging Provider: Dr Bisi Galvan Primary Care Provider: AMAURI Lynn Code Status: Do Not Attempt Resuscitation Condition at Discharge: Serious Discharge Disposition: 02 Transfer Acute Care Hosp Discharge Facility Name: [facility] History of Present Illness: From the admission H&P of Dr. 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 He presented to the ED on the evening of February 02, 2020 with complaint of an acute episode of dyspnea, hypoxia and dizziness. He was seen at the [facility] clinic on February 01, 2020 and underwent a thoracentesis. Prior to the procedure his hemoglobin on a CBC was 10.3. This evening he was in a recliner and when he attempted to stand he suddenly got dizzy and dyspneic which led to his presentation to the emergency room. Hemoglobin on a CBC done around 9 PM on February 02, [address] of the chest showed a large left pleural effusion which seems to indicate recurrence of the effusion since the thoracentesis 36 hours before. It also raised the possibility of some blood but there was no active bleed. When the patient presented he was hypoxic with an oxygen saturation of 84%. He also had initial systolic blood pressure of 90. He has extensive bruising all over his body especially his upper extremities and significant petechial-like rash on his torso. His explains that it has been going on since he started Keytruda about 3 to 4 weeks ago[address] He sees Dr. Seven Anguiano Oncologist at the [facility]. He has also been on Lovenox twice daily for Hx of PEs due to metastatic cancer. As a result of his clinical presentation and lab findings he was presented for admission. At bedside he denies chest pain, dyspnea, abdominal pain, nausea, vomiting, fever or chills. - HOSPITAL COURSE Hospital Course: (1) Dyspnea This was likely related to the large recurrent left pleural effusion, compounded by his acute anemia. He received transfusion (see below), and thoracentesis was attempted but was unsuccessful (see below). He was put on supplemental oxygen which improved his air hunger. (2) Recurrent malignant left pleural effusion The following morning this Hospitalist reached out to his Oncologist, Dr. Ana Anguiano, and discussed this presentation. Dr Anguiano said he needs to be transferred to [facility] to have thoracic surgery place a chest catheter and a Pleur-evac for next steps in management. The thoracic surgeon, at [facility], Dr. Arita was aviation medicine specialist and he requested that some fluid be taken off while here before transfer. Interventional Radiology here was contacted for an urgent thoracentesis. It was unsuccessful; the IR felt that a loculated part of the effusion was tapped and therefore only several cc was removed. [facility] thoracic surgeon then accepted the patient to be transferred for surg ical management, he was then accepted on the Hospitalist service there, and was transferred by ambulance. (3) Symptomatic anemia Patient's hemoglobin dropped from 10.3 to 7.5 in 36 hours. Etiology was unclear, however CT Angio of the chest showed blood (hemothorax) in addition to extensive/large pleural effusion. There was no sign of active bleeding otherwise. Patient stool Hemoccult was negative. His condition is further complicated by the fact that he was on Lovenox twice daily for history of PEs related to his metastatic cancer. He was transfused 2 units of packed red blood cells and Lovenox was put on hold. The Hgb improved from 7.5 to 9.4. (4) Lactic acidosis Initial lactic acid was 7.2 with a repeat of 3.1. Etiology possibly due to poor perfusion when the patient's systolic blood pressure was in the 90s and from hypoxia when his oxygen saturation was 84%. Since the patient met SIRS criteria, blood cultures were drawn, however there was no definite source of infection noted at the moment. (5) Metastatic renal cell carcinoma Patient sees Dr. Seven Anguiano ([place]) at the [facility], he is on Keytruda currently. He has recurrent malignant left pleural effusion and last thoracentesis was done February 02, 2020 with 2.5 L of fluid was extracted. Also, he has extensive petechial rash on his abdomen since starting Keytruda. (6) Petechial rash As above (7) Multiple wounds and skin tears These were mostly of his lower extremities. A wound consult was ordered but was not done before he was transferred to [facility]. (8) Hx pulmonary embolism Likely related to metastatic disease. He was on Lovenox twice daily, which was stopped. (9) Bilateral lower extremity edema Likely related to patient's metastatic disease and low albumen. He received albumin and Lasix x1. SCDs applied. - ALLERGIES Allergies/Adverse Reactions: Allergies Allergy/AdvReac Type Severity Reaction Status Date / Time No Known Drug Allergies Allergy Verified 02/02/20 21:36 - MEDICATIONS Home Medications: Ambulatory Orders Medication Instructions Recorded Confirmed Telmisartan [Micardis] 80 mg PO DAILY 12/21/14 02/02/20 Morphine Sulfate ER [Ms Contin] 120 mg PO .AM & 1400 01/27/19 02/02/20 Buspirone HCl 10 - 20 mg PO BID PRN 02/01/19 02/02/20 Cholecalciferol (Vitamin D3) 2,000 unit PO DAILY 02/01/19 02/02/20 [Vitamin D3] Citalopram Hydrobromide 40 mg PO DAILY 02/01/19 02/02/20 [Citalopram HBr] Multivit-Min/FA/Lycopen/Lutein 1 tab PO DAILY 02/01/19 02/02/20 [Centrum Silver Men Tablet] Rosuvastatin Calcium 10 mg PO DAILY 02/01/19 02/02/20 Ubidecarenone [Co Q-10] 200 mg PO DAILY 02/01/19 02/02/20 B12/Levomefolate Calcium/B-6 1,000 mcg PO DAILY 02/04/19 02/02/20 [Foltx Tablet] Magnesium Oxide [Magnesium] 400 mg PO DAILY 02/04/19 02/02/20 buPROPion [Wellbutrin Sr] 150 mg PO DAILY 02/04/19 02/02/20 Denosumab [Xgeva] 120 mg IM .30 DAYS 02/07/19 02/02/20 Loperamide [Imodium] 2 mg PO PRN PRN MDD 16 mg 02/24/19 02/02/20 Senna [Senokot] 8.6 mg PO TID MDD titrates 02/24/19 02/02/20 polyethylene glycoL 3350 [Miralax] 8.5 - 17 gm PO DAILY 02/24/19 02/02/20 Levothyroxine Sodium [Synthroid] 112 mcg PO DAILY 04/17/19 02/02/20 Enoxaparin Sodium [Lovenox] 120 mg SQ DAILY 06/10/19 02/02/20 Dexamethasone 3 mg PO DAILY 07/23/19 02/02/20 Oxycodone HCl 30 mg PO Q3HR PRN 07/23/19 02/02/20 Lactobacillus Acidophilus 1 tab PO DAILY 09/23/19 02/02/20 [Probiotic Acidophilus] Morphine ER 90 mg PO QPM 11/30/19 02/02/20 Potassium Chloride 10 meq PO DAILY 11/30/19 02/02/20 Torsemide 20 mg PO DAILY 11/30/19 02/02/20 Axitinib [Inlyta] 5 mg PO BID 02/03/20 02/03/20 - PHYSICAL EXAM AT DISCHARGE General Appearance: positive: Mild distress, Lethargic (He is semi-supine, wearing a Ventimask for supplemental oxygen), Other Eyes Bilateral: positive: Normal inspection, EOMI ENT: positive: ENT inspection nml Neck: positive: Nml inspection Respiratory: positive: Breath sounds nml Cardiovascular: positive: Regular rate & rhythm, No murmur Abdomen: positive: Other (Obese with a pannus, extensive petechial rash of the skin on the abdomen.) Skin: positive: Warm Extremities: positive: Other (2+ leg edema, multiple open wounds.) - LABS Result Diagrams: 02/03/20 16:55 02/03/20 09:00 - DIAGNOSTIC IMAGING Diagnostic Imaging Results: Final report reviewed - SEPSIS Sepsis Criteria: Metabolic: lactate > 2 mmol/L - FOLLOW UP Follow Up: This will be determined after his stay at [facility]. - TIME SPENT Time Spent in Discharge (Minutes): 60
--- NOTE | 2020-02-03 17:30 | Discharge Plan ---
Discharge Plan Problem Reviewed?: Yes Disposition: 02 Transfer Acute Care Hosp Condition: Serious No Smoking: If you smoke, Please STOP! Call for help.
[2020-02-03 17:47] LABS: PLATELET ESTIMATE, MANUAL NORMAL (130-450,000) (NORMAL); PLATELET MORPHOLOGY NORMAL APPEARANCE (NORMAL)
[2020-02-03] MEDS ORDERED: dexAMETHasone 4 MG TABLET PO ONE (18:17)
[2020-02-03] MEDS ORDERED: dexAMETHasone 4 MG TABLET PO SCH (18:17)
[2020-02-03 19:52] VITALS: BP 94/76
[2020-02-03] MEDS ORDERED: AXITINIB 5 MG PO SCH ×2 (21:00)
[2020-02-04] MEDS ORDERED: LEVOMEFOLATE CALCIUM PO SCH (09:00)
[2020-02-04] MEDS ORDERED: LACTOBACILLUS RHAMNOSUS GG CAPSULE PO SCH (09:00)
[2020-02-04] MEDS ORDERED: TORSEMIDE 20 MG TABLET PO SCH (09:00)
[2020-02-04] MEDS ORDERED: B12 PO SCH (09:00)
[2020-02-04] MEDS ORDERED: polyethylene glycoL 3350 17 GM PACKET PO SCH (09:00)
[2020-02-04] MEDS ORDERED: CHOLECALCIFEROL 5,000 UNIT CAPSULE PO SCH (09:00)
[2020-02-04] MEDS ORDERED: CABOZANTINIB S MALATE 60 MG PO SCH (09:00)
[2020-02-04] MEDS ORDERED: LEVOTHYROXINE 112 MCG TABLET PO SCH (09:00)
[2020-02-04] MEDS ORDERED: B6 PO SCH (09:00)
[2020-02-04] MEDS ORDERED: MULTIVITAMIN TABLET PO SCH (09:00)
[2020-02-04] MEDS ORDERED: UBIDECARENONE 200 MG PO SCH (09:00)
[2020-02-04] MEDS ORDERED: MAGNESIUM OXIDE 400 MG TABLET PO SCH (12:00)
== END 2020-02-03 19:00 | disposition short-term general hospital (02) | DRG 180 ==
LOC: EDUNIT# → ED 21:14 → MS2 02-03 01:49 → OBSVTOIN 02-03 10:55
PROVIDERS: ADMIT Internal Medicine; ATTEND Internal Medicine
PROC: 0W9B3ZZ Drainage of Left Pleural Cavity, Percutaneous Approach (ICD-10-PCS; principal; 2020-02-03)
DX: R06.03 Acute respiratory distress (principal); C78.02 Secondary malignant neoplasm of left lung; I26.99 Other pulmonary embolism without acute cor pulmonale; I95.9 Hypotension, unspecified; C78.2 Secondary malignant neoplasm of pleura; E87.2 Acidosis; C79.51 Secondary malignant neoplasm of bone; C77.8 Secondary and unspecified malignant neoplasm of lymph nodes of multiple regions; C79.01 Secondary malignant neoplasm of right kidney and renal pelvis; J94.2 Hemothorax; R65.10 Systemic inflammatory response syndrome (SIRS) of non-infectious origin without acute organ dysfunction; C64.1 Malignant neoplasm of right kidney, except renal pelvis; C78.01 Secondary malignant neoplasm of right lung; D64.9 Anemia, unspecified; F41.9 Anxiety disorder, unspecified; G47.30 Sleep apnea, unspecified; G89.3 Neoplasm related pain (acute) (chronic); F32.9 Major depressive disorder, single episode, unspecified; N28.9 Disorder of kidney and ureter, unspecified; I10 Essential (primary) hypertension; N40.0 Benign prostatic hyperplasia without lower urinary tract symptoms; R23.3 Spontaneous ecchymoses; R60.0 Localized edema; S81.812A Laceration without foreign body, left lower leg, initial encounter; S81.811A Laceration without foreign body, right lower leg, initial encounter; X58.XXXA Exposure to other specified factors, initial encounter; H54.7 Unspecified visual loss; H91.90 Unspecified hearing loss, unspecified ear; Z66 Do not resuscitate; Z51.5 Encounter for palliative care; Z79.02 Long term (current) use of antithrombotics/antiplatelets; Z79.891 Long term (current) use of opiate analgesic; Z79.899 Other long term (current) drug therapy; Z87.442 Personal history of urinary calculi; E78.00 Pure hypercholesterolemia, unspecified; J45.909 Unspecified asthma, uncomplicated
CPT/HCPCS: 32555; 36415; 36430; 71045; 71275; 80048; 80053; 81003; 82270; 83605; 83690; 83880; 84484; 85025; 85610; 85730; 86850; 86900; 86901; 86920; 87040; 93005; 96361; 96365; 96375; 96376; 99233; 99291; A9270; G0378; J8499; J8540; P9016; P9047; Q9967; 81001; 87086

== ENCOUNTER 2020-02-03 18:53 | Outpatient (CLI) | payer MEDICARE, OTHER | END 2020-02-03 18:54 | disposition short-term general hospital (02) | LOC: EMS 18:53 | PROVIDERS: ATTEND Surgery | DX: J91.0 Malignant pleural effusion (principal) | CPT/HCPCS: A0425; A0426 ==